=== PATIENT | female | born 1950 | race Caucasian/White ===

== ENCOUNTER 2022-06-21 07:02 | Inpatient (IN) | payer MEDICARE, OTHER, SELFPAY ==
[2022-06-21] VITALS (17 sets, daily range): BP systolic 98–142; BP diastolic 61–84; PULSE 97–126; RESP 16–30; TEMP 36–38.6; O2SAT 90–97; BMI 26.6
--- NOTE | ~2022-06-21 | XR_ITS ---
EXAMINATION: XR CHEST CLINICAL INFORMATION: Question aspiration COMPARISON: Previous chest x-ray 06/21/2022 TECHNIQUE: Frontal view of the chest was obtained. FINDINGS: The cardiac and mediastinal contours are stable. There are coarse lung markings at the lung bases and question bronchial wall thickening. Appearance is similar to recent exam. No definite pneumonia. No pleural effusion or pneumothorax. Old left rib fractures degenerative changes of the spine. XR/XR chest 1V IMPRESSION: Coarse lung markings at the lung bases and bronchial wall thickening. No definite pneumonia.
--- NOTE | ~2022-06-21 | XR_ITS ---
EXAMINATION: XR CHEST CLINICAL INFORMATION: Shortness of breath COMPARISON: None TECHNIQUE: Frontal view of the chest was obtained. FINDINGS: Normal symmetric lung volumes. No parenchymal consolidation. Diffuse bronchial thickening, more pronounced in the lower lungs. No pleural effusion. No pneumothorax. Cardiomediastinal silhouette and pulmonary vascularity are within normal limits. Aorta is atherosclerotic. No acute osseous abnormalities. XR/XR chest 1V IMPRESSION: Diffuse bronchial thickening as can be seen with bronchitis. No discrete consolidation.
--- NOTE | ~2022-06-21 | XR_ITS ---
EXAMINATION: XR CHEST CLINICAL INFORMATION: Shortness of breath COMPARISON: Portable chest 06/21/2022 TECHNIQUE: Portable upright AP view of the chest was obtained. FINDINGS: No pneumothorax, pleural reaction, airspace consolidation, groundglass opacity. Mild coarsening bronchiolar markings lower zones are stable. The costophrenic sulci are grossly clear. The heart is normal in size. The vascularity is normal. Hilar and mediastinal contours and bony structures are similar to prior exam. XR/XR chest 1V IMPRESSION: No acute intrathoracic disease.
--- NOTE | 2022-06-21 07:16 | ECG_ITS ---
Test Reason : DYSPNEA Blood Pressure : / mmHG Vent. Rate : 123 BPM Atrial Rate : 123 BPM P-R Int : 130 ms QRS Dur : 072 ms QT Int : 308 ms P-R-T Axes : 073 063 073 degrees QTc Int : 440 ms Sinus tachycardia Right atrial enlargement Nonspecific ST abnormality Abnormal ECG No previous ECGs available Referred By: Generic ED Physician Electronically Signed By:ISAURO MARSHALL
--- NOTE | 2022-06-21 07:26 | ED.SOB ---
HPI - SOB/Dyspnea General Chief Complaint: Dyspnea Stated Complaint: Fever/Earache/Vomiting/Sore throat Time Seen by Provider: 06/21/22 07:25 Source: patient Mode of arrival: ambulatory Limitations: no limitations History of Present Illness HPI Narrative: shortness of breath for 1 day. Patient feels like she has the flu. Headache, sore throat and ear ache. MD elicited complaint: shortness of breath and cough Pertinent past history: COPD Onset (ago): day(s) Timing: constant Severity: severe Known history of: COPD Related Data Home oxygen amount: 2 liters Home Medications Medication Instructions Recorded Confirmed albuterol sulfate 90 mcg/actuation 2 puff inhalation Q6H PRN wheezing 06/21/22 06/21/22 aerosol inhaler (Ventolin HFA) alendronate 70 mg tablet 70 mg PO NAYLOR@0600 06/21/22 06/21/22 fluoxetine 40 mg capsule 1 cap PO DAILY 06/21/22 06/21/22 fluticasone fur. 100 mcg-umeclid 1 puff inhalation DAILY 06/21/22 06/21/22 62.5 mcg-vilant 25 mcg inhalat.powder (Trelegy Ellipta) omeprazole 20 mg capsule,delayed 1 cap PO DAILY 06/21/22 06/21/22 release Previous Rx's Medication Instructions Recorded doxycycline hyclate 100 mg tablet 100 mg PO BID 10 days #20 tabs 06/24/22 prednisone 10 mg tablet See Rx Instructions .Route 06/24/22 .COMPLEX #45 tabs Allergies Allergy/AdvReac Type Severity Reaction Status Date / Time codeine [CODEINE] AdvReac Unknown NAUSEA & Verified 06/21/22 10:14 VOMITING Codeine Allergy Unknown nasuea Uncoded 06/21/22 10:14 Review of Systems Review of Systems: Yes all other systems are reviewed and are negative Constitutional: Constitutional: Reports body ache(s) and Reports chills ENT: Reports other (sore throat, ear ache) Cardiovascular: Cardiovascular: Reports dyspnea Respiratory: Respiratory: Reports dyspnea Neurologic: Denies Sensory deficit (Neuro) [facility] Past Medical History Medical History COPD (chronic obstructive pulmonary disease) Cyst of left breast Depression FH: cholecystectomy GERD (gastroesophageal reflux disease) Surgical History H/O inguinal hernia repair Family History Family History (Updated 06/21/22 @ 15:13 by Kmi Lowery NP) Mother Renal disease Social History Social History Household Members: Friend(s) Housing: House Do you presently have visiting nurse or other home services: Yes Alcohol intake: unknown Patient Tobacco Use Status: Current everyday Tobacco user Tobacco use type: Cigarette Cigarettes Per Day: 6 Smoked in Last 30 Days: Yes Patient Interested in Nicotine Replacement: Yes Use of substances other than those prescribed or required for medical reasons: No Currently Displaying Signs/Symptoms of Drug Intoxication Withdrawal: No Have you been hit, kicked, punched, or otherwise hurt by someone within the past year? If so, by whom?: No Do you feel safe in your current relationship?: No Current Relationship Is there a partner from a previous relationship who is making you feel unsafe now?: No Are you made to feel afraid or neglected: No Advance Directives: No Advance Directives Information Provided: Yes Do you have thoughts of harming others: None Do you have a plan to hurt others: No Plan Recently lost weight without trying: No How much weight loss: Not applicable Eating poorly because of decreased appetite: No Nutrition screen score: 0 Nutrition Risks: No Nutritional Risk Patient : No : No Poor oral hygiene: No service: No Current occupational status: unemployed Physical Exam Vital Signs: Vital Signs: Last Vital Signs Temp 96.9 F 06/24/22 07:31 Pulse 95 06/24/22 12:05 Resp 18 06/24/22 12:05 BP 147/87 H 06/24/22 07:31 Pulse Ox 96 06/24/22 11:54 O2 Del Method 06/24/22 07:31 O2 Flow Rate 2 06/24/22 07:31 FiO2 31 06/23/22 15:03 BMI result Body Mass Index 26.6 Const: Other: female looking older than stated age, ill appearing, shortness of breath Orientation/consciousness: oriented to person and patient oriented x3 Limitations: no limitations HEENT: Head: Yes normal to inspection Ears: external ears normal General nose exam: Normal external nose present Mouth: Normal oral and palatal mucosa present and oropharynx normal Throat: Yes posterior oropharynx normal Eyes: General: appearance normal, both eyes and all related structures Neck: Other: supple Neck: Yes normal visual inspection Chest: Chest palpation & inspection: normal inspection of the chest Resp: Other: distant, some air movement, wheezing Cardio: Jugular venous distension: no JVD Rate: regular rate Rhythm: regular rhythm Heart sounds: S1 normal heart sound present and S2 normal heart sound present GI: Inspection: Yes normal to inspection Palpation (GI): Soft to palpation, nontender and No hepatosplenomegaly present Auscultation: normal bowel sounds : General: Yes no CVA tenderness Back/Spine/Pelvis: Back: no CVA tenderness Skin: General skin exam: no rashes or lesions noted Neuro: General: oriented to person and patient oriented x3 Cranial nerves: Yes CN's II-XII intact bilaterally Motor exam (neuro): 5/5 motor strength present throughout Sensory Exam: No Sensory deficit (Neuro) Extrem: General: Yes normal to inspection Psych: Appearance: grossly normal Course Reevaluation(s) Reevaluation #1: patient with no evidence of sepsis will treat for COPD exacerbation, will place on ceftriaxone IV and will give steroids Time: 10:57 Reevaluation #2: I spent 40 minutes of critical care, with interventions, assessments, speaking to patient, consultants, and family. Time: 11:08 Medications Administered Generic Name Dose Route Start Last Admin Trade Name Freq PRN Reason Stop Dose Admin Acetaminophen 650 mg 06/21/22 11:58 06/24/22 07:34 Acetaminophen 325 Mg Tablet PO 650 mg Q6H PRN Administration Pain, Mild (Pain Scale 1-3) Albuterol Sulfate 2.5 mg 06/21/22 12:00 06/24/22 12:03 Albuterol Sulfate (0.083%) 2.5 Mg/3 Ml Vial.Neb INHALE 2.5 mg RQ4H WHILE AWAKE DOUGLAS Administration Enoxaparin Sodium 40 mg 06/21/22 14:00 06/24/22 12:31 Enoxaparin Sodium 40 Mg/0.4 Ml Syringe SUBCUT 40 mg Q24H DOUGALS Administration Fluoxetine HCl 40 mg 06/22/22 09:00 06/24/22 07:36 Fluoxetine Hcl 20 Mg Capsule PO 40 mg DAILY DOUGLAS Administration Guaifenesin/Codeine Phosphate 10 ml 06/23/22 13:05 06/24/22 06:32 Guaifen/Codeine Sf 200/20/10ml 10 Ml Liquid PO 10 ml Q4H PRN Administration Cough Piperacillin Sod/Tazobactam 50 mls @ 100 mls/hr 06/23/22 18:30 06/24/22 13:06 Sod 3.375 gm/ Sodium Chloride IV Infused Q6H DOUGLAS Infusion Methylprednisolone Sodium Succinate 40 mg 06/21/22 19:00 06/24/22 12:28 Methylprednisolone Sod Succ 40 Mg/Ml Vial IVPUSH 40 mg Q8H DOUGLAS Administration Omeprazole 20 mg 06/22/22 09:00 06/24/22 07:33 Omeprazole 20 Mg Capsule.Dr PO 20 mg DAILY DOUGLAS Administration Sodium Chloride 3 ml 06/21/22 16:00 06/24/22 07:34 0.9 % Sodium Chloride Flush 3 Ml Syringe IVFLUSH 3 ml QSHIFT DOUGLAS Administration Discontinued Medications Generic Name Dose Route Start Last Admin Trade Name Freq PRN Reason Stop Dose Admin Albuterol Sulfate 7.5 mg 06/21/22 10:58 06/21/22 11:17 Albuterol Sulfate (0.083%) 2.5 Mg/3 Ml Vial.Neb INHALE 06/21/22 10:59 7.5 mg ONCE ONE Administration Albuterol Sulfate 5 mg/ 0 mg 06/21/22 07:31 06/21/22 07:45 Ipratropium [place]lee 0.5 mg INHALE 06/21/22 07:32 2.5 each ONCE ONE Administration Sodium Chloride 2,109.21 mls @ 2,109.21 mls/hr 06/21/22 07:31 06/21/22 10:14 Ns 30 ml/kg infuse over 1 hr (2109.21 ml) 06/21/22 08:30 Infused IVCONT Infusion .Q1H ONE Ceftriaxone Sodium 1 gm/ 50 mls @ 100 mls/hr 06/21/22 10:58 06/21/22 11:41 Sodium Chloride IV 06/21/22 11:27 Infused ONCE ONE Infusion Sodium Chloride 1,000 mls @ 200 mls/hr 06/21/22 11:15 06/21/22 16:25 Ns IVCONT 06/21/22 16:14 Infused .Q5H DOUGLAS Infusion Doxycycline Hyclate 100 mg/ 250 mls @ 166.67 mls/hr 06/21/22 12:00 06/23/22 13:00 Sodium Chloride IV Infused Q12H DOUGLAS Infusion Magnesium Sulfate 2 gm in 50 mls @ 25 mls/hr 06/21/22 12:25 06/21/22 12:47 Magnesium Sulfate/H2o IV 06/21/22 14:24 Infused ONCE ONE Infusion Ibuprofen 800 mg 06/23/22 00:02 06/23/22 00:20 Ibuprofen 800 Mg Tablet PO 06/23/22 00:03 800 mg ONCE ONE Administration Lorazepam 0.5 mg 06/23/22 13:05 06/23/22 13:27 Lorazepam 2 Mg/Ml Vial IVPUSH 06/23/22 13:06 0.5 mg ONCE ONE Administration Methylprednisolone Sodium Succinate 125 mg 06/21/22 10:58 06/21/22 11:15 Methylprednisolone Sod Succ 125 Mg/2 Ml Vial IVPUSH 06/21/22 10:59 125 mg ONCE ONE Administration Trazodone HCl 50 mg 06/21/22 22:17 06/21/22 22:21 Trazodone Hcl 50 Mg Tablet PO 06/21/22 22:18 50 mg ONCE ONE Administration Trazodone HCl 50 mg 06/23/22 00:02 06/23/22 00:21 Trazodone Hcl 50 Mg Tablet PO 06/23/22 00:03 50 mg ONCE ONE Administration Medical Decision Making Differential Diagnosis Differential Diagnoses: The differential diagnosis associated with the presentation includes (fever, COPD exacerbation, pneumonia, sepsis UTI all considered) Admission/Observation Consideration of admission/observation: Escalation of care including admission/observation considered (With these constellations of symptoms patient was immediately considered for admission.) Consult Healthcare Provider Management of the patient was discussed with: Hospitalist Lab Data MDM Lab Attestation statement: I reviewed the patient's lab results. 06/21/22 07:47 06/21/22 07:47 Labs: Lab Results 06/21/22 06/21/22 06/21/22 Range/Units 07:47 07:47 07:47 WBC 16.4 H (4.8-10.8) X10*3/uL RBC 5.24 (4.20-5.50) X10*6/uL Hgb 15.9 (12.0-16.0) g/dl Hct 49.1 H (37.0-47.0) % MCV 93.7 (80.0-98.0) fL MCH 30.3 (27.0-33.0) pg MCHC 32.4 (31.0-35.0) g/dl RDW 12.8 (11.0-16.0) % Plt Count 217 (160-400) X10*3/uL MPV 10.4 (9.4-12.3) fL Immature Gran % (Auto) 0.6 H (0.0-0.4) % Neut % (Auto) 81.9 H (45-73) % Lymph % (Auto) 6.8 L (20-40) % [place] % (Auto) 10.1 (2-11) % Eos % (Auto) 0.1 (0-4) % Baso % (Auto) 0.5 (0-2) % Lymph # (Auto) 1.1 L (1.2-4.9) X10*3/uL [place] # (Auto) 1.7 H (0.1-1.2) X10*3/uL Eos # (Auto) 0.0 (0.0-0.4) X10*3/uL Baso # (Auto) 0.1 (0.0-0.2) X10*3/uL Abs Immat Gran (auto) 0.10 H (0.00-0.03) X10*3/uL Absolute Neuts (auto) 13.5 H (2.0-8.3) x10*3/uL Absolute Nucleated RBC 0.000 (0.0-0.012) X10*3/uL Nucleated RBC % (auto) 0.0 (0.0-0.2) /100WBC Smear Tech's Comments VERIFIED Sodium (135-145) mmol/L Potassium (3.3-5.1) mmol/L Chloride (96-108) mmol/L Carbon Dioxide (22-29) mmol/L Anion Gap (12-20) BUN (9-16) mg/dL Creatinine (0.5-1.4) mg/dL Estim Creat Clear Calc Estimated GFR Random Glucose (60-115) mg/dL Lactic Acid 1.3 (0.5-2.0) mmol/L Calcium (8.4-10.2) mg/dL Total Bilirubin (0.0-1.0) mg/dL Influenza Type A (PCR) NEGATIVE (Negative) Influenza Type B (PCR) NEGATIVE (Negative) RSV RNA Qual (PCR) NEGATIVE (Negative) SARS-CoV-2 RNA (RT-PCR) NEGATIVE (Negative) 06/21/22 Range/Units 07:47 WBC (4.8-10.8) X10*3/uL RBC (4.20-5.50) X10*6/uL Hgb (12.0-16.0) g/dl Hct (37.0-47.0) % MCV (80.0-98.0) fL MCH (27.0-33.0) pg MCHC (31.0-35.0) g/dl RDW (11.0-16.0) % Plt Count (160-400) X10*3/uL MPV (9.4-12.3) fL Immature Gran % (Auto) (0.0-0.4) % Neut % (Auto) (45-73) % Lymph % (Auto) (20-40) % [place] % (Auto) (2-11) % Eos % (Auto) (0-4) % Baso % (Auto) (0-2) % Lymph # (Auto) (1.2-4.9) X10*3/uL [place] # (Auto) (0.1-1.2) X10*3/uL Eos # (Auto) (0.0-0.4) X10*3/uL Baso # (Auto) (0.0-0.2) X10*3/uL Abs Immat Gran (auto) (0.00-0.03) X10*3/uL Absolute Neuts (auto) (2.0-8.3) x10*3/uL Absolute Nucleated RBC (0.0-0.012) X10*3/uL Nucleated RBC % (auto) (0.0-0.2) /100WBC Smear Tech's Comments Sodium 137 (135-145) mmol/L Potassium 3.7 (3.3-5.1) mmol/L Chloride 100 (96-108) mmol/L Carbon Dioxide 23 (22-29) mmol/L Anion Gap 18 (12-20) BUN 17 H (9-16) mg/dL Creatinine 1.21 (0.5-1.4) mg/dL Estim Creat Clear Calc 41.0 Estimated GFR 44 Random Glucose 178 H (60-115) mg/dL Lactic Acid (0.5-2.0) mmol/L Calcium 9.1 (8.4-10.2) mg/dL Total Bilirubin 2.1 H (0.0-1.0) mg/dL Influenza Type A (PCR) (Negative) Influenza Type B (PCR) (Negative) RSV RNA Qual (PCR) (Negative) SARS-CoV-2 RNA (RT-PCR) (Negative) Independent Interpretation I performed an independent interpretation of an: Plain X-Ray (CXR no infiltrate) Discharge Plan Discharge Clinical Impression: Acute exacerbation of chronic obstructive pulmonary disease, Fever Patient Disposition: Admitted As Inpatient Interventions: Admission Worksheet (ED) Last Done: 06/21/22 13:30 Discharge Date/Time: 06/21/22 13:38
[2022-06-21 07:54] LABS: Basophils Absolute Auto 0.1 X10*3/uL (0.0-0.2); Basophils Percent Auto 0.5 % (0-2); Eosinophils Percent Auto 0.1 % (0-4); Hematocrit 49.1 % (37.0-47.0); Hemoglobin 15.9 g/dl (12.0-16.0); Imm Gran Pct Auto 0.6 % (0.0-0.4); Lymphocytes Absolute Auto 1.1 X10*3/uL (1.2-4.9); Lymphocytes Percent Auto 6.8 % (20-40); MANUAL DIFF FLAG SCAN; Mean Corpuscular HGB Conc 32.4 g/dl (31.0-35.0); Mean Corpuscular Hemoglobin 30.3 pg (27.0-33.0); Mean Corpuscular Volume 93.7 fL (80.0-98.0); Mean Platelet Volume 10.4 fL (9.4-12.3); Monocytes Absolute Auto 1.7 X10*3/uL (0.1-1.2); Monocytes Percent Auto 10.1 % (2-11); Neutrophils Absolute Auto 13.5 x10*3/uL (2.0-8.3); Neutrophils Percent Auto 81.9 % (45-73); Platelet Count 217 X10*3/uL (160-400); Red Blood Count 5.24 X10*6/uL (4.20-5.50); Red Cell Distribution Width 12.8 % (11.0-16.0); SCAN SMEAR FLAG 1; White Blood Count 16.4 X10*3/uL (4.8-10.8)
[2022-06-21] MEDS: 0.9 % Sodium Chloride 2,109.21 ML 2109.21 ML IVCONT (08:10)
[2022-06-21 08:13] LABS: Lactic Acid 1.3 mmol/L (0.5-2.0)
[2022-06-21 08:15] LABS: SLIDE REVIEW VERIFIED
[2022-06-21 08:29] LABS: Anion Gap 18 (12-20); Bilirubin Total 2.1 mg/dL (0.0-1.0); Blood Urea Nitrogen 17 mg/dL (9-16); Calcium 9.1 mg/dL (8.4-10.2); Carbon Dioxide 23 mmol/L (22-29); Chloride 100 mmol/L (96-108); Estimated Glomerular Filt Rate 44; Glucose Random 178 mg/dL (60-115); Potassium 3.7 mmol/L (3.3-5.1); Sodium 137 mmol/L (135-145)
[2022-06-21 08:30] LABS: Influenza A PCR NEGATIVE (Negative); Influenza B PCR NEGATIVE (Negative); Resp Syncy Virus RNA Qual PCR NEGATIVE (Negative); SARS COV2 PCR INHOUSE NEGATIVE (Negative)
--- NOTE | 2022-06-21 10:20 | PC.NURSE ---
preliminary med rec completed.
--- NOTE | 2022-06-21 10:44 | PC.NURSE ---
Increased WOB noted, expiratiory wheezing heard. RT notified.
--- NOTE | 2022-06-21 10:46 | PC.NURSE ---
MD notified of Pt condition. plan at this time 2nd neb treatment and IV steroids.
[2022-06-21] MEDS: 0.9 % Sodium Chloride 1,000 ML 200 ML IVCONT (11:14)
[2022-06-21] MEDS: methylPREDNISolone Sod Succ 125 MG/2 ML VIAL IVPUSH (11:15)
[2022-06-21] MEDS: cefTRIAXone sodium 1 GM in 0.9 % Sodium Chloride 50 ML IV (11:16)
[2022-06-21] MEDS: Albuterol Sulfate (0.083%) 2.5 MG/3 ML VIAL.NEB 7.5 MG INHALE (11:17)
--- NOTE | 2022-06-21 11:52 | PHA.MEDREC ---
MED REC COMPLETE Pharmacy Consult ? Medication Reconciliation Pharmacy has completed the medication reconciliation.
--- NOTE | 2022-06-21 12:09 | P.HPHOSP_ITS ---
History of Present Illness Date of Service: 06/21/22 Chief Complaint: SOB 72-year-old woman presenting to the ER with complaints of worsening shortness of breath over the last several days. She has history of COPD and continues to smoke half a pack cigarettes a day. She reported that she became shortness of breath worse with exertion. She does wear 2 L of oxygen as needed and had been wearing it more over the last couple days. She denied recent travel, sick contacts, fever, chills, nausea, vomiting, diarrhea. She was noted to have an elevated white count 16.4, tachycardia, tachypnea and fever of 101.4. Chest x- ray negative for consolidation or effusion. Negative flu, RSV and COVID. She received albuterol, ceftriaxone, Solu-Medrol, magnesium and doxycycline in the ER. She will be admitted for further management and treatment of sepsis secondary to bronchitis with COPD exacerbation Review of Systems Review of Systems: Denies any recent fever chills or decrease in appetite respiratory see HPI cardiovascular denies chest pain gastrointestinal denies any dysphagia abdominal pain nausea vomiting or diarrhea genitourinary denies any dysuria frequency or hematuria musculoskeletal denies any joint pain or swelling neuropsych denies any weakness or seizures all other systems reviewed are negative [facility] Medical History (Updated 06/21/22 @ 15:12 by Kim Lowery NP) COPD (chronic obstructive pulmonary disease) Cyst of left breast Depression FH: cholecystectomy GERD (gastroesophageal reflux disease) Family History (Updated 06/21/22 @ 15:13 by Kim Lowery NP) Mother Renal disease Surgical History (Updated 06/21/22 @ 15:12 by Kim Lowery NP) H/O inguinal hernia repair Social History Household Members: Friend(s) Housing: House Do you presently have visiting nurse or other home services: Yes Alcohol intake: unknown Patient Tobacco Use Status: Current everyday Tobacco user Tobacco use type: Cigarette Cigarettes Per Day: 6 Smoked in Last 30 Days: Yes Patient Interested in Nicotine Replacement: Yes Use of substances other than those prescribed or required for medical reasons: No Currently Displaying Signs/Symptoms of Drug Intoxication Withdrawal: No Have you been hit, kicked, punched, or otherwise hurt by someone within the past year? If so, by whom?: No Do you feel safe in your current relationship?: No Current Relationship Is there a partner from a previous relationship who is making you feel unsafe now?: No Are you made to feel afraid or neglected: No Advance Directives: No Advance Directives Information Provided: Yes Do you have thoughts of harming others: None Do you have a plan to hurt others: No Plan Recently lost weight without trying: No How much weight loss: Not applicable Eating poorly because of decreased appetite: No Nutrition screen score: 0 Nutrition Risks: No Nutritional Risk Patient : No : No Poor oral hygiene: No service: No Current occupational status: unemployed Meds Allergies Allergy/AdvReac Type Severity Reaction Status Date / Time codeine [CODEINE] AdvReac Unknown NAUSEA & Verified 06/21/22 10:14 VOMITING Codeine Allergy Unknown nasuea Uncoded 06/21/22 10:14 Active Medications: Current Medications Acetaminophen (Acetaminophen 325 Mg Tablet) 650 mg PO Q6H PRN PRN Reason: Pain, Mild (Pain Scale 1-3) Albuterol Sulfate (Albuterol Sulfate (0.083%) 2.5 Mg/3 Ml Vial.Neb) 2.5 mg INHALE RQ4H WHILE AWAKE [facility] Enoxaparin Sodium (Enoxaparin Sodium 40 Mg/0.4 Ml Syringe) 40 mg SUBCUT Q24H [facility]1983 Sodium Chloride (Ns) 1,000 mls @ 200 mls/hr IVCONT .Q5H DOUGLAS Stop: 06/21/22 16:14 Last Admin: 06/21/22 11:14 Dose: 200 mls/hr Doxycycline Hyclate 100 mg/ (Sodium Chloride) 250 mls @ 166.67 mls/hr IV Q12H [facility]1983 Methylprednisolone Sodium Succinate (Methylprednisolone Sod Succ 40 Mg/Ml Vial) 40 mg IVPUSH Q8H [facility]1983 Ondansetron HCl (Ondansetron Hcl 4 Mg/2 Ml Vial) 4 mg IVPUSH Q8H PRN PRN Reason: Nausea and Vomiting Sodium Chloride (0.9 % Sodium Chloride Flush 3 Ml Syringe) 3 ml IVFLUSH QSHIFT [facility] Home Medications Medication Instructions Recorded Confirmed Last Taken Type albuterol sulfate 90 mcg/actuation 2 puff inhalation Q6H PRN wheezing 06/21/22 06/21/22 1 Day Ago History aerosol inhaler (Ventolin HFA) ~06/20/22 alendronate 70 mg tablet 70 mg PO NAYLOR@0600 06/21/22 06/21/22 Unknown History fluoxetine 40 mg capsule 1 cap PO DAILY 06/21/22 06/21/22 1 Day Ago History ~06/20/22 fluticasone fur. 100 mcg-umeclid 1 puff inhalation DAILY 06/21/22 06/21/22 1 Day Ago History 62.5 mcg-vilant 25 mcg ~06/20/22 inhalat.powder (Trelegy Ellipta) omeprazole 20 mg capsule,delayed 1 cap PO DAILY 06/21/22 06/21/22 1 Day Ago History release ~06/20/22 Physical Exam Vital Signs and Narrative: Vital Signs: Last Vital Signs Temp 98.2 F 06/21/22 10:05 Pulse 113 H 06/21/22 11:53 Resp 26 H 06/21/22 11:53 BP 141/84 H 06/21/22 11:53 Pulse Ox 95 06/21/22 11:53 O2 Del Method 06/21/22 11:53 O2 Flow Rate 2.5 06/21/22 11:53 BMI result Body Mass Index 26.6 Appearing in no acute distress head is normocephalic atraumatic eyes pupils are PERRLA sclera is anicteric mouth throat mucous membranes are intact and moist neck is supple no lymphadenopathy, no JVD noted lung sounds are clear to auscultation heart regular rate rhythm, clear S1, S2 positive bowel sounds, abdomen is soft, nontender neuro patient is alert x3, no focal deficits Results Labs 06/21/22 07:47 06/21/22 07:47 Labs: Laboratory Results - last 24 hr 06/21/22 06/21/22 06/21/22 07:47 07:47 07:47 MCV 93.7 MCH 30.3 MCHC 32.4 RDW 12.8 Plt Count 217 MPV 10.4 Immature Gran % (Auto) 0.6 H Neut % (Auto) 81.9 H Lymph % (Auto) 6.8 L [place] % (Auto) 10.1 Eos % (Auto) 0.1 Baso % (Auto) 0.5 Lymph # (Auto) 1.1 L [place] # (Auto) 1.7 H Eos # (Auto) 0.0 Baso # (Auto) 0.1 Abs Immat Gran (auto) 0.10 H Absolute Neuts (auto) 13.5 H Absolute Nucleated RBC 0.000 Nucleated RBC % (auto) 0.0 Smear Tech's Comments VERIFIED Anion Gap Estim Creat Clear Calc Estimated GFR Random Glucose Lactic Acid 1.3 Calcium Total Bilirubin Influenza Type A (PCR) NEGATIVE Influenza Type B (PCR) NEGATIVE RSV RNA Qual (PCR) NEGATIVE SARS-CoV-2 RNA (RT-PCR) NEGATIVE 06/21/22 07:47 MCV MCH MCHC RDW Plt Count MPV Immature Gran % (Auto) Neut % (Auto) Lymph % (Auto) [place] % (Auto) Eos % (Auto) Baso % (Auto) Lymph # (Auto) [place] # (Auto) Eos # (Auto) Baso # (Auto) Abs Immat Gran (auto) Absolute Neuts (auto) Absolute Nucleated RBC Nucleated RBC % (auto) Smear Tech's Comments Anion Gap 18 Estim Creat Clear Calc 41.0 Estimated GFR 44 Random Glucose 178 H Lactic Acid Calcium 9.1 Total Bilirubin 2.1 H Influenza Type A (PCR) Influenza Type B (PCR) RSV RNA Qual (PCR) SARS-CoV-2 RNA (RT-PCR) Imaging Radiologist's Impressions: Impressions Chest X-Ray 06/21/22 07:50 IMPRESSION: Diffuse bronchial thickening as can be seen with bronchitis. No discrete consolidation. Assessment and Plan (1) Acute exacerbation of chronic obstructive pulmonary disease: Status: Acute Plan 72-year-old woman admitted to ER for COPD exacerbation with viral sepsis secondary to bronchitis Viral sepsis secondary to bronchitis Leukocytosis, Fever, tachycardia, tachypnea, normal lactic acid Follow final cultures Doxycycline Acute on chronic COPD exacerbation Scheduled DuoNebs and Solu-Medrol Supplemental oxygen as needed Mental health Continue home medications GERD Continue PPI DVT prophylaxis with Lovenox Attending Dr. Medina Full code Observation Time Spent With Patient Time: Total time managing care of this patient today ____ minutes. Quality Stroke Does the patient have a stroke diagnosis?: No VTE Prior VTE?: No VTE Risk Level:: Medical - moderate - high VTE Device Contraindication: Treatment Not Indicated VTE Drug Contraindication: N/A - Med Ordered
--- NOTE | 2022-06-21 12:15 | PC.NURSE ---
On HFNC 50LPM at 31% fio2.
[2022-06-21] MEDS: Magnesium Sulfate/H2O 2 GM/50 ML PIGGYBACK IV (12:33)
[2022-06-21] MEDS: Doxycycline Hyclate 100 MG in 0.9 % Sodium Chloride 250 ML 166.67 MG IV ×2 (12:47→23:28)
[2022-06-21] MEDS: Enoxaparin Sodium 40 MG/0.4 ML SYRINGE SUBCUT (14:12)
[2022-06-21] MEDS: Albuterol Sulfate (0.083%) 2.5 MG/3 ML VIAL.NEB INHALE ×2 (15:00→19:44)
[2022-06-21 16:03] LABS: VBG Base Excess -6.8 mmol/L; VBG HCO3 16 mmol/L (22-26); VBG pCO2 27 mmHg; VBG pH 7.38 (7.32-7.43); VBG pO2 188 mmHg
[2022-06-21 16:07] LABS: Venous Blood Gas Refer to POC result
[2022-06-21] MEDS: methylPREDNISolone Sod Succ 40 MG/ML VIAL IVPUSH (18:09)
[2022-06-21] MEDS: 0.9 % Sodium Chloride Flush 3 ML SYRINGE IVFLUSH (19:23)
[2022-06-21] MEDS: traZODone HCL 50 MG TABLET PO (22:21)
[2022-06-22] VITALS (10 sets, daily range): BP systolic 115–153; BP diastolic 58–72; PULSE 60–100; RESP 16–24; TEMP 36–37.6; O2SAT 95–98
[2022-06-22] MEDS: methylPREDNISolone Sod Succ 40 MG/ML VIAL IVPUSH ×3 (02:40→18:08)
[2022-06-22 06:10] LABS: MANUAL DIFF FLAG NO
[2022-06-22 06:41] LABS: Anion Gap 12 (12-20); Blood Urea Nitrogen 14 mg/dL (9-16); Calcium 8.5 mg/dL (8.4-10.2); Carbon Dioxide 21 mmol/L (22-29); Chloride 111 mmol/L (96-108); Creatinine Clr Calc Pharmacy 64.4; Estimated Glomerular Filt Rate > 60; Glucose Random 181 mg/dL (60-115); Potassium 3.5 mmol/L (3.3-5.1); Sodium 140 mmol/L (135-145)
[2022-06-22 06:46] LABS: Basophils Percent Auto 0.2 % (0-2); Hematocrit 40.5 % (37.0-47.0); Hemoglobin 12.7 g/dl (12.0-16.0); Imm Gran Abs Auto 0.11 X10*3/uL (0.00-0.03); Imm Gran Pct Auto 0.8 % (0.0-0.4); Lymphocytes Absolute Auto 0.6 X10*3/uL (1.2-4.9); Lymphocytes Percent Auto 4.2 % (20-40); Mean Corpuscular HGB Conc 31.4 g/dl (31.0-35.0); Mean Corpuscular Hemoglobin 30.1 pg (27.0-33.0); Mean Platelet Volume 11.1 fL (9.4-12.3); Monocytes Absolute Auto 0.9 X10*3/uL (0.1-1.2); Monocytes Percent Auto 6.5 % (2-11); Neutrophils Absolute Auto 12.3 x10*3/uL (2.0-8.3); Neutrophils Percent Auto 88.3 % (45-73); Platelet Count 230 X10*3/uL (160-400); Red Blood Count 4.22 X10*6/uL (4.20-5.50); Red Cell Distribution Width 13.2 % (11.0-16.0); White Blood Count 13.9 X10*3/uL (4.8-10.8)
[2022-06-22] MEDS: FLUoxetine HCl 20 MG CAPSULE 40 MG PO (08:11)
[2022-06-22] MEDS: Omeprazole 20 MG CAPSULE.DR PO (08:11)
[2022-06-22] MEDS: 0.9 % Sodium Chloride Flush 3 ML SYRINGE IVFLUSH ×3 (08:12→22:38)
[2022-06-22] MEDS: Albuterol Sulfate (0.083%) 2.5 MG/3 ML VIAL.NEB INHALE ×4 (08:23→19:47)
--- NOTE | 2022-06-22 09:42 | MHC.CM.PN ---
OLGA 06/22/22, EMR REVIEWED, PT ADMITTED W/BRONCHITIS AND COPD EXAC, CM MET WPT WHO REPORTS SHE LIVES ALONE, HER EXPARTNER AND SON/GF LIVE IN DOWNSTAIRS APT IF SHE NEEDS ANYTHING, PT REPORTS SHE WALKS W/A CANE, HAS A SHOWER CHAIR AND GRAB BARS IN BR, PT HAS [facility]XWK FOR 1.75HRS FOR SHOWERING/CLEANING/LAUNDRY, PT REPORTS GUSTAVO IS HER [facility] DENTIST. PT VERIFIES PCP IS JOESPH MARTINEZ VACC X4-5 AND PT INITIALLY REPORTED FRIEND/PRIMARY CONTACT [facility]EE HER HCP HOWEVER HAS NOT DONE FORMAL PAPERWORK AND DECLINES TO DO SO AT THIS TIME. D/C PLAN: HOME W/RESUMP OF SERVICES, FRIEND [facility] FOR TRANSPORT
--- NOTE | 2022-06-22 09:49 | P.PNIM_ITS ---
Subjective Subjective Date of Service: 06/22/22 Review of Systems Follow up COPD exacerbation still with sob on ambulation high flow Physical Exam Vital Signs: Vital Signs: Last Vital Signs Temp 96.8 F 06/22/22 07:12 Pulse 87 06/22/22 08:27 Resp 18 06/22/22 08:27 BP 142/66 H 06/22/22 07:12 Pulse Ox 96 06/22/22 07:12 O2 Del Method 06/22/22 07:12 O2 Flow Rate 31 06/21/22 15:55 FiO2 31 06/22/22 07:12 BMI result Body Mass Index 26.6 Appearing in no acute distress lung sounds exp wheezing heart regular rate rhythm, clear S1, S2 positive bowel sounds, abdomen is soft, nontender neuro patient is alert x3, no focal deficits Objective Data Active Medications Acetaminophen (Acetaminophen 325 Mg Tablet) 650 mg PO Q6H PRN PRN Reason: Pain, Mild (Pain Scale 1-3) Albuterol Sulfate (Albuterol Sulfate (0.083%) 2.5 Mg/3 Ml Vial.Neb) 2.5 mg INHALE RQ4H WHILE AWAKE [facility] Last Admin: 06/22/22 08:23 Dose: 2.5 mg Documented By: GEOFF Albuterol Sulfate (Albuterol Sulfate 90 Mcg 8 Gm Inhaler) 2 puff INHALE Q6H PRN PRN Reason: wheezing Enoxaparin Sodium (Enoxaparin Sodium 40 Mg/0.4 Ml Syringe) 40 mg SUBCUT Q24H [facility] Last Admin: 06/21/22 14:12 Dose: 40 mg Documented By: WILLIE Fluoxetine HCl (Fluoxetine Hcl 20 Mg Capsule) 40 mg PO DAILY [facility] Last Admin: 06/22/22 08:11 Dose: 40 mg Documented By: WILLIE Doxycycline Hyclate 100 mg/ (Sodium Chloride) 250 mls @ 166.67 mls/hr IV Q12H [facility] Last Infusion: 06/22/22 01:03 Dose: 0 mls/hr Documented By: ANTHONY Methylprednisolone Sodium Succinate (Methylprednisolone Sod Succ 40 Mg/Ml Vial) 40 mg IVPUSH Q8H [facility] Last Admin: 06/22/22 02:40 Dose: 40 mg Documented By: ANTHONY Omeprazole (Omeprazole 20 Mg Capsule.) 20 mg PO DAILY [facility] Last Admin: 06/22/22 08:11 Dose: 20 mg Documented By: WILLIE Ondansetron HCl (Ondansetron Hcl 4 Mg/2 Ml Vial) 4 mg IVPUSH Q8H PRN PRN Reason: Nausea and Vomiting Sodium Chloride (0.9 % Sodium Chloride Flush 3 Ml Syringe) 3 ml IVFLUSH QSHIFT [facility] Last Admin: 06/22/22 08:12 Dose: 3 ml Documented By: WILLIE Labs 06/22/22 05:26 06/22/22 05:26 Labs: Laboratory Results - last 24 hr 06/21/22 06/22/22 06/22/22 15:54 05:26 05:26 MCV 96.0 MCH 30.1 MCHC 31.4 RDW 13.2 Plt Count 230 MPV 11.1 Immature Gran % (Auto) 0.8 H Neut % (Auto) 88.3 H Lymph % (Auto) 4.2 L [place] % (Auto) 6.5 Eos % (Auto) 0.0 Baso % (Auto) 0.2 Lymph # (Auto) 0.6 L [place] # (Auto) 0.9 Eos # (Auto) 0.0 Baso # (Auto) 0.0 Abs Immat Gran (auto) 0.11 H Absolute Neuts (auto) 12.3 H Absolute Nucleated RBC 0.000 Nucleated RBC % (auto) 0.0 VBG pH 7.38 VBG pCO2 27 VBG pO2 188 VBG HCO3 16 L VBG O2 Saturation 100.0 VBG Base Excess -6.8 Anion Gap 12 Estim Creat Clear Calc 64.4 Estimated GFR > 60 Random Glucose 181 H Calcium 8.5 D Assessment and Plan (1) Acute exacerbation of chronic obstructive pulmonary disease: Status: Acute Plan 72-year-old woman admitted to ER for COPD exacerbation with viral sepsis secondary to bronchitis Viral sepsis secondary to bronchitis. Resolved Leukocytosis, Fever, tachycardia, tachypnea, normal lactic acid Follow final cultures Doxycycline Acute on chronic COPD exacerbation Scheduled DuoNebs and Solu-Medrol baseline VBG 7.38/27/188/16 High flow 32% 35L stable Mental health Continue home medications GERD Continue PPI DVT prophylaxis with Lovenox Attending Dr. Craft Full code Observation Time Spent With Patient Time: Total time managing care of this patient today ____ minutes. Quality Stroke Does the patient have a stroke diagnosis?: No VTE Prior VTE?: No VTE Risk Level:: Medical - moderate - high VTE Device Contraindication: Treatment Not Indicated VTE Drug Contraindication: N/A - Med Ordered
[2022-06-22] MEDS: Acetaminophen 325 MG TABLET 650 MG PO (10:34)
[2022-06-22] MEDS: Doxycycline Hyclate 100 MG in 0.9 % Sodium Chloride 250 ML 166.67 MG IV ×2 (11:58→22:38)
[2022-06-22] MEDS: Enoxaparin Sodium 40 MG/0.4 ML SYRINGE SUBCUT (13:55)
[2022-06-23] VITALS (8 sets, daily range): BP systolic 134–161; BP diastolic 69–93; PULSE 68–98; RESP 14–20; TEMP 36.1–36.4; O2SAT 94–97
[2022-06-23] MEDS: Ibuprofen 800 MG TABLET PO (00:20)
[2022-06-23] MEDS: traZODone HCL 50 MG TABLET PO (00:21)
[2022-06-23] MEDS: methylPREDNISolone Sod Succ 40 MG/ML VIAL IVPUSH ×3 (03:26→18:12)
--- NOTE | 2022-06-23 04:34 | MHC.PIE ---
late entry; 06/22 2329 p; pt c/o pain asking for ibuprofen 800 mg and pt c/o insomnia i; dr ayala notified; new order ibuprofen 800 mg now, trazodone now e; pt asleep, no sign of pain notied in facial expression, will cont to monitor
[2022-06-23 06:57] LABS: Anion Gap 11 (12-20); Blood Urea Nitrogen 23 mg/dL (9-16); Calcium 8.9 mg/dL (8.4-10.2); Carbon Dioxide 26 mmol/L (22-29); Chloride 109 mmol/L (96-108); Creatinine Clr Calc Pharmacy 55.8; Estimated Glomerular Filt Rate > 60; Glucose Random 129 mg/dL (60-115); Potassium 4.2 mmol/L (3.3-5.1); Sodium 142 mmol/L (135-145)
[2022-06-23] MEDS: Albuterol Sulfate (0.083%) 2.5 MG/3 ML VIAL.NEB INHALE ×3 (07:27→15:15)
[2022-06-23] MEDS: 0.9 % Sodium Chloride Flush 3 ML SYRINGE IVFLUSH ×2 (08:15→13:26)
[2022-06-23] MEDS: Omeprazole 20 MG CAPSULE.DR PO (08:15)
[2022-06-23] MEDS: Acetaminophen 325 MG TABLET 650 MG PO (11:04)
[2022-06-23] MEDS: Doxycycline Hyclate 100 MG in 0.9 % Sodium Chloride 250 ML 166.67 MG IV (11:05)
--- NOTE | 2022-06-23 13:23 | MHC.CM.PN ---
Per MD rounds patient may discharge tomorrow. 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 She will arrange for transport home.
[2022-06-23] MEDS: Enoxaparin Sodium 40 MG/0.4 ML SYRINGE SUBCUT (13:26)
[2022-06-23] MEDS: LORazepam 2 MG/ML VIAL 0.5 MG IVPUSH (13:27)
--- NOTE | 2022-06-23 15:20 | MHC.SLORD ---
Addendum entered and electronically signed by Zulma Yang MA, CCC-RESEARCH NURSE PRACTITIONER 06/23/22 16:59: D.S. Original Note: Speech Language Pathology Order Status: RESEARCH NURSE PRACTITIONER attempted to see pt for clinical swallow eval. Pt too lethargic to complete evaluation; had recently been administered Ativan. Pt presents w/ incomplete dentition. Out of precaution d/t reports of pt choking during lunch time and inability to swallow Tylenol, recommend: DOWNGRADE to GROUND/MECH ALTERED (NDD2) solids, no straws, pills crushed/whole in puree when possible until evaluation is able to be completed. RESEARCH NURSE PRACTITIONER will re-attempt evaluation tomorrow morning.
[2022-06-23] MEDS: guaiFEN/Codeine SF 200/20/10ML 10 ML LIQUID PO (17:46)
--- NOTE | 2022-06-23 18:11 | P.PNIM_ITS ---
Subjective Subjective Date of Service: 06/23/22 Interval History: Questionable choking episode this a.m.. Extremely anxious. No respiratory distress Review of Systems Denies chest pain Admit shortness of breath after eating Denies nausea vomiting diarrhea Denies fever chills Physical Exam Vital Signs: Vital Signs: Last Vital Signs Temp 97.4 F 06/23/22 15:03 Pulse 97 06/23/22 15:18 Resp 18 06/23/22 15:18 BP 141/69 H 06/23/22 15:03 Pulse Ox 94 06/23/22 13:18 O2 Del Method 06/23/22 13:18 O2 Flow Rate 3 06/23/22 13:18 FiO2 31 06/23/22 15:03 BMI result Body Mass Index 26.6 Const: Other: Awake alert anxious Resp: Other: Diminished throughout without rales rhonchi or wheezes Cardio: Other: No S4; positive S1-S2; no S3 murmurs rubs or gallops Extrem: Other: No edema bilaterally Objective Data Active Medications Acetaminophen (Acetaminophen 325 Mg Tablet) 650 mg PO Q6H PRN PRN Reason: Pain, Mild (Pain Scale 1-3) Last Admin: 06/23/22 11:04 Dose: 650 mg Documented By: STACY Albuterol Sulfate (Albuterol Sulfate (0.083%) 2.5 Mg/3 Ml Vial.Neb) 2.5 mg INHALE RQ4H WHILE AWAKE [facility] Last Admin: 06/23/22 15:15 Dose: 2.5 mg Documented By: GOLDEN Albuterol Sulfate (Albuterol Sulfate 90 Mcg 8 Gm Inhaler) 2 puff INHALE Q6H PRN PRN Reason: wheezing Enoxaparin Sodium (Enoxaparin Sodium 40 Mg/0.4 Ml Syringe) 40 mg SUBCUT Q24H [facility] Last Admin: 06/23/22 13:26 Dose: 40 mg Documented By: STACY Fluoxetine HCl (Fluoxetine Hcl 20 Mg Capsule) 40 mg PO DAILY [facility] Last Admin: 06/23/22 08:15 Dose: 20 mg Documented By: STACY Guaifenesin/Codeine Phosphate (Guaifen/Codeine Sf 200/20/10ml 10 Ml Liquid) 10 ml PO Q4H PRN PRN Reason: Cough Last Admin: 06/23/22 17:46 Dose: 10 ml Documented By: LUZ MARINA Doxycycline Hyclate 100 mg/ (Sodium Chloride) 250 mls @ 166.67 mls/hr IV Q12H [facility] Last Infusion: 06/23/22 13:00 Dose: 0 mls/hr Documented By: LUZ MARINA Methylprednisolone Sodium Succinate (Methylprednisolone Sod Succ 40 Mg/Ml Vial) 40 mg IVPUSH Q8H [facility] Last Admin: 06/23/22 11:05 Dose: 40 mg Documented By: STACY Omeprazole (Omeprazole 20 Mg Capsule.Dr) 20 mg PO DAILY [facility] Last Admin: 06/23/22 08:15 Dose: 20 mg Documented By: STACY Ondansetron HCl (Ondansetron Hcl 4 Mg/2 Ml Vial) 4 mg IVPUSH Q8H PRN PRN Reason: Nausea and Vomiting Sodium Chloride (0.9 % Sodium Chloride Flush 3 Ml Syringe) 3 ml IVFLUSH QSHIFT [facility] Last Admin: 06/23/22 13:26 Dose: 3 ml Documented By: STACY Labs 06/22/22 05:26 06/23/22 05:27 Labs: Laboratory Results - last 24 hr 06/23/22 05:27 Anion Gap 11 L Estim Creat Clear Calc 55.8 Estimated GFR > 60 Random Glucose 129 H Calcium 8.9 Microbiology Microbiology Results: Microbiology 06/21/22 07:47 Blood Culture - Preliminary Blood - Venous No growth after 48 hours. 06/21/22 07:47 Blood Culture - Preliminary Blood - Venous No growth after 48 hours. Assessment and Plan (1) Dysphasia: Status: Acute (2) Acute exacerbation of chronic obstructive pulmonary disease: Status: Acute (3) Acute sepsis: Status: Acute Plan 72-year-old woman admitted to ER for COPD exacerbation with viral sepsis second lynda to bronchitis; questionable choking episode this morning in backdrop of severe anxiety. 1. Dysphagia -portable chest after incident negative for acute pneumonia -speech consulted; given Ativan for anxiety unable to evaluate -NPO until a.m. pending swallow evaluation -empiric Zosyn 2.Viral sepsis secondary to bronchitis -resolved 3.Acute on chronic COPD exacerbation -Scheduled DuoNebs -Solu-Medrol q.8 hours -titrate O2 to maintain sats greater than equal 92% Lovenox Full code Requires ongoing hospitalization for IV Zosyn for questionable aspiration; speech eval in a.m. Time Spent With Patient Time: Total time managing care of this patient today ____ minutes. Quality Stroke Does the patient have a stroke diagnosis?: No VTE Prior VTE?: No VTE Risk Level:: Medical - moderate - high VTE Device Contraindication: Treatment Not Indicated VTE Drug Contraindication: N/A - Med Ordered
[2022-06-23] MEDS: Piperacillin Sodium/Tazobactam 3.375 GM in 0.9 % Sodium Chloride 50 ML IV (18:56)
[2022-06-24] MEDS: Piperacillin Sodium/Tazobactam 3.375 GM in 0.9 % Sodium Chloride 50 ML IV ×3 (00:17→12:29)
[2022-06-24] MEDS: guaiFEN/Codeine SF 200/20/10ML 10 ML LIQUID PO ×2 (00:41→06:32)
[2022-06-24] MEDS: 0.9 % Sodium Chloride Flush 3 ML SYRINGE IVFLUSH ×2 (00:46→07:34)
[2022-06-24] MEDS: methylPREDNISolone Sod Succ 40 MG/ML VIAL IVPUSH ×2 (03:00→12:28)
[2022-06-24 06:33] LABS: MANUAL DIFF FLAG NO
[2022-06-24 06:36] LABS: Basophils Percent Auto 0.3 % (0-2); Eosinophils Percent Auto 0.2 % (0-4); Hematocrit 42.2 % (37.0-47.0); Hemoglobin 13.2 g/dl (12.0-16.0); Imm Gran Abs Auto 0.17 X10*3/uL (0.00-0.03); Imm Gran Pct Auto 1.3 % (0.0-0.4); Lymphocytes Absolute Auto 0.8 X10*3/uL (1.2-4.9); Lymphocytes Percent Auto 6.1 % (20-40); Mean Corpuscular HGB Conc 31.3 g/dl (31.0-35.0); Mean Corpuscular Hemoglobin 30.6 pg (27.0-33.0); Mean Corpuscular Volume 97.9 fL (80.0-98.0); Mean Platelet Volume 10.8 fL (9.4-12.3); Monocytes Absolute Auto 0.9 X10*3/uL (0.1-1.2); Monocytes Percent Auto 6.8 % (2-11); Neutrophils Absolute Auto 11.1 x10*3/uL (2.0-8.3); Neutrophils Percent Auto 85.3 % (45-73); Platelet Count 307 X10*3/uL (160-400); Red Blood Count 4.31 X10*6/uL (4.20-5.50); Red Cell Distribution Width 13.6 % (11.0-16.0)
[2022-06-24 07:31] VITALS: BP 147/87; PULSE 69; RESP 18; TEMP 36.1; O2SAT 96
[2022-06-24] MEDS: Omeprazole 20 MG CAPSULE.DR PO (07:33)
[2022-06-24] MEDS: FLUoxetine HCl 20 MG CAPSULE 40 MG PO ×2 (07:33→07:36)
[2022-06-24] MEDS: Acetaminophen 325 MG TABLET 650 MG PO (07:34)
[2022-06-24 07:40] LABS: Alanine Aminotransferase 23 U/L (0-31); Albumin Level 3.4 g/dL (3.5-5.0); Alkaline Phosphatase 107 U/L (39-117); Anion Gap 15 (12-20); Aspartate Amino Transferase 24 U/L (5-31); Bilirubin Total 0.2 mg/dL (0.0-1.0); Blood Urea Nitrogen 30 mg/dL (9-16); Calcium 8.8 mg/dL (8.4-10.2); Carbon Dioxide 24 mmol/L (22-29); Chloride 110 mmol/L (96-108); Creatinine Clr Calc Pharmacy 57.7; Estimated Glomerular Filt Rate > 60; Glucose Fasting 123 mg/dL (60-99); Potassium 4.4 mmol/L (3.3-5.1); Sodium 145 mmol/L (135-145); Total Protein 5.6 g/dL (6.5-8.0)
[2022-06-24] MEDS: Albuterol Sulfate (0.083%) 2.5 MG/3 ML VIAL.NEB INHALE ×2 (07:55→12:03)
[2022-06-24 07:57] VITALS: PULSE 96; RESP 18; O2SAT 95
--- NOTE | 2022-06-24 11:06 | MHC.SL.SWA ---
Speech Pathologist Impression: Risk of Aspiration Due to: Medically Fragile Dysphasia Diet Status: Liquid Consistency and Strategies for Safe Swallow: Liquid Intake Recommendation: Thin Liquid Intake Strategies: Small Sips Solid Food Consistency: Dietary Recommendations: Grnd/Mech Altered (NDD2) Additional Modifications to Solid Foods: Patient is able to independently self feed. Recommend patient be on nasal cannula during meals, do not take food/liquid if patient is on High Flow Nasal Cannula. Patient would benefit from periodic supervision during meals, aspiration precautions apply. Oral Medication Intake: Crushed with Puree Please contact the pharmacy regarding appropriate crushable or liquid drug formulations that are available whenever modified delivery is recommended. Compensatory Strategies and Precautions to be Taken for Safe Swallow: Sitting Upright (90 deg) Liquids from Cup Liquids from Straw Small Bites and Sips Supervision While Eating and Drinking for Safe Swallow: Intermittent Supervision Foods to Avoid: Hard to chew solids, crunchy/crumbly foods, rice, raw vegetables, vegetables and fruits with skin. Swallowing Recommended Treatments: Gustatory Stimulation Recommendation for Speech: Inpatient Speech Therapy Comment: Patient presents with a mild to moderate oropharyngeal dysphagia, secondary to partial edentulous state, reduced elevation of larynx noted on all textures during swallow. Patient is currently on Ground Mechanical diet (NDD2) with Thin liquids, which is appropriate (no change recommended). Patient would benefit from periodic supervision during meals, to assure that she is progressing without difficulty and not coughing or choking (evidencing signs of aspiration). Currently at baseline, patient has frequent cough, no coughing or signs of aspiration while eating or drinking were noted on today's study. JOI AREVALO notified of recommendations by secure text, RN in person. RATING CLERK will f/u 1-2 times while patient is in hospital to assure toleration of recommended diet, upgrade if warranted. Frequency/Duration: Date Range for Service Req: Timeline to reassess: Physician Asst Clinican/Clinical Fellow: No Supervisory Statement: I have reviewed and agree with the student/clinical fellow's documentation: N/A Speech Language Pathologist: Tamy Hatfield M.A., [facility]-RATING CLERK
[2022-06-24 11:54] VITALS: PULSE 96; O2SAT 96
[2022-06-24 12:05] VITALS: PULSE 95; RESP 18; O2SAT 94
[2022-06-24] MEDS: Enoxaparin Sodium 40 MG/0.4 ML SYRINGE SUBCUT (12:31)
--- NOTE | 2022-06-24 13:04 | P.DS_ITS ---
DS: Providers Provider Date of Service: 06/24/22 Date of admission: 06/21/22 11:58 Date of discharge: 06/24/22 Primary care physician: Laquita Goodwin MD DS: Diagnosis Discharge Diagnosis (1) Acute exacerbation of chronic obstructive pulmonary disease: Status: Acute (2) Dysphasia: Status: Acute (3) Acute sepsis: Status: Acute DS: Summary Hospital Course Hospital Course: 72-year-old woman presenting to the ER with complaints of worsening shortness of breath over the last several days.? She has history of COPD and continues to smoke half a pack cigarettes a day.? She reported that she became shortness of breath worse with exertion.? She does wear 2 L of oxygen as needed and had been wearing it more over the last couple days.? She denied recent travel, sick contacts, fever, chills, nausea, vomiting, diarrhea.? She was noted to have an elevated white count 16.4, tachycardia, tachypnea and fever of 101.4.? Chest x- ray negative for consolidation or effusion.? Negative flu, RSV and COVID.? She received albuterol, ceftriaxone, Solu-Medrol, magnesium and doxycycline in the ER. a secondary to bonchitis .Admitted with viral sepsis Hospital Course patient admitted to the floor and started on doxycycline and pulse dose steroids. Over the next 48 hours she continue to improve however during a morning meal she developed acute shortness of breath along with aggressive coughing. Portable chest x-ray failed to demonstrate an infiltrate; remaining workup negative for aspiration. She was seen in consultation by speech who recommended ground meats and thin liquids .She will be discharged home to complete a prednisone taper and doxycycline for 10 days. She will follow up with PCP in 2 weeks and resume all home therapies Time Spent with Patient Time attestation: Total time managing care of this patient today ____ minutes. Discharge coordination time: Greater than 30 minutes Quality: Safe Use of Opioids Does Pt have an Active Cancer Diagnosis on the Problem List?: No Quality: Stroke Does the patient have a stroke diagnosis?: No Physical Exam Vital Signs: Vital Signs: Last Vital Signs Temp 96.9 F 06/24/22 07:31 Pulse 95 06/24/22 12:05 Resp 18 06/24/22 12:05 BP 147/87 H 06/24/22 07:31 Pulse Ox 96 06/24/22 11:54 O2 Del Method 06/24/22 07:31 O2 Flow Rate 2 06/24/22 07:31 FiO2 31 06/23/22 15:03 BMI result Body Mass Index 26.6 Const: Other: awake alert no acute shortness of breath Resp: Other: diminished at bases with scattered expiratory wheezes Cardio: Other: no S4; positive S1-S2; no S3 murmurs rubs or gallops GI: Other: soft nontender nondistended with normoactive bowel sounds Extrem: Other: no edema bilaterally DS: Data Data Completed and Pending Labs on day of discharge: Laboratory Results - last 24 hr 06/24/22 06/24/22 05:31 05:31 WBC 13.0 H RBC 4.31 Hgb 13.2 Hct 42.2 MCV 97.9 MCH 30.6 MCHC 31.3 RDW 13.6 Plt Count 307 D MPV 10.8 Immature Gran % (Auto) 1.3 H Neut % (Auto) 85.3 H Lymph % (Auto) 6.1 L [place] % (Auto) 6.8 Eos % (Auto) 0.2 Baso % (Auto) 0.3 Lymph # (Auto) 0.8 L [place] # (Auto) 0.9 Eos # (Auto) 0.0 Baso # (Auto) 0.0 Abs Immat Gran (auto) 0.17 H Absolute Neuts (auto) 11.1 H Absolute Nucleated RBC 0.000 Nucleated RBC % (auto) 0.0 Sodium 145 Potassium 4.4 Chloride 110 H Carbon Dioxide 24 Anion Gap 15 BUN 30 H Creatinine 0.86 Estim Creat Clear Calc 57.7 Estimated GFR > 60 Fasting Glucose 123 H Calcium 8.8 Total Bilirubin 0.2 AST 24 ALT 23 Alkaline Phosphatase 107 Total Protein 5.6 L Albumin 3.4 L Preliminary micro results at discharge 06/21/22 07:47 Blood Culture - Preliminary Blood - Venous No growth after 48 hours. 06/21/22 07:47 Blood Culture - Preliminary Blood - Venous No growth after 48 hours. Discharge Plan Discharge Anticipated Discharge Date/Time: 06/24/22 12:59 Patient Disposition: Home Health Service Discharge Diagnosis: acute COPD exacerbation Referrals: Laquita Goodwin MD [Primary Care Provider] - 1 Week Discharge Medications: New prednisone 10 mg tablet See Rx Instructions .Route .COMPLEX Qty: 45 0RF Rx Instructions: 10 mg orally; 5 tabs p.o. daily x3 days; 4 tabs p.o. daily x3 days; 3 tabs daily x3 days; 2 tabs daily x3 days; 1 tab daily x3 days doxycycline hyclate 100 mg tablet 100 mg PO BID 10 Days Qty: 20 0RF Continued fluoxetine 40 mg capsule 1 cap PO DAILY omeprazole 20 mg capsule,delayed release(DR/EC) 1 cap PO DAILY albuterol sulfate [Ventolin HFA] 90 mcg/actuation HFA aerosol inhaler 2 puff inhalation Q6H PRN (Reason: wheezing) Trelegy Ellipta 100-62.5-25 mcg blister with device 1 puff inhalation DAILY alendronate 70 mg Tablet 70 mg PO NAYLOR@0600 Discharge Orders: Discharge Order (Routine); Ordered 06/24/22 Ordered By: Virgil Márquez Activity on Discharge: lewis mackey Stand Alone Forms: Patient Portal Discharge page Care Plan Goals: Continue all medicines taken before hospital stay; nebulizer 4 times a day as needed Health Concerns: prednisone taper as ordered. Complete course of doxycycline as ordered Plan of Treatment: follow-up the PCP in Assessment: see discharge summary
--- NOTE | 2022-06-24 15:48 | W.MHC.F2F ---
Service Date Service Date: 06/24/22 Encounter Date of encounter: 06/24/22 Encounter: acute inpatient hospitalization Reasons for Services Signs and symptoms assessed: acute exacerbation of COPD secondary to bronchitis Reason for [facility]: medication management and other Reason for physical therapy: home safety and mobility and therapeutic exercises Reason for speech therapy: swallowing impairment Homebound: Leaving the home is medically contraindicated at this time without the asist of a device and/or another person due th the listed conditions above and below. Reason homebound: unsteady gait / fall risk and shortness of breath with minimal effort Homebound supporting statement: monitor O2 saturation Certification: Based on the above findings, I certify that this patient is confined to the home and needs intermittent [facility] care, physical therapy and/or speech therapy, or continues to need occupational therapy. The patient is under my care, and I have initiated the establishment of the plan of care. The patient will be followed by a physician who will periodically review the plan of care. Time Spent With Patient Time: Total time managing care of this patient today ____ minutes.
== END 2022-06-24 15:30 | disposition home health service (06) | DRG 872 ==
LOC: HO.ED 11:08 → HO.S3 13:30 → HO.EDOVER 08-24 07:58 → HO.S3 08-24 07:58
PROVIDERS: Admitting Provider Nurse Practitioner Acute Care; Emergency Provider Emergency Medicine; PCP Internal Medicine; Visit Provider Hospitalist
DX: A41.89 Other specified sepsis (principal); J44.1 Chronic obstructive pulmonary disease with (acute) exacerbation; J40 Bronchitis, not specified as acute or chronic; F17.210 Nicotine dependence, cigarettes, uncomplicated; R13.10 Dysphagia, unspecified; K21.9 Gastro-esophageal reflux disease without esophagitis; Z20.822 Contact with and (suspected) exposure to COVID-19; Z71.6 Tobacco abuse counseling; Z88.5 Allergy status to narcotic agent; Z79.899 Other long term (current) drug therapy
CPT/HCPCS: 0241U; 36415; 71045; 80048; 80053; 82247; 82803; 83605; 85025; 87040; 92610; 93005; 94640; 97162; 99221; 99285; J0696; J1650; J2060; J2543; J2920; J2930; J3475

== ENCOUNTER 2022-09-13 15:05 | Emergency (ER) | payer MEDICARE, OTHER, SELFPAY ==
--- NOTE | ~2022-09-13 | XR_ITS ---
EXAMINATION: XR CHEST CLINICAL INFORMATION: SOB COMPARISON: Chest x-ray 06/23/2022 TECHNIQUE: Frontal view of the chest was obtained. FINDINGS: The lungs are well-expanded and clear. The heart size and perivascular is normal. There are old healed left lateral mid thoracic cage fractures, unchanged to 06/23/2022 exam. XR/XR chest 1V IMPRESSION: Unremarkable chest examination.
[2022-09-13 15:12] VITALS: BP 134/78; PULSE 121; PULSE 82; RESP 18; TEMP 37.1; O2SAT 92; BMI 24.7
[2022-09-13 15:18] VITALS: BP 106/67; PULSE 82; RESP 18; O2SAT 96
--- NOTE | 2022-09-13 15:20 | ECG_ITS ---
Test Reason : SOB Blood Pressure : / mmHG Vent. Rate : 113 BPM Atrial Rate : 113 BPM P-R Int : 104 ms QRS Dur : 070 ms QT Int : 458 ms P-R-T Axes : 000 058 073 degrees QTc Int : 628 ms Sinus tachycardia with short CT Prolonged QT Abnormal ECG When compared with ECG of 21-JUN-2022 07:17, No significant change was found Referred By: Remedios Reilly Electronically Signed By:Wilfredo Cuellar
--- NOTE | 2022-09-13 15:21 | PC.NURSE ---
Alert and oriented. Arrived from home by EMS. Complaints of SOB and stomach ache. sating 86% on 4 liters o2. States normally on 3 liters at home.
--- NOTE | 2022-09-13 15:21 | ED.URI ---
HPI - URI/Sore Throat General Chief Complaint: Upper Respiratory Symptoms Stated Complaint: sob Time Seen by Provider: 09/13/22 15:13 Source: patient and EMS Mode of arrival: EMS Limitations: no limitations History of Present Illness HPI Narrative: A 72-year-old female presenting to the ER for evaluation of SOB over the last several days. Patient with history of COPD continues to smoke half a pack cigarettes a day, patient use supplemental oxygen 3 L at home as needed (patient uses most of the time) patient has been using albuterol inhaler and via nebulizer with no improvement of her symptoms, reported productive cough with greenish sputum, feels chest tightness but no pain which is typical when she has COPD exacerbation. Related Data Home Medications Medication Instructions Recorded Confirmed albuterol sulfate 90 mcg/actuation 2 puff inhalation Q6H PRN wheezing 06/21/22 06/21/22 aerosol inhaler (Ventolin HFA) alendronate 70 mg tablet 70 mg PO NAYLOR@0600 06/21/22 06/21/22 fluoxetine 40 mg capsule 1 cap PO DAILY 06/21/22 06/21/22 fluticasone fur. 100 mcg-umeclid 1 puff inhalation DAILY 06/21/22 06/21/22 62.5 mcg-vilant 25 mcg inhalat.powder (Trelegy Ellipta) omeprazole 20 mg capsule,delayed 1 cap PO DAILY 06/21/22 06/21/22 release Previous Rx's Medication Instructions Recorded doxycycline hyclate 100 mg tablet 100 mg PO BID 10 days #20 tabs 06/24/22 prednisone 10 mg tablet See Rx Instructions .Route 06/24/22 .COMPLEX #45 tabs albuterol sulfate 2.5 mg/3 mL 2.5 mg (3 mL) inhalation Q6H PRN 09/13/22 (0.083 %) solution for nebulization shortness of breath or wheezing #90 mL doxycycline hyclate 100 mg tablet 100 mg PO BID #14 tabs 09/13/22 prednisone 20 mg tablet 20 mg PO BID #10 tabs 09/13/22 Allergies Allergy/AdvReac Type Severity Reaction Status Date / Time codeine [CODEINE] AdvReac Unknown NAUSEA & Verified 06/21/22 10:14 VOMITING Codeine Allergy Unknown nasuea Uncoded 06/21/22 10:14 Review of Systems Review of Systems: All other systems are reviewed and are negative Constitutional: Reports as per HPI and Reports no additional constitutional complaints Eyes: Reports as per HPI and Reports no additional eye complaints Reports system reviewed and no additional complaints, except as documented Cardiovascular: Reports as per HPI and Reports no additional cardiovascular complaints Respiratory: Reports as per HPI and Reports no additional respiratory complaints Gastrointestinal: Reports as per HPI and Reports no additional gastrointestinal complaints Genitourinary: Reports no additional female genitourinary complaints Musculoskeletal: Reports no additional musculoskeletal complaints Skin/Breast: Reports system reviewed and no additional complaints, except as docu Psychiatric: Reports no additional psychiatric complaints Endocrine: Reports no additional endocrine complaints Hematologic/Lymphatic: Reports no additional hematologic/lymphatic complaints Allergic/Immunologic: Reports no additional allergic/immunologic complaints Reports system reviewed and no additional complaints, except as documented and Reports Abnormal speech present COUNTS INCLUDE 234 BEDS AT THE [facility] Past Medical History Medical History COPD (chronic obstructive pulmonary disease) Cyst of left breast Depression FH: cholecystectomy GERD (gastroesophageal reflux disease) Surgical History H/O inguinal hernia repair Family History Family History Mother Renal disease Social History Social History Household Members: Friend(s) Housing: House Do you presently have visiting nurse or other home services: Yes Alcohol intake: former Patient Tobacco Use Status: Current everyday Tobacco user Tobacco use type: Cigarette Cigarettes Per Day: 6 Smoked in Last 30 Days: Yes Use of substances other than those prescribed or required for medical reasons: No Advance Directives: No Advance Directives Information Provided: Yes service: No Current occupational status: unemployed Physical Exam Vital Signs: Vital Signs: Last Vital Signs Temp 98.7 F 09/13/22 15:12 Pulse 107 H 09/13/22 17:46 Resp 26 H 09/13/22 17:46 BP 113/71 09/13/22 17:46 Pulse Ox 94 09/13/22 17:46 O2 Del Method Nasal Cannula 09/13/22 17:46 O2 Flow Rate 4 09/13/22 17:46 Oxygen Flow Rate 4 09/13/22 15:18 BMI result Body Mass Index 24.7 Vital signs have been reviewed as appeared to be correct. Blood pressure normal. Heart rate normal. Respiration rate normal. Temperature normal. Oxygen saturation normal. Appearance: Alert. Oriented X3. No acute distress. Head: Normal external exam. Normocephalic. Atraumatic. No Brock signs noted. No raccoon eyes noted Eyes: PERRLA. EOMI. Conjunctiva and sclera normal. Eyelids normal. ENT: TM's Normal. Pharynx normal. Uvula midline. Moist mucous membranes. No trismus noted. No drooling noted. No muffled voice noted. Neck: Normal inspection. Neck supple. FROM. No adenopathy. Thyroid Normal. No meningeal signs. No neck mass noted. CVS: Normal heart rate and rhythm. Heart sound normal. No murmurs noted. Pulses normal throughout. Respiratory: No respiratory distress. Painless inspiration. Breath sounds normal. Bilateral expiratory wheezing with prolonged expiration. Chest nontender. No accessory muscle usage noted or decreased air movement noted. Abdomen: Soft and nontender. Bowel sounds normal in all 4 quadrants. No distention noted. No organomegaly noted. No visible injury noted. Back: No CVA tenderness. Full range of motion noted. Skin: Skin warm and dry. Normal skin color. Normal skin turgor. No rashes/lesions/lacerations noted. Extremities: No lower extremity edema. Extremities exhibit normal range of motion. Extremities nontender. Neuro: Oriented X 3. Cranial nerve exam: II-XII are grossly intact No motor deficit. No sensory deficit. Reflexes normal. Course Course Course Narrative: 72-year-old female came in for shortness of breath, exam is consistent with COPD exacerbation, no discrete pneumonia on the x-ray will cover with doxycycline for a week with prednisone and bronchodilator, patient is keeping her O2 sat above 94% with 2 L of supplemental oxygen. Patient feels better now and insisting to go home. Patient with history of chronic leukocytosis. Patient is in no respiratory distress respiratory rate 18 per minute with O2 sat of 95% with 3 L of nasal cannula Medications Administered Discontinued Medications Generic Name Dose Route Start Last Admin Trade Name Freq PRN Reason Stop Dose Admin Albuterol Sulfate 7.5 mg 09/13/22 15:20 09/13/22 16:03 Albuterol Sulfate (0.083%) 2.5 Mg/3 Ml Vial.Neb INHALE 05/15/23 15:21 7.5 mg ONCE ONE Administration Albuterol/Ipratropium 3 ml 09/13/22 15:20 09/13/22 16:03 Albuterol/Iprat 2.5/0.5mg 3 Ml Ampul.Neb INHALE 09/13/22 15:21 3 ml ONCE ONE Administration Magnesium Sulfate 2 gm in 50 mls @ 25 mls/hr 09/13/22 15:20 09/13/22 16:57 Magnesium Sulfate/H2o IV 09/13/22 17:19 Infused ONCE ONE Infusion Methylprednisolone Sodium Succinate 125 mg 09/13/22 15:20 09/13/22 16:16 Methylprednisolone Sod Succ 125 Mg/2 Ml Vial IVPUSH 09/13/22 15:21 125 mg ONCE ONE Administration Medical Decision Making Differential Diagnosis Differential Diagnoses: The differential diagnosis associated with the presentation includes (Pneumonia, pneumothorax, viral bronchitis, electrolytes abnormalities, severe anemia.) Admission/Observation Consideration of admission/observation: Escalation of care including admission/observation considered Lab Data MDM Lab Attestation statement: I reviewed the patient's lab results. 09/13/22 15:46 09/13/22 15:46 Labs: Lab Results 09/13/22 09/13/22 09/13/22 Range/Units 15:39 15:46 15:46 WBC 17.1 H (4.8-10.8) X10*3/uL RBC 4.82 (4.20-5.50) X10*6/uL Hgb 15.1 (12.0-16.0) g/dl Hct 45.7 (37.0-47.0) % MCV 94.8 (80.0-98.0) fL MCH 31.3 (27.0-33.0) pg MCHC 33.0 (31.0-35.0) g/dl RDW 13.2 (11.0-16.0) % Plt Count 322 (160-400) X10*3/uL MPV 11.2 (9.4-12.3) fL Immature Gran % (Auto) 0.8 H (0.0-0.4) % Neut % (Auto) 81.1 H (45-73) % Lymph % (Auto) 5.9 L (20-40) % Mcpherson % (Auto) 11.3 H (2-11) % Eos % (Auto) 0.3 (0-4) % Baso % (Auto) 0.6 (0-2) % Lymph # (Auto) 1.0 L (1.2-4.9) X10*3/uL Mcpherson # (Auto) 1.9 H (0.1-1.2) X10*3/uL Eos # (Auto) 0.1 (0.0-0.4) X10*3/uL Baso # (Auto) 0.1 (0.0-0.2) X10*3/uL Abs Immat Gran (auto) 0.13 H (0.00-0.03) X10*3/uL Absolute Neuts (auto) 13.9 H (2.0-8.3) x10*3/uL Absolute Nucleated RBC 0.000 (0.0-0.012) X10*3/uL Nucleated RBC % (auto) 0.0 (0.0-0.2) /100WBC Smear Tech's Comments VERIFIED Sodium 138 (135-145) mmol/L Potassium 3.3 D (3.3-5.1) mmol/L Chloride 101 (96-108) mmol/L Carbon Dioxide 28 (22-29) mmol/L Anion Gap 12 (12-20) BUN 12 (9-16) mg/dL Creatinine 1.01 (0.5-1.4) mg/dL Estim Creat Clear Calc 44.1 Estimated GFR 54 Random Glucose 137 H (60-115) mg/dL Lactic Acid (0.5-2.0) mmol/L Calcium 9.1 (8.4-10.2) mg/dL Total Bilirubin 0.8 (0.0-1.0) mg/dL Direct Bilirubin 0.3 (0.0-0.5) mg/dL AST 33 H (5-31) U/L ALT 24 (0-31) U/L Alkaline Phosphatase 183 H (39-117) U/L Troponin I High Sens (<3.5-17.0) ng/L B-Natriuretic Peptide (<100) pg/mL Total Protein 6.8 (6.5-8.0) g/dL Albumin 3.8 (3.5-5.0) g/dL Lipase 10 (8-78) U/L COVID-19 (ANGEL) Negative (Negative) COVID-19 Clin Com See Note 09/13/22 09/13/22 09/13/22 Range/Units 15:46 15:46 15:46 WBC (4.8-10.8) X10*3/uL RBC (4.20-5.50) X10*6/uL Hgb (12.0-16.0) g/dl Hct (37.0-47.0) % MCV (80.0-98.0) fL MCH (27.0-33.0) pg MCHC (31.0-35.0) g/dl RDW (11.0-16.0) % Plt Count (160-400) X10*3/uL MPV (9.4-12.3) fL Immature Gran % (Auto) (0.0-0.4) % Neut % (Auto) (45-73) % Lymph % (Auto) (20-40) % Mcpherson % (Auto) (2-11) % Eos % (Auto) (0-4) % Baso % (Auto) (0-2) % Lymph # (Auto) (1.2-4.9) X10*3/uL Mcpherson # (Auto) (0.1-1.2) X10*3/uL Eos # (Auto) (0.0-0.4) X10*3/uL Baso # (Auto) (0.0-0.2) X10*3/uL Abs Immat Gran (auto) (0.00-0.03) X10*3/uL Absolute Neuts (auto) (2.0-8.3) x10*3/uL Absolute Nucleated RBC (0.0-0.012) X10*3/uL Nucleated RBC % (auto) (0.0-0.2) /100WBC Smear Tech's Comments Sodium (135-145) mmol/L Potassium (3.3-5.1) mmol/L Chloride (96-108) mmol/L Carbon Dioxide (22-29) mmol/L Anion Gap (12-20) BUN (9-16) mg/dL Creatinine (0.5-1.4) mg/dL Estim Creat Clear Calc Estimated GFR Random Glucose (60-115) mg/dL Lactic Acid 1.9 (0.5-2.0) mmol/L Calcium (8.4-10.2) mg/dL Total Bilirubin (0.0-1.0) mg/dL Direct Bilirubin (0.0-0.5) mg/dL AST (5-31) U/L ALT (0-31) U/L Alkaline Phosphatase (39-117) U/L Troponin I High Sens 3.7 (<3.5-17.0) ng/L B-Natriuretic Peptide 29 (<100) pg/mL Total Protein (6.5-8.0) g/dL Albumin (3.5-5.0) g/dL Lipase (8-78) U/L COVID-19 (ANGEL) (Negative) COVID-19 Clin Com Independent Interpretation I performed an independent interpretation of an: Plain X-Ray (Chest: No acute intrathoracic pathology) Radiology Impression Discussion of test interpretation with radiology: I have reviewed the radiologist's reading. Discharge Plan Discharge Clinical Impression: Acute exacerbation of chronic obstructive pulmonary disease Patient Disposition: Home, Self-Care Instructions: COPD (Chronic Obstructive Pulmonary Disease) (ED) Prescriptions: New doxycycline hyclate 100 mg tablet 100 mg PO BID Qty: 14 0RF prednisone 20 mg tablet 20 mg PO BID Qty: 10 0RF albuterol sulfate 2.5 mg /3 mL (0.083 %) solution for nebulization 2.5 mg inhalation Q6H PRN (Reason: shortness of breath or wheezing) Qty: 90 0RF No Action fluoxetine 40 mg capsule 1 cap PO DAILY omeprazole 20 mg capsule,delayed release(DR/EC) 1 cap PO DAILY albuterol sulfate [Ventolin HFA] 90 mcg/actuation HFA aerosol inhaler 2 puff inhalation Q6H PRN (Reason: wheezing) Trelegy Ellipta 100-62.5-25 mcg blister with device 1 puff inhalation DAILY alendronate 70 mg Tablet 70 mg PO NAYLOR@0600 prednisone 10 mg tablet See Rx Instructions .Route .COMPLEX Qty: 45 0RF Rx Instructions: 10 mg orally; 5 tabs p.o. daily x3 days; 4 tabs p.o. daily x3 days; 3 tabs daily x3 days; 2 tabs daily x3 days; 1 tab daily x3 days doxycycline hyclate 100 mg tablet 100 mg PO BID 10 Days Qty: 20 0RF Referrals: Laquita Goodwin MD [Primary Care Provider] -
[2022-09-13 15:53] LABS: Basophils Absolute Auto 0.1 X10*3/uL (0.0-0.2); Basophils Percent Auto 0.6 % (0-2); Eosinophils Absolute Auto 0.1 X10*3/uL (0.0-0.4); Eosinophils Percent Auto 0.3 % (0-4); Hematocrit 45.7 % (37.0-47.0); Hemoglobin 15.1 g/dl (12.0-16.0); Imm Gran Abs Auto 0.13 X10*3/uL (0.00-0.03); Imm Gran Pct Auto 0.8 % (0.0-0.4); Lymphocytes Percent Auto 5.9 % (20-40); MANUAL DIFF FLAG SCAN; Mean Corpuscular Hemoglobin 31.3 pg (27.0-33.0); Mean Corpuscular Volume 94.8 fL (80.0-98.0); Mean Platelet Volume 11.2 fL (9.4-12.3); Monocytes Absolute Auto 1.9 X10*3/uL (0.1-1.2); Monocytes Percent Auto 11.3 % (2-11); Neutrophils Absolute Auto 13.9 x10*3/uL (2.0-8.3); Neutrophils Percent Auto 81.1 % (45-73); Platelet Count 322 X10*3/uL (160-400); Red Blood Count 4.82 X10*6/uL (4.20-5.50); Red Cell Distribution Width 13.2 % (11.0-16.0); SCAN SMEAR FLAG 1; White Blood Count 17.1 X10*3/uL (4.8-10.8)
[2022-09-13 16:00] LABS: COVID-19 Test Negative (Negative); IDNOW Serial# BCCEAD1C
[2022-09-13 16:03] LABS: Lactic Acid 1.9 mmol/L (0.5-2.0)
[2022-09-13] MEDS: Albuterol Sulfate (0.083%) 2.5 MG/3 ML VIAL.NEB 7.5 MG INHALE (16:03)
[2022-09-13] MEDS: Albuterol/Iprat 2.5/0.5MG 3 ML AMPUL.NEB INHALE (16:03)
[2022-09-13 16:06] VITALS: PULSE 106; RESP 18; O2SAT 96
[2022-09-13 16:08] LABS: Alanine Aminotransferase 24 U/L (0-31); Albumin Level 3.8 g/dL (3.5-5.0); Alkaline Phosphatase 183 U/L (39-117); Anion Gap 12 (12-20); Aspartate Amino Transferase 33 U/L (5-31); Bilirubin Direct 0.3 mg/dL (0.0-0.5); Bilirubin Total 0.8 mg/dL (0.0-1.0); Blood Urea Nitrogen 12 mg/dL (9-16); Calcium 9.1 mg/dL (8.4-10.2); Carbon Dioxide 28 mmol/L (22-29); Chloride 101 mmol/L (96-108); Creatinine Clr Calc Pharmacy 44.1; Estimated Glomerular Filt Rate 54; Glucose Random 137 mg/dL (60-115); Lipase 10 U/L (8-78); Potassium 3.3 mmol/L (3.3-5.1); Sodium 138 mmol/L (135-145); Total Protein 6.8 g/dL (6.5-8.0)
[2022-09-13 16:16] LABS: Troponin-I High Sensitivity 3.7 ng/L (<3.5-17.0)
[2022-09-13] MEDS: Magnesium Sulfate/H2O 2 GM/50 ML PIGGYBACK IV (16:16)
[2022-09-13] MEDS: methylPREDNISolone Sod Succ 125 MG/2 ML VIAL IVPUSH (16:16)
[2022-09-13 16:17] LABS: B Type Natriuretic Peptide 29 pg/mL (<100)
[2022-09-13 16:30] LABS: SLIDE REVIEW VERIFIED
[2022-09-13 17:46] VITALS: BP 113/71; PULSE 107; RESP 26; O2SAT 94
--- NOTE | 2022-09-13 19:23 | PC.NURSE ---
assumed care of pt aox4 no respiratory distress able to speak in full sentences maintaining O2Sat of 94% on RA IV cath tip intact upon removal ambulates safely and independently
[2022-09-13 19:29] VITALS: BP 121/73; PULSE 93; RESP 22; TEMP 36.7; O2SAT 94
== END 2022-09-13 19:46 | disposition home or self-care (01) ==
PROVIDERS: Emergency Provider Emergency Medicine; PCP Internal Medicine
DX: J44.1 Chronic obstructive pulmonary disease with (acute) exacerbation (principal); R06.02 Shortness of breath; Z79.899 Other long term (current) drug therapy
CPT/HCPCS: 71045; 80048; 80076; 83605; 83690; 83880; 84484; 85025; 87040; 87635; 93005; 94640; 96365; 96375; 99284; 99285; J2930; J3475

== ENCOUNTER 2023-06-02 20:34 | Inpatient (IN) | payer MEDICARE, OTHER, SELFPAY ==
--- NOTE | 2023-06-02 | ECG_ITS ---
Test Reason : SOB Blood Pressure : / mmHG Vent. Rate : 109 BPM Atrial Rate : 109 BPM P-R Int : 144 ms QRS Dur : 058 ms QT Int : 312 ms P-R-T Axes : 081 057 063 degrees QTc Int : 420 ms Sinus tachycardia Nonspecific ST and T wave abnormality Abnormal ECG When compared with ECG of 13-SEP-2022 15:32, NC interval has increased Referred By: Generic ED Physician Electronically Signed By:WES SHI MD
--- NOTE | ~2023-06-02 | CT_ITS ---
EXAMINATION: CTA chest. CTA abdomen pelvis. CLINICAL INDICATIONS: Chest pain and back pain. Evaluate for aortic dissection. COMPARISON: None. TECHNIQUE: 5 mm thin axial and reformatted 3 mm thin sagittal and coronal images of chest, abdomen and pelvis were obtained following rapid IV 80 mL Omnipaque 350. DLP 647. This CT examination was performed using dose optimization technique as appropriate, variously including the following: Automated exposure control Adjustment of MA and/or KV according to patient size(this includes techniques or standardized protocols for targeted exams where dose is matched to indication/reason for exam; extremities or head. Use of iterative reconstruction techniques. FINDINGS: CHEST: Vascular: There is good opacification of the entire thoracic aorta without any dissection. The ascending aorta is borderline measuring 4.0 x 3.4 cm. The arch and descending thoracic aorta are of normal caliber. There is a normal three-vessel branching of the arch. The pulmonary artery is well opacified and appears unremarkable. Nonvascular: Mediastinum: The thyroid lobes are symmetric and normal. The central trachea and the bronchi are widely patent. No abnormal size mediastinal or hilar lymph nodes seen. Heart size is normal. No pericardial effusion. Trace coronary artery calcification is present. Pleura: There is no pleural effusion, thickening or calcification. LUNGS: There is diffuse centrilobular emphysematous lungs with no acute consolidation, mass appearing nodule. Minimal atelectatic changes are seen in lingula and right lung base. Osseous structures: No aggressive lytic or sclerotic process seen. There are old healed bilateral upper rib fractures no acute fracture, lytic or sclerotic process seen. A small hemangioma T8 vertebra is noted. Abdomen and pelvis: Vascular: The entire abdominal aorta is of normal caliber. No evidence of aneurysm or dissection. Origins of celiac, superior concentric, solitary right renal and dual left renal arteries are patent. The inferior mesenteric artery is patent as well. There is normal opacification of aorta into common iliac arteries. The common iliac arteries and tone bifurcates normally into external and internal iliac arteries which are widely patent. Nonvascular: Liver, ducts and gallbladder: The liver is normal size, contour and density. No focal lesion or intrahepatic ductal dilatation seen. The gallbladder has been surgically removed. Spleen: Unremarkable. Pancreas: Unremarkable. Adrenal glands: Unremarkable. Kidneys: Both kidneys are normal size shape and position. No radiopaque renal calculi or hydronephrosis seen. Lymph nodes: No abnormal size retroperitoneal or mesenteric lymph nodes seen. Abdominal wall: Unremarkable. GI tract: There is scattered stool, oral contrast and gas seen in the colon without significant distention. The small bowel loops are normal caliber. Appendix is normal caliber. There is no inflammatory process, free air or free fluid Pelvis: The urinary bladder is nondistended. The uterus is anteverted and appears unremarkable. There is no adnexal mass or free fluid. No abnormal pelvic lymph nodes. Osseous structures: There is mild degenerative disc changes with vacuum disc phenomena throughout lumbar spine. There is end first endplate Schmorl's node L1 vertebra. CT/CT angio abdomen pelvis IMPRESSION: No evidence thoracic or abdominal aortic aneurysm or dissection. There is a three-vessel branching of the aortic arch. Normal branching of abdominal aorta and bifurcation. Diffuse centrilobular emphysema without acute consolidation, focal mass or nodule. Cholecystectomy. Mild constipation without obstruction. Normal appendix. Degenerative disc changes with vacuum disc phenomena throughout lumbar spine. No aggressive lytic or sclerotic process seen in the thoracic or lumbosacral spine. Bilateral upper healed rib fractures. No acute rib fracture seen.
[2023-06-02 20:43] VITALS: BP 178/92; BP 196/110; PULSE 104; PULSE 115; RESP 40; O2SAT 96; O2SAT 97; BMI 24.8
[2023-06-02] MEDS: HYDROmorphone HCl 0.5 MG/0.5 ML SYRINGE IVPUSH ×2 (20:50→22:36)
[2023-06-02] MEDS: methylPREDNISolone Sod Succ 125 MG/2 ML VIAL IVPUSH (20:50)
[2023-06-02] MEDS: 0.9 % Sodium Chloride 500 ML 999 ML IV (20:51)
[2023-06-02 21:00] LABS: MANUAL DIFF FLAG NO
[2023-06-02 21:03] LABS: VBG Base Excess 1.4 mmol/L; VBG HCO3 28 mmol/L (22-26); VBG pCO2 53 mmHg; VBG pH 7.33 (7.32-7.43); VBG pO2 195 mmHg
[2023-06-02 21:05] LABS: Basophils Absolute Auto 0.1 X10*3/uL (0.0-0.2); Basophils Percent Auto 0.8 % (0-2); Eosinophils Absolute Auto 0.2 X10*3/uL (0.0-0.4); Eosinophils Percent Auto 2.4 % (0-4); Hematocrit 48.5 % (37.0-47.0); Hemoglobin 15.5 g/dl (12.0-16.0); Imm Gran Abs Auto 0.05 X10*3/uL (0.00-0.03); Imm Gran Pct Auto 0.5 % (0.0-0.4); Lymphocytes Absolute Auto 4.8 X10*3/uL (1.2-4.9); Lymphocytes Percent Auto 47.8 % (20-40); Monocytes Absolute Auto 1.2 X10*3/uL (0.1-1.2); Monocytes Percent Auto 12.2 % (2-11); Neutrophils Absolute Auto 3.6 x10*3/uL (2.0-8.3); Neutrophils Percent Auto 36.3 % (45-73); Platelet Count 351 X10*3/uL (160-400); Red Cell Distribution Width 12.6 % (11.0-16.0)
[2023-06-02 21:06] LABS: Venous Blood Gas Refer to POC result
[2023-06-02] MEDS: iohexoL 350 MG/ML 100 ML INFUS..BTL 80 ML IV (21:16)
--- NOTE | 2023-06-02 21:18 | PC.NURSE ---
Pt presents to ED for COPD exacerbation x3 days, worse today. Pt was found by EMs tripoding and satting at 97% on RA. Pt got a duoneb and was put on bipap, sats increased to 97%. Pt was writhing in pain, reporting 10/10 back pain. EMS placed a 20g IV in the left wrist. We placed an 18g IV in the right forearm. Labs drawn and sent. Pt is A&Ox4, GCS 15, with warm, dry skin.
[2023-06-02 21:22] LABS: Alanine Aminotransferase 11 U/L (0-31); Albumin Level 4.1 g/dL (3.5-5.0); Alkaline Phosphatase 95 U/L (39-117); Anion Gap 15 (12-20); Aspartate Amino Transferase 18 U/L (5-31); Bilirubin Direct < 0.2 mg/dL (0.0-0.5); Bilirubin Total 0.2 mg/dL (0.0-1.0); Blood Urea Nitrogen 14 mg/dL (9-16); Calcium 9.4 mg/dL (8.4-10.2); Carbon Dioxide 24 mmol/L (22-29); Chloride 107 mmol/L (96-108); Creatinine Clr Calc Pharmacy 49.3; Estimated Glomerular Filt Rate > 60; Glucose Random 121 mg/dL (60-115); Lipase 24 U/L (8-78); Sodium 142 mmol/L (135-145); Total Protein 7.4 g/dL (6.5-8.0)
[2023-06-02 21:29] LABS: Troponin-I High Sensitivity < 2.7 ng/L (<3.5-17.0)
[2023-06-02 21:51] VITALS: BP 164/83; PULSE 107; RESP 23; TEMP 36.6; O2SAT 100
[2023-06-02] MEDS: cefTRIAXone sodium 1 GM in 0.9 % Sodium Chloride 50 ML IV (21:52)
[2023-06-02 22:11] LABS: Lactic Acid 1.2 mmol/L (0.5-2.0)
[2023-06-02 22:19] LABS: B Type Natriuretic Peptide 22 pg/mL (<100)
--- NOTE | 2023-06-02 22:22 | PHA.MEDREC ---
Pharmacy Consult ? Medication Reconciliation Pharmacy has completed the medication reconciliation. Confirmed medication with Patient.
--- NOTE | 2023-06-02 22:32 | ED_ITS ---
HPI - SOB/Dyspnea General Chief Complaint: Dyspnea Stated Complaint: COPD,ON BIPAP Time Seen by Provider: 06/02/23 20:40 History of Present Illness HPI Narrative: Patient is a 73-year-old female with a history of COPD. Baseline on 2 L of O2 as needed. Presented today in extremis having shortness of breath. EMS found patient having a O2 sat in the 80s. Patient also complaining of extreme back pain. 10/10 localized over the back. No previous workup for aneurysms in the past. Patient have an extremely elevated blood pressure on arrival. The initial blood pressure was 196/110. Patient breathing at 40 times a minute unable to give detailed history. Related Data Home Medications Medication Instructions Recorded Confirmed albuterol sulfate 90 mcg/actuation 2 puff inhalation Q6H PRN wheezing 06/21/22 06/02/23 aerosol inhaler (Ventolin HFA) alendronate 70 mg tablet 70 mg PO NAYLOR@0600 06/21/22 06/02/23 fluoxetine 40 mg capsule 1 cap PO DAILY 06/21/22 06/02/23 fluticasone fur. 100 mcg-umeclid 1 puff inhalation DAILY 06/21/22 06/02/23 62.5 mcg-vilant 25 mcg inhalat.powder (Trelegy Ellipta) omeprazole 20 mg capsule,delayed 1 cap PO DAILY 06/21/22 06/02/23 release azithromycin 250 mg tablet 250 mg PO MOWEFR 06/02/23 06/02/23 roflumilast 250 mcg tablet 250 mcg PO DAILY 06/02/23 06/02/23 Previous Rx's Medication Instructions Recorded albuterol sulfate 2.5 mg/3 mL 2.5 mg (3 mL) inhalation Q6H PRN 09/13/22 (0.083 %) solution for nebulization shortness of breath or wheezing #90 mL Allergies Allergy/AdvReac Type Severity Reaction Status Date / Time codeine [CODEINE] AdvReac Unknown NAUSEA & Verified 06/21/22 10:14 VOMITING Codeine Allergy Unknown nasuea Uncoded 06/21/22 10:14 Review of Systems 2 Review of Systems: Unable to obtain review of systems secondary to patient's condition PMFSH Past Medical History Medical History Cyst of left breast FH: cholecystectomy GERD (gastroesophageal reflux disease) Depression COPD (chronic obstructive pulmonary disease) Surgical History H/O inguinal hernia repair Family History Family History Mother Renal disease Social History Social History Household Members: Friend(s) Housing: House Do you presently have visiting nurse or other home services: Yes Alcohol intake: former Patient Tobacco Use Status: Current everyday Tobacco user Tobacco use type: Cigarette Cigarettes Per Day: 6 Smoked in Last 30 Days: Yes Use of substances other than those prescribed or required for medical reasons: No Advance Directives: No Advance Directives Information Provided: No service: No Current occupational status: unemployed Physical Exam 2 Vital Signs: Vital Signs: Last Vital Signs Temp 97.9 F 06/02/23 21:51 Pulse 107 H 06/02/23 21:51 Resp 23 H 06/02/23 21:51 BP 164/83 H 06/02/23 21:51 Pulse Ox 100 06/02/23 21:51 O2 Del Method Non-Rebreather Ma sk 06/02/23 21:51 O2 Flow Rate 5 06/02/23 21:51 BMI result Body Mass Index 24.8 Appearance: Alert. Tripoding complaining of back pain Eyes: Pupils equal, round and reactive to light. ENT: Pharynx normal. Neck: Normal inspection. Neck supple. No lymph nodes noted. No crepitus. Positive increased work of breathing CVS: Normal heart rate and rhythm. Pulses normal. Normal S1 and S2 Respiratory: Diminished breath sounds bilaterally positive wheezing bilaterally Abdomen: Soft and nontender. No rigidity. No distention. good BS x4 Skin: Skin warm and dry. Normal skin color. Normal skin turgor. Extremities: No lower extremity edema. Neurovascular intact to all extremities. No Lacerations. No Rash Neuro: Oriented X 3. Moving all extremities Medications Administered Discontinued Medications Generic Name Dose Route Start Last Admin Trade Name Freq PRN Reason Stop Dose Admin Etomidate 20 mg 06/02/23 20:43 06/02/23 21:22 Etomidate 20 Mg/10 Ml Vial IVPUSH 06/02/23 20:44 Not Given ONCE ONE Hydromorphone HCl 0.5 mg 06/02/23 20:41 06/02/23 20:50 Hydromorphone Hcl 0.5 Mg/0.5 Ml Syringe IVPUSH 06/02/23 20:42 0.5 mg ONCE ONE Administration Protocol Sodium Chloride 500 mls @ 999 mls/hr 06/02/23 20:45 06/02/23 21:53 Ns IV 06/02/23 21:15 Infused .Q31M DOUGLAS Infusion Ceftriaxone Sodium 1 gm/ 50 mls @ 100 mls/hr 06/02/23 21:31 06/02/23 21:52 Sodium Chloride IV 06/02/23 22:00 100 mls/hr ONCE ONE Administration Iohexol 80 ml 06/02/23 21:15 06/02/23 21:16 Iohexol 350 Mg/Ml 100 Ml Infus..Btl IV 06/02/23 21:16 80 ml ONCE ONE Administration Methylprednisolone Sodium Succinate 125 mg 06/02/23 20:43 06/02/23 20:50 Methylprednisolone Sod Succ 125 Mg/2 Ml Vial IVPUSH 06/02/23 20:44 125 mg ONCE ONE Administration Succinylcholine Chloride 100 mg 06/02/23 20:43 06/02/23 21:22 Succinylcholine Chloride 200 Mg/10 Ml Vial IVPUSH 06/02/23 20:44 Not Given ONCE ONE Medical Decision Making Medical Decision Making MDM Narrative: Patient has a long history of COPD baseline on 2 L as needed. Presented now with having increasing shortness of breath wheezing. Already had steroids and neb treatment. Patient's BNP is 22 there has no evidence for congestive heart failure. Patient had extreme back pain along with an elevated blood pressure. Shortness of breath. A CTA chest abdomen pelvis was done to rule out the possibility of dissection. CTA showed no evidence of pneumonia no evidence of pneumothorax no evidence for dissection no intra-abdominal finding. Patient's troponin is negative. History not consistent with ACS. Patient will need additional treatments. There is no evidence of infection. Flu RSV COVID are still pending. Patient symptom improved with pain medication. Currently awaiting admission CTA results as below IMPRESSION: No evidence thoracic or abdominal aortic aneurysm or dissection. There is a three-vessel branching of the aortic arch. Normal branching of abdominal aorta and bifurcation. Diffuse centrilobular emphysema without acute consolidation, focal mass or nodule. Cholecystectomy. Mild constipation without obstruction. Normal appendix. Degenerative disc changes with vacuum disc phenomena throughout lumbar spine. No aggressive lytic or sclerotic process seen in the thoracic or lumbosacral spine. Bilateral upper healed rib fractures. No acute rib fracture seen. Differential Diagnosis Differential Diagnoses: The differential diagnosis associated with the presentation includes Dissection, COPD Consult Healthcare Provider Management of the patient was discussed with: Hospitalist Lab Data MDM Lab Attestation statement: I reviewed the patient's lab results. 06/02/23 20:52 06/02/23 20:52 Labs: Lab Results 06/02/23 06/02/23 06/02/23 Range/Units 20:52 20:54 20:57 WBC 10.0 (4.8-10.8) X10*3/uL RBC 5.00 (4.20-5.50) X10*6/uL Hgb 15.5 (12.0-16.0) g/dl Hct 48.5 H (37.0-47.0) % MCV 97.0 (80.0-98.0) fL MCH 31.0 (27.0-33.0) pg MCHC 32.0 (31.0-35.0) g/dl RDW 12.6 (11.0-16.0) % Plt Count 351 (160-400) X10*3/uL MPV 10.0 (9.4-12.3) fL Immature Gran % (Auto) 0.5 H (0.0-0.4) % Neut % (Auto) 36.3 L (45-73) % Lymph % (Auto) 47.8 H (20-40) % [place] % (Auto) 12.2 H (2-11) % Eos % (Auto) 2.4 (0-4) % Baso % (Auto) 0.8 (0-2) % Lymph # (Auto) 4.8 (1.2-4.9) X10*3/uL [place] # (Auto) 1.2 (0.1-1.2) X10*3/uL Eos # (Auto) 0.2 (0.0-0.4) X10*3/uL Baso # (Auto) 0.1 (0.0-0.2) X10*3/uL Abs Immat Gran (auto) 0.05 H (0.00-0.03) X10*3/uL Absolute Neuts (auto) 3.6 (2.0-8.3) x10*3/uL Absolute Nucleated RBC 0.000 (0.0-0.012) X10*3/uL Nucleated RBC % (auto) 0.0 (0.0-0.2) /100WBC Hold Blue Top SEE NOTE VBG pH 7.33 (7.32-7.43) VBG pCO2 53 mmHg VBG pO2 195 mmHg VBG HCO3 28 H (22-26) mmol/L VBG O2 Saturation 100.0 % VBG Base Excess 1.4 mmol/L Sodium 142 (135-145) mmol/L Potassium 4.0 (3.3-5.1) mmol/L Chloride 107 (96-108) mmol/L Carbon Dioxide 24 (22-29) mmol/L Anion Gap 15 (12-20) BUN 14 (9-16) mg/dL Creatinine 0.89 (0.5-1.4) mg/dL Estim Creat Clear Calc 49.3 Estimated GFR > 60 Random Glucose 121 H (60-115) mg/dL Lactic Acid (0.5-2.0) mmol/L Calcium 9.4 (8.4-10.2) mg/dL Total Bilirubin 0.2 (0.0-1.0) mg/dL Direct Bilirubin < 0.2 (0.0-0.5) mg/dL AST 18 (5-31) U/L ALT 11 (0-31) U/L Alkaline Phosphatase 95 (39-117) U/L Troponin I High Sens < 2.7 (<3.5-17.0) ng/L B-Natriuretic Peptide 22 (<100) pg/mL Total Protein 7.4 (6.5-8.0) g/dL Albumin 4.1 (3.5-5.0) g/dL Lipase 24 (8-78) U/L Blood Type A Positive Antibody Screen NEGATIVE 06/02/23 Range/Units 21:48 WBC (4.8-10.8) X10*3/uL RBC (4.20-5.50) X10*6/uL Hgb (12.0-16.0) g/dl Hct (37.0-47.0) % MCV (80.0-98.0) fL MCH (27.0-33.0) pg MCHC (31.0-35.0) g/dl RDW (11.0-16.0) % Plt Count (160-400) X10*3/uL MPV (9.4-12.3) fL Immature Gran % (Auto) (0.0-0.4) % Neut % (Auto) (45-73) % Lymph % (Auto) (20-40) % [place] % (Auto) (2-11) % Eos % (Auto) (0-4) % Baso % (Auto) (0-2) % Lymph # (Auto) (1.2-4.9) X10*3/uL [place] # (Auto) (0.1-1.2) X10*3/uL Eos # (Auto) (0.0-0.4) X10*3/uL Baso # (Auto) (0.0-0.2) X10*3/uL Abs Immat Gran (auto) (0.00-0.03) X10*3/uL Absolute Neuts (auto) (2.0-8.3) x10*3/uL Absolute Nucleated RBC (0.0-0.012) X10*3/uL Nucleated RBC % (auto) (0.0-0.2) /100WBC Hold Blue Top VBG pH (7.32-7.43) VBG pCO2 mmHg VBG pO2 mmHg VBG HCO3 (22-26) mmol/L VBG O2 Saturation % VBG Base Excess mmol/L Sodium (135-145) mmol/L Potassium (3.3-5.1) mmol/L Chloride (96-108) mmol/L Carbon Dioxide (22-29) mmol/L Anion Gap (12-20) BUN (9-16) mg/dL Creatinine (0.5-1.4) mg/dL Estim Creat Clear Calc Estimated GFR Random Glucose (60-115) mg/dL Lactic Acid 1.2 (0.5-2.0) mmol/L Calcium (8.4-10.2) mg/dL Total Bilirubin (0.0-1.0) mg/dL Direct Bilirubin (0.0-0.5) mg/dL AST (5-31) U/L ALT (0-31) U/L Alkaline Phosphatase (39-117) U/L Troponin I High Sens (<3.5-17.0) ng/L B-Natriuretic Peptide (<100) pg/mL Total Protein (6.5-8.0) g/dL Albumin (3.5-5.0) g/dL Lipase (8-78) U/L Blood Type Antibody Screen Independent Interpretation I performed an independent interpretation of an: EKG (Showed a sinus rhythm heart rate is 110 MT QRS QTC within normal limits there is nonspecific T-wave flattening noted.) and CT Scan (CTA chest grossly negative for dissection pneumonia) Radiology Impression Discussion of test interpretation with radiology: I have reviewed the radiologist's reading. External Record Review External record reviewed: Inpatient record Previous records reviewed including previous inpatient COPD admission record Chronic Conditions COPD, back pain Critical Care Time Critical Care Time Critical Care Time: Yes Total Critical Care Time: 40 Attestation: I have personally provided 40 minutes of critical care time exclusive of time spent on separately billable procedures. ?Time includes review of lab data, radiology results, discussion with consultants, and monitoring for potential decompensation. ?Interventions were performed as documented above Discharge Plan Discharge Clinical Impression: Acute exacerbation of chronic obstructive airways disease Patient Disposition: Admitted As Inpatient Prescriptions: No Action fluoxetine 40 mg capsule 1 cap PO DAILY omeprazole 20 mg capsule,delayed release(DR/EC) 1 cap PO DAILY albuterol sulfate [Ventolin HFA] 90 mcg/actuation HFA aerosol inhaler 2 puff inhalation Q6H PRN (Reason: wheezing) Trelegy Ellipta 100-62.5-25 mcg blister with device 1 puff inhalation DAILY alendronate 70 mg Tablet 70 mg PO NAYLOR@0600 albuterol sulfate 2.5 mg /3 mL (0.083 %) solution for nebulization 2.5 mg inhalation Q6H PRN (Reason: shortness of breath or wheezing) Qty: 90 0RF azithromycin 250 mg tablet 250 mg PO MOWEFR roflumilast 250 mcg tablet 250 mcg PO DAILY
[2023-06-02 22:33] LABS: Influenza A PCR NEGATIVE (Negative); Influenza B PCR NEGATIVE (Negative); Resp Syncy Virus RNA Qual PCR NEGATIVE (Negative); SARS COV2 PCR INHOUSE NEGATIVE (Negative)
[2023-06-02 23:00] VITALS: PULSE 122; RESP 20; O2SAT 93
--- NOTE | 2023-06-02 23:01 | PM.IMHP ---
History of Present Illness Date of Service: 06/02/23 Chief Complaint: Dyspnea This is a 73-year-old female with pertinent history of COPD not on home oxygen, mood disorder, gastroesophageal reflux disease who presents to the emergency department for evaluation of dyspnea. Patient states he started having dyspnea on the day of presentation. It was progressive throughout the day and she had no relief with home inhalers. Admits associated dry cough and wheezing. No fever, chills, chest discomfort, palpitations, abdominal pain, changes in urinary or bowel habits. She was found satting in the 80s as per EMS. Patient states she does not use supplemental oxygen at home at baseline as she does not have oxygen at home. Previously used to use 1-2 L as needed. In the emergency department, patient with tachypnea and significant wheezing despite multiple DuoNeb treatments. Review of Systems Constitutional: Constitutional: Reports fatigue, Reports malaise and Reports weakness Cardiovascular: Cardiovascular: Reports dyspnea on exertion Respiratory: Respiratory: Reports cough, Reports dyspnea on exertion and Reports wheezing Gastrointestinal: Gastrointestinal: Reports no additional gastrointestinal complaints Genitourinary: Genitourinary: Reports no additional female genitourinary complaints Neurologic: Reports weakness Endocrine: Endocrine: Reports fatigue Allergic/Immunologic: Allergic/Immunologic: Reports wheezing FOR[facility]LY [facility] Medical History Cyst of left breast FH: cholecystectomy GERD (gastroesophageal reflux disease) Depression COPD (chronic obstructive pulmonary disease) Family History Mother Renal disease Surgical History H/O inguinal hernia repair Social History Household Members: Friend(s) Housing: House Do you presently have visiting nurse or other home services: Yes Alcohol intake: former Patient Tobacco Use Status: Current everyday Tobacco user Tobacco use type: Cigarette Cigarettes Per Day: 6 Smoked in Last 30 Days: Yes Use of substances other than those prescribed or required for medical reasons: No Advance Directives: No Advance Directives Information Provided: No service: No Current occupational status: unemployed Meds Allergies Allergy/AdvReac Type Severity Reaction Status Date / Time codeine [CODEINE] AdvReac Unknown NAUSEA & Verified 06/21/22 10:14 VOMITING Codeine Allergy Unknown nasuea Uncoded 06/21/22 10:14 Active Medications: Current Medications Propofol (Diprivan) 1,000 mg in 100 mls @ 0 mls/hr IVCONT .Q0M [facility]; Protocol Home Medications Medication Instructions Recorded Confirmed Last Taken Type albuterol sulfate 90 mcg/actuation 2 puff inhalation Q6H PRN wheezing 06/21/22 06/02/23 1 Day Ago History aerosol inhaler (Ventolin HFA) ~06/20/22 alendronate 70 mg tablet 70 mg PO NAYLOR@0600 06/21/22 06/02/23 Unknown History fluoxetine 40 mg capsule 1 cap PO DAILY 06/21/22 06/02/23 06/02/23 History fluticasone fur. 100 mcg-umeclid 1 puff inhalation DAILY 06/21/22 06/02/23 06/02/23 History 62.5 mcg-vilant 25 mcg inhalat.powder (Trelegy Ellipta) omeprazole 20 mg capsule,delayed 1 cap PO DAILY 06/21/22 06/02/23 06/02/23 History release azithromycin 250 mg tablet 250 mg PO MOWEFR 06/02/23 06/02/23 06/01/23 History roflumilast 250 mcg tablet 250 mcg PO DAILY 06/02/23 06/02/23 06/02/23 History Physical Exam Vital Signs and Narrative: Vital Signs: Last Vital Signs Temp 97.9 F 06/02/23 21:51 Pulse 107 H 06/02/23 21:51 Resp 23 H 06/02/23 21:51 BP 164/83 H 06/02/23 21:51 Pulse Ox 100 06/02/23 21:51 O2 Del Method Non-Rebreather Ma sk 06/02/23 21:51 O2 Flow Rate 5 06/02/23 21:51 BMI result Body Mass Index 24.8 Elderly female lying in bed in mild distress on supplemental oxygen Neck supple, no JVD Tachycardic with regular rhythm, S1-S2 heard Bilateral wheezing without crackles Abdomen soft nontender, no guarding, no rigidity Patient is awake, alert and oriented to self, place, time and person ; no focal motor deficit Psych: Normal mood No pedal edema Results Labs 06/02/23 20:52 06/02/23 20:52 Labs: Laboratory Results - last 24 hr 06/02/23 06/02/23 06/02/23 20:52 20:54 20:57 MCV 97.0 MCH 31.0 MCHC 32.0 RDW 12.6 Plt Count 351 MPV 10.0 Immature Gran % (Auto) 0.5 H Neut % (Auto) 36.3 L Lymph % (Auto) 47.8 H [place] % (Auto) 12.2 H Eos % (Auto) 2.4 Baso % (Auto) 0.8 Lymph # (Auto) 4.8 [place] # (Auto) 1.2 Eos # (Auto) 0.2 Baso # (Auto) 0.1 Abs Immat Gran (auto) 0.05 H Absolute Neuts (auto) 3.6 Absolute Nucleated RBC 0.000 Nucleated RBC % (auto) 0.0 Hold Blue Top SEE NOTE VBG pH 7.33 VBG pCO2 53 VBG pO2 195 VBG HCO3 28 H VBG O2 Saturation 100.0 VBG Base Excess 1.4 Anion Gap 15 Estim Creat Clear Calc 49.3 Estimated GFR > 60 Random Glucose 121 H Lactic Acid Calcium 9.4 Total Bilirubin 0.2 Direct Bilirubin < 0.2 AST 18 ALT 11 Alkaline Phosphatase 95 B-Natriuretic Peptide 22 Total Protein 7.4 Albumin 4.1 Lipase 24 Influenza Type A (PCR) Influenza Type B (PCR) RSV RNA Qual (PCR) SARS-CoV-2 RNA (RT-PCR) Blood Type A Positive Antibody Screen NEGATIVE 06/02/23 21:48 MCV MCH MCHC RDW Plt Count MPV Immature Gran % (Auto) Neut % (Auto) Lymph % (Auto) [place] % (Auto) Eos % (Auto) Baso % (Auto) Lymph # (Auto) [place] # (Auto) Eos # (Auto) Baso # (Auto) Abs Immat Gran (auto) Absolute Neuts (auto) Absolute Nucleated RBC Nucleated RBC % (auto) Hold Blue Top VBG pH VBG pCO2 VBG pO2 VBG HCO3 VBG O2 Saturation VBG Base Excess Anion Gap Estim Creat Clear Calc Estimated GFR Random Glucose Lactic Acid 1.2 Calcium Total Bilirubin Direct Bilirubin AST ALT Alkaline Phosphatase B-Natriuretic Peptide Total Protein Albumin Lipase Influenza Type A (PCR) NEGATIVE Influenza Type B (PCR) NEGATIVE RSV RNA Qual (PCR) NEGATIVE SARS-CoV-2 RNA (RT-PCR) NEGATIVE Blood Type Antibody Screen Imaging Radiologist's Impressions: Impressions Abdomen/Pelvis CTA 06/02/23 21:16 IMPRESSION: No evidence thoracic or abdominal aortic aneurysm or dissection. There is a three-vessel branching of the aortic arch. Normal branching of abdominal aorta and bifurcation. Diffuse centrilobular emphysema without acute consolidation, focal mass or nodule. Cholecystectomy. Mild constipation without obstruction. Normal appendix. Degenerative disc changes with vacuum disc phenomena throughout lumbar spine. No aggressive lytic or sclerotic process seen in the thoracic or lumbosacral spine. Bilateral upper healed rib fractures. No acute rib fracture seen. Chest CTA 06/02/23 21:16 IMPRESSION: No evidence thoracic or abdominal aortic aneurysm or dissection. There is a three-vessel branching of the aortic arch. Normal branching of abdominal aorta and bifurcation. Diffuse centrilobular emphysema without acute consolidation, focal mass or nodule. Cholecystectomy. Mild constipation without obstruction. Normal appendix. Degenerative disc changes with vacuum disc phenomena throughout lumbar spine. No aggressive lytic or sclerotic process seen in the thoracic or lumbosacral spine. Bilateral upper healed rib fractures. No acute rib fracture seen. Assessment and Plan (1) Acute exacerbation of chronic obstructive airways disease: Status: Acute Plan This is a 73-year-old female with pertinent history of COPD not on home oxygen, mood disorder, gastroesophageal reflux disease who presents to the emergency department for evaluation of dyspnea. #. Acute hypoxemic respiratory failure due to acute exacerbation of COPD: Will admit patient with supplemental oxygen. Initiating systemic steroids. Scheduled and p.r.n. DuoNebs. Continue home inhaler and roflumilast #. Mood disorder: Continue fluoxetine #. Gastroesophageal reflux disease: On PPI DVT prophylaxis: Lovenox Full Code Admit as inpatient and will require two night minimum hospital stay for supplemental oxygen (as above), which is not possible in a lesser acute setting. Quality Stroke Does the patient have a stroke diagnosis?: No VTE Prior VTE?: No VTE Risk Level:: Medical - moderate - high VTE Device Contraindication: Treatment Not Indicated VTE Drug Contraindication: N/A - Med Ordered
[2023-06-02] MEDS: ondansetron HCL 4 MG/2 ML VIAL IVPUSH (23:19)
[2023-06-02] MEDS: Enoxaparin Sodium 40 MG/0.4 ML SYRINGE SUBCUT (23:27)
[2023-06-02] MEDS: 0.9 % Sodium Chloride Flush 3 ML SYRINGE IVFLUSH (23:28)
[2023-06-02 23:31] LABS: Appearance Urine Clear; Color Urine Yellow; Glucose Urine UA Negative (Negative); Leukocyte Esterase Urine Trace (Negative); Nitrite Urine Negative (Negative); PH 5.5 (5.0-9.0); Specific Gravity - Urine >= 1.030 (1.005-1.025); UMIC TRIGGER UACC YES; Urine Blood Trace (Negative); Urine Ketones Negative (Negative); Urine Protein Negative (Neg-Trace)
[2023-06-02 23:36] LABS: Bacteria Urine Trace (None Seen); Hyaline Casts Urine 0-2 /LPF (0-2); RBC Urine 0-2 /HPF (0-2); UACC Culture Trigger YES; WBC Urine 21-50 /HPF (0-5)
[2023-06-03] VITALS (8 sets, daily range): BP systolic 133–156; BP diastolic 78–94; PULSE 97–116; RESP 16–23; TEMP 36.3–36.6; O2SAT 93–98; BMI 24.2
[2023-06-03] MEDS: Omeprazole 20 MG CAPSULE.DR PO (05:51)
--- NOTE | 2023-06-03 05:56 | PC.NURSE ---
Pt is awake, alert. Pt having some confusion, asking if I was her nurse, I said yes, and two minutes later, asking if I am her doctor and began speaking to me like I am her doctor. Pt is pleasant, calm, and cooperative.
[2023-06-03 06:21] LABS: Anion Gap 17 (12-20); Basophils Percent Auto 0.2 % (0-2); Blood Urea Nitrogen 12 mg/dL (9-16); Calcium 9.2 mg/dL (8.4-10.2); Carbon Dioxide 22 mmol/L (22-29); Chloride 108 mmol/L (96-108); Eosinophils Percent Auto 0.2 % (0-4); Estimated Glomerular Filt Rate > 60; Glucose Random 158 mg/dL (60-115); Hematocrit 46.3 % (37.0-47.0); Hemoglobin 14.5 g/dl (12.0-16.0); Imm Gran Abs Auto 0.03 X10*3/uL (0.00-0.03); Imm Gran Pct Auto 0.6 % (0.0-0.4); Lymphocytes Absolute Auto 0.4 X10*3/uL (1.2-4.9); Lymphocytes Percent Auto 7.4 % (20-40); MANUAL DIFF FLAG SCAN; Mean Corpuscular HGB Conc 31.3 g/dl (31.0-35.0); Mean Corpuscular Hemoglobin 30.9 pg (27.0-33.0); Mean Corpuscular Volume 98.5 fL (80.0-98.0); Mean Platelet Volume 10.2 fL (9.4-12.3); Monocytes Percent Auto 0.6 % (2-11); Neutrophils Absolute Auto 4.5 x10*3/uL (2.0-8.3); Platelet Count 311 X10*3/uL (160-400); Potassium 4.7 mmol/L (3.3-5.1); Red Cell Distribution Width 12.8 % (11.0-16.0); SCAN SMEAR FLAG 1; Sodium 142 mmol/L (135-145)
[2023-06-03] MEDS: traMADoL HCL 50 MG TABLET PO ×3 (06:29→22:13)
[2023-06-03 07:07] LABS: SLIDE REVIEW VERIFIED
--- NOTE | 2023-06-03 07:17 | P.PNIM_ITS ---
Subjective Subjective Date of Service: 06/03/23 Interval History: f/u on copd exacerbation, oxygen dependent at home but was not using O2 because landlord will not alow O2 Physical Exam 2 Vital Signs: Vital Signs: Last Vital Signs Temp 97.9 F 06/02/23 21:51 Pulse 103 H 06/03/23 05:54 Resp 23 H 06/03/23 05:54 BP 135/94 H 06/03/23 05:54 Pulse Ox 97 06/03/23 05:54 O2 Del Method Nasal Cannula 06/03/23 05:54 O2 Flow Rate 2 06/03/23 05:54 BMI result Body Mass Index 24.8 General: AO X 3, no acute distress Resp: CTA bilateral CVS: S1,S2,RRR GI: +BS, NT, no distention Skin: No rash Neuro: motor grossly intact Psych: appropriate affect Objective Data Active Medications Acetaminophen (Acetaminophen 325 Mg Tablet) 650 mg PO Q6H PRN PRN Reason: Pain, Mild (Pain Scale 1-3) Albuterol Sulfate (Albuterol Sulfate (0.083%) 2.5 Mg/3 Ml Vial.Neb) 2.5 mg INHALE Q6H PRN PRN Reason: shortness of breath or wheezing Albuterol Sulfate (Albuterol Sulfate 90 Mcg 8 Gm Inhaler) 2 puff INHALE Q6H PRN PRN Reason: wheezing Albuterol/Ipratropium (Albuterol/Iprat 2.5/0.5mg 3 Ml Ampul.Neb) 3 ml INHALE RQ4H WHILE AWAKE [place] Albuterol/Ipratropium (Albuterol/Iprat 2.5/0.5mg 3 Ml Ampul.Neb) 3 ml INHALE Q4H PRN PRN Reason: Wheezing Azithromycin (Azithromycin 250 Mg Tablet) 250 mg PO MOWEFR [facility] Enoxaparin Sodium (Enoxaparin Sodium 40 Mg/0.4 Ml Syringe) 40 mg SUBCUT Q24H [facility] Last Admin: 06/02/23 23:27 Dose: 40 mg Documented By: ERIS Fluoxetine HCl (Fluoxetine Hcl 20 Mg Capsule) 40 mg PO DAILY [facility] Fluticasone/Umeclidinium/Vilanterol (Fluticasone/Umeclidinium/Vilanterol 100/62.5/25 Blst.W.Dev) 1 puff INHALE RDAILY [facility] Propofol (Diprivan) 1,000 mg in 100 mls @ 0 mls/hr IVCONT .Q0M [facility]; Protocol Melatonin (Melatonin 3 Mg Tablet) 6 mg PO BEDTIME PRN PRN Reason: Insomnia Methylprednisolone Sodium Succinate (Methylprednisolone Sod Succ 40 Mg/Ml Vial) 40 mg IVPUSH Q12H [facility] Omeprazole (Omeprazole 20 Mg Capsule.Dr) 20 mg PO DAILY@0630 [facility] Last Admin: 06/03/23 05:51 Dose: 20 mg Documented By: ERIS Ondansetron HCl (Ondansetron Hcl 4 Mg/2 Ml Vial) 4 mg IVPUSH Q8H PRN PRN Reason: Nausea and Vomiting Last Admin: 06/02/23 23:19 Dose: 4 mg Documented By: ERIS Roflumilast (Roflumilast 500 Mcg Tablet) 250 mcg PO DAILY [facility] Sodium Chloride (0.9 % Sodium Chloride Flush 3 Ml Syringe) 3 ml IVFLUSH QSHIFT [facility] Last Admin: 06/02/23 23:28 Dose: 3 ml Documented By: ERIS Tramadol HCl (Tramadol Hcl 50 Mg Tablet) 50 mg PO Q6H PRN PRN Reason: Pain, Severe (Pain Scale 7-10) Last Admin: 06/03/23 06:29 Dose: 50 mg Documented By: ERIS Labs 06/03/23 05:59 06/03/23 05:59 Labs: Laboratory Results - last 24 hr 06/02/23 06/02/23 06/02/23 20:52 20:54 20:57 MCV 97.0 MCH 31.0 MCHC 32.0 RDW 12.6 Plt Count 351 MPV 10.0 Immature Gran % (Auto) 0.5 H Neut % (Auto) 36.3 L Lymph % (Auto) 47.8 H [place] % (Auto) 12.2 H Eos % (Auto) 2.4 Baso % (Auto) 0.8 Lymph # (Auto) 4.8 [place] # (Auto) 1.2 Eos # (Auto) 0.2 Baso # (Auto) 0.1 Abs Immat Gran (auto) 0.05 H Absolute Neuts (auto) 3.6 Absolute Nucleated RBC 0.000 Nucleated RBC % (auto) 0.0 Smear Tech's Comments Hold Blue Top SEE NOTE VBG pH 7.33 VBG pCO2 53 VBG pO2 195 VBG HCO3 28 H VBG O2 Saturation 100.0 VBG Base Excess 1.4 Anion Gap 15 Estim Creat Clear Calc 49.3 Estimated GFR > 60 Random Glucose 121 H Lactic Acid Calcium 9.4 Total Bilirubin 0.2 Direct Bilirubin < 0.2 AST 18 ALT 11 Alkaline Phosphatase 95 B-Natriuretic Peptide 22 Total Protein 7.4 Albumin 4.1 Lipase 24 Urine Color Urine Appearance Urine pH Ur Specific Jenners Urine Protein Urine Glucose (UA) Urine Ketones Urine Blood Urine Nitrite Ur Leukocyte Esterase Urine RBC Urine WBC Urine WBC Clumps Ur Squamous Epith Cells Ur Transition Epith Cell Ur Renal Epithelial Cell Calcium Oxalate Crystal Leucine Crystals Cystine Crystals Tyrosine Crystals Other Crystals Urine Bacteria Urine Parasites Bilirubin Casts Epithelial Casts Fatty Casts Hyaline Casts Granular Casts Waxy Casts Broad Casts RBC Casts WBC Casts Other Casts Urine Trichomonas Urine Yeast Influenza Type A (PCR) Influenza Type B (PCR) RSV RNA Qual (PCR) SARS-CoV-2 RNA (RT-PCR) Blood Type A Positive Antibody Screen NEGATIVE 06/02/23 06/02/23 06/02/23 21:48 23:18 23:18 MCV MCH MCHC RDW Plt Count MPV Immature Gran % (Auto) Neut % (Auto) Lymph % (Auto) [place] % (Auto) Eos % (Auto) Baso % (Auto) Lymph # (Auto) [place] # (Auto) Eos # (Auto) Baso # (Auto) Abs Immat Gran (auto) Absolute Neuts (auto) Absolute Nucleated RBC Nucleated RBC % (auto) Smear Tech's Comments Hold Blue Top VBG pH VBG pCO2 VBG pO2 VBG HCO3 VBG O2 Saturation VBG Base Excess Anion Gap Estim Creat Clear Calc Estimated GFR Random Glucose Lactic Acid 1.2 Calcium Total Bilirubin Direct Bilirubin AST ALT Alkaline Phosphatase B-Natriuretic Peptide Total Protein Albumin Lipase Urine Color Yellow Cancelled Urine Appearance Clear Urine pH Ur Specific Jenners Urine Protein Urine Glucose (UA) Urine Ketones Urine Blood Urine Nitrite Ur Leukocyte Esterase Urine RBC Urine WBC Urine WBC Clumps Ur Squamous Epith Cells Ur Transition Epith Cell Ur Renal Epithelial Cell Calcium Oxalate Crystal Leucine Crystals Cystine Crystals Tyrosine Crystals Other Crystals Urine Bacteria Urine Parasites Bilirubin Casts Epithelial Casts Fatty Casts Hyaline Casts Granular Casts Waxy Casts Broad Casts RBC Casts WBC Casts Other Casts Urine Trichomonas Urine Yeast Influenza Type A (PCR) NEGATIVE Influenza Type B (PCR) NEGATIVE RSV RNA Qual (PCR) NEGATIVE SARS-CoV-2 RNA (RT-PCR) NEGATIVE Blood Type Antibody Screen 06/02/23 06/02/23 06/02/23 23:18 23:18 23:18 MCV MCH MCHC RDW Plt Count MPV Immature Gran % (Auto) Neut % (Auto) Lymph % (Auto) [place] % (Auto) Eos % (Auto) Baso % (Auto) Lymph # (Auto) [place] # (Auto) Eos # (Auto) Baso # (Auto) Abs Immat Gran (auto) Absolute Neuts (auto) Absolute Nucleated RBC Nucleated RBC % (auto) Smear Tech's Comments Hold Blue Top VBG pH VBG pCO2 VBG pO2 VBG HCO3 VBG O2 Saturation VBG Base Excess Anion Gap Estim Creat Clear Calc Estimated GFR Random Glucose Lactic Acid Calcium Total Bilirubin Direct Bilirubin AST ALT Alkaline Phosphatase B-Natriuretic Peptide Total Protein Albumin Lipase Urine Color Urine Appearance Cancelled Urine pH 5.5 Cancelled Ur Specific Jenners >= 1.030 H Cancelled Urine Protein Negative Urine Glucose (UA) Urine Ketones Urine Blood Urine Nitrite Ur Leukocyte Esterase Urine RBC Urine WBC Urine WBC Clumps Ur Squamous Epith Cells Ur Transition Epith Cell Ur Renal Epithelial Cell Calcium Oxalate Crystal Leucine Crystals Cystine Crystals Tyrosine Crystals Other Crystals Urine Bacteria Urine Parasites Bilirubin Casts Epithelial Casts Fatty Casts Hyaline Casts Granular Casts Waxy Casts Broad Casts RBC Casts WBC Casts Other Casts Urine Trichomonas Urine Yeast Influenza Type A (PCR) Influenza Type B (PCR) RSV RNA Qual (PCR) SARS-CoV-2 RNA (RT-PCR) Blood Type Antibody Screen 06/02/23 06/02/23 06/02/23 23:18 23:18 23:18 MCV MCH MCHC RDW Plt Count MPV Immature Gran % (Auto) Neut % (Auto) Lymph % (Auto) [place] % (Auto) Eos % (Auto) Baso % (Auto) Lymph # (Auto) [place] # (Auto) Eos # (Auto) Baso # (Auto) Abs Immat Gran (auto) Absolute Neuts (auto) Absolute Nucleated RBC Nucleated RBC % (auto) Smear Tech's Comments Hold Blue Top VBG pH VBG pCO2 VBG pO2 VBG HCO3 VBG O2 Saturation VBG Base Excess Anion Gap Estim Creat Clear Calc Estimated GFR Random Glucose Lactic Acid Calcium Total Bilirubin Direct Bilirubin AST ALT Alkaline Phosphatase B-Natriuretic Peptide Total Protein Albumin Lipase Urine Color Urine Appearance Urine pH Ur Specific Jenners Urine Protein Cancelled Urine Glucose (UA) Negative Cancelled Urine Ketones Negative Cancelled Urine Blood Trace H Urine Nitrite Ur Leukocyte Esterase Urine RBC Urine WBC Urine WBC Clumps Ur Squamous Epith Cells Ur Transition Epith Cell Ur Renal Epithelial Cell Calcium Oxalate Crystal Leucine Crystals Cystine Crystals Tyrosine Crystals Other Crystals Urine Bacteria Urine Parasites Bilirubin Casts Epithelial Casts Fatty Casts Hyaline Casts Granular Casts Waxy Casts Broad Casts RBC Casts WBC Casts Other Casts Urine Trichomonas Urine Yeast Influenza Type A (PCR) Influenza Type B (PCR) RSV RNA Qual (PCR) SARS-CoV-2 RNA (RT-PCR) Blood Type Antibody Screen 06/02/23 06/02/23 06/02/23 23:18 23:18 23:18 MCV MCH MCHC RDW Plt Count MPV Immature Gran % (Auto) Neut % (Auto) Lymph % (Auto) [place] % (Auto) Eos % (Auto) Baso % (Auto) Lymph # (Auto) [place] # (Auto) Eos # (Auto) Baso # (Auto) Abs Immat Gran (auto) Absolute Neuts (auto) Absolute Nucleated RBC Nucleated RBC % (auto) Smear Tech's Comments Hold Blue Top VBG pH VBG pCO2 VBG pO2 VBG HCO3 VBG O2 Saturation VBG Base Excess Anion Gap Estim Creat Clear Calc Estimated GFR Random Glucose Lactic Acid Calcium Total Bilirubin Direct Bilirubin AST ALT Alkaline Phosphatase B-Natriuretic Peptide Total Protein Albumin Lipase Urine Color Urine Appearance Urine pH Ur Specific Jenners Urine Protein Urine Glucose (UA) Urine Ketones Urine Blood Cancelled Urine Nitrite Negative Cancelled Ur Leukocyte Esterase Trace H Cancelled Urine RBC 0-2 Urine WBC Urine WBC Clumps Ur Squamous Epith Cells Ur Transition Epith Cell Ur Renal Epithelial Cell Calcium Oxalate Crystal Leucine Crystals Cystine Crystals Tyrosine Crystals Other Crystals Urine Bacteria Urine Parasites Bilirubin Casts Epithelial Casts Fatty Casts Hyaline Casts Granular Casts Waxy Casts Broad Casts RBC Casts WBC Casts Other Casts Urine Trichomonas Urine Yeast Influenza Type A (PCR) Influenza Type B (PCR) RSV RNA Qual (PCR) SARS-CoV-2 RNA (RT-PCR) Blood Type Antibody Screen 06/02/23 06/02/23 06/02/23 23:18 23:18 23:18 MCV MCH MCHC RDW Plt Count MPV Immature Gran % (Auto) Neut % (Auto) Lymph % (Auto) [place] % (Auto) Eos % (Auto) Baso % (Auto) Lymph # (Auto) [place] # (Auto) Eos # (Auto) Baso # (Auto) Abs Immat Gran (auto) Absolute Neuts (auto) Absolute Nucleated RBC Nucleated RBC % (auto) Smear Tech's Comments Hold Blue Top VBG pH VBG pCO2 VBG pO2 VBG HCO3 VBG O2 Saturation VBG Base Excess Anion Gap Estim Creat Clear Calc Estimated GFR Random Glucose Lactic Acid Calcium Total Bilirubin Direct Bilirubin AST ALT Alkaline Phosphatase B-Natriuretic Peptide Total Protein Albumin Lipase Urine Color Urine Appearance Urine pH Ur Specific Jenners Urine Protein Urine Glucose (UA) Urine Ketones Urine Blood Urine Nitrite Ur Leukocyte Esterase Urine RBC Cancelled Urine WBC 21-50 H Cancelled Urine WBC Clumps Cancelled Ur Squamous Epith Cells 3-5 Cancelled Ur Transition Epith Cell Cancelled Ur Renal Epithelial Cell Cancelled Calcium Oxalate Crystal Cancelled Leucine Crystals Cancelled Cystine Crystals Cancelled Tyrosine Crystals Cancelled Other Crystals Cancelled Urine Bacteria Trace Urine Parasites Bilirubin Casts Epithelial Casts Fatty Casts Hyaline Casts Granular Casts Waxy Casts Broad Casts RBC Casts WBC Casts Other Casts Urine Trichomonas Urine Yeast Influenza Type A (PCR) Influenza Type B (PCR) RSV RNA Qual (PCR) SARS-CoV-2 RNA (RT-PCR) Blood Type Antibody Screen 06/02/23 06/02/23 06/03/23 23:18 23:18 05:59 MCV 98.5 H MCH 30.9 MCHC 31.3 RDW 12.8 Plt Count 311 MPV 10.2 Immature Gran % (Auto) 0.6 H Neut % (Auto) 91.0 H Lymph % (Auto) 7.4 L [place] % (Auto) 0.6 L Eos % (Auto) 0.2 Baso % (Auto) 0.2 Lymph # (Auto) 0.4 L [place] # (Auto) 0.0 L Eos # (Auto) 0.0 Baso # (Auto) 0.0 Abs Immat Gran (auto) 0.03 Absolute Neuts (auto) 4.5 Absolute Nucleated RBC 0.000 Nucleated RBC % (auto) 0.0 Smear Tech's Comments VERIFIED Hold Blue Top VBG pH VBG pCO2 VBG pO2 VBG HCO3 VBG O2 Saturation VBG Base Excess Anion Gap 17 Estim Creat Clear Calc 51.0 Estimated GFR > 60 Random Glucose 158 H Lactic Acid Calcium 9.2 Total Bilirubin Direct Bilirubin AST ALT Alkaline Phosphatase B-Natriuretic Peptide Total Protein Albumin Lipase Urine Color Urine Appearance Urine pH Ur Specific Jenners Urine Protein Urine Glucose (UA) Urine Ketones Urine Blood Urine Nitrite Ur Leukocyte Esterase Urine RBC Urine WBC Urine WBC Clumps Ur Squamous Epith Cells Ur Transition Epith Cell Ur Renal Epithelial Cell Calcium Oxalate Crystal Leucine Crystals Cystine Crystals Tyrosine Crystals Other Crystals Urine Bacteria Cancelled Urine Parasites Cancelled Bilirubin Casts Cancelled Epithelial Casts Cancelled Fatty Casts Cancelled Hyaline Casts 0-2 Cancelled Granular Casts Cancelled Waxy Casts Cancelled Broad Casts Cancelled RBC Casts Cancelled WBC Casts Cancelled Other Casts Cancelled Urine Trichomonas Cancelled Urine Yeast Cancelled Influenza Type A (PCR) Influenza Type B (PCR) RSV RNA Qual (PCR) SARS-CoV-2 RNA (RT-PCR) Blood Type Antibody Screen Assessment and Plan (1) Acute exacerbation of chronic obstructive airways disease: Status: Acute Plan 73-year-old female with pertinent history of COPD not on home oxygen, mood disorder, gastroesophageal reflux disease who presents to the emergency department for evaluation of dyspnea. Acute hypoxemic respiratory failure due to acute exacerbation of COPD--improving -continue steroid, bronchodilators and O2 with goal of O2 sat 88 to 90 Mood disorder: Continue fluoxetine Gastroesophageal reflux disease: On PPI DVT prophylaxis: Lovenox Full Code need for inpt:codpd exacerbation, with hypoxia on iv steroid and Quality Stroke Does the patient have a stroke diagnosis?: No VTE Prior VTE?: No VTE Risk Level:: Medical - moderate - high VTE Device Contraindication: Treatment Not Indicated VTE Drug Contraindication: N/A - Med Ordered
[2023-06-03] MEDS: Albuterol/Iprat 2.5/0.5MG 3 ML AMPUL.NEB INHALE ×4 (07:57→18:51)
[2023-06-03] MEDS: 0.9 % Sodium Chloride Flush 3 ML SYRINGE IVFLUSH ×3 (09:02→20:55)
[2023-06-03] MEDS: Azithromycin 250 MG TABLET PO (10:06)
[2023-06-03] MEDS: Roflumilast 500 MCG TABLET 250 MCG PO (10:06)
[2023-06-03] MEDS: methylPREDNISolone Sod Succ 40 MG/ML VIAL IVPUSH ×2 (10:07→20:55)
[2023-06-03] MEDS: FLUoxetine HCl 20 MG CAPSULE 40 MG PO (10:07)
--- NOTE | 2023-06-03 13:27 | MHC.CM.PN ---
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
[2023-06-03] MEDS: Enoxaparin Sodium 40 MG/0.4 ML SYRINGE SUBCUT (22:13)
[2023-06-04] MEDS: Melatonin 3 MG TABLET 6 MG PO (00:45)
[2023-06-04 02:35] VITALS: BP 135/75; PULSE 100; RESP 17; TEMP 36.6; O2SAT 93
[2023-06-04] MEDS: guaiFENesin 100 MG/5 ML LIQUID PO (05:59)
[2023-06-04] MEDS: Omeprazole 20 MG CAPSULE.DR PO (05:59)
[2023-06-04 07:43] VITALS: BP 149/75; PULSE 104; RESP 18; TEMP 36.3; O2SAT 96
[2023-06-04] MEDS: Albuterol/Iprat 2.5/0.5MG 3 ML AMPUL.NEB INHALE ×3 (07:48→15:13)
[2023-06-04 07:49] VITALS: PULSE 94; RESP 18; O2SAT 97
--- NOTE | 2023-06-04 08:11 | HO.PM.IMPN ---
Subjective Subjective Date of Service: 06/04/23 Interval History: feels better Physical Exam Vital Signs: Vital Signs: Last Vital Signs Temp 97.3 F 06/04/23 07:43 Pulse 94 06/04/23 07:49 Resp 18 06/04/23 07:49 BP 149/75 H 06/04/23 07:43 Pulse Ox 96 06/04/23 07:43 O2 Del Method Nasal Cannula 06/04/23 07:43 O2 Flow Rate 2 06/04/23 07:43 BMI result Body Mass Index 24.2 General: AO X 3, no acute distress Resp: clear, no wheeze, nl effort CVS: S1,S2,RRR GI: +BS, NT, no distention Skin: No rash Neuro: motor grossly intact Psych: appropriate affect Objective Data Active Medications Acetaminophen (Acetaminophen 325 Mg Tablet) 650 mg PO Q6H PRN PRN Reason: Pain, Mild (Pain Scale 1-3) Albuterol Sulfate (Albuterol Sulfate (0.083%) 2.5 Mg/3 Ml Vial.Neb) 2.5 mg INHALE Q6H PRN PRN Reason: shortness of breath or wheezing Albuterol Sulfate (Albuterol Sulfate 90 Mcg 8 Gm Inhaler) 2 puff INHALE Q6H PRN PRN Reason: wheezing Albuterol/Ipratropium (Albuterol/Iprat 2.5/0.5mg 3 Ml Ampul.Neb) 3 ml INHALE RQ4H WHILE AWAKE [facility] Last Admin: 06/04/23 07:48 Dose: 3 ml Documented By: DEBORAH Albuterol/Ipratropium (Albuterol/Iprat 2.5/0.5mg 3 Ml Ampul.Neb) 3 ml INHALE Q4H PRN PRN Reason: Wheezing Azithromycin (Azithromycin 250 Mg Tablet) 250 mg PO MOWEFR [facility] Last Admin: 06/03/23 10:06 Dose: 250 mg Documented By: TED Enoxaparin Sodium (Enoxaparin Sodium 40 Mg/0.4 Ml Syringe) 40 mg SUBCUT Q24H [facility] Last Admin: 06/03/23 22:13 Dose: 40 mg Documented By: DELLRISMarine Fluoxetine HCl (Fluoxetine Hcl 20 Mg Capsule) 40 mg PO DAILY [facility] Last Admin: 06/03/23 10:07 Dose: 40 mg Documented By: TED Fluticasone/Umeclidinium/Vilanterol (Fluticasone/Umeclidinium/Vilanterol 100/62.5/25 Blst.W.Dev) 1 puff INHALE RDAILY [facility] Last Admin: 06/04/23 07:49 Dose: Not Given Documented By: DEBORAH Non-Admin Reason: Med not available, pharmacy called. Guaifenesin (Guaifenesin 100 Mg/5 Ml Liquid) 5 ml PO Q4H PRN PRN Reason: Cough Last Admin: 06/04/23 05:59 Dose: 5 ml Documented By: MILDRED Propofol (Diprivan) 1,000 mg in 100 mls @ 0 mls/hr IVCONT .Q0M [facility]; Protocol Influenza Virus Vaccine (Flu Vacc [id number](6mos Up)/Pf 0.5 Ml Syringe) 0.5 ml IM .ONCE ONE Stop: 06/04/23 10:01 Melatonin (Melatonin 3 Mg Tablet) 6 mg PO BEDTIME PRN PRN Reason: Insomnia Last Admin: 06/04/23 00:45 Dose: 6 mg Documented By: MILDRED Methylprednisolone Sodium Succinate (Methylprednisolone Sod Succ 40 Mg/Ml Vial) 40 mg IVPUSH Q12H [facility] Last Admin: 06/03/23 20:55 Dose: 40 mg Documented By: LAW Omeprazole (Omeprazole 20 Mg Capsule.Dr) 20 mg PO DAILY@0630 [facility] Last Admin: 06/04/23 05:59 Dose: 20 mg Documented By: MILDRED Ondansetron HCl (Ondansetron Hcl 4 Mg/2 Ml Vial) 4 mg IVPUSH Q8H PRN PRN Reason: Nausea and Vomiting Last Admin: 06/02/23 23:19 Dose: 4 mg Documented By: ERIS Roflumilast (Roflumilast 500 Mcg Tablet) 250 mcg PO DAILY [facility] Last Admin: 06/03/23 10:06 Dose: 250 mcg Documented By: TED Sodium Chloride (0.9 % Sodium Chloride Flush 3 Ml Syringe) 3 ml IVFLUSH QSHIFT [facility] Last Admin: 06/03/23 20:55 Dose: 3 ml Documented By: LAW Tramadol HCl (Tramadol Hcl 50 Mg Tablet) 50 mg PO Q6H PRN PRN Reason: Pain, Severe (Pain Scale 7-10) Last Admin: 06/03/23 22:13 Dose: 50 mg Documented By: LAW Labs 06/03/23 05:59 06/03/23 05:59 Microbiology Microbiology Results: Microbiology 06/02/23 21:48 Blood Culture - Preliminary Blood - Venous No growth after 24 hours. 06/02/23 21:46 Blood Culture - Preliminary Blood - Venous No growth after 24 hours. Assessment and Plan (1) Acute exacerbation of chronic obstructive airways disease: Status: Acute Plan 73-year-old female with pertinent history of COPD not on home oxygen, mood disorder, gastroesophageal reflux disease who presents to the emergency department for evaluation of dyspnea. COPD ex Acute hyp resp failure -improving -change to prednisone -continue bronchodialtors -wean off O2, she is supposed to be on O2 but landlord won't allow O2 Mood disorder: Continue fluoxetine Gastroesophageal reflux disease: On PPI DVT prophylaxis: Lovenox Full Code need for inpt:codpd exacerbation, with hypoxia on iv steroid and if maintain O2 on room air, will discharge Quality Stroke Does the patient have a stroke diagnosis?: No VTE Prior VTE?: No VTE Risk Level:: Medical - moderate - high VTE Device Contraindication: Treatment Not Indicated VTE Drug Contraindication: N/A - Med Ordered
[2023-06-04] MEDS: 0.9 % Sodium Chloride Flush 3 ML SYRINGE IVFLUSH (08:50)
[2023-06-04] MEDS: predniSONE 20 MG TABLET 40 MG PO (08:50)
[2023-06-04] MEDS: Roflumilast 500 MCG TABLET 250 MCG PO (08:50)
[2023-06-04] MEDS: FLUoxetine HCl 20 MG CAPSULE 40 MG PO (08:50)
--- NOTE | 2023-06-04 10:53 | MHC.CM.PN ---
Addendum entered by Tiffanie Parsons 06/04/23 12:47: PT IS AWARE O2 IS BEING ARRANGED BY RT AND SHE WILL THEN BE READY TO DC SHE REPORTS SHE WILL CALL HER FRIEND FOR A RIDE Original Note: CM MET WITH PT TO DISCUSS DCP SHE IS AWARE SHE NEEDS HOME O2 AND SAYS SHE USED TO HAVE IT BUT THE WOMAN SHE RENTS THE ROOM FROM WANTED HER TO GET RID OF IT BECAUSE SHE WAS WORRIED IT WOULD BLOW UP WHEN SHE [THE LANDLORD] WAS SMOKING. PT REPORTS SHE WANTS TO MOVE BUT HAS NOT STARTED THE PROCESS YET CM PROVIDED RESOURCE BOOK AND INFO ON WHO MAY BE ABLE TO ASSIST WITH MOVING TO ELDERLY HOUSING PT INFORMED SHE NEEDS HER OXYGEN AND SHOULD EXERCISE SAFETY WHEN IT IS IN THE HOME SHE REPORTS SHE WILL CONTACT [facility] TO GET HER EQUIPMENT BACK, AND SAYS SHE FEELS LIKE SHE DID FOLLOW THE CORRECT SAFETY MEASURES BUT HER LANDLORD KEPT COMPLAINING AT THIS TIME PT DECLINES CM OFFER TO SPEAK TO THE HOMEOWNER BUT IS AWARE CM WILL DO SO IF NEEDED
[2023-06-04] MEDS: Fluticasone/Umeclidinium/Vilanterol 100/62.5/25 BLST.W.DEV 1 PUFF INHALE (11:36)
[2023-06-04 11:37] VITALS: PULSE 98; RESP 18; O2SAT 92
[2023-06-04 11:42] VITALS: PULSE 116; PULSE 118; PULSE 125; PULSE 126; PULSE 96; O2SAT 86; O2SAT 87; O2SAT 89; O2SAT 92
--- NOTE | 2023-06-04 12:08 | P.DS_ITS ---
DS: Providers Provider Date of Service: 06/04/23 Date of admission: 06/02/23 23:00 Primary care physician: Unknown Physician DS: Diagnosis Discharge Diagnosis (1) Acute exacerbation of chronic obstructive airways disease: Status: Acute DS: Summary Hospital Course Hospital Course: Chief Complaint: Dyspnea This is a 73-year-old female with pertinent history of COPD not on home oxygen, mood disorder, gastroesophageal reflux disease who presents to the emergency department for evaluation of dyspnea. Patient states he started having dyspnea on the day of presentation. It was progressive throughout the day and she had no relief with home inhalers. Admits associated dry cough and wheezing. No fever, chills, chest discomfort, palpitations, abdominal pain, changes in urinary or bowel habits. She was found satting in the 80s as per EMS. Patient states she does not use supplemental oxygen at home at baseline as she does not have oxygen at home. Previously used to use 1-2 L as needed. hospital course: She presented with SOB, tested negative for covid, flu, and rsv, chest xray showed no pneumonia. She was admitted and treated for exacerbation of copd and her management consisted of of iv steroid, broncho dilators by nebulizer and oxygen. It is of note tht she is supposed to be on oxygen but has been prevented by her landlord for fear of blowing up the house due her smoking habits; she now understands that she will need to be outside to smoke. She will be prescribed oxygen and to follow her housing guidelines Time Attestation Discharge coordination time: Greater than 30 minutes Quality: Safe Use of Opioids Does Pt have an Active Cancer Diagnosis on the Problem List?: No Quality: Stroke Does the patient have a stroke diagnosis?: No Physical Exam Vital Signs: Vital Signs: Last Vital Signs Temp 97.3 F 06/04/23 07:43 Pulse 98 06/04/23 11:37 Resp 18 06/04/23 11:37 BP 149/75 H 06/04/23 07:43 Pulse Ox 96 06/04/23 07:43 O2 Del Method Nasal Cannula 06/04/23 07:43 O2 Flow Rate 2 06/04/23 07:43 BMI result Body Mass Index 24.2 General: AO X 3, no acute distress Resp: clear, no wheeze, nl effort CVS: S1,S2,RRR GI: +BS, NT, no distention Skin: No rash Neuro: motor grossly intact Psych: appropriate affect DS: Data Data Completed and Pending Labs on day of discharge: Preliminary micro results at discharge 06/02/23 21:48 Blood Culture - Preliminary Blood - Venous No growth after 24 hours. 06/02/23 21:46 Blood Culture - Preliminary Blood - Venous No growth after 24 hours. Discharge Plan Discharge Anticipated Discharge Date/Time: 06/04/23 12:03 Patient Disposition: Home, Self-Care Discharge Diagnosis: copd exacerbation Referrals: Physician,Unknown J [Primary Care Provider] - 1 Week Discharge Medications: New prednisone 20 mg tablet 20 mg PO DAILY 3 Days Qty: 3 0RF Continued fluoxetine 40 mg capsule 1 cap PO DAILY omeprazole 20 mg capsule,delayed release(DR/EC) 1 cap PO DAILY albuterol sulfate [Ventolin HFA] 90 mcg/actuation HFA aerosol inhaler 2 puff inhalation Q6H PRN (Reason: wheezing) Trelegy Ellipta 100-62.5-25 mcg blister with device 1 puff inhalation DAILY alendronate 70 mg Tablet 70 mg PO NAYLRO@0600 albuterol sulfate 2.5 mg /3 mL (0.083 %) solution for nebulization 2.5 mg inhalation Q6H PRN (Reason: shortness of breath or wheezing) Qty: 90 0RF azithromycin 250 mg tablet 250 mg PO MOWEFR roflumilast 250 mcg tablet 250 mcg PO DAILY Discharge Orders: Discharge Order (Routine); Ordered 06/04/23 Ordered By: Ranjeet Joyner Diet: Advance to usual diet Activity on Discharge: As tolerated Stand Alone Forms: Patient Portal Discharge page Care Plan Goals: full recovery from copd Health Concerns: copd chronic tobacco use Plan of Treatment: take prednisone as directed use inhalers as directed stop smoking follow up with your doctor in a week Assessment: see above
[2023-06-04 15:13] VITALS: PULSE 89; RESP 20; O2SAT 92
--- NOTE | 2023-06-04 15:30 | PC.RT ---
Pt reviewed use of e tank for trans home. Pt able to follow directions and demonstrate propoer use. Pt agreed to call [facility] [place] upon arrival home. RN aware.
== END 2023-06-04 16:02 | disposition home or self-care (01) | DRG 190 ==
LOC: HO.ED 22:40 → HO.EDOVER 23:05 → HO.S3 06-03 10:55
PROVIDERS: Admitting Provider Student in an Organized Health Care Education/Training Program; Emergency Provider Emergency Medicine Emergency Medical Services; Visit Provider Internal Medicine
DX: J44.1 Chronic obstructive pulmonary disease with (acute) exacerbation (principal); J96.01 Acute respiratory failure with hypoxia; F39 Unspecified mood [affective] disorder; K21.9 Gastro-esophageal reflux disease without esophagitis; Z20.822 Contact with and (suspected) exposure to COVID-19; Z99.81 Dependence on supplemental oxygen; Z91.199 Patient's noncompliance with other medical treatment and regimen due to unspecified reason; Z79.899 Other long term (current) drug therapy
CPT/HCPCS: 0241U; 36415; 71275; 74174; 80048; 80076; 81001; 82803; 83605; 83690; 83880; 84484; 85025; 86850; 86900; 86901; 87040; 87086; 93005; 94640; 99285; J0696; J1170; J1650; J2405; J2920; J2930; Q9967

== ENCOUNTER → 2023-06-02 20:44 | Outpatient (BNV) | payer MEDICARE, MEDICAID, SELFPAY | PROVIDERS: Admitting Provider Student in an Organized Health Care Education/Training Program; Emergency Provider Emergency Medicine Emergency Medical Services; Visit Provider Internal Medicine Cardiovascular Disease | DX: R94.31 Abnormal electrocardiogram [ECG] [EKG] (principal) | CPT/HCPCS: 93010 ==

== ENCOUNTER → 2023-06-02 23:00 | Outpatient (BNV) | payer MEDICARE, MEDICAID, SELFPAY | PROVIDERS: Admitting Provider Student in an Organized Health Care Education/Training Program; Emergency Provider Emergency Medicine Emergency Medical Services; Visit Provider Student in an Organized Health Care Education/Training Program | DX: J44.1 Chronic obstructive pulmonary disease with (acute) exacerbation (principal); J96.01 Acute respiratory failure with hypoxia | CPT/HCPCS: 99222; 99232; 99239 ==

== ENCOUNTER 2023-08-12 09:40 | Outpatient (AMB) | payer MEDICARE, MEDICAID, SELFPAY ==
--- NOTE | 2023-08-12 09:58 | MHC.PC.OV ---
Vital Signs 08/12/23 09:59 08/12/23 11:02 Height 5 ft 4 in Weight 138 lb 2 oz BMI 23.7 BP 150/94 H Blood Pressure Location Rt brachial Position Sitting Pulse 110 H 92 Pulse Source Pulse Oximeter Pulse Oximeter Pulse Oximetry (%) 95 Oxygen Delivery Method Room Air Intake Visit Reasons: New pt-depression Intake Note: Pt is here to est care Allergies codeine [CODEINE] Adverse Reaction (Unknown, Verified 08/12/23 10:19) NAUSEA & VOMITING Codeine Allergy (Unknown, Uncoded 08/12/23 10:19) nasuea Medication List - Last Reconciled 08/12/23 by EDEL Ghosh albuterol sulfate 90 mcg/actuation (Ventolin HFA) 2 puffs inhalation Q6H PRN albuterol sulfate 2.5 mg (3 mL) inhalation Q6H PRN alendronate 70 mg PO NAYLOR@0600 azithromycin 250 mg PO MOWEFR fluoxetine 1 cap PO DAILY dldqyrytgic-ulldexdjk-pirbxhoi 100-62.5-25 mcg (Trelegy Ellipta) 1 puff inhalation DAILY ibuprofen 800 mg PO ONCE PRN prednisone 20 mg PO DAILY 3 days roflumilast 250 mcg PO DAILY Tobacco use date assessed: 08/12/23 Fall risk assessment: No Falls in past year Last assessed Fall Risk: 08/12/23 Dental Screening Dental Screen Date: 08/12/23 Did you have a dental visit in the last 12 months?: No Did you have a dental problem in the last 6 months where you did not have access to dental care?: No Was dental information given to patient?: No HPI HPI Comments History of Present Illness Details This patient is a 73-year-old female who I am meeting for the 1st time. She was recently seen in our emergency room 2 months prior for exacerbation of COPD. The patient is on 2 L of oxygen at night and as needed. Patient also has a past medical history significant for anxiety, chronic lower back pain, osteoporosis, hypertension. For COPD the patient is currently utilizing an albuterol inhaler, albuterol nebulizer, and trilogy Ellipta inhaler. Patient is not on any medication for hypertension at this time, will start her on 5 mg amlodipine, she does have a blood pressure cuff at home and will take measurements multiple times during the day and record them down. Patient denies dizziness, chest pain, nausea, vomiting, diarrhea. Patient does offer complaint of dyspnea on exertion. Did have establish pulmonary care through [place], does not want to see them anymore would like to establish care through her [facility]. She is refusing colonoscopy. Patient is due for mammogram and bone density scan will refer. Patient will see if Prevnar 20 pneumococcal vaccine in office today. Patient has been instructed to get a high-dose flu vaccine. Patient is also candidate for low-dose CT scan for lung cancer screening. Patient is currently utilizing high 800 mg ibuprofen for chronic lower back pain. This is a concern with her hypertension, patient has been educated to limit use of this ibuprofen instead use Tylenol. Patient does have establish care [facility], patient has follow-up with them for cortisone shots. Patient is tachycardic at the appointment today. Will obtain EKG, will obtain echocardiogram, will refer to Cardiology. [facility] Medical History (Updated 08/12/23 @ 11:07 by EDEL Ghosh) Post-menopause Chronic lumbar pain Cyst of left breast FH: cholecystectomy GERD (gastroesophageal reflux disease) Depression COPD (chronic obstructive pulmonary disease) Surgical History H/O inguinal hernia repair Family History Mother Renal disease Mental health disorder Father Mental health disorder Social History Household Members: Other Household Members Other:: 3 house mates Housing: House Do you presently have visiting nurse or other home services: Yes (foot care [employer]) Alcohol intake: former Patient Tobacco Use Status: Current everyday Tobacco user Tobacco use type: Cigarette Cigarettes Per Day: 10 e-Cigarette/Vaping Use: Never Used Second Hand Smoke Exposure: Yes Substance Use Type: Marijuana service: No Current occupational status: retired Questionnaire PHQ-9 Over the last 2 weeks, how often have you been bothered by any of the following problems? 1. Little interest or pleasure in doing things: more than half the days 2. Feeling down, depressed, or hopeless: more than half the days 3. Trouble falling or staying asleep, or sleeping too much: more than half the days 4. Feeling tired or having little energy: nearly every day 5. Poor appetite or overeating: several days 6. Feeling bad about yourself - or that you are a failure or have let yourself or your family down: not at all 7. Trouble concentrating on things, such as reading the newspaper or watching television: more than half the days 8. Moving or speaking so slowly that other people could have noticed. Or the opposite - being so fidgety or restless that you have been moving around a lot more than usual: not at all 9. Thoughts that you would be better off or of hurting yourself in some way: several days Total score: 13 Source: Developed by Drs. Chris Nicholson, Niya Albrecht, Jesus Alberto García and colleagues, with an educational gayathri from [employer]. Thrive Questionnaire Date Thrive assessed: 08/12/23 I am a: Patient What is your living situation today?: I have a place to live, but I am worried about losing it in the future Within the past 12 months, did the food you bought not last and you didn't have the money to get more?: Sometimes True Within the past 12 months, did you worry whether your food would run out before you got money to buy more?: Sometimes True Do you have trouble paying for medicines?: No Do you have trouble getting transportation to medical appointments?: No Do you have trouble paying your heating and electricity bill?: Yes Do you have trouble taking care of your child, family member or friend?: No Do you have trouble with day-to-day activities such as bathing, preparing meals, shopping, managing finances, etc.?: Yes Are you currently unemployed and looking for a job?: No Are you interested in more education?: No THRIVE Score: 4 AUDIT C Alcohol Use Questionnaire (AUDIT-C) 1. How often do you have a drink containing alcohol?: Never Total Score: 0 AUTUMN-7 AMB Questionnaire AUTUMN-7 Date AUTUMN - 7 assessed: 08/12/23 Feeling nervous, anxious, or on edge: 3 = Nearly every day Not being able to stop or control worryin = Nearly every day Worrying too much about different things: 2 = More than half the days Trouble relaxin = More than half the days Being so restless that it is hard to sit still: 1 = Several days Becoming easily annoyed or irritable: 2 = More than half the days Feeling afraid as if something awful might happen: 2 = More than half the days Total AUTUMN-7 score (0-4 normal; 5-9 mild; 10-14 moderate; 15-21 severe): 15 Source: Developed by Drs. Chris Nicholson, Niya Albrecht, Jesus Alberto García and colleagues, with an educational gayathri from [employer]. Review of Systems Const Details: Constitutional : No Weight loss, No Fever, No Chills, No Fatigue, No Malaise ENT/Mouth : No sore throat, No Rhinorrhea Eyes: No Eye Pain, No Swelling, No Redness Cardiovascular : No Chest Pain, No SOB, Admits Dyspnea on Exertion, No Orthopnea, No Edema, No Palpitations Respiratory : No Cough, No Sputum, Admits Wheezing Gastrointestinal : No Nausea, No Vomiting, No Diarrhea, No Constipation, No abdominal Pain, No Hematochezia, No Melena Genitourinary : No Dysuria, No Urinary Frequency, No Hematuria, Musculoskeletal : Admits lower back pain. Skin : No Skin Lesions, No rash Neuro : No Weakness, No Numbness, No Dizziness, No Headache Psych : No Anxiety/Panic, No Depression Heme/Lymph: No Bruising, No Bleeding,No Lymphadenopathy Endocrine : No Polyuria, No Polydipsia All other systems reviewed and are negative Physical exam (Primary Care) Vital Signs: Last Vital Signs Pulse 92 08/12/23 11:02 BP 150/94 H 08/12/23 09:59 Pulse Ox 95 08/12/23 09:59 Oxygen Delivery Method Room Air 08/12/23 09:59 Care Plan Goal for BP management: Patient will be started on 5 mg amlodipine p.o. daily Next steps: Patient will record blood pressure measurements and return to office in 2 weeks BMI result Body Mass Index 23.7 Tobacco/Smoking Status: Tobacco use Status Tobacco use date assessed 08/12/23 08/12/23 10:08 Patient Tobacco Use Status Current everyday Tobacco 08/12/23 09:58 Tobacco use type Cigarette 08/12/23 09:58 e-Cigarette/Vaping Use Never Used 08/12/23 10:08 Are you ready to quit: No PHQ-9: PHQ-9 Score PHQ-9: Total score 13 08/12/23 10:53 Thrive Assessment: Date of Thrive Assessment Date Thrive assessed 08/12/23 08/12/23 10:53 Const Other: Appearance: Alert.? Oriented X3.? No acute distress.? Head: Normocephalic, atraumatic, Eyes: Pupils equal, round and reactive to light.? ENT: Pharynx normal.? Neck: Normal inspection.? Neck supple.? CVS: Tachycardia.? Pulses normal.? Respiratory: No respiratory distress.? Lung sounds diminished throughout.+ wheeze bilateral upper lobes? Extremities: No lower extremity edema.? Neuro: Oriented X 3.? No motor deficit.? No sensory deficit. CN 2-12 intact Office Procedures EKG [id number]-Fuzovstsxsmlzrgun, Complete Immunizations pneumoc 20-brenda conj-dip cr(PF) 0.5 mL IM syringe Performing Provider: EDEL Ghosh [facility] Administered by: Hillary Elkins CMA on 08/12/23 10:47 Dose Route Admin Location Dispensed Lot Number Expiration Date NDC Meter Tester 0.5 mL IM Left Deltoid 0.5 mL [id number] 07/29/24 [id number] [employer] VIS Given Date VIS Provided VIS Publication Date 08/12/23 Single Vaccine 21 Eligibility Eligibility Date Funding Source Not [facility] Eligible 08/12/23 Private Assessment and Plan Assessment & Plan (1) COPD (chronic obstructive pulmonary disease): Comment: Patient would like to establish care with [facility]. Will refer. Patient is currently utilizing 2 L oxygen as needed. Also utilizing albuterol and trilogy inhaler. Code(s): J44.9 - Chronic obstructive pulmonary disease, unspecified Qualifiers: COPD type: unspecified COPD Qualified Code(s): J44.9 - Chronic obstructive pulmonary disease, unspecified (2) Hypertension: Comment: Patient will be given 5 mg amlodipine p.o. daily. Patient will record blood pressure twice per day. Patient will have follow-up in 4 weeks. Code(s): I10 - Essential (primary) hypertension Qualifiers: Hypertension type: unspecified Qualified Code(s): I10 - Essential (primary) hypertension (3) Dyspnea on exertion: Comment: Patient has chronic dyspnea on exertion. EKG in office demonstrated possible left atrial enlargement and nonspecific ST abnormality. Will obtain echocardiogram will refer patient to Cardiology. Code(s): R06.09 - Other forms of dyspnea Plan: Take your medications as prescribed. If you were prescribed antibiotics today, it is important that you take your medication to their entirety, do not skip any doses, do not finish them early. Follow-up with your primary care provider this week. Return to the emergency department with new or worsening symptoms. Such as fevers, chills, chest pain, shortness of breath, nausea, vomiting, dizziness, headache, vision changes, lethargy In case of emergency call 911 Plan Patient will follow-up in 4 weeks Orders: Orders AMB EKG-In Office Today Z13.6 - Encounter for screening for cardiovascular disorders XR DEXA axial skeleton Today Z78.0 - Asymptomatic menopausal state CA echo transthoracic complete Today Pneumococcal 20 Immunization Today Z23 - Encounter for immunization Comprehensive Met. Panel Today Z91.89 - Other specified personal risk factors, not elsewhere classified Hemoglobin A1c Today Z13.1 - Encounter for screening for diabetes mellitus Vitamin D 25-OH (D2 and D3) Today Z13.21 - Encounter for screening for nutritional disorder Vitamin B6 Today Z13.21 - Encounter for screening for nutritional disorder UA CC w/rflx Micro + Cult Today Z13.89 - Encounter for screening for other disorder MM tomosynthesis screening BI Today Z12.31 - Encounter for screening mammogram for malignant neoplasm of breast Complete Blood Count Auto Diff Today Z13.0 - Encounter for screening for diseases of the blood and blood-forming organs and certain disorders involving the immune mechanism Lipid Panel Today Z13.220 - Encounter for screening for lipoid disorders TSH reflex Free T4 Today Z13.29 - Encounter for screening for other suspected endocrine disorder Vitamin B12 Today Z13.21 - Encounter for screening for nutritional disorder Referrals Pulmonary Medicine Referral J44.9 - Chronic obstructive pulmonary disease, unspecified Cardiology Referral I10 - Essential (primary) hypertension, R06.09 - Other forms of dyspnea, R94.31 - Abnormal electrocardiogram [ECG] [EKG] Thoracic Surgery Referral Z12.2 - Encounter for screening for malignant neoplasm of respiratory organs Medications: New amlodipine 5 mg PO DAILY 90 tabs 0RF Review Declined Pap Smear: 04/12/24 Patient declined Colonoscopy: 08/12/23 Patient declined Colon Cancer Screen Lab: 08/12/23 Coding Level of Care Code Est Pt Level 4 (86590) Diagnoses Chronic obstructive pulmonary disease, unspecified COPD type J44.9 COPD type: unspecified COPD Hypertension, unspecified type I10 Hypertension type: unspecified Dyspnea on exertion R06.09 CPT Codes EKG - CPT: 52746-Aupobuftiyzfxyetq, Complete ([id number]) Time Spent (min) 40
[2023-08-12 09:59] VITALS: BP 150/94; PULSE 110; O2SAT 95; BMI 23.7
[2023-08-12 11:02] VITALS: PULSE 92
== END 2023-08-12 16:40 | disposition home or self-care (01) ==
PROVIDERS: Visit Provider Nurse Practitioner Primary Care
DX: Z23 Encounter for immunization (principal); R06.09 Other forms of dyspnea
CPT/HCPCS: 90471; 90677; 93000; 99214

== ENCOUNTER 2023-08-12 11:18 | Outpatient (REF) | payer MEDICARE, MEDICAID, SELFPAY ==
[2023-08-12 13:32] LABS: MANUAL DIFF FLAG NO
[2023-08-12 13:48] LABS: Basophils Absolute Auto 0.1 X10*3/uL (0.0-0.2); Basophils Percent Auto 0.5 % (0-2); Eosinophils Absolute Auto 0.1 X10*3/uL (0.0-0.4); Eosinophils Percent Auto 1.2 % (0-4); Hematocrit 47.9 % (37.0-47.0); Hemoglobin 15.7 g/dl (12.0-16.0); Imm Gran Abs Auto 0.06 X10*3/uL (0.00-0.03); Imm Gran Pct Auto 0.6 % (0.0-0.4); Lymphocytes Absolute Auto 2.8 X10*3/uL (1.2-4.9); Lymphocytes Percent Auto 26.8 % (20-40); Mean Corpuscular HGB Conc 32.8 g/dl (31.0-35.0); Mean Corpuscular Hemoglobin 31.4 pg (27.0-33.0); Mean Corpuscular Volume 95.8 fL (80.0-98.0); Mean Platelet Volume 10.8 fL (9.4-12.3); Monocytes Percent Auto 9.2 % (2-11); Neutrophils Absolute Auto 6.5 x10*3/uL (2.0-8.3); Neutrophils Percent Auto 61.7 % (45-73); Platelet Count 279 X10*3/uL (160-400); Red Cell Distribution Width 13.1 % (11.0-16.0); White Blood Count 10.5 X10*3/uL (4.8-10.8)
[2023-08-12 14:03] LABS: Appearance Urine Clear; Color Urine Yellow; Glucose Urine UA Negative (Negative); Leukocyte Esterase Urine Trace (Negative); Nitrite Urine Negative (Negative); UMIC TRIGGER UACC YES; Urine Blood Trace (Negative); Urine Ketones Trace mg/dL (Negative); Urine Protein Negative (Neg-Trace)
[2023-08-12 14:11] LABS: Bacteria Urine None Seen (None Seen); Hyaline Casts Urine 0-2 /LPF (0-2); WBC Urine 0-5 /HPF (0-5)
[2023-08-12 14:30] LABS: Estimated Average Glucose 105 mg/dL; Hemoglobin A1c % 5.3 % (<6.0)
[2023-08-12 14:32] LABS: Alanine Aminotransferase 9 U/L (0-31); Alkaline Phosphatase 100 U/L (39-117); Anion Gap 12 (12-20); Aspartate Amino Transferase 16 U/L (5-31); Bilirubin Total 0.6 mg/dL (0.0-1.0); Blood Urea Nitrogen 15 mg/dL (9-16); Calcium 9.6 mg/dL (8.4-10.2); Carbon Dioxide 26 mmol/L (22-29); Chloride 105 mmol/L (96-108); Cholesterol 232 mg/dL (<200); Estimated Glomerular Filt Rate > 60; Glucose Random 98 mg/dL (60-115); HDL Cholesterol 64 mg/dL (>40); LDL Cholesterol Calculated 149 mg/dL (<100); Potassium 3.8 mmol/L (3.3-5.1); Sodium 139 mmol/L (135-145); Total Protein 7.2 g/dL (6.5-8.0); Triglycerides 95 mg/dL (<150)
[2023-08-12 14:40] LABS: TSH reflex Free T4 0.93 uIU/mL (0.32-4.0)
[2023-08-12 14:53] LABS: Vitamin B12 438 pg/mL (200-900)
[2023-08-16 12:38] LABS: Vitamin D 25-OH, D2 <4 ng/mL; Vitamin D 25-OH, D3 4 ng/mL; Vitamin D 25-OH, Total 4 ng/mL (30-100)
[2023-08-18 15:58] LABS: Vitamin B6 <2.0 ng/mL (2.1-21.7)
== END 2023-08-12 11:19 | disposition home or self-care (01) ==
LOC: HO.HMGCLDS 11:18
PROVIDERS: Visit Provider Nurse Practitioner Primary Care
DX: Z91.89 Other specified personal risk factors, not elsewhere classified (principal); Z13.89 Encounter for screening for other disorder; Z13.21 Encounter for screening for nutritional disorder; Z13.29 Encounter for screening for other suspected endocrine disorder; Z13.220 Encounter for screening for lipoid disorders; Z13.1 Encounter for screening for diabetes mellitus; Z13.0 Encounter for screening for diseases of the blood and blood-forming organs and certain disorders involving the immune mechanism
CPT/HCPCS: 36415; 80053; 80061; 81001; 81003; 82306; 82607; 83036; 84207; 84443; 85025

== ENCOUNTER 2023-08-30 12:09 | Outpatient (REF) | payer MEDICARE, MEDICAID, SELFPAY | END 2023-08-30 12:10 | disposition home or self-care (01) | LOC: HO.MAMMO 12:09 | PROVIDERS: PCP Nurse Practitioner Primary Care; Visit Provider Nurse Practitioner Primary Care | DX: Z12.31 Encounter for screening mammogram for malignant neoplasm of breast (principal) | CPT/HCPCS: 77063; 77067 ==

== ENCOUNTER → 2023-08-30 12:30 | Outpatient (BNV) | payer MEDICARE, MEDICAID, SELFPAY | PROVIDERS: PCP Nurse Practitioner Primary Care; Visit Provider Radiology Diagnostic Radiology | DX: Z12.31 Encounter for screening mammogram for malignant neoplasm of breast (principal) | CPT/HCPCS: 77063; 77067 ==

== ENCOUNTER 2023-08-31 12:44 | Outpatient (REF) | payer MEDICARE, MEDICAID, SELFPAY ==
--- NOTE | ~2023-08-31 | MM_ITS ---
EXAMINATION: BONE DENSITOMETRY CLINICAL INDICATION: Asymptomatic menopausal state. COMPARISON: This is the patient's baseline examination. TECHNIQUE: Using a [employer] DXA System (software version: 13.1) manufactured by [employer], dual-energy x-ray absorptiometry was performed of the lumbar spine and left hip. The images are of good technical quality. Summary results are attached. FINDINGS: LEFT FEMUR, NECK: BMD 0.660 g/cm2, Z-score -0.9, T-score -2.7, osteoporosis. LEFT FEMUR, TOTAL: BMD 0.635 g/cm2, Z-score -1.3, T-score -3.0, osteoporosis. AP SPINE L1-L4: BMD 1.055 g/cm2, Z-score 0.7, T-score -1.0, normal. IDENTIFIED RISK FACTORS: Menopause, glucocorticoids, osteoporosis, current smoker. HISTORY OF FRACTURE: None listed. MEDICATIONS: Vitamin D. MM/XR DEXA axial skeleton IMPRESSION: 1. DIAGNOSIS: Osteoporosis based on the lowest T-score value of -3.0 in the total femur applying World Health Organization criteria. 2. 10-YEAR FRACTURE RISK PREDICTION, FRAX: According to the guidelines, FRAX calculation should only be performed on patients in the osteopenia bone density category. Therefore, FRAX was not performed on this patient. 3. Treatment Recommendations: NOF guidelines recommend consideration for treatment in postmenopausal women and men age 50 and older presenting with the following: -A hip or vertebral (clinical or morphometric) fracture. -T-score less than or equal to -2.5 at the femoral neck or spine after appropriate evaluation to exclude secondary causes. -Low bone mass at the hip or spine and a 10-year fracture probability by FRAX of greater than or equal to 3% for hip fracture or greater than or equal to 20% for major osteoporotic fracture based on the [place] adapted WHO algorithm. 4. Other Recommendations: All treatment decisions require clinical judgment and consideration of individual patient factors, including patient preferences, comorbidities, previous drug use, risk factors not captured in the FRAX model (e.g. frailty, falls, vitamin D deficiency, increased bone turnover, interval significant decline in bone density) and possible under or overestimation of fracture risk by FRAX. Additional medical evaluation for secondary cause of low bone mineral density may be appropriate. FUTURE SCAN RECOMMENDATION: People with diagnosed cases of osteoporosis or at high risk for fracture should have regular bone mineral density tests. For patients eligible for Medicare, routine testing is allowed once every 2 years. The testing frequency can be increased to one year for patients who have rapidly progressing disease, those who are receiving or discontinuing medical therapy to restore bone mass, or have additional risk factors.
== END 2023-08-31 12:45 | disposition home or self-care (01) ==
LOC: HO.MAMMO 12:44
PROVIDERS: PCP Nurse Practitioner Primary Care; Visit Provider Nurse Practitioner Primary Care
DX: Z13.820 Encounter for screening for osteoporosis (principal); Z78.0 Asymptomatic menopausal state
CPT/HCPCS: 77080

== ENCOUNTER 2023-09-09 11:44 | Outpatient (AMB) | payer MEDICARE, MEDICAID, SELFPAY ==
--- NOTE | 2023-09-09 11:47 | A.OFFPC_ITS ---
Vital Signs 09/09/23 11:52 Height 5 ft 4 in Weight 135 lb BMI 23.2 BP 110/80 Blood Pressure Location Rt brachial Position Sitting Pulse 98 Pulse Source Pulse Oximeter Pulse Oximetry (%) 94 Oxygen Delivery Method Room Air Intake Visit Reasons: 1 month f/up HTN Intake Note: Patient here for HTN f/u. Allergies codeine [CODEINE] Adverse Reaction (Unknown, Verified 09/09/23 12:00) NAUSEA & VOMITING Codeine Allergy (Unknown, Uncoded 09/09/23 12:00) nasuea Medication List - Last Reconciled 09/09/23 by EDEL Ghosh albuterol sulfate 90 mcg/actuation (Ventolin HFA) 2 puffs inhalation Q6H PRN albuterol sulfate 2.5 mg (3 mL) inhalation Q6H PRN alendronate 70 mg PO NAYLOR@0600 amlodipine 5 mg PO DAILY atorvastatin 20 mg PO DAILY azithromycin 250 mg PO MOWEFR cholecalciferol (vitamin D3) 25 mcg PO DAILY fluoxetine 1 cap PO DAILY dqgqojzdoga-xgrevnvbd-xdigrzld 100-62.5-25 mcg (Trelegy Ellipta) 1 puff inhalation DAILY ibuprofen 800 mg PO ONCE PRN prednisone 20 mg PO DAILY 3 days roflumilast 250 mcg PO DAILY Tobacco use date assessed: 08/12/23 Dental Screening Dental Screen Date: 08/12/23 HPI HPI Comments History of Present Illness Details Patient is a 73-year-old female in today for follow-up for hypertension. Patient was started on 5 mg amlodipine. Has not been taking blood pressure measurements at home however blood pressure at appointment today is controlled. Patient has no lower extremity edema. She has been educated that she should take blood pressure measurements and heart rate at home as well as pulse oximetry readings. Patient had recent bone density scan which demonstrated osteoporosis of the left femur. Patient had been prescribed along release 70 mg by previous PCP, however she has not been taking this. Patient has been educated that she should restart this medication, she has been educated that this should be once per week. In addition, patient was found to be deficient in vitamin D3, was educated she needs take vitamin D3 2000 units per day for the next 3 months and will redraw. On physical exam patient is in no acute distress. She is a current everyday smoker and declines smoking cessation. She has bilateral wheeze throughout. No rhonchi. No crackles. Patient denies recent fever chills. Denies shortness of breath however she does offer complaint of dyspnea on exertion. Patient will be given short course of prednisone. Patient has upcoming pulmonary appointment in 3 days. Patient also has cardiology appointment in 2 months. [facility] Medical History (Updated 09/09/23 @ 12:27 by EDEL Ghosh) Post-menopause Chronic lumbar pain Cyst of left breast FH: cholecystectomy GERD (gastroesophageal reflux disease) Depression COPD (chronic obstructive pulmonary disease) Surgical History H/O inguinal hernia repair Family History Mother Renal disease Mental health disorder Father Mental health disorder Social History Household Members: Other Household Members Other:: 3 house mates Housing: House Do you presently have visiting nurse or other home services: Yes (foot care [employer]) Alcohol intake: former Patient Tobacco Use Status: Current everyday Tobacco user Tobacco use type: Cigarette Cigarettes Per Day: 10 e-Cigarette/Vaping Use: Never Used Second Hand Smoke Exposure: Yes Substance Use Type: Marijuana service: No Current occupational status: retired Questionnaire Thrive Questionnaire Date Thrive assessed: 08/12/23 AUTUMN-7 AMB Questionnaire AUTUMN-7 Date AUTUMN - 7 assessed: 08/12/23 Source: Developed by Drs. Chris Nicholson, Niya Albrecht, Jesus Alberto García and colleagues, with an educational gayathri from [employer]. Review of Systems Const All systems reviewed & are unremarkable except as noted in HPI and below Denies chills and Denies fever(s) Eyes Denies blurry vision and Denies diplopia ENT Denies dizziness Card Denies chest pain, Denies dyspnea, Reports dyspnea on exertion and Denies orthopnea Resp Denies dyspnea, Reports dyspnea on exertion and Reports wheezing GI Denies diarrhea, Denies nausea and Denies vomiting Neuro Denies dizziness Aller/Immun Reports wheezing Physical exam (Primary Care) Care Plan Goal for BP management: BP is controlled. Tobacco/Smoking Status: Tobacco use Status Tobacco use date assessed 08/12/23 08/12/23 10:08 Patient Tobacco Use Status Current everyday Tobacco 08/12/23 09:58 Tobacco use type Cigarette 08/12/23 09:58 e-Cigarette/Vaping Use Never Used 08/12/23 10:08 Thrive Assessment: Date of Thrive Assessment Date Thrive assessed 08/12/23 08/26/23 12:55 Const Other: Appearance: Alert.? Oriented X3.? No acute distress.? Head: Normocephalic. Eyes: Pupils equal, round and reactive to light.? ENT: Pharynx normal.? Neck: Normal inspection.? Neck supple.? CVS: Normal heart rate and rhythm.? Pulses normal.? Respiratory: No respiratory distress.? Bilateral wheeze throughout. ? Neuro: Oriented X 3.? No motor deficit.? No sensory deficit. CN 2-12 intact Assessment and Plan Assessment & Plan (1) Osteoporosis: Comment: Patient will restart alendronate. Patient has been educated the side effects of this medication how to take it properly. Code(s): M81.0 - Age-related osteoporosis without current pathological fracture Qualifiers: Osteoporosis type: unspecified Presence of current pathological fracture: unspecified Qualified Code(s): M81.0 - Age-related osteoporosis without current pathological fracture (2) COPD (chronic obstructive pulmonary disease): Comment: Has upcoming appointment with pulmonology. Will prescribe prednisone for the next 4 days. Patient is currently utilizing 2 L oxygen as needed. Also utilizing albuterol and trilogy inhaler. Code(s): J44.9 - Chronic obstructive pulmonary disease, unspecified Qualifiers: COPD type: unspecified COPD Qualified Code(s): J44.9 - Chronic obstruc tive pulmonary disease, unspecified Plan: Has been educated on signs of worsening symptoms when to report back to the walk-in or when to present to the emergency room. (3) Hypertension: Comment: Amlodipine 5 mg daily. Controlled at this point. Code(s): I10 - Essential (primary) hypertension Qualifiers: Hypertension type: unspecified Qualified Code(s): I10 - Essential (primary) hypertension Plan Take your medications as prescribed. If you were prescribed antibiotics today, it is important that you take your medication to their entirety, do not skip any doses, do not finish them early. Follow-up with your primary care provider this week. Return to the emergency department with new or worsening symptoms. Such as fevers, chills, chest pain, shortness of breath, nausea, vomiting, dizziness, headache, vision changes, lethargy In case of emergency call 911 Medications: New alendronate 70 mg PO NAYLOR@0600 30 tabs 0RF prednisone 20 mg PO DAILY 4 tabs 0RF Discontinued prednisone Discontinued Reason: Duplicate 20 mg PO DAILY 3 days 3 tabs 0RF Coding Level of Care Code Est Pt Level 3 (95618) Diagnoses Osteoporosis, unspecified osteoporosis type, unspecified pathological fracture presence M81.0 Osteoporosis type: unspecified Presence of current pathological fracture: unspecified Chronic obstructive pulmonary disease, unspecified COPD type J44.9 COPD type: unspecified COPD Hypertension, unspecified type I10 Hypertension type: unspecified Time Spent (min) 24
[2023-09-09 11:52] VITALS: BP 110/80; PULSE 98; O2SAT 94; BMI 23.2
== END 2023-09-09 12:17 | disposition home or self-care (01) ==
PROVIDERS: PCP Nurse Practitioner Primary Care; Visit Provider Nurse Practitioner Primary Care
DX: M81.0 Age-related osteoporosis without current pathological fracture (principal); J44.9 Chronic obstructive pulmonary disease, unspecified; I10 Essential (primary) hypertension
CPT/HCPCS: 99213

== ENCOUNTER 2023-09-12 10:47 | Outpatient (AMB) | payer MEDICARE, MEDICAID, SELFPAY ==
[2023-09-12 10:57] VITALS: BP 130/88; PULSE 104; O2SAT 93; BMI 23.5
--- NOTE | 2023-09-12 10:57 | MHC.OFFVIS ---
Vital Signs 09/12/23 10:57 Height 5 ft 4 in Weight 136 lb 10.986 oz BMI 23.5 BP 130/88 Blood Pressure Location Lt brachial Position Sitting Pulse 104 H Pulse Source Pulse Oximeter Pulse Oximetry (%) 93 Oxygen Delivery Method Room Air Intake Visit Reasons: COPD Allergies codeine [CODEINE] Adverse Reaction (Unknown, Verified 09/12/23 11:00) NAUSEA & VOMITING Codeine Allergy (Unknown, Uncoded 09/12/23 11:00) nasuea HPI HPI COPD: Details: Alisia is pleasant 73 year female, current smoker with 40+pack year history, with underlying COPD, CKDIII, HTN osteoporosis, and GERD. She was referred by PCP for pulmonary evaluation. She was previously under the care of pulmonary at [facility] but would like to transfer care to this office. She believes she had a PFT recently, report not available today. Per records, she has been involved in the lung cancer screening program, however no chest CT available to review. She reports suboptimal control of symptoms on Trelegy 100 mcg, albuterol MDI, daliresp and suppressive therapy with azithromycin 250 mg 3 x/ week. She continues to report dyspnea on minimal exertion, wheezing, chest tightness and productive cough with clear mucous. Of note, she was recently seen by PCP who prescribed prednisone but patient did not start. She reports using supplemental oxygen 2L on an as needed basis. She is not using supplemental oxygen today and O2 is 93%. [employer] is her DME. She denies any allergies. She denies any pertinent family history. She denies any occupational exposures. 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) Alcohol intake: former Patient Tobacco Use Status: Current everyday Tobacco user Tobacco use type: Cigarette Cigarettes Per Day: 10 e-Cigarette/Vaping Use: Never Used Second Hand Smoke Exposure: Yes Substance Use Type: Marijuana service: No Current occupational status: retired Review of Systems ENT Reports Normal hearing present Neuro Reports Normal hearing present Physical Exam Vital Signs: Last Vital Signs Pulse 104 H 09/12/23 10:57 BP 130/88 09/12/23 10:57 Pulse Ox 93 09/12/23 10:57 Oxygen Delivery Method Room Air 09/12/23 10:57 BMI result Body Mass Index 23.5 Const General: cooperative, healthy appearing, comfortable, no acute distress, well developed and alert Orientation/consciousness: patient oriented x3 Limitations: no limitations HEENT Head: Yes normal to inspection, Yes normocephalic and Yes atraumatic Ears: hearing grossly normal bilaterally and external ears normal Eyes General: appearance normal, both eyes and all related structures Eyelids: Yes eyelids normal Sclerae: sclerae normal EOM: EOMs intact bilaterally Neck Neck: Yes normal visual inspection and Yes no lymphadenopathy Lymphatic: no lymphadenopathy noted Chest Chest palpation & inspection: normal inspection of the chest Resp Other: diminished sounds throughout with expiratory wheezing, improved with duoneb Effort & Inspection: normal respiratory effort, able to speak in complete sentences, no audible wheezes, no cough, no stridor, not tachypneic, no tripod positioning and no use of accessory muscles Cardio Jugular venous distension: no JVD Rate: regular rate Rhythm: regular rhythm Skin Other: warm, dry General skin exam: no rashes or lesions noted Neuro General: patient oriented x3 Cranial nerves: Yes Normal hearing present Cognition (Neuro): normal cognition Gait exam (Neuro): Normal gait present Extrem General: Yes normal to inspection, Yes capillary refill normal, Yes no clubbing, cyanosis or edema and Yes no pedal edema Psych Appearance: grossly normal and well kempt Speech and movement: Normal speech and movement present and Clear speech present Affect: normal affect Attitude: cooperative Thought process: Normal thought process present Thought content: Normal thought content present Insight: Good insight present (Psych) Judgement: Good judgement present (Psych) Office Procedures Nebulizer Treatment Nebulizer Treatment [id number]/MDI RX initial, or Nebulizer Subsequent Treatment Office Meds ipratropium 0.5 mg-albuterol 3 mg (2.5 mg base)/3 mL nebulization soln Performing Provider: Serina Mosley NP Performing Location: [facility] [place] [facility] [place] [facility] Administered by: Suyapa Schwartz LPN on 09/12/23 11:32 Dose Route Admin Location Dispensed Lot Number Expiration Date [employer] 3 mL inhalation 3 mL [id number] 03/01/25 00740-093-70 [employer] Assessment & Plan Assessment & Plan (1) COPD (chronic obstructive pulmonary disease): Code(s): J44.9 - Chronic obstructive pulmonary disease, unspecified Category: Medical Qualifiers: COPD type: unspecified COPD Qualified Code(s): J44.9 - Chronic obstructive pulmonary disease, unspecified (2) Nicotine dependence, cigarettes, uncomplicated: Code(s): F17.210 - Nicotine dependence, cigarettes, uncomplicated Category: Medical (3) Dyspnea on exertion: Code(s): R06.09 - Other forms of dyspnea Category: Medical Plan Alisia's symptoms are likely related to underlying COPD with possible cardiac component. She has an upcoming evaluation with cardiology. At this time, unclear severity of COPD. Will have patient sign release to obtain prior pulmonary notes as well as PFT and imaging. May need to schedule updated PFT and chest CT depending on records. On exam patient with diminsihed lung sounds and wheezing throughout. Will send prednisone. Encouraged patient to use nebulizer along with current regimen. Will perform 6MWT at next visit after she recovers from exacerbation. She has supplemental oxygen at home which she uses PRN. All questions were answered and patient is in agreement of plan. Will follow up in 4 weeks to review records or sooner if needed. Orders: Orders AMB Nebulizer Treatment 09/12/23 J44.9 - Chronic obstructive pulmonary disease, unspecified Medications: New prednisone see taper instructions; 40 mg Daily x3 days, 30 mg daily x3 days, 20 mg daily x3 days, 10 mg daily x3 days 10 mg PO DIRECTED 30 tabs 0RF Changed From hctttxhssom-auwblresh-uhagwght 100-62.5-25 mcg (Trelegy Ellipta) 1 puff inhalation DAILY To zsbesbnqmvm-cdmxezemc-znwtyrcy 100-62.5-25 mcg (Trelegy Ellipta) 1 inh inhalation DAILY 60 ea 0RF Coding Level of Care Code New Pt Level 4 (81478) Diagnoses Chronic obstructive pulmonary disease, unspecified COPD type J44.9 COPD type: unspecified COPD Nicotine dependence, cigarettes, uncomplicated F17.210 Dyspnea on exertion R06.09 CPT Codes Nebulizer Treatment - Nebulizer Treatment, initial or subsequent: [id number]/MDI RX initial, or Nebulizer Subsequent Treatment ([id number])
== END 2023-09-12 11:40 | disposition home or self-care (01) ==
PROVIDERS: PCP Nurse Practitioner Primary Care; Visit Provider Nurse Practitioner Family
DX: J44.9 Chronic obstructive pulmonary disease, unspecified (principal); F17.210 Nicotine dependence, cigarettes, uncomplicated; R06.09 Other forms of dyspnea
CPT/HCPCS: 99204

== ENCOUNTER → 2023-09-12 10:47 | Outpatient (BNVA) | payer MEDICARE, MEDICAID, SELFPAY | PROVIDERS: PCP Nurse Practitioner Primary Care; Visit Provider Nurse Practitioner Family | DX: J44.9 Chronic obstructive pulmonary disease, unspecified (principal); R06.09 Other forms of dyspnea; F17.210 Nicotine dependence, cigarettes, uncomplicated | CPT/HCPCS: 94640; 99202 ==

== ENCOUNTER → 2023-09-28 13:23 | Outpatient (REF) | payer MEDICARE, MEDICAID, SELFPAY ==
--- NOTE | 2023-09-28 13:29 | CA_ITS ---
Transthoracic Echocardiogram Patient (Last, First, Middle): Alisia Xiao R Gender: Female Date of : 1950 Age: 73 Procedure Date: 09/28/2023 Procedure Type: Transthoracic Echocardiogram Location: OP Height: 162.56 cm Weight: 62.6 kg BSA: 1.67 m2 Heart Rate: bpm BP: 122 / 80 mmHg [facility] Attendant: TALIA Referring MD: Dax HOLLINGSWORTH Symptoms: R94.31 - Abnormal electrocardiogram [ECG] [EKG] Study Quality: Fair ECG Rhythm: Sinus Conclusions: - The left ventricular systolic function is hyperdynamic. The visually estimated ejection fraction is >70%. - No significant resting LVOT gradient; with valsalva, upto 26mmHg. - Possible basal inferior hypokinesis. - No obvious valvular pathology seen on this study. Findings Left Ventricle Normal left ventricular cavity size. There is normal left ventricular wall thickness. The left ventricular systolic function is hyperdynamic. The visually estimated ejection fraction is >70%. There is no evidence of regional wall motion abnormalities. Diastolic function is normal for age. No significant resting LVOT gradient; with valsalva, upto 26mmHg. Possible basal inferior hypokinesis. Right Ventricle Normal right ventricular cavity size and systolic function. Atria Both atria are normal in size. Aortic Valve The aortic valve was not well visualized. There is no aortic valve stenosis. There is no aortic valve regurgitation. Mitral Valve The mitral valve appears normal. There is no mitral valve regurgitation. There is no mitral valve stenosis. Pulmonic Valve The pulmonic valve is likely normal. Tricuspid Valve There is no tricuspid valve regurgitation. Tricuspid regurgitation envelope is inadequate for calculation of right ventricular systolic pressure. Great Vessels The sinuses of valsalva and asc aorta are normal in size. Venous The inferior vena cava is normal in size and collapses greater than 50% with inspiration. Pericardium/Pleural There is no evidence of pericardial effusion. Prior Study Comparison No prior study available for comparison. Recommendations, Care & Conclusions No obvious valvular pathology seen on this study. Measurements 2D Linear Measurements IVSd: 0.92 0.6-0.9/0.6-1.0 cm LVIDd: 3.45 3.9-5.3/4.2-5.9 cm LVIDd Index: 2.07 2.4-3.2/2.2-3.1 cm/m2 LVIDs: 2.12 2.0-3.6 cm LVPWd: 1.07 0.7-1.1 cm LV Mass: 125.09 67-162/88-224 g LV Mass Index: 74.91 43-95/49-115 g/m2 LVOT Diam: 1.90 3.0+(-)1.3 cm 2D Systolic Function EF 4C: 68.40 >55% EF 2C: 69.60 >55% EF BiP: 71.40 >55% Mitral Valve MV Pk E: 0.57 MV PK A: 0.96 MV Decel Time: 226.00 E/A: 0.60 E'Lateral: 9.79 E'Medial: 8.05 E/E' Med: 7.10 E/E' Lat: 5.90 PHT: 66.00 MVA PHT: 3.33 Decel [place]: 2.54 Aortic Valve AoV Pk William: 1.45 AoV Mn William: 0.99 AoV VTI: 0.23 AoV Pk Grad: 8.00 Aov Mn Grad: 4.00 IMELDA Cont.VTI: 2.66 LVOT LVOT Pk William: 1.29 LVOT Mn William: 0.94 LVOT VTI: 0.21 LVOT Pk Grad: 7.00 LVOT Mn Grad: 4.00 LVOT Diam: 1.90 LVOT Area: 2.84 Diastolic Function MV Pk E: 0.57 MV Pk A: 0.96 E/A: 0.60 E'Medial: 8.05 E/E' Med: 7.10 E' Laterial: 9.79 E/E' Lat: 5.90 Right Ventricle TAPSE (mm): 22.00 TVS' William: 16.50 Tricuspid Valve RA Press: 3.00 Great Vessels Aorta Sinus of Valsalva: 3.32 2.0-3.5 cm Ao Asc: 3.50 2.1-3.4 cm Updated in Other Vendor System with Status of Final Eleuterio Young MD electronically signed on 09/30/2023 8:33:31 AM with status of Final
== END ==
LOC: HO.CARD 13:23
PROVIDERS: PCP Nurse Practitioner Primary Care; Visit Provider Nurse Practitioner Primary Care
DX: R94.31 Abnormal electrocardiogram [ECG] [EKG] (principal); R00.0 Tachycardia, unspecified; R06.09 Other forms of dyspnea
CPT/HCPCS: 93306

== ENCOUNTER → 2023-09-28 13:29 | Outpatient (BNV) | payer MEDICARE, MEDICAID, SELFPAY | PROVIDERS: PCP Nurse Practitioner Primary Care; Visit Provider Internal Medicine | DX: R94.31 Abnormal electrocardiogram [ECG] [EKG] (principal) | CPT/HCPCS: 93306 ==

== ENCOUNTER 2023-10-10 13:49 | Outpatient (AMB) | payer MEDICARE, MEDICAID, SELFPAY ==
[2023-10-10 14:16] VITALS: BP 134/80; PULSE 111; O2SAT 90; BMI 23.3
--- NOTE | 2023-10-10 14:16 | MHC.OFFVIS ---
Vital Signs 10/10/23 14:16 Height 5 ft 4 in Weight 135 lb 9.349 oz BMI 23.3 BP 134/80 Blood Pressure Location Lt brachial Position Sitting Pulse 111 H Pulse Source Pulse Oximeter Pulse Oximetry (%) 90 L Oxygen Delivery Method Room Air Intake Visit Reasons: COPD Allergies codeine [CODEINE] Adverse Reaction (Unknown, Verified 10/10/23 14:22) NAUSEA & VOMITING Codeine Allergy (Unknown, Uncoded 10/10/23 14:22) nasuea HPI HPI COPD: Details: Alisia is pleasant 73 year female, current smoker with 40+pack year history, with underlying COPD, CKDIII, HTN osteoporosis, and GERD. She reports suboptimal control of symptoms on Trelegy 100 mcg, albuterol MDI, and suppressive therapy with azithromycin 250 mg 3 x week. She previously trialed daliresp, however could not tolerate. Of note, she has been without azithromycin. Today she presents with chest congestion, dyspnea on minimal exertion, wheezing, chest tightness and productive cough with yellow mucous. She reports using supplemental oxygen 2L on an as needed basis, she is not currently using. 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) Alcohol intake: former Patient Tobacco Use Status: Current everyday Tobacco user Tobacco use type: Cigarette Cigarettes Per Day: 10 e-Cigarette/Vaping Use: Never Used Second Hand Smoke Exposure: Yes Substance Use Type: Marijuana service: No Current occupational status: retired Review of Systems Const Denies chills, Denies excessive sweating, Denies fever(s), Denies headache(s) and Denies night sweats Eyes Denies dry eyes, Denies irritation and Denies itchy eyes ENT Reports Normal hearing present and Denies headache(s) Card Denies chest pain, Denies chest pain at rest, Denies chest pain with activity, Denies claudication, Denies leg edema, Denies dyspnea on exertion, Denies orthopnea and Denies paroxysmal nocturnal dyspnea Resp Denies excessive phlegm production, Denies pain on inspiration, Denies pain with cough, Denies dyspnea on exertion and Denies stridor Musc Denies myalgias Neuro Reports Normal hearing present and Denies headache(s) Endo Denies excessive sweating Ajit/Lymph Denies lymphadenopathy Aller/Immun Denies itchy eyes and Denies seasonal rhinorrhea Physical Exam Vital Signs: Last Vital Signs Pulse 111 H 10/10/23 14:16 BP 134/80 10/10/23 14:16 Pulse Ox 90 L 10/10/23 14:16 Oxygen Delivery Method Room Air 10/10/23 14:16 BMI result Body Mass Index 23.3 Const General: cooperative, healthy appearing, comfortable, no acute distress, well developed and alert Orientation/consciousness: patient oriented x3 Limitations: no limitations HEENT Head: Yes normal to inspection, Yes normocephalic and Yes atraumatic Ears: hearing grossly normal bilaterally and external ears normal Eyes General: appearance normal, both eyes and all related structures Eyelids: Yes eyelids normal Sclerae: sclerae normal EOM: EOMs intact bilaterally Neck Neck: Yes normal visual inspection and Yes no lymphadenopathy Lymphatic: no lymphadenopathy noted Chest Chest palpation & inspection: normal inspection of the chest Resp Other: diminished sounds throughout with expiratory wheezing, improved with duoneb Effort & Inspection: normal respiratory effort, able to speak in complete sentences, no audible wheezes, no cough, no stridor, not tachypneic, no tripod positioning and no use of accessory muscles Cardio Jugular venous distension: no JVD Rate: regular rate Rhythm: regular rhythm Skin Other: warm, dry General skin exam: no rashes or lesions noted Neuro General: patient oriented x3 Cranial nerves: Yes Normal hearing present Cognition (Neuro): normal cognition Gait exam (Neuro): Normal gait present Extrem General: Yes normal to inspection, Yes capillary refill normal, Yes no clubbing, cyanosis or edema and Yes no pedal edema Psych Appearance: grossly normal and well kempt Speech and movement: Normal speech and movement present and Clear speech present Affect: normal affect Attitude: cooperative Thought process: Normal thought process present Thought content: Normal thought content present Insight: Good insight present (Psych) Judgement: Good judgement present (Psych) Office Procedures Nebulizer Treatment Nebulizer Treatment [id number]/MDI RX initial, or Nebulizer Subsequent Treatment Office Meds ipratropium 0.5 mg-albuterol 3 mg (2.5 mg base)/3 mL nebulization soln Performing Provider: Serina Mosley NP [place] [facility] [place] Administered by: Suyapa Schwartz LPN on 10/10/23 15:26 Dose Route Admin Location Dispensed Lot Number Expiration Date [facility] [employer] Pen Cartridge Tester 3 mL inhalation 3 mL [id number] 08/29/25 35875-607-72 [facility] Assessment & Plan Assessment & Plan (1) COPD (chronic obstructive pulmonary disease): Code(s): J44.9 - Chronic obstructive pulmonary disease, unspecified Category: Medical Qualifiers: COPD type: unspecified COPD Qualified Code(s): J44.9 - Chronic obstructive pulmonary disease, unspecified (2) Nicotine dependence, cigarettes, uncomplicated: Code(s): F17.210 - Nicotine dependence, cigarettes, uncomplicated Category: Medical (3) Dyspnea on exertion: Code(s): R06.09 - Other forms of dyspnea Category: Medical Plan Reviewed chest CT from 05/2023 which was a RADS2, will have repeat chest CT in one year. Will enter order. Unable to obtain PFT, will attempt again, if unable will send for updated PFT. At this time patient with bronchitic symptoms, will treat with doxycyline and prednisone. Will also switch Trelegy 100 mcg to 200 mcg. Encouraged patient to use supplemental oxygen with any exertion and explained importance of using while driving. She was agreeable to this. Will follow up in 4 weeks and consider placing patient back on suppressive therapy with azithromycin. All questions were answered and patient is in agreement of plan. Will follow up in 4 weeks or sooner if needed. Orders: Orders AMB Nebulizer Treatment Today J44.9 - Chronic obstructive pulmonary disease, unspecified, R06.09 - Other forms of dyspnea CT chest wo IV con 6 Months F17.210 - Nicotine dependence, cigarettes, uncomplicated Medications: New genighjlyag-beuqkemsw-svwcksbo 200-62.5-25 mcg (Trelegy Ellipta) 1 inh inhalation DAILY 60 ea 6RF doxycycline hyclate 100 mg PO BID 20 caps 0RF prednisone 40 mg Daily x3 days, 30 mg daily x3 days, 20 mg daily x3 days, 10 mg daily x3 days 40 mg (2 x 20 mg) PO DAILY 30 tabs 0RF albuterol sulfate 90 mcg/actuation (Ventolin HFA) 2 puffs inhalation Q6H PRN 1 ea 3RF wheezing Coding Level of Care Code Est Pt Level 4 (34965) Diagnoses Chronic obstructive pulmonary disease, unspecified COPD type J44.9 COPD type: unspecified COPD Nicotine dependence, cigarettes, uncomplicated F17.210 Dyspnea on exertion R06.09 CPT Codes Nebulizer Treatment - Nebulizer Treatment, initial or subsequent: [id number]/MDI RX initial, or Nebulizer Subsequent Treatment ([id number])
== END 2023-10-10 16:02 | disposition home or self-care (01) ==
PROVIDERS: PCP Nurse Practitioner Primary Care; Visit Provider Nurse Practitioner Family
DX: J44.9 Chronic obstructive pulmonary disease, unspecified (principal); F17.210 Nicotine dependence, cigarettes, uncomplicated; R06.09 Other forms of dyspnea
CPT/HCPCS: 99214

== ENCOUNTER → 2023-10-10 13:49 | Outpatient (BNVA) | payer MEDICARE, MEDICAID, SELFPAY | PROVIDERS: PCP Nurse Practitioner Primary Care; Visit Provider Nurse Practitioner Family | DX: J44.9 Chronic obstructive pulmonary disease, unspecified (principal); R06.09 Other forms of dyspnea; F17.210 Nicotine dependence, cigarettes, uncomplicated | CPT/HCPCS: 94640; 99212 ==

== ENCOUNTER 2023-10-31 11:42 | Outpatient (AMB) | payer MEDICARE, MEDICAID, SELFPAY ==
--- NOTE | 2023-10-31 11:47 | MHC.PC.OV ---
Vital Signs 10/31/23 11:51 10/31/23 12:11 Height 5 ft 4 in Weight 137 lb BMI 23.5 BP 110/80 Blood Pressure Location Lt brachial Position Sitting Respiration 48 H 26 H Pulse 119 H 110 H Pulse Source Pulse Oximeter Pulse Oximeter Pulse Oximetry (%) 91 L 92 Oxygen Delivery Method Room Air Intake Visit Reasons: 2 month follow up Intake Note: pt is here for 2 month follow up Allergies codeine [CODEINE] Adverse Reaction (Unknown, Verified 10/31/23 11:53) NAUSEA & VOMITING Codeine Allergy (Unknown, Uncoded 10/31/23 11:53) nasuea Medication List - Last Reconciled 10/31/23 by EDEL Ghosh albuterol sulfate 2.5 mg (3 mL) inhalation Q6H PRN albuterol sulfate 90 mcg/actuation (Ventolin HFA) 2 puffs inhalation Q6H PRN alendronate 70 mg PO NAYLOR@0600 amlodipine 5 mg PO DAILY atorvastatin 20 mg PO DAILY cholecalciferol (vitamin D3) 25 mcg PO DAILY fluoxetine 1 cap PO DAILY jcdzivjbbxs-pwocqyzvi-zvpfftuu 200-62.5-25 mcg (Trelegy Ellipta) 1 inh inhalation DAILY ibuprofen 800 mg PO ONCE PRN roflumilast 250 mcg PO DAILY Tobacco use date assessed: 10/31/23 Dental Screening Dental Screen Date: 08/12/23 HPI HPI Comments History of Present Illness Details Patient is here for a follow-up visit. Patient is vitamin-D and vitamin B6 deficient. Has been placed on vitamin supplements 2 months prior. Will redraw those levels in the next 2 weeks. Patient is also elevated triglycerides and cholesterol, was started on atorvastatin 20 mg p.o. daily 2 months prior, will redraw lipid panel in 2 weeks. Patient has extensive past medical history COPD, has establish care with Pulmonary Medicine. Currently utilizing albuterol, with trilogy inhaler and roflumilast. Patient utilizes O2 at home. Patient has been encouraged at this visit to utilize O2 when she leaves the house as well. Patient states that she does not want to do this at this time. Reinforced with the patient the importance of maintaining O2 saturations and smoking cessation. 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 How often do you have a drink containing alcohol?: Never Total Score: 0 AUTUMN-7 AMB Questionnaire AUTUMN-7 Date AUTUMN - 7 assessed: 08/12/23 Source: Developed by Drs. Chris Nicholson, Niya Albrecht, Jesus Alberto García and colleagues, with an educational gayathri from [employer]. Review of Systems Const All systems reviewed & are unremarkable except as noted in HPI and below Physical exam (Primary Care) Vital Signs: Last Vital Signs Pulse 110 H 10/31/23 12:11 Resp 26 H 10/31/23 12:11 BP 110/80 10/31/23 11:51 Pulse Ox 92 10/31/23 12:11 Oxygen Delivery Method Room Air 10/31/23 12:11 BMI result Body Mass Index 23.5 Tobacco/Smoking Status: Tobacco use Status Tobacco use date assessed 10/31/23 10/31/23 11:57 Patient Tobacco Use Status Current everyday Tobacco 10/31/23 11:48 Tobacco use type Cigarette 10/31/23 11:48 e-Cigarette/Vaping Use Never Used 10/31/23 11:48 Are you ready to quit: No Thrive Assessment: Date of Thrive Assessment Date Thrive assessed 08/12/23 10/31/23 11:48 Const General: cooperative and no acute distress Orientation/consciousness: patient oriented x3 Limitations: no limitations HENMT Head: Yes normal to inspection and Yes normocephalic Ears: TM's normal bilaterally Eyes Sclerae: sclerae normal Corneas: corneas normal Pupils: Equal, round and reactive pupils present EOM: EOMs intact bilaterally Direct Ophthalmoscopy: normal light reflex and no photophobia Neck Neck: Yes normal visual inspection and Yes full ROM Resp Effort & Inspection: able to speak in complete sentences, no audible wheezes, no grunting, no respiratory distress and tachypneic Auscultation: diminished lung sounds Cardio Rate: tachycardic Rhythm: regular rhythm Heart sounds: S1 normal heart sound present and S2 normal heart sound present Peripheral pulses: Peripheral pulses 2+ throughout GI Inspection: Yes normal to inspection Neuro General: patient oriented x3 Cranial nerves: Yes Equal, round and reactive pupils present Results Reviewed Results Reviewed: Sodium 139 135-145 mmol/L Potassium 3.8 3.3-5.1 mmol/L CL 105 96-108 mmol/L CO2 26 22-29 mmol/L Gap 12 12-20 BUN 15 9-16 mg/dL Creat 0.84 0.5-1.4 mg/dL EGFR > 60 NOTE: For -[place] individuals, multiply the result by 1.210. Chronic Kidney Disease: Estimated GFR < 60 mL/min/1.73m2 Severe Kidney Disease: Estimated GFR < 15 mL/min/1.73m2 Glucose, Random 98 60-115 mg/dL CA 9.6 8.4-10.2 mg/dL Total Bili 0.6 0.0-1.0 mg/dL AST (GOT) 16 5-31 U/L ALT (GPT) 9 0-31 U/L Protein, Total 7.2 6.5-8.0 g/dL Alb 4.0 3.5-5.0 g/dL Triglyceride 95 <150 mg/dL Desirable Triglyceride: less than 150 mg/dL Borderline High Triglyceride 150-199 mg/dL High Triglyceride: 200-499 mg/dL Very High Triglyceride: greater than or equal to 5OO mg/dL Cholesterol 232 H <200 mg/dL Desirable Cholesterol: less than 200 mg/dL Borderline High Cholesterol: 200-239 mg/dL High Cholesterol: greater than 239 mg/dL LDL Calculated 149 H <100 mg/dL Desirable LDL: less than 100 mg/dL Near Optimal/Above Optimal LDL: 110-129 mg/dL Borderline High LDL: 130-159 mg/dL High LDL: 160-189 mg/dL Very High LDL: greater than or equal to 190 mg/dL HDL 64 >40 mg/dL Desirable HDL: greater than 40 mg/dL Note: This HDL assay may give artificially low results in patients with liver disease. Alk Phos 100 39-117 U/L TSH 0.93 0.32-4.0 uIU/mL Vitamin B6 <2.0 L 2.1-21.7 ng/mL Vitamin supplementation within 24 hours prior to blood draw may affect the accuracy of the results. This test was developed and its analytical performance characteristics have been determined by [employer] [place], [place]. It has not been cleared or approved by the U.S. Food and Drug Administration. This assay has been validated pursuant to the CLIA regulations and is used for clinical purposes. THIS TEST WAS PERFORMED AT: [email or web address]/[address] AMADOU KERN MD,PHD Vit D, 25-OH D2 <4 ng/mL This test was developed and its analytical performance characteristics have been determined by [employer] [place], [place]. It has not been cleared or approved by the U.S. Food and Drug Administration. This assay has been validated pursuant to the CLIA regulations and is used for clinical purposes. THIS TEST WAS PERFORMED AT: [email or web address]/[place] [address] AMADOU KERN MD,PHD Vit D, 25-OH D3 4 ng/mL This test was developed and its analytical performance characteristics have been determined by [employer] [place], [place]. It has not been cleared or approved by the U.S. Food and Drug Administration. This assay has been validated pursuant to the CLIA regulations and is used for clinical purposes. Vit D 25-OH Tot 4 L 30-100 ng/mL Vitamin D, 25-Hydroxy reports concentrations of two common forms, 25-OHD2 and 25-OHD3. 25-OHD3 indicates both endogenous production and supplementation. 25-OHD2 is an indicator of exogenous sources such as diet or supplementation. Therapy is based on measurement of Total 25-OHD, with levels <20 ng/mL indicative of Vitamin D deficiency, while levels between 20 ng/mL and 30 ng/mL suggest insufficiency. Optimal levels are > or = 30 ng/mL. For additional information, please refer to http://education.Buy.On.Social/faq/VQM026 (This link is being provided for informational/ educational purposes only.) Assessment and Plan Assessment & Plan (1) Vitamin D deficiency: Comment: Patient utilizing vitamin D3 2000 units per day. Will redraw Code(s): E55.9 - Vitamin D deficiency, unspecified (2) Vitamin B6 deficiency: Comment: Patient taking woman's multivitamin with vitamin B6 vitamin B12. Will redraw. Code(s): E53.1 - Pyridoxine deficiency (3) COPD (chronic obstructive pulmonary disease): Comment: Has establish care with pulmonary Medicine. Utilizing trilogy inhaler as well as albuterol and roflumilast. Patient has been encouraged to utilize O2 supplementation when she leaves the house in addition to at home. Patient states she understands. Code(s): J44.9 - Chronic obstructive pulmonary disease, unspecified Qualifiers: COPD type: unspecified COPD Qualified Code(s): J44.9 - Chronic obstructive pulmonary disease, unspecified Orders: Orders Vitamin D 25-OH (D2 and D3) 10/31/23 Z13.21 - Encounter for screening for nutritional disorder Vitamin B6 10/31/23 Z13.21 - Encounter for screening for nutritional disorder Vitamin B12 10/31/23 Z13.21 - Encounter for screening for nutritional disorder Lipid Panel 10/31/23 Z13.220 - Encounter for screening for lipoid disorders Referrals Cardiology Referral R93.1 - Abnormal findings on diagnostic imaging of heart and coronary circulation Medications: Refilled atorvastatin 20 mg PO DAILY 90 tabs 1RF amlodipine 5 mg PO DAILY 90 tabs 1RF Coding Level of Care Code Est Pt Level 3 (95309) Diagnoses Vitamin D deficiency E55.9 Vitamin B6 deficiency E53.1 Chronic obstructive pulmonary disease, unspecified COPD type J44.9 COPD type: unspecified COPD Time Spent (min) 30
[2023-10-31 11:51] VITALS: BP 110/80; PULSE 119; RESP 48; O2SAT 91; BMI 23.5
[2023-10-31 12:11] VITALS: PULSE 110; RESP 26; O2SAT 92
== END 2023-10-31 12:11 | disposition home or self-care (01) ==
PROVIDERS: PCP Nurse Practitioner Primary Care; Visit Provider Nurse Practitioner Primary Care
DX: E55.9 Vitamin D deficiency, unspecified (principal); E53.1 Pyridoxine deficiency; J44.9 Chronic obstructive pulmonary disease, unspecified
CPT/HCPCS: 99213

== ENCOUNTER 2023-11-07 13:11 | Outpatient (AMB) | payer MEDICARE, MEDICAID, SELFPAY ==
[2023-11-07 13:36] VITALS: BP 124/68; PULSE 90; BMI 23.1
--- NOTE | 2023-11-07 13:36 | MHC.OFFVIS ---
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 PT IS DOING OK JUST SOME SOB Allergies codeine [CODEINE] Adverse Reaction (Unknown, Verified 10/31/23 11:53) NAUSEA & VOMITING Codeine Allergy (Unknown, Uncoded 10/31/23 11:53) nasuea Medication List - Last Reconciled 11/07/23 by Jonathan Coulter MD albuterol sulfate 2.5 mg (3 mL) inhalation Q6H PRN albuterol sulfate 90 mcg/actuation (Ventolin HFA) 2 puffs inhalation Q6H PRN alendronate 70 mg PO NAYLOR@0600 amlodipine 5 mg PO DAILY atorvastatin 20 mg PO DAILY cholecalciferol (vitamin D3) 25 mcg PO DAILY fluoxetine 1 cap PO DAILY rcdtfysngyz-hehjxeuot-rlbpssuv 200-62.5-25 mcg (Trelegy Ellipta) 1 inh inhalation DAILY ibuprofen 800 mg PO ONCE PRN roflumilast 250 mcg PO DAILY HPI Comments Details: Alisia was referred to Cardiology for she thinks related to hypertension. She was then started amlodipine therapy by you and since then her blood pressure has been better control at least for the last few visits. She has not been monitoring her blood pressure at home although she has a blood pressure monitor. She has history of COPD and has significant shortness of breath related to it. However she continues to smoke and is not willing to give up smoking at this point time. She would echocardiogram recently which shows hyperdynamic LV ejection fraction greater than 70% with increased gradient across the LVOT after Valsalva with possible basal inferior wall motion abnormality. She denies any exertional chest pain. She denies any clear other heart failure symptoms of orthopnea, PND, leg edema. No prolonged palpitation irregular heartbeat. She has no prior history of myocardial infarction or coronary artery disease or vascular events. 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) Alcohol intake: former Patient Tobacco Use Status: Current everyday Tobacco user Tobacco use type: Cigarette Cigarettes Per Day: 10 e-Cigarette/Vaping Use: Never Used Second Hand Smoke Exposure: Yes Substance Use Type: Marijuana service: No Current occupational status: retired Review of Systems Const Denies weakness ENT Denies dizziness Card Denies chest pain, Denies chest pain with activity, Denies syncope, Denies rapid heart rate, Denies pedal edema, Denies edema, Denies leg edema, Denies lightheadedness, Denies palpitations, Reports dyspnea, Reports dyspnea on exertion and Denies orthopnea Resp Denies cough, Reports dyspnea and Reports dyspnea on exertion GI Denies hematochezia and Denies change in stool character Musc Denies abnormal gait, Denies muscle cramps, Denies muscle weakness, Denies numbness, Denies radiating pain into limb and Denies tingling Neuro Denies abnormal gait, Denies dizziness, Denies syncope, Denies numbness, Denies tingling and Denies weakness Endo Denies palpitations Physical Exam Vital Signs: Last Vital Signs Pulse 90 11/07/23 13:36 BP 124/68 11/07/23 13:36 BMI result Body Mass Index 23.1 Const General: cooperative, comfortable, alert, awake and in distress mild and respiratory Nutritional Appearance: thin Orientation/consciousness: patient oriented x3 Limitations: no limitations HEENT Head: Yes normocephalic and Yes atraumatic Neck Neck: Yes trachea midline, Yes supple and Yes no JVD Resp Effort & Inspection: normal respiratory effort Auscultation: wheezes scattered wheezes and diminished lung sounds Cardio Jugular venous distension: no JVD Palpation: normal PMI Rate: regular rate Rhythm: regular rhythm Heart sounds: S1 normal heart sound present, S2 normal heart sound present, no click, no gallops and Murmur heart sound present systolic early GI Auscultation: normal bowel sounds Skin General skin exam: no rashes or lesions noted Neuro General: patient oriented x3 and no focal motor deficits Extrem General: Yes no clubbing, cyanosis or edema Assessment & Plan Assessment & Plan (1) Dyspnea on exertion: Code(s): R06.09 - Other forms of dyspnea Category: Medical Plan: Patient with significant exertional shortness of breath most likely related to your COPD although she has had significant risk for coronary disease and echocardiogram suggests possible wall motion abnormality in the basal inferior wall. Would suggest a dobutamine myocardial perfusion imaging to assess for prognostically significant obstructive coronary artery disease. Further treatment based on the findings. Talked about smoking cessation but she says she is not currently interested. (2) Hypertension: Comment: Amlodipine 5 mg daily. Controlled at this point. Code(s): I10 - Essential (primary) hypertension Category: Medical Qualifiers: Hypertension type: unspecified Qualified Code(s): I10 - Essential (primary) hypertension Plan: Hypertension which is not controlled on amlodipine therapy which was initiated by you. Blood pressure is currently well optimized. Advise low-salt diet. Advised to continue amlodipine therapy. Advised to monitor blood pressure intermittently at home maintain a log. Follow up in the clinic in 6 weeks time after stress testing. Thank you for allowing me to partake in her care Orders: Orders CA dobutamine stress w chelsea Today R06.09 - Other forms of dyspnea Coding Level of Care Code New Pt Level 4 (40196) Diagnoses Dyspnea on exertion R06.09 Hypertension, unspecified type I10 Hypertension type: unspecified
== END 2023-11-07 14:00 | disposition home or self-care (01) ==
PROVIDERS: PCP Nurse Practitioner Primary Care; Visit Provider Internal Medicine Cardiovascular Disease
DX: R06.09 Other forms of dyspnea (principal); I10 Essential (primary) hypertension
CPT/HCPCS: 99213

== ENCOUNTER → 2023-11-07 13:11 | Outpatient (BNVA) | payer MEDICARE, MEDICAID, SELFPAY | PROVIDERS: PCP Nurse Practitioner Primary Care; Visit Provider Internal Medicine Cardiovascular Disease | DX: I10 Essential (primary) hypertension (principal); R06.09 Other forms of dyspnea; Z79.899 Other long term (current) drug therapy | CPT/HCPCS: 99212 ==

== ENCOUNTER 2023-11-21 14:01 | Outpatient (AMB) | payer MEDICARE, MEDICAID, SELFPAY ==
--- NOTE | 2023-11-21 14:08 | A.OFFVIS_ITS ---
Vital Signs 11/21/23 14:09 Height 5 ft 4 in Weight 133 lb 6.075 oz BMI 22.9 BP 112/78 Blood Pressure Location Lt brachial Position Sitting Pulse 108 H Pulse Source Pulse Oximeter Pulse Oximetry (%) 91 L Oxygen Delivery Method Room Air Intake Visit Reasons: COPD Allergies codeine [CODEINE] Adverse Reaction (Unknown, Verified 11/21/23 14:13) NAUSEA & VOMITING Codeine Allergy (Unknown, Uncoded 11/21/23 14:13) nasuea HPI HPI COPD: Details: Alisia is pleasant 73 year female, current 1/2 ppd smoker with 40+pack year history, with underlying COPD, CKDIII, HTN osteoporosis, and GERD. She reported suboptimal control on prior regimen of Trelegy 100 mcg and albuterol MDI/neb PRN. She was switched to Trelegy 200 mcg and reports minimal improvements. She continues to report productive cough with clear sputum, intermittent wheezing and dyspnea on exertion. She is supposed to be using supplemental oxygen with exertion, she reports being prescribed years ago, unsure of who prescribed, (believes [facility]) however reports inconsistent use of 2L when breathing is labored. She is not currently using supplemental oxygen and continues to smoker 1/2 ppd. 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) Alcohol intake: former Patient Tobacco Use Status: Current everyday Tobacco user Tobacco use type: Cigarette Cigarettes Per Day: 10 e-Cigarette/Vaping Use: Never Used Second Hand Smoke Exposure: Yes Substance Use Type: Marijuana service: No Current occupational status: retired Review of Systems Const Denies chills, Denies excessive sweating, Denies fever(s), Denies headache(s) and Denies night sweats Eyes Denies dry eyes, Denies irritation and Denies itchy eyes ENT Reports Normal hearing present, Denies headache(s), Denies nasal congestion, Denies nasal discharge, Denies post nasal drip and Denies sore throat Card Denies chest pain, Denies chest pain at rest, Denies chest pain with activity, Denies claudication, Denies leg edema, Denies orthopnea and Denies paroxysmal nocturnal dyspnea Resp Denies chest congestion, Denies excessive phlegm production, Denies pain on inspiration, Denies pain with cough and Denies stridor Musc Denies myalgias Neuro Reports Normal hearing present and Denies headache(s) Endo Denies excessive sweating Ajit/Lymph Denies lymphadenopathy Aller/Immun Denies itchy eyes and Denies seasonal rhinorrhea Physical Exam Vital Signs: Last Vital Signs Pulse 108 H 11/21/23 14:09 BP 112/78 11/21/23 14:09 Pulse Ox 91 L 11/21/23 14:09 Oxygen Delivery Method Room Air 11/21/23 14:09 BMI result Body Mass Index 22.9 Const General: cooperative, healthy appearing, comfortable, no acute distress, well developed and alert Orientation/consciousness: patient oriented x3 Limitations: no limitations HEENT Head: Yes normal to inspection, Yes normocephalic and Yes atraumatic Ears: hearing grossly normal bilaterally and external ears normal Eyes General: appearance normal, both eyes and all related structures Eyelids: Yes eyelids normal Sclerae: sclerae normal EOM: EOMs intact bilaterally Neck Neck: Yes normal visual inspection and Yes no lymphadenopathy Lymphatic: no lymphadenopathy noted Chest Chest palpation & inspection: normal inspection of the chest Resp Other: faint expiratory wheezes throughout mildly improved with nebulizer Effort & Inspection: normal respiratory effort, able to speak in complete sentences, no audible wheezes, no stridor, not tachypneic, no tripod positioning and no use of accessory muscles Auscultation: no crackles, no rhonchi, wheezes and diminished lung sounds Cardio Jugular venous distension: no JVD Rate: regular rate Rhythm: regular rhythm Skin Other: warm, dry General skin exam: no rashes or lesions noted Neuro General: patient oriented x3 Cranial nerves: Yes Normal hearing present Cognition (Neuro): normal cognition Gait exam (Neuro): Normal gait present Extrem General: Yes normal to inspection, Yes capillary refill normal, Yes no clubbing, cyanosis or edema and Yes no pedal edema Psych Appearance: grossly normal and well kempt Speech and movement: Normal speech and movement present and Clear speech present Affect: normal affect Attitude: cooperative Thought process: Normal thought process present Thought content: Normal thought content present Insight: Good insight present (Psych) Judgement: Good judgement present (Psych) Office Procedures 6 Minute Walk Time:: 14:34 SPO2 % at rest: 92 Pulse at rest: 100 SPO2 % during excercise: 87 Pulse during excercise: 116 SPO2 % after excercise: 93 Pulse after excercise: 108 Distance in yards walked: 250 Gonzalo Score: 8 Performance Observations:: Patient walked unassisted on level ground. Patient walked for approx 50 yards and O2 saturation dropped from 92-93 down to 87%. O2 applied at 1L with little effect. Patient feels very short of breath with audible wheezing. O2 increased to 2L and rested. O2 saturation increased to 92% with pulse rate remaining at 118. Walk resumed at slow pace with O2 at 2L. Maintained O2 saturation of 92% and pulse rate of 116. Patient states she has O2 at 2L at home which she uses often when she gets short of breath. Patient says walking even on level ground is very tiring to her..She also reports the heat and humidity are very hard for her breathing. Patient did benefit from the use of supplemental O2. [id number] - 6 Minute Walk Assessment & Plan Assessment & Plan (1) COPD (chronic obstructive pulmonary disease): Code(s): J44.9 - Chronic obstructive pulmonary disease, unspecified Category: Medical Qualifiers: COPD type: unspecified COPD Qualified Code(s): J44.9 - Chronic obstructive pulmonary disease, unspecified (2) Nicotine dependence, cigarettes, uncomplicated: Code(s): F17.210 - Nicotine dependence, cigarettes, uncomplicated Category: Medical Plan Alisia reports minimal improvement with increasing Trelegy from 100 mcg to 200 mcg. Will add duoneb QD, and send 10 course of prednisone. 6MWT performed and patient requires 2L of supplemental oxygen with any exertion, lowest O2 87%, highest HR 118. Discussed importance of use as well as compliance and patient agreeable, especially with driving. Patient reportedly receives supplemental oxygen from [facility], has a concentrator and tanks at home. All questions were answered and patient is in agreement of plan. Will follow up in 6-8 weeks or sooner if needed. Orders: Orders AMB 6 minute walk Today F17.210 - Nicotine dependence, cigarettes, uncomplicated, J44.9 - Chronic obstructive pulmonary disease, unspecified Medications: New ipratropium-albuterol 0.5 mg-3 mg(2.5 mg base)/3 mL 3 mL inhalation Q6H PRN 180 mL 1RF wheezing J44.9 - Chronic obstructive pulmonary disease, unspecified prednisone 40 mg x 5 days, then 20 mg x 5 days 40 mg (2 x 20 mg) PO DAILY 15 tabs 0RF J44.9 - Chronic obstructive pulmonary disease, unspecified Coding Level of Care Code Est Pt Level 4 (03939) Diagnoses Chronic obstructive pulmonary disease, unspecified COPD type J44.9 COPD type: unspecified COPD Nicotine dependence, cigarettes, uncomplicated F17.210 CPT Codes Coding ([id number])
[2023-11-21 14:09] VITALS: BP 112/78; PULSE 108; O2SAT 91; BMI 22.9
[2023-11-21 15:02] VITALS: PULSE 100; O2SAT 92
== END 2023-11-21 15:06 | disposition home or self-care (01) ==
PROVIDERS: PCP Nurse Practitioner Primary Care; Visit Provider Nurse Practitioner Family
DX: J44.9 Chronic obstructive pulmonary disease, unspecified (principal); F17.210 Nicotine dependence, cigarettes, uncomplicated
CPT/HCPCS: 94618; 99214

== ENCOUNTER → 2023-11-21 14:01 | Outpatient (BNVA) | payer MEDICARE, MEDICAID, SELFPAY | PROVIDERS: PCP Nurse Practitioner Primary Care; Visit Provider Nurse Practitioner Family | DX: J44.9 Chronic obstructive pulmonary disease, unspecified (principal); F17.210 Nicotine dependence, cigarettes, uncomplicated; Z79.899 Other long term (current) drug therapy | CPT/HCPCS: 94618; 99212 ==

== ENCOUNTER → 2023-12-19 09:51 | Outpatient (REF) | payer MEDICARE, MEDICAID, SELFPAY ==
--- NOTE | ~2023-12-19 | NM_ITS ---
Dobutamine MYOCARDIAL PERFUSION STUDY INDICATION: Shortness of breath to evaluate for myocardial ischemia TECHNIQUE: The patient was brought in for an exercise perfusion study on 12/19/2023. Patient performed stress test as per dobutamine protocol and was injected 25 mCi of sestamibi once target heart rate was achieved. Images were obtained using the SPECT gamma camera interlaced with the gating device. Images were obtained in supine position. Resting perfusion study was performed on 12/23/2023. Patient was administered 25 mCi of sestamibi intravenously at rest. Images were then obtained in supine position. Images are obtained without without CT attenuation. Total DLP 84 mGy-cm. Due to technical issues was not able to read this study till 12/26/2023 Images were processed with the software and compared side to side in short axis, horizontal long axis and vertical long axis views. FINDINGS: Raw images were reviewed The stress perfusion study showed attenuated as well as nonattenuated corrected images show normal uptake of radiotracer in all segments of the myocardium. There is suggestion of left ventricular hypertrophy. The gated study shows normal LV systolic function with visually estimated LVEF of greater than 60%. LV cavity is normal in size. The gated study shows normal systolic wall thickening and contraction of segments. Resting study shows no change pattern compared to stress perfusion study. Gating at rest reveals normal systolic wall motion with ejection fraction at greater than 60%. The findings are consistent with normal myocardial perfusion. NM/NM chelsea perf SPECT rest & str IMPRESSION: 1. Myocardial perfusion imaging study shows normal myocardial perfusion. 2. Gated LVEF is greater than 60%. 3. Transient ischemic dilatation not present. Stress EKG with dobutamine infusion was reported as negative for ischemia Electronically signed by: Jonathan Coulter MD 12/26/2023 04:50 PM EDT
--- NOTE | 2023-12-19 09:53 | CA_ITS ---
Acquisition Time: 2023-12-19 10:21:59 Total Exercise Time: 00:10:23 Test Indications: Dyspnea Medications: SEE H Protocol: DOBUTAMINE Max HR: 136 BPM 91% of Pred: 148 BPM Max BP: 118/072 mmHG Max Work Load: 1.0 METS Pharmacological stress test with Dobutamine infusion max dose of 20 mcg/kg achieving 88% MPHR, without anginal symptoms, without arrhythmias, with SBP 78-118, without EKG changes, Nuclear images pending. Test reviewed with Dr. Cuellar. Patient reports feeling fine during test and recovery, Only reported symptom is fast heart rate at peak. Tolerated test. Referred By: Jonathan Coulter Overread By: Marielos Sears
== END ==
LOC: HO.CARD 09:51
PROVIDERS: Visit Provider Internal Medicine Cardiovascular Disease
DX: R06.09 Other forms of dyspnea (principal)
CPT/HCPCS: 78452; 93017; A9500; J1250

== ENCOUNTER → 2023-12-19 09:53 | Outpatient (BNV) | payer MEDICARE, MEDICAID, SELFPAY | PROVIDERS: Visit Provider Nurse Practitioner | DX: R06.02 Shortness of breath (principal) | CPT/HCPCS: 78452; 93016; 93018 ==

== ENCOUNTER → 2023-12-20 12:38 | Outpatient (BNVA) | payer MEDICARE, MEDICAID, SELFPAY | PROVIDERS: PCP Nurse Practitioner Primary Care; Visit Provider Nurse Practitioner Family ==

== ENCOUNTER 2024-01-09 10:29 | Outpatient (AMB) | payer MEDICARE, MEDICAID, SELFPAY ==
--- NOTE | 2024-01-08 21:07 | A.OFFVIS_ITS ---
Vital Signs 01/09/24 10:48 Height 5 ft 4 in Weight 134 lb 7.712 oz BMI 23.1 BP 120/74 Blood Pressure Location Rt brachial Position Sitting Pulse 95 Pulse Source Pulse Oximeter Pulse Oximetry (%) 91 L Oxygen Delivery Method Room Air Intake Visit Reasons: COPD Allergies codeine [CODEINE] Adverse Reaction (Unknown, Verified 01/09/24 10:51) NAUSEA & VOMITING Codeine Allergy (Unknown, Uncoded 01/09/24 10:51) nasuea HPI HPI COPD: Details: Alisia is pleasant 73 year female, current 1/2 ppd smoker with 40+pack year history, with underlying COPD, CKDIII, HTN osteoporosis, and GERD. She continues to report suboptimal relief with Trelegy 200 mcg with dyspnea on exertion, productive cough with clear sputum, and intermittent wheezing. She is supposed to be using supplemental oxygen with exertion, however reports inconsistent use of 2L when breathing is labored. She is not currently using sup plemental oxygen and continues to smoker 1/2 ppd. 6MWT performed at last visit and patient requires 2L supplemental oxygen with any exertion. At the last visit she was treated with prednisone and reports improvement in symptoms. DuoNeb was also added to regimen however she has not been using. She was evaluated by cardiology who recommended stress test, she has a follow up to review results. [facility] Medical History Post-menopause Chronic lumbar pain Cyst of left breast FH: cholecystectomy GERD (gastroesophageal reflux disease) Depression COPD (chronic obstructive pulmonary disease) Surgical History H/O inguinal hernia repair Family History Mother Renal disease Mental health disorder Father Mental health disorder Social History Household Members: Other Household Members Other:: 3 house mates Housing: House Do you presently have visiting nurse or other home services: Yes (foot care [employer]) Alcohol intake: former Patient Tobacco Use Status: Current everyday Tobacco user Tobacco use type: Cigarette Cigarettes Per Day: 10 e-Cigarette/Vaping Use: Never Used Second Hand Smoke Exposure: Yes Substance Use Type: Marijuana service: No Current occupational status: retired Review of Systems Const Denies chills, Denies excessive sweating, Denies fever(s), Denies headache(s) and Denies night sweats Eyes Denies dry eyes, Denies irritation and Denies itchy eyes ENT Reports Normal hearing present, Denies headache(s), Denies nasal congestion, Denies nasal discharge, Denies post nasal drip and Denies sore throat Card Denies chest pain, Denies chest pain at rest, Denies chest pain with activity, Denies claudication, Denies leg edema, Denies orthopnea and Denies paroxysmal nocturnal dyspnea Resp Denies chest congestion, Denies excessive phlegm production, Denies pain on inspiration, Denies pain with cough and Denies stridor Musc Denies myalgias Neuro Reports Normal hearing present and Denies headache(s) Endo Denies excessive sweating Ajit/Lymph Denies lymphadenopathy Aller/Immun Denies itchy eyes and Denies seasonal rhinorrhea Physical Exam Vital Signs: Last Vital Signs Pulse 95 01/09/24 10:48 BP 120/74 01/09/24 10:48 Pulse Ox 91 L 01/09/24 10:48 Oxygen Delivery Method Room Air 01/09/24 10:48 BMI result Body Mass Index 23.1 Const General: cooperative, healthy appearing, comfortable, no acute distress, well developed and alert Orientation/consciousness: patient oriented x3 Limitations: no limitations HEENT Head: Yes normal to inspection, Yes normocephalic and Yes atraumatic Ears: hearing grossly normal bilaterally and external ears normal Eyes General: appearance normal, both eyes and all related structures Eyelids: Yes eyelids normal Sclerae: sclerae normal EOM: EOMs intact bilaterally Neck Neck: Yes normal visual inspection and Yes no lymphadenopathy Lymphatic: no lymphadenopathy noted Chest Chest palpation & inspection: normal inspection of the chest Resp Effort & Inspection: normal respiratory effort, able to speak in complete sentences, no audible wheezes, no stridor, not tachypneic, no tripod positioning and no use of accessory muscles Auscultation: no crackles, no rhonchi, wheezes and diminished lung sounds Cardio Jugular venous distension: no JVD Rate: regular rate Rhythm: regular rhythm Skin Other: warm, dry General skin exam: no rashes or lesions noted Neuro General: patient oriented x3 Cranial nerves: Yes Normal hearing present Cognition (Neuro): normal cognition Gait exam (Neuro): Normal gait present Extrem General: Yes normal to inspection, Yes capillary refill normal, Yes no clubbing, cyanosis or edema and Yes no pedal edema Psych Appearance: grossly normal and well kempt Speech and movement: Normal speech and movement present and Clear speech present Affect: normal affect Attitude: cooperative Thought process: Normal thought process present Thought content: Normal thought content present Insight: Good insight present (Psych) Judgement: Good judgement present (Psych) Assessment & Plan Assessment & Plan (1) COPD (chronic obstructive pulmonary disease): Code(s): J44.9 - Chronic obstructive pulmonary disease, unspecified Category: Medical Qualifiers: COPD type: unspecified COPD Qualified Code(s): J44.9 - Chronic obstructive pulmonary disease, unspecified (2) Nicotine dependence, cigarettes, uncomplicated: Code(s): F17.210 - Nicotine dependence, cigarettes, uncomplicated Category: Medical Plan Alisia reports moderate control of symptoms with increasing Trelegy from 100 mcg to 200 mcg. DuoNeb was added to regimen however she denies use, recommended using QD-BID. On exam patient with wheezes throughout will send in prednisone. Discussed importance of use as well as compliance and patient agreeable, especially with driving. All questions were answered and patient is in agreement of plan. Will follow up in 8-10 weeks or sooner if needed. Medications: New prednisone see taper instructions Take 4 pills daily for 5 days, then go down by 1 pill every 5 days; 20 days 50 tabs 0RF 10 mg PO DIRECTED 50 tabs 0RF Coding Level of Care Code Est Pt Level 4 (88580) Diagnoses Chronic obstructive pulmonary disease, unspecified COPD type J44.9 COPD type: unspecified COPD Nicotine dependence, cigarettes, uncomplicated F17.210
[2024-01-09 10:48] VITALS: BP 120/74; PULSE 95; O2SAT 91; BMI 23.1
== END 2024-01-09 11:15 | disposition home or self-care (01) ==
PROVIDERS: PCP Nurse Practitioner Primary Care; Visit Provider Nurse Practitioner Family
DX: J44.9 Chronic obstructive pulmonary disease, unspecified (principal); F17.210 Nicotine dependence, cigarettes, uncomplicated
CPT/HCPCS: 99214

== ENCOUNTER → 2024-01-09 10:29 | Outpatient (BNVA) | payer MEDICARE, MEDICAID, SELFPAY | PROVIDERS: PCP Nurse Practitioner Primary Care; Visit Provider Nurse Practitioner Family | DX: J44.9 Chronic obstructive pulmonary disease, unspecified (principal); F17.210 Nicotine dependence, cigarettes, uncomplicated | CPT/HCPCS: 99212 ==

== ENCOUNTER 2024-01-13 12:34 | Outpatient (AMB) | payer MEDICARE, MEDICAID, SELFPAY ==
--- NOTE | 2024-01-13 12:54 | MHC.OFFVIS ---
Vital Signs 01/13/24 12:55 Height 5 ft 3 in Weight 134 lb 7.712 oz BMI 23.8 BP 122/62 Blood Pressure Location Lt brachial Position Sitting Pulse 94 Pulse Source Pulse Oximeter Intake Visit Reasons: follow-up after testing Allergies codeine [CODEINE] Adverse Reaction (Unknown, Verified 01/09/24 10:51) NAUSEA & VOMITING Codeine Allergy (Unknown, Uncoded 01/09/24 10:51) nasuea Medication List - Last Reconciled 01/13/24 by Marielos Sears NP albuterol sulfate 2.5 mg (3 mL) inhalation Q6H PRN albuterol sulfate 90 mcg/actuation (Ventolin HFA) 2 puffs inhalation Q6H PRN alendronate 70 mg PO NAYLOR@0600 amlodipine 5 mg PO DAILY atorvastatin 20 mg PO DAILY cholecalciferol (vitamin D3) 25 mcg PO DAILY fluoxetine 40 mg PO DAILY bznzoknaafs-wpcfhmdpb-ujdttetb 200-62.5-25 mcg (Trelegy Ellipta) 1 inh inhalation DAILY ibuprofen 800 mg PO ONCE PRN ipratropium-albuterol 0.5 mg-3 mg(2.5 mg base)/3 mL 3 mL inhalation Q6H PRN prednisone 40 mg (2 x 20 mg) PO DAILY prednisone 10 mg PO DIRECTED roflumilast 250 mcg PO DAILY HPI Comments Details: [id number] female presents today for a follow-up after testing. She reports she is overall doing well. States her shortness of breath remains the same and she is seeing pulmonary soon for follow-up. She has a history of hypertension, cigarette smoking, hypertension, and significant COPD. [facility] Medical History Post-menopause Chronic lumbar pain Cyst of left breast FH: cholecystectomy GERD (gastroesophageal reflux disease) Depression COPD (chronic obstructive pulmonary disease) Surgical History H/O inguinal hernia repair Family History Mother Renal disease Mental health disorder Father Mental health disorder Social History Household Members: Other Household Members Other:: 3 house mates Housing: House Do you presently have visiting nurse or other home services: Yes (foot care [employer]) Alcohol intake: former Patient Tobacco Use Status: Current everyday Tobacco user Tobacco use type: Cigarette Cigarettes Per Day: 10 e-Cigarette/Vaping Use: Never Used Second Hand Smoke Exposure: Yes Substance Use Type: Marijuana service: No Current occupational status: retired Review of Systems Const Denies weakness ENT Denies dizziness Card Denies chest pain, Denies chest pain with activity, Denies syncope, Denies rapid heart rate, Denies pedal edema, Denies edema, Denies leg edema, Denies lightheadedness, Denies palpitations, Denies dyspnea, Denies dyspnea on exertion and Denies orthopnea Resp Denies cough, Denies dyspnea and Denies dyspnea on exertion GI Denies hematochezia and Denies change in stool character Musc Denies abnormal gait, Denies muscle cramps, Denies muscle weakness, Denies numbness, Denies radiating pain into limb and Denies tingling Neuro Denies abnormal gait, Denies dizziness, Denies syncope, Denies numbness, Denies tingling and Denies weakness Endo Denies palpitations Physical Exam Vital Signs: Last Vital Signs Pulse 94 01/13/24 12:55 BP 122/62 01/13/24 12:55 BMI result Body Mass Index 23.8 Results Reviewed Results Reviewed: NM/NM chelsea perf SPECT rest & str IMPRESSION: 1. Myocardial perfusion imaging study shows normal myocardial perfusion. 2. Gated LVEF is greater than 60%. 3. Transient ischemic dilatation not present. Assessment & Plan Assessment & Plan (1) Dyspnea on exertion: Code(s): R06.09 - Other forms of dyspnea Category: Medical Plan: Dyspnea on exertion with no change. Dobutamine stress test showed normal myocardial perfusion. Discussed risk of cardiovascular disease in the importance of controlling risk factors. She is due for lipid panel from her primary care provider. Advised to get that done. (2) Nicotine dependence, cigarettes, uncomplicated: Code(s): F17.210 - Nicotine dependence, cigarettes, uncomplicated Category: Medical Plan: advised complete smoking cessation (3) Hypertension: Comment: Amlodipine 5 mg daily. Controlled at this point. Code(s): I10 - Essential (primary) hypertension Category: Medical Qualifiers: Hypertension type: unspecified Qualified Code(s): I10 - Essential (primary) hypertension Plan: Controlled with amlodipine 5mg. Blood pressure within range today. Coding Level of Care Code Est Pt Level 3 (95467) Diagnoses Dyspnea on exertion R06.09 Nicotine dependence, cigarettes, uncomplicated F17.210 Hypertension, unspecified type I10 Hypertension type: unspecified
[2024-01-13 12:55] VITALS: BP 122/62; PULSE 94; BMI 23.8
== END 2024-01-13 13:20 | disposition home or self-care (01) ==
PROVIDERS: PCP Nurse Practitioner Primary Care; Visit Provider Nurse Practitioner
DX: R06.09 Other forms of dyspnea (principal); F17.210 Nicotine dependence, cigarettes, uncomplicated; I10 Essential (primary) hypertension
CPT/HCPCS: 99213

== ENCOUNTER → 2024-01-13 12:34 | Outpatient (BNVA) | payer MEDICARE, MEDICAID, SELFPAY | PROVIDERS: PCP Nurse Practitioner Primary Care; Visit Provider Nurse Practitioner | DX: I10 Essential (primary) hypertension (principal); R06.09 Other forms of dyspnea; J44.9 Chronic obstructive pulmonary disease, unspecified; F17.210 Nicotine dependence, cigarettes, uncomplicated | CPT/HCPCS: 99212 ==

== ENCOUNTER 2024-04-04 12:42 | Outpatient (REF) | payer MEDICARE, MEDICAID, SELFPAY ==
--- NOTE | ~2024-04-04 | CT_ITS ---
EXAMINATION: CT CHEST WITHOUT CONTRAST CLINICAL INFORMATION: Nicotine dependence, cigarettes, uncomplicated. COMPARISON: CT angiogram chest aorta dated June 02, 2023. TECHNIQUE: Multidetector volumetric CT imaging of the chest was done. Axial MIP volume rendering provided. Sagittal and coronal reformatted images were obtained. This CT examination was performed using dose optimization techniques as appropriate, variously including the following: *Automated exposure control *Adjustment of mA and/or kV according to patient size (this includes techniques or standardized protocols for targeted exams where dose is matched to indication/reason for exam; i.e. extremities or head) *Use of iterative reconstruction technique DLP: 105 mGy-cm FINDINGS: Submitted for interpretation on April 06, 2024. 1 mm calcified pulmonary nodule, left lower lung lobe likely granuloma. Linear and patchy attenuations in the lingula and right middle lobe. Centrilobular emphysematous changes both lungs. No consolidation, pleural effusion or pneumothorax. No bronchiectasis. No honeycombing. Respiratory airways patent. Nonspecific prominent less than 11 mm lymph nodes in the mediastinum, the most conspicuous in the right precarinal. No pericardial effusion. Calcified plaques in the thoracic aorta. The ascending thoracic aorta measures 3.7 cm. The thyroid gland is not enlarged. The heart appears small. The included intra-abdominal contents demonstrated 2 subtle nodular surface of the liver. Status post cholecystectomy. Old traumatic deformities in the lateral aspect of the right hemithorax involving mostly the fourth, fifth and sixth ribs. Old traumatic deformities in the lateral aspect of the ribs left hemithorax. There is a trabeculated lytic lesion at no acute fracture. There is a large Schmorl nodes in the inferior endplate of T12. Vertebral body T8. There is 50% volume loss of the vertebral body height. CT/CT chest wo IV con IMPRESSION: Centrilobular emphysema. Probable scarring, lung bases lingula and right middle lobe. 1 mm granuloma, left lung base. No acute airspace disease. Probable intraosseous hemangioma, T8. Old traumatic deformity, T8 vertebra. Fleischner guidelines were followed. Electronically signed by: Thom Cazares MD 04/06/2024 01:28 PM [facility]
== END 2024-04-04 12:43 | disposition home or self-care (01) ==
LOC: HO.CT 12:42
PROVIDERS: Visit Provider Nurse Practitioner Family
DX: F17.210 Nicotine dependence, cigarettes, uncomplicated (principal)
CPT/HCPCS: 71250

== ENCOUNTER → 2024-04-04 12:43 | Outpatient (BNV) | payer MEDICARE, MEDICAID, SELFPAY | PROVIDERS: Visit Provider Radiology Diagnostic Radiology | DX: J44.9 Chronic obstructive pulmonary disease, unspecified (principal) | CPT/HCPCS: 71250 ==

== ENCOUNTER 2024-04-09 10:53 | Outpatient (AMB) | payer MEDICARE, MEDICAID, SELFPAY ==
--- NOTE | 2024-04-09 09:30 | MHC.OFFVIS ---
Vital Signs 04/09/24 11:17 Height 5 ft 3 in Weight 142 lb 3.17 oz BMI 25.2 BP 142/70 H Blood Pressure Location Rt brachial Position Sitting Pulse 120 H Pulse Source Pulse Oximeter Pulse Oximetry (%) 93 Oxygen Delivery Method Room Air Intake Visit Reasons: COPD Allergies codeine [CODEINE] Adverse Reaction (Unknown, Verified 04/09/24 11:22) NAUSEA & VOMITING Codeine Allergy (Unknown, Uncoded 04/09/24 11:22) nasuea HPI HPI COPD: Details: Alisia is pleasant 74 year female, current 1/2 ppd smoker with 40+pack year history, with underlying COPD, CKDIII, HTN osteoporosis, and GERD. She continues to report suboptimal relief with Trelegy 200 mcg, infrequent use of DuoNeb with dyspnea on exertion, harsh productive cough with clear sputum, and intermittent wheezing. She is supposed to be using supplemental oxygen with exertion, however reports inconsistent use of 2L. She does state that she uses supplemental oxygen when she is home. She also continues to smoke 1/2 ppd and is not interested in quitting. [facility] Medical History Post-menopause Chronic lumbar pain Cyst of left breast FH: cholecystectomy GERD (gastroesophageal reflux disease) Depression COPD (chronic obstructive pulmonary disease) Surgical History H/O inguinal hernia repair Family History Mother Renal disease Mental health disorder Father Mental health disorder Social History Household Members: Other Household Members Other:: 3 house mates Housing: House Do you presently have visiting nurse or other home services: Yes (foot care [employer]) Alcohol intake: former Patient Tobacco Use Status: Current everyday Tobacco user Tobacco use type: Cigarette Cigarettes Per Day: 10 e-Cigarette/Vaping Use: Never Used Second Hand Smoke Exposure: Yes Substance Use Type: Marijuana service: No Current occupational status: retired Review of Systems Const Denies chills, Denies excessive sweating, Denies fever(s), Denies headache(s) and Denies night sweats Eyes Denies dry eyes, Denies irritation and Denies itchy eyes ENT Reports Normal hearing present, Denies headache(s), Denies nasal congestion, Denies nasal discharge, Denies post nasal drip and Denies sore throat Card Denies chest pain, Denies chest pain at rest, Denies chest pain with activity, Denies claudication, Denies leg edema, Denies orthopnea and Denies paroxysmal nocturnal dyspnea Resp Denies chest congestion, Denies excessive phlegm production, Denies pain on inspiration, Denies pain with cough and Denies stridor Musc Denies myalgias Neuro Reports Normal hearing present and Denies headache(s) Endo Denies excessive sweating Ajit/Lymph Denies lymphadenopathy Aller/Immun Denies itchy eyes and Denies seasonal rhinorrhea Physical Exam Vital Signs: Last Vital Signs Pulse 120 H 04/09/24 11:17 BP 142/70 H 04/09/24 11:17 Pulse Ox 93 04/09/24 11:17 Oxygen Delivery Method Room Air 04/09/24 11:17 BMI result Body Mass Index 25.2 Const General: cooperative, healthy appearing, comfortable, no acute distress, well developed and alert Orientation/consciousness: patient oriented x3 Limitations: no limitations HEENT Head: Yes normal to inspection, Yes normocephalic and Yes atraumatic Ears: hearing grossly normal bilaterally and external ears normal Eyes General: appearance normal, both eyes and all related structures Eyelids: Yes eyelids normal Sclerae: sclerae normal EOM: EOMs intact bilaterally Neck Neck: Yes normal visual inspection and Yes no lymphadenopathy Lymphatic: no lymphadenopathy noted Chest Chest palpation & inspection: normal inspection of the chest Resp Effort & Inspection: normal respiratory effort, able to speak in complete sentences, audible wheezes, Actively coughing Quality: productive, no stridor, not tachypneic, no tripod positioning and no use of accessory muscles Auscultation: no crackles, no rhonchi, wheezes and diminished lung sounds Cardio Jugular venous distension: no JVD Rate: regular rate Rhythm: regular rhythm Skin Other: warm, dry General skin exam: no rashes or lesions noted Neuro General: patient oriented x3 Cranial nerves: Yes Normal hearing present Cognition (Neuro): normal cognition Gait exam (Neuro): Normal gait present Extrem General: Yes normal to inspection, Yes capillary refill normal, Yes no clubbing, cyanosis or edema and Yes no pedal edema Psych Appearance: grossly normal and well kempt Speech and movement: Normal speech and movement present and Clear speech present Affect: normal affect Attitude: cooperative Thought process: Normal thought process present Thought content: Normal thought content present Insight: Good insight present (Psych) Judgement: Good judgement present (Psych) Office Procedures Nebulizer Treatment Nebulizer Treatment [id number]-Inqngmdex/MDI RX initial, or Nebulizer Subsequent Treatment Office Meds ipratropium 0.5 mg-albuterol 3 mg (2.5 mg base)/3 mL nebulization soln Performing Provider: Serina Mosley NP Performing Location: [facility] Administered by: Suyapa Schwartz LPN on 04/09/24 11:54 Dose Route Admin Location Dispensed Lot Number Expiration Date [facility] [employer] 3 mL inhalation 3 mL [id number] 07/30/25 90648-763-06 [employer] [facility] Assessment & Plan Assessment & Plan (1) COPD (chronic obstructive pulmonary disease): Code(s): J44.9 - Chronic obstructive pulmonary disease, unspecified Category: Medical Qualifiers: COPD type: unspecified COPD Qualified Code(s): J44.9 - Chronic obstructive pulmonary disease, unspecified (2) Nicotine dependence, cigarettes, uncomplicated: Code(s): F17.210 - Nicotine dependence, cigarettes, uncomplicated Category: Medical Plan Alisia with current exacerbation, will send in prednisone and a zpak as well as refill albuterol MDI. She is aware to call if symptoms do not improve or seek emergent care if symptoms worsen. Discussed importance of using supplemental oxygen and DuoNeb in addition to Trelegy. Agreeable to be more compliant. Discussed smoking cessation however not ready to quit. All questions were answered and patient is in agreement of plan. Will follow up in 4 weeks or sooner if needed. Orders: Orders AMB Nebulizer Treatment Today J44.9 - Chronic obstructive pulmonary disease, unspecified Medications: New prednisone see taper instructions; 40 mg Daily x3 days, 30 mg daily x3 days, 20 mg daily x3 days, 10 mg daily x3 days 10 mg PO DIRECTED 30 tabs 0RF azithromycin For 250 mg dose pack: take 500 mg today (day 1), then 250 mg for 4 days (days 2-5) PO 6 tabs 0RF Refilled albuterol sulfate 90 mcg/actuation (Ventolin HFA) 2 puffs inhalation Q6H PRN 1 ea 6RF wheezing unitjgtfxvw-czcwqdipg-lxmeqwen 200-62.5-25 mcg (Trelegy Ellipta) 1 inh inhalation DAILY 60 ea 6RF Discontinued albuterol sulfate Discontinued Reason: Patient Completed Course 2.5 mg (3 mL) inhalation Q6H PRN 90 mL 0RF shortness of breath or wheezing prednisone 40 mg x 5 days, then 20 mg x 5 days Discontinued Reason: Patient Completed Course 40 mg (2 x 20 mg) PO DAILY 15 tabs 0RF J44.9 - Chronic obstructive pulmonary disease, unspecified prednisone see taper instructions Take 4 pills daily for 5 days, then go down by 1 pill every 5 days; 20 days 50 tabs 0RF Discontinued Reason: Patient Completed Course 10 mg PO DIRECTED 50 tabs 0RF Coding Level of Care Code Est Pt Level 4 (45148) Diagnoses Chronic obstructive pulmonary disease, unspecified COPD type J44.9 COPD type: unspecified COPD Nicotine dependence, cigarettes, uncomplicated F17.210 CPT Codes Nebulizer Treatment - Nebulizer Treatment, initial or subsequent: [id number]-Iejvqvkda/MDI RX initial, or Nebulizer Subsequent Treatment ([id number])
[2024-04-09 11:17] VITALS: BP 142/70; PULSE 120; O2SAT 93; BMI 25.2
== END 2024-04-09 11:46 | disposition home or self-care (01) ==
PROVIDERS: PCP Nurse Practitioner Primary Care; Visit Provider Nurse Practitioner Family
DX: J44.9 Chronic obstructive pulmonary disease, unspecified (principal); F17.210 Nicotine dependence, cigarettes, uncomplicated
CPT/HCPCS: 99214

== ENCOUNTER → 2024-04-09 10:53 | Outpatient (BNVA) | payer MEDICARE, MEDICAID, SELFPAY | PROVIDERS: PCP Nurse Practitioner Primary Care; Visit Provider Nurse Practitioner Family | DX: J44.9 Chronic obstructive pulmonary disease, unspecified (principal); F17.210 Nicotine dependence, cigarettes, uncomplicated | CPT/HCPCS: 94640; 99212 ==

== ENCOUNTER 2024-05-07 13:02 | Outpatient (AMB) | payer MEDICARE, MEDICAID, SELFPAY ==
--- NOTE | 2024-05-07 13:05 | A.OFFVIS_ITS ---
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: No Etiquette Teacher: Etiquette Teacher offered & declined Accompanied by: Self / Same As Patient Allergies codeine [CODEINE] Adverse Reaction (Unknown, Verified 05/07/24 13:10) NAUSEA & VOMITING Codeine Allergy (Unknown, Uncoded 05/07/24 13:10) nasuea Medication List - Last Reconciled 05/07/24 by Suyapa Schwartz LPN albuterol sulfate 90 mcg/actuation (Ventolin HFA) 2 puffs inhalation Q6H PRN alendronate 70 mg PO NAYLOR@0600 amlodipine 5 mg PO DAILY atorvastatin 20 mg PO DAILY cholecalciferol (vitamin D3) 25 mcg PO DAILY fluoxetine 40 mg PO DAILY mjgaiotwfjz-glxlmjxuw-nitepmdo 200-62.5-25 mcg (Trelegy Ellipta) 1 inh inhalatio n DAILY ibuprofen 800 mg PO ONCE PRN ipratropium-albuterol 0.5 mg-3 mg(2.5 mg base)/3 mL 3 mL inhalation Q6H PRN roflumilast 250 mcg PO DAILY HPI HPI COPD: Details: Alisia is pleasant 74 year female, current 1/2 ppd smoker with 40+pack year history, with underlying COPD, CKDIII, HTN osteoporosis, and GERD. She continues to report suboptimal relief with Trelegy 200 mcg, infrequent use of DuoNeb with dyspnea on exertion, harsh productive cough with clear sputum, and intermittent wheezing. She is supposed to be using supplemental oxygen with exertion, however reports inconsistent use of 2L. She does state that she uses supplemental oxygen when she is home. She also continues to smoke 1/2 ppd and is not interested in quitting. 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) Alcohol intake: former Patient Tobacco Use Status: Current everyday Tobacco user Tobacco use type: Cigarette Cigarettes Per Day: 10 e-Cigarette/Vaping Use: Never Used Second Hand Smoke Exposure: Yes Substance Use Type: Marijuana service: No Current occupational status: retired Physical Exam Vital Signs: Last Vital Signs Pulse 113 H 05/07/24 13:07 BP 122/76 05/07/24 13:07 Pulse Ox 92 05/07/24 13:07 Oxygen Delivery Method Room Air 05/07/24 13:07 BMI result Body Mass Index 25.8 Assessment & Plan Assessment & Plan (1) COPD (chronic obstructive pulmonary disease): Code(s): J44.9 - Chronic obstructive pulmonary disease, unspecified Category: Medical Qualifiers: COPD type: unspecified COPD Qualified Code(s): J44.9 - Chronic obstructive pulmonary disease, unspecified (2) Nicotine dependence, cigarettes, uncomplicated: Code(s): F17.210 - Nicotine dependence, cigarettes, uncomplicated Category: Medical Plan Alisia with current exacerbation, will send in prednisone and a zpak as well as refill albuterol MDI. She is aware to call if symptoms do not improve or seek emergent care if symptoms worsen. Discussed importance of using supplemental oxygen and DuoNeb in addition to Trelegy. Agreeable to be more compliant. Discussed smoking cessation however not ready to quit. All questions were answered and patient is in agreement of plan. Will follow up in 4 weeks or sooner if needed. Coding Diagnoses Chronic obstructive pulmonary disease, unspecified COPD type J44.9 COPD type: unspecified COPD Nicotine dependence, cigarettes, uncomplicated F17.210
[2024-05-07 13:07] VITALS: BP 122/76; PULSE 113; O2SAT 92; BMI 25.8
[2024-05-07 13:18] VITALS: BMI 25.8
--- NOTE | 2024-05-07 13:18 | MHC.OFFVIS ---
Vital Signs 05/07/24 13:07 05/07/24 13:18 Height 5 ft 3 in Weight 145 lb 8.081 oz BMI 25.8 25.8 BP 122/76 Blood Pressure Location Rt brachial Position Sitting Pulse 113 H Pulse Source Pulse Oximeter Pulse Oximetry (%) 92 Oxygen Delivery Method Room Air Intake Visit Reasons: COPD Allergies codeine [CODEINE] Adverse Reaction (Unknown, Verified 05/07/24 13:10) NAUSEA & VOMITING Codeine Allergy (Unknown, Uncoded 05/07/24 13:10) nasuea Medication List - Last Reconciled 05/07/24 by Suyapa Schwartz LPN albuterol sulfate 90 mcg/actuation (Ventolin HFA) 2 puffs inhalation Q6H PRN alendronate 70 mg PO NAYLOR@0600 amlodipine 5 mg PO DAILY atorvastatin 20 mg PO DAILY cholecalciferol (vitamin D3) 25 mcg PO DAILY fluoxetine 40 mg PO DAILY zrniclsrybd-qmztabsfb-etqzbswa 200-62.5-25 mcg (Trelegy Ellipta) 1 inh inhalation DAILY ibuprofen 800 mg PO ONCE PRN ipratropium-albuterol 0.5 mg-3 mg(2.5 mg base)/3 mL 3 mL inhalation Q6H PRN roflumilast 250 mcg PO DAILY HPI HPI COPD: Details: Alisia is pleasant 74 year female, current 1/2 ppd smoker with 40+pack year history, with underlying COPD, CKDIII, HTN osteoporosis, and GERD. She continues to report suboptimal relief with Trelegy 200 mcg, infrequent use of DuoNeb with dyspnea on exertion, harsh productive cough with clear sputum, and intermittent wheezing. She is supposed to be using supplemental oxygen with exertion, however reports inconsistent use of 2L. She does state that she uses supplemental oxygen intermittently when she is home. She also continues to smoke 1/2 ppd and is not interested in quitting. At the last visit, she was prescribed prednisone and a zpak for bronchitic symptoms however had to discontinue prednisone as persistent nausea developed. She noted bronchitic symptoms improved however restarted over the last few weeks, roommate with URI sx. 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) Alcohol intake: former Patient Tobacco Use Status: Current everyday Tobacco user Tobacco use type: Cigarette Cigarettes Per Day: 10 e-Cigarette/Vaping Use: Never Used Second Hand Smoke Exposure: Yes Substance Use Type: Marijuana service: No Current occupational status: retired Review of Systems Const Denies chills, Denies excessive sweating, Denies fever(s), Denies headache(s) and Denies night sweats Eyes Denies dry eyes, Denies irritation and Denies itchy eyes ENT Reports Normal hearing present, Denies headache(s), Denies nasal congestion, Denies nasal discharge, Denies post nasal drip and Denies sore throat Card Denies chest pain, Denies chest pain at rest, Denies chest pain with activity, Denies claudication, Denies leg edema, Denies orthopnea and Denies paroxysmal nocturnal dyspnea Resp Denies chest congestion, Denies excessive phlegm production, Denies pain on inspiration, Denies pain with cough and Denies stridor Musc Denies myalgias Neuro Reports Normal hearing present and Denies headache(s) Endo Denies excessive sweating Ajit/Lymph Denies lymphadenopathy Aller/Immun Denies itchy eyes and Denies seasonal rhinorrhea Physical Exam Vital Signs: Last Vital Signs Pulse 113 H 05/07/24 13:07 BP 122/76 05/07/24 13:07 Pulse Ox 92 05/07/24 13:07 Oxygen Delivery Method Room Air 05/07/24 13:07 BMI result Body Mass Index 25.8 Const General: cooperative, healthy appearing, comfortable, no acute distress, well developed and alert Orientation/consciousness: patient oriented x3 Limitations: no limitations HEENT Head: Yes normal to inspection, Yes normocephalic and Yes atraumatic Ears: hearing grossly normal bilaterally and external ears normal Eyes General: appearance normal, both eyes and all related structures Eyelids: Yes eyelids normal Sclerae: sclerae normal EOM: EOMs intact bilaterally Neck Neck: Yes normal visual inspection and Yes no lymphadenopathy Lymphatic: no lymphadenopathy noted Chest Chest palpation & inspection: normal inspection of the chest Resp Effort & Inspection: normal respiratory effort, able to speak in complete sentences, audible wheezes, Actively coughing Quality: productive, no stridor, not tachypneic, no tripod positioning and no use of accessory muscles Auscultation: no crackles, no rhonchi, wheezes and diminished lung sounds Cardio Jugular venous distension: no JVD Rate: regular rate Rhythm: regular rhythm Skin Other: warm, dry General skin exam: no rashes or lesions noted Neuro General: patient oriented x3 Cranial nerves: Yes Normal hearing present Cognition (Neuro): normal cognition Gait exam (Neuro): Normal gait present Extrem General: Yes normal to inspection, Yes capillary refill normal, Yes no clubbing, cyanosis or edema and Yes no pedal edema Psych Appearance: grossly normal and well kempt Speech and movement: Normal speech and movement present and Clear speech present Affect: normal affect Attitude: cooperative Thought process: Normal thought process present Thought content: Normal thought content present Insight: Good insight present (Psych) Judgement: Good judgement present (Psych) Results Reviewed Results Reviewed: [address] [place] [address] CT Scan Report Signed Patient: Alisia Xiao MR#: [id number] : 1950 Acct:[id number] Age/Sex: 74 / F ADM Date: 04/04/24 Loc: .CT Attending Dr: Serina Mosley NP Ordering Physician: Serina Mosley NP Date of Service: 04/04/24 Procedure(s): CT chest wo IV con Accession Number(s): [id number] cc: Serina Mosley NP~ EXAMINATION: CT CHEST WITHOUT CONTRAST CLINICAL INFORMATION: Nicotine dependence, cigarettes, uncomplicated. COMPARISON: CT angiogram chest aorta dated June 02, 2023. TECHNIQUE: Multidetector volumetric CT imaging of the chest was done. Axial MIP volume rendering provided. Sagittal and coronal reformatted images were obtained. This CT examination was performed using dose optimization techniques as appropriate, variously including the following: *Automated exposure control *Adjustment of mA and/or kV according to patient size (this includes techniques or standardized protocols for targeted exams where dose is matched to indication/reason for exam; i.e. extremities or head) *Use of iterative reconstruction technique DLP: 105 mGy-cm FINDINGS: Submitted for interpretation on April 06, 2024. 1 mm calcified pulmonary nodule, left lower lung lobe likely granuloma. Linear and patchy attenuations in the lingula and right middle lobe. Centrilobular emphysematous changes both lungs. No consolidation, pleural effusion or pneumothorax. No bronchiectasis. No honeycombing. Respiratory airways patent. Nonspecific prominent less than 11 mm lymph nodes in the mediastinum, the most conspicuous in the right precarinal. No pericardial effusion. Calcified plaques in the thoracic aorta. The ascending thoracic aorta measures 3.7 cm. The thyroid gland is not enlarged. The heart appears small. The included intra-abdominal contents demonstrated 2 subtle nodular surface of the liver. Status post cholecystectomy. Old traumatic deformities in the lateral aspect of the right hemithorax involving mostly the fourth, fifth and sixth ribs. Old traumatic deformities in the lateral aspect of the ribs left hemithorax. There is a trabeculated lytic lesion at no acute fracture. There is a large Schmorl nodes in the inferior endplate of T12. Vertebral body T8. There is 50% volume loss of the vertebral body height. CT/CT chest wo IV con IMPRESSION: Centrilobular emphysema. Probable scarring, lung bases lingula and right middle lobe. 1 mm granuloma, left lung base. No acute airspace disease. Probable intraosseous hemangioma, T8. Old traumatic deformity, T8 vertebra. Fleischner guidelines were followed. 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 She is aware to call if symptoms do not improve or seek emergent care if symptoms worsen. Discussed importance of using supplemental oxygen and DuoNeb in addition to Trelegy. Agreeable to be more compliant. Discussed smoking cessation however not ready to quit. All questions were answered and patient is in agreement of plan. Will follow up in 6-8 weeks or sooner if needed. Medications: New methylprednisolone (Medrol (Joni)) PO PER PKG DIR 21 ea 0RF doxycycline hyclate 100 mg PO BID 14 caps 0RF Refilled fsflglehula-nitigckir-tzelawxk 200-62.5-25 mcg (Trelegy Ellipta) 1 inh inhalation DAILY 60 ea 6RF ipratropium-albuterol 0.5 mg-3 mg(2.5 mg base)/3 mL 3 mL inhalation Q6H PRN 180 mL 1RF wheezing J44.9 - Chronic obstructive pulmonary disease, unspecified albuterol sulfate 90 mcg/actuation (Ventolin HFA) 2 puffs inhalation Q6H PRN 1 ea 6RF wheezing Coding Level of Care Code Est Pt Level 4 (97724) Diagnoses Chronic obstructive pulmonary disease, unspecified COPD type J44.9 COPD type: unspecified COPD Nicotine dependence, cigarettes, uncomplicated F17.210
== END 2024-05-07 13:39 | disposition home or self-care (01) ==
PROVIDERS: Visit Provider Nurse Practitioner Family
DX: J44.9 Chronic obstructive pulmonary disease, unspecified (principal); F17.210 Nicotine dependence, cigarettes, uncomplicated
CPT/HCPCS: 99214

== ENCOUNTER → 2024-05-07 13:02 | Outpatient (BNVA) | payer MEDICARE, MEDICAID, SELFPAY | PROVIDERS: Visit Provider Nurse Practitioner Family | DX: J44.9 Chronic obstructive pulmonary disease, unspecified (principal); F17.210 Nicotine dependence, cigarettes, uncomplicated | CPT/HCPCS: 99212 ==

== ENCOUNTER 2024-05-08 12:49 | Outpatient (AMB) | payer MEDICARE, MEDICAID, SELFPAY ==
[2024-05-08 12:56] VITALS: BP 122/70; PULSE 112; O2SAT 92; BMI 25.9
--- NOTE | 2024-05-08 12:56 | A.OFFPC_ITS ---
Vital Signs 05/08/24 12:56 Height 5 ft 3 in Weight 146 lb BMI 25.9 BP 122/70 Blood Pressure Location Rt brachial Position Sitting Pulse 112 H Pulse Source Pulse Oximeter Pulse Oximetry (%) 92 Oxygen Delivery Method Room Air Intake Visit Reasons: Transfer from [facility] Intake Note: pt is here to [facility] care, transfer from [facility]. hx of HTN, COPD ( see's pulm) Calender Feeder Required: No Accompanied by: Self / Same As Patient Allergies codeine [CODEINE] Adverse Reaction (Unknown, Verified 05/08/24 12:56) NAUSEA & VOMITING Codeine Allergy (Unknown, Uncoded 05/07/24 13:10) nasuea Medication List - Last Reconciled 05/08/24 by Nish Echols, UPPER SHAPER- albuterol sulfate 90 mcg/actuation (Ventolin HFA) 2 puffs inhalation Q6H PRN alendronate 70 mg PO NAYLOR@0600 amlodipine 5 mg PO DAILY atorvastatin 20 mg PO DAILY cholecalciferol (vitamin D3) 25 mcg PO DAILY doxycycline hyclate 100 mg PO BID fluoxetine 40 mg PO DAILY scwcjcrmskn-tsayfxssx-ofspxbcv 200-62.5-25 mcg (Trelegy Ellipta) 1 inh inhalation DAILY ibuprofen 800 mg PO ONCE PRN ipratropium-albuterol 0.5 mg-3 mg(2.5 mg base)/3 mL 3 mL inhalation Q6H PRN methylprednisolone (Medrol (Joni)) PO PER PKG DIR roflumilast 250 mcg PO DAILY Tobacco use date assessed: 05/08/24 Fall risk assessment: No Falls in past year Last assessed Fall Risk: 05/08/24 Dental Screening Dental Screen Date: 05/08/24 Did you have a dental visit in the last 12 months?: Yes Did you have a dental problem in the last 6 months where you did not have access to dental care?: No Was dental information given to patient?: Patient has dentist HPI Transfer from [facility] HPI Details Chief Complaint Follow-up appointment for hypertension management and COPD. History of Present Illness The patient is a 74-year-old female presenting with hypertension and chronic obstructive pulmonary disease (COPD) for a follow-up. She has a significant history of severe COPD which has persisted over time, and she continues to smoke despite the associated health risks. The COPD condition has been managed in c onjunction with pulmonary care, but smoking remains a relevant factor affecting disease progression. Blood pressure management has been a focus of past medical visits with stable vital signs noted during this visit. There are no reports of chest pain, increased shortness of breath, nausea, vomiting, or edema at this time. The patient is compliant with routine pulmonary follow-ups but has been advised to continue monitoring vital signs regularly. Tachy: EKG without acute concerns. Social History - Continues to smoke, posing a risk fact or for COPD progression. Health Maintenance - Routine pulmonary care is being follow ed. - Recommended fasting laboratory tests i n the near future for ongoing health monitoring. Review of Systems - Cardiovascular: Denies chest pain, jah ma, WATSON, blurred vision - Respiratory: Denies increase in shortn ess of breath. - Gastrointestinal: Denies nausea, vomit ing. Physical Exam General: Cooperative, healthy appearing, comfortable, no acute distress and well developed Orientation: Patient oriented x3 Limitations: No limitations Head: Normal to inspection Ears: Hearing grossly normal bilaterally Nose: Normal external nose present Face and sinus: Normal facial exam Eyes: Appearance normal, both eyes and all related structures Neck: Normal visual inspection and Yes full ROM Respiratory: Significant wheezing anteriorly noted, otherwise diminished posteriorly Cardiovascular: Regular rate and rhythm. Normal S1 and S2 GI: Normal to inspection. Soft to palpation and nontender Skin: No rashes or lesions noted Neuro: Patient oriented x3 Extremities: Normal to inspection, no edema noted Results Plan - No changes to current hypertension man agement at this time due to stable vital signs. - Strongly advised smoking cessation to prevent further deterioration of COPD. - Recommended fasting laboratory tests t o monitor overall health status. - Scheduled follow-up in six months for continued evaluation of hypertension and COPD. Patient was informed and verbally consented to the use of an ambient scribe for clinic note documentation during this visit. Discussion Notes I discussed with the patient the current stable state of her hypertension and the lack of any alarming symptoms at present. Emphasis was placed on the importance of smoking cessation to halt further progression of her chronic obstructive pulmonary disease. I reiterated the need for fasting laboratory tests to keep track of her health status, as these would provide critical insights into managing her conditions effectively. We agreed on a follow-up in six months, unless symptoms change, to ensure her treatment plan remains appropriate for her condition. Patient Instructions - Continue current medication regimen fo r hypertension. - Schedule blood tests as advised to mon itor health parameters. - Quit smoking to improve overall lung h ealth and prevent worsening of COPD. - Return for follow-up in six months or sooner if symptoms change. PFSH Medical History Post-menopause Chronic lumbar pain Cyst of left breast FH: cholecystectomy GERD (gastroesophageal reflux disease) Depression COPD (chronic obstructive pulmonary disease) Surgical History H/O inguinal hernia repair Family History Mother Renal disease Mental health disorder Father Mental health disorder Social History Household Members: Other Household Members Other:: 3 house mates Housing: House Do you presently have visiting nurse or other home services: Yes (foot care [employer]) Alcohol intake: former Patient Tobacco Use Status: Current everyday Tobacco user Tobacco use type: Cigarette Cigarettes Per Day: 10 e-Cigarette/Vaping Use: Never Used Second Hand Smoke Exposure: Yes Substance Use Type: Marijuana service: No Current occupational status: retired Cognitive needs: No Hearing needs: No Vision needs: No Questionnaire PHQ-9 Over the last 2 weeks, how often have you been bothered by any of the following problems? 1. Little interest or pleasure in doing things: not at all 2. Feeling down, depressed, or hopeless: not at all 3. Trouble falling or staying asleep, or sleeping too much: not at all 4. Feeling tired or having little energy: not at all 5. Poor appetite or overeating: not at all 6. Feeling bad about yourself - or that you are a failure or have let yourself or your family down: not at all 7. Trouble concentrating on things, such as reading the newspaper or watching television: not at all 8. Moving or speaking so slowly that other people could have noticed. Or the opposite - being so fidgety or restless that you have been moving around a lot more than usual: not at all 9. Thoughts that you would be better off or of hurting yourself in some way: not at all Total score: 0 Depression Screening Interpretation: Negative Depression Screening Done: Yes 54191 - PHQ-9 Billing: Yes Source: Developed by Drs. Chris Nicholson, Niya Albrecht, Jesus Alberto García and colleagues, with an educational gayathri from [employer] Thrive Questionnaire Date Thrive assessed: 05/08/24 I am a: Patient What is your living situation today?: I have a place to live, but I am worried about losing it in the future Within the past 12 months, did the food you bought not last and you didn't have the money to get more?: Sometimes True Within the past 12 months, did you worry whether your food would run out before you got money to buy more?: Sometimes True Do you have trouble paying for medicines?: No Do you have trouble getting transportation to medical appointments?: No Do you have trouble paying your heating and electricity bill?: No Do you have trouble taking care of your child, family member or friend?: No Do you have trouble with day-to-day activities such as bathing, preparing meals, shopping, managing finances, etc.?: No Are you currently unemployed and looking for a job?: No Are you interested in more education?: I choose not to answer this question Please select the resources that you would like help with: Housing/Usp and Food Currently or been in a relationship where the following occur: No concerns reported THRIVE Score: 3 AUDIT C Alcohol Use Questionnaire (AUDIT-C) 1. How often do you have a drink containing alcohol?: Never 3. How often do you have six or more drinks on one occasion?: Never Total Score: 0 Score Reviewed/Action Taken: Yes AUTUMN-7 AMB Questionnaire AUTUMN-7 Date AUTUMN - 7 assessed: 05/08/24 Feeling nervous, anxious, or on edge: 0 = Not at all Not being able to stop or control worryin = Not at all Worrying too much about different things: 0 = Not at all Trouble relaxin = Not at all Being so restless that it is hard to sit still: 0 = Not at all Becoming easily annoyed or irritable: 0 = Not at all Feeling afraid as if something awful might happen: 0 = Not at all Total AUTUMN-7 score (0-4 normal; 5-9 mild; 10-14 moderate; 15-21 severe): 0 Source: Developed by Drs. Chris Nicholson, Niya Albrecht, Jesus Alberto García and colleagues, with an educational gayathri from [employer] AUTUMN-7 Assessment Billing AUTUMN-7 Assessment Tool: AUTUMN-7 Assessment 62982 Physical exam (Primary Care) Vital Signs: Last Vital Signs Pulse 112 H 05/08/24 12:56 BP 122/70 05/08/24 12:56 Pulse Ox 92 05/08/24 12:56 Oxygen Delivery Method Room Air 05/08/24 12:56 BMI result Body Mass Index 25.9 Tobacco/Smoking Status: Tobacco use Status Tobacco use date assessed 05/08/24 05/08/24 12:58 Patient Tobacco Use Status Current everyday Tobacco 05/08/24 12:58 Tobacco use type Cigarette 05/08/24 12:58 e-Cigarette/Vaping Use Never Used 05/08/24 12:58 PHQ-9: PHQ-9 Score PHQ-9: Total score 0 05/08/24 12:58 Depression Screening Interpretation: Negative Thrive Assessment: Date of Thrive Assessment Date Thrive assessed 05/08/24 05/08/24 12:58 Currently or been in a relationship where the following occur: No concerns reported Coding Level of Care Code Est Pt Level 3 (55328) Diagnoses Hypertension, unspecified type I10 Hypertension type: unspecified Vitamin D deficiency E55.9 Tachycardia R00.0 Additional Codes AUTUMN-7 Assessment Billing - AUTUMN-7 Assessment Tool: AUTUMN-7 Assessment 14574 ([id number]) PHQ-9 - 93973 - PHQ-9 Billing: Yes ([id number]) Assessment & Plan Assessment & Plan (1) Hypertension: Comment: Amlodipine 5 mg daily. Controlled at this point. Code(s): I10 - Essential (primary) hypertension Category: Medical Qualifiers: Hypertension type: unspecified Qualified Code(s): I10 - Essential (primary) hypertension (2) Vitamin D deficiency: Comment: Patient utilizing vitamin D3 2000 units per day. Will redraw Code(s): E55.9 - Vitamin D deficiency, unspecified Category: Medical (3) Tachycardia: Code(s): R00.0 - Tachycardia, unspecified Category: Medical Plan . Orders: Orders TSH reflex Free T4 Today I10 - Essential (primary) hypertension UA CC w/rflx Micro + Cult Today I10 - Essential (primary) hypertension Vitamin D 25-OH Total Today E55.9 - Vitamin D deficiency, unspecified Complete Blood Count Auto Diff Today I10 - Essential (primary) hypertension Comprehensive Sebastian. Panel Fast Today I10 - Essential (primary) hypertension Lipid Panel Today I10 - Essential (primary) hypertension AMB EKG-In Office Today R00.0 - Tachycardia, unspecified
== END 2024-05-08 14:27 | disposition home or self-care (01) ==
PROVIDERS: PCP Nurse Practitioner Primary Care; Visit Provider Nurse Practitioner Family
DX: I10 Essential (primary) hypertension (principal); E55.9 Vitamin D deficiency, unspecified; R00.0 Tachycardia, unspecified

== ENCOUNTER → 2024-05-08 12:49 | Outpatient (BNVA) | payer MEDICARE, MEDICAID, SELFPAY | PROVIDERS: PCP Nurse Practitioner Primary Care; Visit Provider Nurse Practitioner Family | DX: I10 Essential (primary) hypertension (principal); J44.9 Chronic obstructive pulmonary disease, unspecified; E55.9 Vitamin D deficiency, unspecified; R00.0 Tachycardia, unspecified | CPT/HCPCS: 96127; 99212 ==

== ENCOUNTER 2024-06-25 14:05 | Outpatient (AMB) | payer MEDICARE, SELFPAY ==
--- NOTE | 2024-06-24 19:50 | MHC.OFFVIS ---
Vital Signs 06/25/24 14:09 Height 5 ft 3 in Pulse 125 H Pulse Source Pulse Oximeter Pulse Oximetry (%) 87 L Oxygen Delivery Method Room Air Intake Visit Reasons: COPD Steel Fabricator Required: No Wrap Yarn Sorter: Wrap Yarn Sorter offered & declined Accompanied by: Self / Same As Patient Allergies codeine [CODEINE] Adverse Reaction (Unknown, Verified 06/25/24 14:12) NAUSEA & VOMITING Codeine Allergy (Unknown, Uncoded 06/25/24 14:12) nasuea HPI HPI COPD: Details: Alisia is pleasant 74 year female, current smoker with 40+pack year history, with underlying COPD, CKDIII, HTN osteoporosis, and GERD. She continues to report suboptimal relief with Trelegy 200 mcg, infrequent use of DuoNeb with dyspnea on exertion, harsh productive cough with clear sputum, and intermittent wheezing. She is supposed to be using supplemental oxygen with exertion, however reports inconsistent use of 2L. She is not using today. She continues to smoke 1/2 ppd and is not interested in quitting. At the last visit, she was prescribed a medrol dose pack and doxycycline for bronchitic symptoms. Today patient presents for routine visit, however this morning began with increased dyspnea, wheezing and chest congestion. She reports possible low grade fever, no chills or sick contacts. She also notes associated nausea and vomiting with decreased fluid intake. She reports last Duoneb treatment was Tuesday. [facility] Medical History (Updated 05/08/24 @ 14:27 by Nish Echols [facility]) DDD (degenerative disc disease), lumbar Post-menopause Chronic lumbar pain Cyst of left breast FH: cholecystectomy GERD (gastroesophageal reflux disease) Depression COPD (chronic obstructive pulmonary disease) Surgical History H/O inguinal hernia repair Family History Mother Renal disease Mental health disorder Father Mental health disorder Social History Household Members: Other Household Members Other:: 3 house mates Housing: House Do you presently have visiting nurse or other home services: Yes (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) Alcohol intake: former Patient Tobacco Use Status: Current everyday Tobacco user Tobacco use type: Cigarette Cigarettes Per Day: 10 e-Cigarette/Vaping Use: Never Used Second Hand Smoke Exposure: Yes Substance Use Type: Marijuana service: No Current occupational status: retired Cognitive needs: No Hearing needs: No Vision needs: No Review of Systems Const Denies chills, Denies excessive sweating and Denies night sweats Eyes Denies dry eyes, Denies irritation and Denies itchy eyes ENT Reports Normal hearing present, Denies nasal congestion, Denies nasal discharge, Denies post nasal drip and Denies sore throat Card Denies chest pain, Denies chest pain at rest, Denies chest pain with activity, Denies claudication, Denies leg edema, Reports dyspnea on exertion, Denies orthopnea and Denies paroxysmal nocturnal dyspnea Resp Reports chest congestion, Reports cough, Denies excessive phlegm production, Denies pain on inspiration, Denies pain with cough, Reports dyspnea on exertion, Denies stridor and Reports wheezing Musc Denies myalgias Neuro Reports Normal hearing present Endo Denies excessive sweating Ajit/Lymph Denies lymphadenopathy Aller/Immun Denies itchy eyes, Denies seasonal rhinorrhea and Reports wheezing Physical Exam Vital Signs: Last Vital Signs Pulse 125 H 06/25/24 14:09 Pulse Ox 87 L 06/25/24 14:09 Oxygen Delivery Method Room Air 06/25/24 14:09 Const General: cooperative, no acute distress, well developed and alert Orientation/consciousness: patient oriented x3 Limitations: no limitations HEENT Head: Yes normal to inspection, Yes normocephalic and Yes atraumatic Ears: hearing grossly normal bilaterally and external ears normal Eyes General: appearance normal, both eyes and all related structures Eyelids: Yes eyelids normal Sclerae: sclerae normal EOM: EOMs intact bilaterally Neck Neck: Yes normal visual inspection and Yes no lymphadenopathy Lymphatic: no lymphadenopathy noted Chest Chest palpation & inspection: normal inspection of the chest Resp Other: minimally improved with DuoNeb Effort & Inspection: normal respiratory effort, able to speak in complete sentences, audible wheezes, Actively coughing Quality: productive, no stridor, not tachypneic, no tripod positioning and no use of accessory muscles Auscultation: no crackles, rhonchi, wheezes and diminished lung sounds Cardio Jugular venous distension: no JVD Rate: regular rate Rhythm: regular rhythm Skin Other: warm, dry General skin exam: no rashes or lesions noted Neuro General: patient oriented x3 Cranial nerves: Yes Normal hearing present Cognition (Neuro): normal cognition Gait exam (Neuro): Normal gait present Extrem General: Yes normal to inspection, Yes capillary refill normal, Yes no clubbing, cyanosis or edema and Yes no pedal edema Psych Appearance: grossly normal and well kempt Speech and movement: Normal speech and movement present and Clear speech present Affect: normal affect Attitude: cooperative Thought process: Normal thought process present Thought content: Normal thought content present Insight: Good insight present (Psych) Judgement: Good judgement present (Psych) Office Procedures Nebulizer Treatment Nebulizer Treatment [id number]/[id number] RX initial, or Nebulizer Subsequent Treatment Office Meds ipratropium 0.5 mg-albuterol 3 mg (2.5 mg base)/3 mL nebulization soln Performing Provider: Serina Mosley NP Performing Location: [facility] [place] [facility] Administered by: Suyapa Schwartz LPN on 06/25/24 14:23 Dose Route Admin Location Dispensed Lot Number Expiration Date [facility] Shale Processing Technician 3 mL inhalation 3 mL [id number] 03/01/26 48531-667-43 [facility] Assessment & Plan Assessment & Plan (1) COPD (chronic obstructive pulmonary disease): Code(s): J44.9 - Chronic obstructive pulmonary disease, unspecified Category: Medical Qualifiers: COPD type: unspecified COPD Qualified Code(s): J44.9 - Chronic obstructive pulmonary disease, unspecified (2) Nicotine dependence, cigarettes, uncomplicated: Code(s): F17.210 - Nicotine dependence, cigarettes, uncomplicated Category: Medical Plan Alisia with current exacerbation, tachycardic and upon arrival to room patient 87% on room air, has an order for 2L supplemental oxygen with exertion however rarely uses. 2L placed on patient O2 94%. Minimal improvement with DuoNeb continues with widespread expiratory wheezes as well as audible wheezes. Patient nausea/vomiting likely unable to tolerate oral medications. Will send to ED for further evaluation. Orders: Orders AMB Nebulizer Treatment Today J44.9 - Chronic obstructive pulmonary disease, unspecified Coding Level of Care Code Est Pt Level 4 (16725) Diagnoses Chronic obstructive pulmonary disease, unspecified COPD type J44.9 COPD type: unspecified COPD Nicotine dependence, cigarettes, uncomplicated F17.210 CPT Codes Nebulizer Treatment - Nebulizer Treatment, initial or subsequent: [id number]/MDI RX initial, or Nebulizer Subsequent Treatment ([id number])
[2024-06-25 14:09] VITALS: PULSE 125; O2SAT 87
--- OUTSIDE RECORDS SUMMARY | 2024-06-25 16:12 | XMS_ITS | Encounter Summary ---
Author Organization [facility] Address [address] [place] [address] Care Team Providers Care Cement Conveyor Operator Name Role Phone Laquita Goodwin MD Primary Care Provider [phone] [facility], Pcp Primary Care Provider Unavailabl e Encounter Details Date Type Department Care Team Description 01/23/2020 Telephone Pulmonology [address] [place], [place] [phone] Chicho Torres MD 175 [facility] [address] [place] [address] Social History Tobacco Use Types Packs/Day Years Used Date Smoking Tobacco: Every Day Cigarettes Started: 1969 Smokeless Tobacco: Never Alcohol Use Standard Drinks/Week Comments No 0 (1 standard drink = 0.6 oz pur e alcohol) Sex Assigned at Date Recorded Not on file Job Start Date Occupation Industry Not on file Not on file Not on file COVID-19 Exposure Response Date Recorded In the last month, have you been in contact with someone who was confirmed or suspected to have Coronavirus / COVID-19? Unable to assess 01/23/2020 8:06 AM EDT documented as of this encounter Miscellaneous Notes * Telephone Encounter - Chicho Torres MD - 01/23/2020 3:10 PM EDT Overnight oxymetry pending documented in this encounter Plan of Treatment Not on file documented as of this encounter Visit Diagnoses Not on filedocumented in this encounter Care Teams Cement Conveyor Operator Relationship Specialty Start Date End Date Laquita Goodwin MD [address] [place] [address] PCP - General Internal Medicine 03/21/17 06/15/23 [facility], Pcp [address] [place] [address] PCP - General Internal Medicine 06/16/23 documented as of this encounter
--- OUTSIDE RECORDS SUMMARY | 2024-06-25 16:12 | XMS_ITS | Encounter Summary ---
Author Organization [facility] Address [address] [place] [address] Care Team Providers Care Training And Development Specialist Name Role Phone Laquita Goodwin MD Primary Care Provider [phone] [facility], Pcp Primary Care Provider Unavailabl e Encounter Details Date Type Department Care Team Description 04/13/2017 Release of Information Medical Records [address] [place] [id number] Abstract, Provider Social History Tobacco Use Types Packs/Day Years Used Date Smoking Tobacco: Every Day Sex Assigned at Date Recorded Not on file Job Start Date Occupation Industry Not on file Not on file Not on file documented as of this encounter Plan of Treatment Not on file documented as of this encounter Visit Diagnoses Not on filedocumented in this encounter Care Teams Training And Development Specialist Relationship Specialty Start Date End Date Laquita Goodwin MD [address] [place] [address] [phone] PCP - General Internal Medicine 03/21/17 06/15/23 [facility], Pcp [address] [place] [address] PCP - General Internal Medicine 06/16/23 documented as of this encounter
--- OUTSIDE RECORDS SUMMARY | 2024-06-25 16:13 | XMS_ITS | Encounter Summary ---
Author Organization [facility] Address [address] [place] [address] Care Team Providers Care Printing Equipment Mechanic Apprentice Name Role Phone Laquita Goodwin MD Primary Care Provider [phone] [facility], [facility] Primary Care Provider Unavailabl e Reason for Visit * Reason Onset Date Comments Prior Authorization 09/01/2018 Encounter Details Date Type Department Care Team Description 09/01/2018 Telephone Adult Medicine [facility] [address] [place] [address] [id number] Laquita Goodwin MD [address] [address] [phone] Prior Authorization Social History Tobacco Use Types Packs/Day Years Used Date Smoking Tobacco: Every Day Smokeless Tobacco: Never Alcohol Use Standard Drinks/Week Comments No 0 (1 standard drink = 0.6 oz pur e alcohol) Sex Assigned at Date Recorded Not on file Job Start Date Occupation Industry Not on file Not on file Not on file documented as of this encounter Miscellaneous Notes * Telephone Encounter - Lisha Barber M.A. - 09/01/2018 10:53 AM EDT Only covered for diabetic neuropathy Post herpetic neuralgia [place] [phone] Prior Auth delfina Barber M.A. Regional Prior Authorizations Ext [phone] Fax: [phone] [place] [phone] Prior Cheri mathis * Telephone Encounter - Natalya Lowery - 09/01/2018 10:36 AM EDT Pre Authorization for Medication-do not complete and send this encounter unless you have the fax from the pharmacy. Is this a Cover My Meds request: [place] of Medication LIDOCAINE 5% PATCH Dose of Medication What is the RX # from the faxed refill? [id number] How does patient take this med? APPLY 1 PATCH TOPICALLY FOR 12 HOURS ON AND 12 HOURS OFF What Pharmacy did the fax come from: [facility] Pharmacy fax #: [phone] [employer] Party Information from fax: What Prescription Plan does the patient have? BIN/PCN if applicable: Cardholder ID: Person Code: Relationship Code: Help desk phone: [phone] documented in this encounter Plan of Treatment Not on file documented as of this encounter Visit Diagnoses Not on filedocumented in this encounter Care Teams Printing Equipment Mechanic Apprentice Relationship Specialty Start Date End Date Laquita Goodwin MD [address] [place] [id number] PCP - General Internal Medicine 03/21/17 06/15/23 [facility], [address] [id number] PCP - General Internal Medicine 06/16/23 documented as of this encounter
--- OUTSIDE RECORDS SUMMARY | 2024-06-25 16:13 | XMS_ITS | Encounter Summary ---
Author Organization [facility] Address [address] [place] [address] Care Team Providers Care Rawhide Trimmer Name Role Phone Laquita Goodwin MD Primary Care Provider [phone] [facility], Pcp Primary Care Provider Unavailabl e Encounter Details Date Type Department Care Team Description 01/29/2020 Podiatry Assistant Report Medical Records [address] [place] [address] [facility] Social History Tobacco Use Types Packs/Day Years Used Date Smoking Tobacco: Every Day Cigarettes Started: 1968 Smokeless Tobacco: Never Alcohol Use Standard Drinks/Week [...] AM EDT documented as of this encounter Plan of Treatment Not on file documented as of this encounter Visit Diagnoses Not on filedocumented in this encounter Care Teams Rawhide Trimmer Relationship Specialty Start Date End Date Laquita Goodwin MD [address] [place] [address] [phone] PCP - General Internal Medicine 03/21/17 06/15/23 [facility], Pcp [address] [place] [address] PCP - General Internal Medicine 06/16/23 documented as of this encounter
--- OUTSIDE RECORDS SUMMARY | 2024-06-25 16:13 | XMS_ITS | Encounter Summary ---
Author Organization [facility] Address [address] [place] [address] Care Team Providers Care Developer Designer Name Role Phone Laquita Goodwin MD Primary Care Provider [phone] [facility], [facility] Primary Care Provider Unavailabl e Reason for Visit * Reason Comments E-prescribe Rx Request Encounter Details Date Type Department Care Team Description 01/25/2019 Refill Adult Medicine [address] [address] Nicole Remy NP E-prescribe Rx Request Social History Tobacco Use Types Packs/Day Years [...] encounter Miscellaneous Notes * Telephone Encounter - Rina Mei M.A. - 01/25/2019 12:25 PM EDT Nicole, Will you sign for 90 day supply? * Telephone Encounter - Natalya Lowery - 01/25/2019 11:29 AM EDT Patient would like script to be: E-PRESCRIBED/FAXED TO PHARMACY WHEN WAS THE PATIENT'S LAST APPOINTMENT IN ADULT MEDICINE? 10-19-18 WHEN WAS THE LAST TIME THE PATIENT SAW THEIR PCP? 05-12-18 Does patient have an upcoming appointment? Yes 02-22-19 (THE MEDICATION REQUESTED IS ON THE MED LIST ABOVE) All of the medications requested were on the CURRENT MEDS list Did you check the Pharmacy information above?: YES Patient wants: 90 -day supply Is this a mail order prescription request ? NO If the refill is from a FAXED refill request what is the RX # listed on the fax? N/A Patients current insurance carrier is: Payor: MEDICARE-b-datum / Plan: MEDICARE-b-datum / Product Type: MEDICARE [id number] documented in this encounter Plan of Treatment Not on file documented as of this encounter Visit Diagnoses Not on filedocumented in this encounter Care Teams Developer Designer Relationship Specialty Start Date End Date Laquita Goodwin MD [address] [place] [address] PCP - General Internal Medicine 03/21/17 06/15/23 [facility] [address] [place] [address] PCP - General Internal Medicine 06/16/23 documented as of this encounter
--- OUTSIDE RECORDS SUMMARY | 2024-06-25 16:13 | XMS_ITS | Encounter Summary ---
Author Organization [facility] Address [address] [place] [address] Care Team Providers Care Condenser Tube Tender Name Role Phone Laquita Goodwin MD Primary Care Provider [phone] [facility], [facility] Primary Care Provider Unavailabl e Reason for Visit * Reason Onset Date Comments Medication 07/24/2021 Encounter Details Date Type Department Care Team Description 07/24/2021 Refill Internal Medicine - [address], [address] [place] [address] Laquita Goodwin MD [address] [place] [address] [phone] Medication Social History Tobacco Use Types Packs/Day Years Used Date Smoking Tobacco: Every Day Cigarettes 1 Started: 1969 Smokeless Tobacco: Never Alcohol Use [...] or suspected to have Coronavirus / COVID-19? No / Unsure 07/10/2021 1:43 PM EST documented as of this encounter Miscellaneous Notes * Telephone Encounter - Magda Santos M.A. - 07/29/2021 2:43 PM EDT Pharmacy informed * Telephone Encounter - Leslie Bello - 07/24/2021 2:15 PM EDT Monica is not covered by patient insurance- Can she use albutuerol Otherwise a prior auth is required Contact tyshawn [phone] documented in this encounter Plan of Treatment Not on file documented as of this encounter Visit Diagnoses Not on filedocumented in this encounter Care Teams Condenser Tube Tender Relationship Specialty Start Date End Date Laquita Goodwin MD [address] [place] [address] PCP - General Internal Medicine 03/21/17 06/15/23 [facility], [place] [address] PCP - General Internal Medicine 06/16/23 documented as of this encounter
--- OUTSIDE RECORDS SUMMARY | 2024-06-25 16:13 | XMS_ITS | Encounter Summary ---
Author Organization [facility] Address [address] [place] [address] Care Team Providers Care Superintendent Production Name Role Phone Laquita Goodwin MD Primary Care Provider [phone] [facility], Pcp Primary Care Provider Unavailabl e Reason for Visit * Reason Onset Date Comments Faxed Order 07/21/2022 Tracking #[id number] Encounter Details Date Type Department Care Team Description 07/21/2022 Telephone Adult Medicine [facility] [address] [place] [address] [phone] Laquita Goodwin MD [address] [place] [address] [phone] Faxed Order (Tracking #[id number]) Social History Tobacco Use Types Packs/Day Years Used Date Smoking Tobacco: Every Day Cigarettes 1 Started: 1969 Smokeless Tobacco: Never Comments:5 a day Alcohol Use Standard Drinks/Week Comments No 0 (1 standard drink = 0.6 oz pur e alcohol) Sex Assigned at Date Recorded Not on file Job Start Date Occupation Industry Not on file Not on file Not on file COVID-19 Exposure Response Date Recorded In the last 10 days, have dat gómez been in contact with someone who was confirmed or suspected to have Coronavirus/COVID-19? No / Unsure 07/01/2022 1:15 PM EST documented as of this encounter Miscellaneous Notes * Telephone Encounter - Leah Perea - 07/21/2022 12:46 PM EDT Faxed order from [facility], Tracking #[id number]. Please sign, date, and fax back. documented in this encounter Plan of Treatment Not on file documented as of this encounter Visit Diagnoses Not on filedocumented in this encounter Care Teams Superintendent Production Relationship Specialty Start Date End Date Laquita Goodwin MD [address] [place] [address] PCP - General Internal Medicine 03/21/17 06/15/23 [place] [address] PCP - General Internal Medicine 06/16/23 documented as of this encounter
--- OUTSIDE RECORDS SUMMARY | 2024-06-25 16:13 | XMS_ITS | Encounter Summary ---
Author Organization [facility] Address [address] [place] [address] Care Team Providers Care Ski Patrol Director Name Role Phone Laquita Goodwin MD Primary Care Provider [phone] [facility], Pcp Primary Care Provider Unavailabl e Encounter Details Date Type Department Care Team Description 01/15/2020 Underwriting Intern Report Medical Records [address] [place] [address] Social History Tobacco Use Types Packs/Day Years [...] have Coronavirus / COVID-19? No / Unsure 01/03/2020 7:57 AM EDT documented as of this encounter Plan of Treatment Not on file documented as of this encounter Visit Diagnoses Not on filedocumented in this encounter Care Teams Ski Patrol Director Relationship Specialty Start Date End Date Laquita Goodwin MD [address] [place] [address] [phone] PCP - General Internal Medicine 03/21/17 06/15/23 [facility], Pcp [address] [place] [id number] PCP - General Internal Medicine 06/16/23 documented as of this encounter
--- OUTSIDE RECORDS SUMMARY | 2024-06-25 16:13 | XMS_ITS | Encounter Summary ---
Author Organization [facility] Address [address] [place] [address] Care Team Providers Care Phlebotomy Technologist Name Role Phone Laquita Goodwin MD Primary Care Provider [phone] [facility], Pcp Primary Care Provider Unavailabl e Encounter Details Date Type Department Care Team Description 02/02/2022 Hospital Medical Records [address] [place] [address] Sofia Lynne NP Social History Tobacco Use Types Packs/Day Years Used Date Smoking Tobacco: Every Day Cigarettes 1 Started: 1968 Smokeless Tobacco: Never Comments:5 cigs a day Alcohol Use Standard Drinks/Week Comments [...] on filedocumented in this encounter Care Teams Phlebotomy Technologist Relationship Specialty Start Date End Date Laquita Goodwin MD [address] [place] [address] [phone] PCP - General Internal Medicine 03/21/17 06/15/23 [facility], Pcp [address] [place] [address] PCP - General Internal Medicine 06/16/23 documented as of this encounter
--- OUTSIDE RECORDS SUMMARY | 2024-06-25 16:13 | XMS_ITS | Encounter Summary ---
Author Organization [facility] Address [address] [place] [address] Care Team Providers Care Procedures Nurse Name Role Phone Laquita Goodwin MD Primary Care Provider [phone] [facility], Pcp Primary Care Provider Unavailabl e Encounter Details Date Type Department Care Team Description 06/25/2022 Home Health Certification Medical Records [address] [place] [address] [facility] Nurse [facility], [address] [phone] Social History Tobacco Use Types Packs/Day Years Used Date Smoking Tobacco: Every Day Cigarettes 1 Started: 1968 Smokeless Tobacco: Never Comments:5 a day Alcohol [...] on filedocumented in this encounter Care Teams Procedures Nurse Relationship Specialty Start Date End Date Laquita Goodwin MD [address] [place], [place] [phone] PCP - General Internal Medicine 03/21/17 06/15/23 [facility], Pcp [address] [place] [id number] PCP - General Internal Medicine 06/16/23 documented as of this encounter
--- OUTSIDE RECORDS SUMMARY | 2024-06-25 16:13 | XMS_ITS | Encounter Summary ---
Author Organization [facility] Address [address] [place] [address] Care Team Providers Care Smalltalk Developer Name Role Phone Laquita Goodwin MD Primary Care Provider [phone] [facility], Pcp Primary Care Provider Unavailabl e Encounter Details Date Type Department Care Team Description 12/14/2018 SCAN Medical Records [address] [place] [address] Abstract, Provider Stage 3 severe COPD by GOLD classification (HCC); Nicotine dependence, uncomplicated, unspecified nicotine product type; Encounter for screening for malignant neoplasm of lung; At risk for cancer; Anxiety; Moderate episode of recurrent major depressive disorder (HCC); Encounter for smoking cessation counseling Social History Tobacco Use Types Packs/Day Years [...] on file documented as of this encounter Procedures Procedure Name Priority Date/Time Associated Diagnosis Comments CHG RADIOLOGIC EXAM CHEST 2 VIEWS Routine 12/13/2018 Stage 3 severe COPD by GOLD classification (HCC) Nicotine dependence, uncomplicated, unspecified nicotine product type Encounter for screening for malignant neoplasm of lung At risk for cancer Anxiety Moderate episode of recurrent major depressive disorder (HCC) Encounter for smoking cessation counseling documented in this encounter Results * RADIOLOGIC EXAM CHEST 2 VIEWS (12/13/2018) Chicho Torres MD RADIOLOGY documented in this encounter Visit Diagnoses Diagnosis Stage 3 severe COPD by GOLD classification (HCC) Nicotine dependence, uncomplicated, unspecified nicotine product type Encounter for screening for malignant neoplasm of lung At risk for cancer Other specified conditions influencing health status Anxiety Anxiety state, unspecified Moderate episode of recurrent major depressive disorder (HCC) Encounter for smoking cessation counseling Counseling on substance use and abuse documented in this encounter Care Teams Smalltalk Developer Relationship Specialty Start Date End Date Laquita Goodwin MD [address] [place] [address] PCP - General Internal Medicine 03/21/17 06/15/[address] [address] PCP - General Internal Medicine 06/16/23 documented as of this encounter
--- OUTSIDE RECORDS SUMMARY | 2024-06-25 16:13 | XMS_ITS | Encounter Summary ---
Author Organization [facility] Address [address] [place] [address] Care Team Providers Care Science Writer Name Role Phone Laquita Goodwin MD Primary Care Provider [phone] [facility], Pcp Primary Care Provider Unavailabl e Reason for Visit * Reason Onset Date Comments refill request 04/09/2019 Encounter Details Date Type Department Care Team Description 04/09/2019 Refill Internal Medicine - [place] [address] [facility], [address] [place] [address] Chicho Torres MD [address] [facility] [address] [place] [phone] refill request Social History Tobacco Use Types Packs/Day Years [...] encounter Miscellaneous Notes * Telephone Encounter - Savannah Briggs M.A. - 04/09/2019 1:55 PM EST Refill sent to pcp * Telephone Encounter - Savannah Briggs M.A. - 04/09/2019 1:53 PM EST Patient would like script to be: E-PRESCRIBED/FAXED TO PHARMACY WHEN WAS THE PATIENT'S LAST APPOINTMENT IN ADULT MEDICINE? 03/05/2019 WHEN WAS THE LAST TIME THE PATIENT SAW THEIR PCP? Same as above Does patient have an upcoming appointment? Yes 09/03/2019 (THE MEDICATION REQUESTED IS ON THE MED LIST ABOVE) All of the medications requested were on the CURRENT MEDS list Did you check the Pharmacy information above?: YES Patient wants: 30 -day supply Is this a mail order prescription request ? YES If the refill is from a FAXED refill request what is the RX # listed on the fax? Patients current insurance carrier is: [place] / [place] / Product Type: MEDICARE [id number] documented in this encounter Plan of Treatment Not on file documented as of this encounter Visit Diagnoses Diagnosis Stage 3 [...] abuse documented in this encounter Care Teams Science Writer Relationship Specialty Start Date End Date Laquita Goodwin MD [address] [place] [address] PCP - General Internal Medicine 03/21/17 06/15/[address] [address] PCP - General Internal Medicine 06/16/23 documented as of this encounter
--- OUTSIDE RECORDS SUMMARY | 2024-06-25 16:13 | XMS_ITS | Encounter Summary ---
Author Organization [facility] Address [address] [place] [address] Care Team Providers Care Leguillon Debeader Name Role Phone Laquita Goodwin MD Primary Care Provider [phone] [facility], Pcp Primary Care Provider Unavailabl e Encounter Details Date Type Department Care Team Description 08/23/2018 Orders Only Adult Medicine [address] [phone] Nicole Remy NP Social History Tobacco Use Types Packs/Day [...] on filedocumented in this encounter Care Teams Leguillon Debeader Relationship Specialty Start Date End Date Laquita Goodwin MD [address] [place] [address] [phone] PCP - General Internal Medicine 03/21/17 06/15/23 [facility], Pcp [address] [place] [address] PCP - General Internal Medicine 06/16/23 documented as of this encounter
--- OUTSIDE RECORDS SUMMARY | 2024-06-25 16:13 | XMS_ITS | Encounter Summary ---
Author Organization [facility] Address [address] [place] [address] Care Team Providers Care Pediatric Geneticist Name Role Phone Laquita Goodwin MD Primary Care Provider [phone] [facility], Pcp Primary Care Provider Unavailabl e Reason for Visit * Reason Onset Date Comments Faxed Order 12/21/2019 Encounter Details Date Type Department Care Team Description 12/21/2019 Telephone Adult Medicine [address] [phone] Laquita Goodwin MD [address] [place] [address] [phone] Faxed Order Social History Tobacco Use Types Packs/Day Years [...] encounter Miscellaneous Notes * Telephone Encounter - Marcela Newby - 12/21/2019 1:02 PM EDT [facility]axed orders [facility] from [facility]. Please review and sign fax back to [phone] documented in this encounter Plan of Treatment Not on file documented as of this encounter Visit Diagnoses Not on filedocumented in this encounter Care Teams Pediatric Geneticist Relationship Specialty Start Date End Date Laquita Goodwin MD [address] [place] [address] [phone] PCP - General Internal Medicine 03/21/17 06/15/23 [facility], Pcp [address] [place] [address] PCP - General Internal Medicine 06/16/23 documented as of this encounter
--- OUTSIDE RECORDS SUMMARY | 2024-06-25 16:13 | XMS_ITS | Encounter Summary ---
Author Organization [facility] Address [address] [place] [address] Care Team Providers Care Fig Washer Name Role Phone Laquita Goodwin MD Primary Care Provider [phone] [facility], Pcp Primary Care Provider [facility] Encounter Details Date Type Department Care Team Description 10/19/2018 Telephone Adult Medicine [address] [phone] Nicole Remy NP Social History Tobacco Use [...] encounter Miscellaneous Notes * Telephone Encounter - Tonya Acevedo M.A. - 10/20/2018 4:06 PM EDT Spoke with CHRIS BELLAMY and she states they have over 900 colonscopys to book with only 2 schedulers, the estate planning director Mary put in a high priority message to the schedulers to take care of this ALEKS documented in this encounter Plan of Treatment Not on file documented as of this encounter Visit Diagnoses Not on filedocumented in this encounter Care Teams Fig Washer Relationship Specialty Start Date End Date Laquita Goodwin MD [address] [place] [phone] PCP - General Internal Medicine 03/21/17 06/15/23 [facility], Pcp [address] [place] [address] PCP - General Internal Medicine 06/16/23 documented as of this encounter
--- OUTSIDE RECORDS SUMMARY | 2024-06-25 16:13 | XMS_ITS | Encounter Summary ---
Author Organization [facility] Address [address] [place] [address] Care Team Providers Care Coverstitch Binder Name Role Phone Laquita Goodwin MD Primary Care Provider [phone] [facility], Pcp Primary Care Provider Unavailabl e Encounter Details Date Type Department Care Team Description 09/14/2018 Business Doc Medical Records [address] [place] [address] Abstract, Provider Social History Tobacco Use Types [...] on filedocumented in this encounter Care Teams Coverstitch Binder Relationship Specialty Start Date End Date Laquita Goodwin MD [address] [place] [address] [phone] PCP - General Internal Medicine 03/21/17 06/15/23 [facility], Pcp [address] [place] [address] PCP - General Internal Medicine 06/16/23 documented as of this encounter
--- OUTSIDE RECORDS SUMMARY | 2024-06-25 16:13 | XMS_ITS | Encounter Summary ---
Author Organization [facility] Address [address] [place] [address] Care Team Providers Care Classifier Name Role Phone Laquita Goodwin MD Primary Care Provider [phone] [facility], Pcp Primary Care Provider Unavailabl e Reason for Visit * Reason Onset Date Comments refill request 02/26/2021 Encounter Details Date Type Department Care Team Description 02/26/2021 Refill Pulmonology - [place] [address] [facility] [address] [place] [address] Kisha Hayden, MERCHANDISE PROCESSOR [address] [facility] [address] [place] [address] refill request Social History Tobacco Use Types [...] have Coronavirus / COVID-19? No / Unsure 02/18/2021 12:46 PM EDT documented as of this encounter Miscellaneous Notes * Telephone Encounter - Kimberly Lindsey - 02/26/2021 3:08 PM EDT Patient would like script to be: E-PRESCRIBED/FAXED TO PHARMACY WHEN WAS THE PATIENT'S LAST APPOINTMENT IN ADULT MEDICINE? 09/12/20 WHEN WAS THE LAST TIME THE PATIENT SAW THEIR PCP? Same as above Does patient have an upcoming appointment? Yes 05/09/21 (THE MEDICATION REQUESTED IS ON THE MED [...] N/A Patients current insurance carrier is: Payor: MEDICARE-[place] / [place] / Product Type: MEDICARE [id number] documented in this encounter Plan of Treatment Not on file documented as of this encounter Visit Diagnoses Diagnosis Stage 3 severe COPD by GOLD classification (HCC) Chronic obstructive pulmonary disease, unspecified COPD type (HCC) Follow up at [facility] for screening for malignant neoplasm of lung At risk for cancer Other specified conditions influencing health status Nicotine dependence, uncomplicated, unspecified nicotine product type documented in this encounter Care Teams Classifier Relationship Specialty Start Date End Date Laquita Goodwin MD [address] [place] [id number] PCP - General Internal Medicine 03/21/17 06/15/[address] [address] PCP - General Internal Medicine 06/16/23 documented as of this encounter
--- OUTSIDE RECORDS SUMMARY | 2024-06-25 16:13 | XMS_ITS | Encounter Summary ---
Author Organization [facility] Address [address] [place] [address] Care Team Providers Care Heavy Truck Driver Name Role Phone Laquita Goodwin MD Primary Care Provider [phone] [facility], Pcp Primary Care Provider Unavailabl e Encounter Details Date Type Department Care Team Description 08/23/2018 Business Doc Medical Records [address] [place] [address] Abstract, Provider Social History Tobacco Use Types [...] on filedocumented in this encounter Care Teams Heavy Truck Driver Relationship Specialty Start Date End Date Laquita Goodwin MD [address] [place] [address] [phone] PCP - General Internal Medicine 03/21/17 06/15/23 [facility], Pcp [address] [place] [address] PCP - General Internal Medicine 06/16/23 documented as of this encounter
--- OUTSIDE RECORDS SUMMARY | 2024-06-25 16:13 | XMS_ITS | Encounter Summary ---
Author Organization [facility] Address [address] [place] [address] Care Team Providers Care Plastic Cablemaking Machine Operator Name Role Phone Laquita Goodwin MD Primary Care Provider [phone] [facility], Pcp Primary Care Provider Unavailabl e Encounter Details Date Type Department Care Team Description 06/03/2017 Business Doc Medical Records [address] [place] [address] Abstract, Provider Social History Tobacco Use Types [...] on filedocumented in this encounter Care Teams Plastic Cablemaking Machine Operator Relationship Specialty Start Date End Date Laquita Goodwin MD [address] [place] [address] [phone] PCP - General Internal Medicine 03/21/17 06/15/23 [facility], Pcp [address] [place] [address] PCP - General Internal Medicine 06/16/23 documented as of this encounter
--- OUTSIDE RECORDS SUMMARY | 2024-06-25 16:13 | XMS_ITS | Encounter Summary ---
Author Organization [facility] Address [address] [place] [address] Care Team Providers Care Occupational Health And Safety Officer Name Role Phone Laquita Goodwin MD Primary Care Provider [phone] [facility], Pcp Primary Care Provider Unavailabl e Reason for Visit * Reason Onset Date Comments Faxed Order 12/13/2019 Encounter Details Date Type Department Care Team Description 12/13/2019 Telephone Adult Medicine [address] [phone] Laquita Goodwin MD [address] [place] [address] [phone] Faxed Order Social History Tobacco Use Types [...] encounter Miscellaneous Notes * Telephone Encounter - Ani Suggs - 12/13/2019 8:14 AM EDT [facility] BE SIGN AND FAX BACK TO [phone]. documented in this encounter Plan of Treatment Not on file documented as of this encounter Visit Diagnoses Not on filedocumented in this encounter Care Teams Occupational Health And Safety Officer Relationship Specialty Start Date End Date Laquita Goodwin MD [address] [place] [address] [phone] PCP - General Internal Medicine 03/21/17 06/15/23 [facility], Pcp [address] [place] [phone] PCP - General Internal Medicine 06/16/23 documented as of this encounter
--- OUTSIDE RECORDS SUMMARY | 2024-06-25 16:13 | XMS_ITS | Encounter Summary ---
Author Organization [facility] Address [address] [facility] [place] [address] Care Team Providers Care Traffic Manager Name Role Phone Laquita Goodwin MD Primary Care Provider [phone] [facility], Pcp Primary Care Provider Unavailabl e Reason for Visit * Reason Onset Date Comments Prior Authorization 05/07/2022 Encounter Details Date Type Department Care Team Description 05/07/2022 Telephone Pulmonology - [place] [address] [facility] [address] [place] [address] Kisha Hayden, DOMENIC 175 [facility] [address] [place] [address] Prior Authorization Social History Tobacco Use Types [...] Recorded In the last 10 days, have yo u been in contact with someone who was confirmed or suspected to have Coronavirus/COVID-19? No / Unsure 05/06/2022 11:16 AM EST documented as of this encounter Miscellaneous Notes * Telephone Encounter - Agnela Torrez MA - 06/04/2022 2:54 PM EST Called pt and LVM to give us a call back. * Telephone Encounter - Usha Prieto - 06/04/2022 10:53 AM EST Per sanya Please find out from patient if she started on new pill I have prescribed last visit called Delireps(Roflumilast)? If she has any new symtpms since she started like diarrhea or significant weight loss? Did she get her ??finger pulse oxygen merer? How is her oxygen today? And how her breathing after prednisone.thanks * Telephone Encounter - Treva Plaza M.A. - 05/07/2022 4:38 PM EST DUP MESSAGE, THIS IS ALREADY APPROVED Treva Plaza Prior Auth Dep Ext [id number] * Telephone Encounter - Suzette Greenwood - 05/07/2022 4:13 PM EST Fax received from [employer] requesting Prior Authorization for Roflumilast (Daliresp) 250 MCG Tab [place]RA[place]: [id number] documented in this encounter Plan of Treatment Not on file documented as of this encounter Visit Diagnoses Not on filedocumented in this encounter Care Teams Traffic Manager Relationship Specialty Start Date End Date Laquita Goodwin MD [address] [place] [address] PCP - General Internal Medicine 03/21/17 06/15/23 [facility], [place] [address] PCP - General Internal Medicine 06/16/23 documented as of this encounter
--- OUTSIDE RECORDS SUMMARY | 2024-06-25 16:13 | XMS_ITS | Encounter Summary ---
Author Organization [facility] Address [address] [place] [address] Care Team Providers Care Reconditioner Name Role Phone Laquita Goodwin MD Primary Care Provider [phone] [facility], Pcp Primary Care Provider Unavailabl e Reason for Visit * Reason Onset Date Comments Faxed Order 07/26/2022 Tracking number [id number] Encounter Details Date Type Department Care Team Description 07/26/2022 Telephone Adult Medicine [facility] [address] [place] [address] [phone] Laquita Goodwin MD [address] [place] [address] [phone] Faxed Order (Tracking number [id number]/) Social History Tobacco Use Types Packs/Day Years [...] encounter Miscellaneous Notes * Telephone Encounter - Jean Escalona - 07/26/2022 2:11 PM EDT Faxed orders from [facility] , order number [id number] documented in this encounter Plan of Treatment Not on file documented as of this encounter Visit Diagnoses Not on filedocumented in this encounter Care Teams Reconditioner Relationship Specialty Start Date End Date Laquita Goodwin MD [address] [place] [address] PCP - General Internal Medicine 03/21/17 06/15/[address] [address] PCP - General Internal Medicine 06/16/23 documented as of this encounter
--- OUTSIDE RECORDS SUMMARY | 2024-06-25 16:13 | XMS_ITS | Clinical Summary ---
Author Organization [facility] Address [address] [facility] [place] [address] Care Team Providers Care Denture Technician Name Role Phone [facility], Pcp Primary Care Provider Unavailabl e Allergies Active Allergy Reactions Severity Noted Date Comments Codeine Nausea and Vomiting 04/11/2017 Medications Medication Sig Dispensed Refills Start Date End Date Status Calcium Carb-Cholecalcifer ol (CALCIUM + D3) 600-800 MG-UNIT Tab Take 1 Tab by mouth daily. 60 Tab 0 10/02/2018 Active alendronate (FOSAMAX) 70 MG tablet Take 1 Tablet by mouth every 7 days. 12 Tablet 1 11/20/2021 Active Ipratropium-Albute rol 0.5-2.5 (3) MG/3ML SolutionIndication s:Chronic obstructive pulmonary disease with acute exacerbation (HCC) Inhale 3 mL into the lungs 4 times daily. 360 mL 5 03/04/2022 Active Misc. Devices (Fingertip Pulse Oximeter) MiscIndications:Ch ronic obstructive pulmonary disease with acute exacerbation (HCC),Tachycardia 1 Each by Does not apply route as needed for Other (Shortness of breath). 1 Each 0 05/06/2022 Active Omeprazole 20 MG Tab EC Take by mouth. 0 Active fluoxetine (PROZAC) 40 MG capsuleIndications :Chronic obstructive pulmonary disease with acute exacerbation (HCC) TAKE 1 CAPSULE BY MOUTH DAILY 90 Capsule 1 01/12/2023 Active Fluticasone-Umecli din-Vilant (Trelegy Ellipta) 100-62.5-25 MCG/ACT AEROSOL POWDER,BREATH ACTIVATEDIndicatio ns:Chronic obstructive pulmonary disease with acute exacerbation (HCC) Inhale 1 Puff into the lungs daily. 180 Each 3 04/29/2023 Active Ventolin HFA 108 (90 Base) MCG/ACT Aero SolnIndications:Ch ronic obstructive pulmonary disease with acute exacerbation (HCC) Inhale 2 Puffs into the lungs every 6 hours as needed for Cough, Wheezing or Shortness of Breath. 25.5 g 3 04/29/2023 Active azithromycin (Zithromax) 250 MG tabletIndications: Chronic obstructive pulmonary disease with acute exacerbation (HCC) Take 1 Tablet by mouth three times a week. 36 Tablet 3 04/29/2023 Active predniSONE (DELTASONE) 10 MG tabletIndications: Chronic obstructive pulmonary disease with acute exacerbation (HCC) Please take 4 tabs by mouth daily for 3 days 3 tabs by mouth daily for 3 days 2 tabs by mouth daily for 3 days 1 tab by mouth daily for 3 days. 30 Tablet 0 04/29/2023 Active gabapentin (NEURONTIN) 300 MG capsule Take 300 mg by mouth 3 times daily. 0 2 Discontinue d(Refill) Active Problems Problem Noted Date Stress incontinence 08/18/2022 Stage 3 severe COPD by GOLD classificati on 12/13/2018 Nicotine dependence, uncomplicated 12/13 Encounter for screening for malignant ne oplasm of lung 12/13/2018 At risk for cancer 12/13/2018 Osteoporosis 09/14/2018 CKD (chronic kidney disease) stage 3, GF R 30-59 ml/min 08/15/2017 Hyperlipidemia 08/02/2017 DDD (degenerative disc disease), lumbosa cral 08/02/2017 Overview: MRI 06/19/14 History of alcohol abuse 08/02/2017 Overview: In remission since 03/25/98 Gastroesophageal reflux disease without esophagitis 06/13/2017 Insomnia Tobacco use COPD (chronic obstructive pulmonary dise ase) Chronic low back pain Anxiety Major depression Overview: [place] History of pneumonia Resolved Problems Problem Noted Date Resolved Date Postmenopausal 04/11/2017 06/01/2017 Immunizations Name Administration Dates Next Due COVID-19 (Pfizer) Pt Reported 08/14/2020, 021 Influenza Flu (PT Reported) 03/02/2017 Influenza vaccine high dose age 65 and over 01/30,03/09/2021,02/22/2019 Pneumoccoccal(Adult) Polysaccharide PPSV23 08/21,08/08/2013 Tdap 08/08/2013 Zostavax 08/08/2013 Family History Medical History Relation Name Comments CAD Father COPD kidney disease Mother CA Breast Negative Hx CA Colon Negative Hx CA Ovarian Negative Hx Relation Name Status Comments Father Mother Social History Tobacco Use Types Packs/Day Years Used Date Smoking Tobacco: Every Day Cigarettes 1 Started: 1968 Smokeless Tobacco: Never Tobacco Cessation:Ready to Q uit: Not Asked; Counseling Given: Not Answered Comments:5 cigs a day Alcohol Use Standard Drinks/Week Comments No 0 (1 standard drink = 0.6 oz pur e alcohol) Sex Assigned at Date Recorded Not on file Job Start Date Occupation Industry Not on file Not on file Not on file Last Filed Vital Signs Vital Sign Reading Time Taken Comments Blood Pressure 116/80 04/29/2023 9:35 AM EST Pulse 98 04/29/2023 9:35 AM EST Temperature 37.2 ??C (99 ??F) 04/29/2023 9:35 AM EST Respiratory Rate 20 04/29/2023 9:35 AM EST Oxygen Saturation 93% 04/29/2023 9:35 AM EST Inhaled Oxygen Concentration - - Weight 65.3 kg (144 lb) 04/29/2023 9:35 AM EST Height 162.6 cm (5' 4 ) 04/29/2023 9:35 AM EST Body Mass Index 24.72 04/29/2023 9:35 AM EST Plan of Treatment Health Maintenance Due Date Last Done Comments SHINGLES VACCINE (2 of 3) 06/10/2017 04/15/2017, 12/2013 MAMMOGRAM 09/13/2019 09/12/2018, 07/2016 (Completed), 06/23/2016, Additional history exists PNEUMOCOCCAL VACCINE (2 - PCV) 08/21/2022 08/21/2021 , 08/08/2013 BONE DENSITY SCREENING 03/09/2023 03/09/2021, 2018 DEPRESSION SCREEN 08/05/2023 08/04/2022, 07/10/2021 FALL RISK ASSESSMENT 08/05/2023 08/04/2022 (Completed), 07/10/2021, 07/10/2021, Additional history exists DTAP/TDAP/TD (3 - Td or Tdap) 08/09/2023, 05/07/2013 (Completed) Covid-19 Vaccine (3 - 2022-2 4 season) 2024 08/14/2020, 07/17/2020 INFLUENZA (#1) 2024 02/11/2022, 11/0 11/2020, 02/22/2019, Additional history exists TOBACCO CHECK/ADVISE 03/04/2024 03/04/2022, 09/12/2020, 01/03/2020, Additional history exists CHOLESTEROL SCREENING 08/21/2026 08/21/2021 , 08/15/2017, 09/01/2015 (External Completion) COLON CANCER SCREENING 05/14/2029 0 (Completed), 05/14/2019, 12/03/1999 HEPATITIS C SCREENING Completed 08/10/2018 Care Teams Denture Technician Relationship Specialty Start Date End Date Community, Pcp PCP - General Internal Medicine 06/16/23
--- OUTSIDE RECORDS SUMMARY | 2024-06-25 16:13 | XMS_ITS | Encounter Summary ---
Author Organization [facility] Address [address] [place] [address] Care Team Providers Care Nanny Caregiver Name Role Phone Laquita Goodwin MD Primary Care Provider [phone] [facility], Pcp Primary Care Provider Unavailabl e Reason for Visit * Reason Onset Date Comments hospital follow up 11/28/2019 Encounter Details Date Type Department Care Team Description 11/28/2019 Telephone Adult Medicine [facility] [address] [place], [place] [phone] Laquita Goodwin MD [address] [place], [place] [phone] hospital follow up Social History Tobacco Use Types Packs/Day Years [...] encounter Miscellaneous Notes * Telephone Encounter - Jeri Hernadez Rn - 12/03/2019 8:19 AM EDT Message left for pt to return call, to verify appointment if unable to keep Will let kitchen work supervisor know * Telephone Encounter - Tito Casillas LPN - 11/28/2019 2:13 PM EDT Left message for pt to please return our call * Telephone Encounter - Elaine Agrawalolive - 11/28/2019 1:33 PM EDT Hospital follow up appointment needed Hospital patient was treated at: [facility] Was this only an ER visit or was the patient admitted to the hospital? Admitted to hospital Date of visit if ER visit only: N/A If patient was admitted what was the date of discharge? 11/27/2019 Reason/diagnosis for visit or stay: COPD When was the patient told to follow up? 7 Days Was visit or stay related to an injury? NO If yes, what was the date of injury (DOI)? N/A If yes, was the injury due to N/A documented in this encounter Plan of Treatment Not on file documented as of this encounter Visit Diagnoses Not on filedocumented in this encounter Care Teams Nanny Caregiver Relationship Specialty Start Date End Date Laquita Goodwin MD [address] [place] [address] PCP - General Internal Medicine 03/21/17 06/15/23 [facility], Pcp [address] [place] [address] PCP - General Internal Medicine 06/16/23 documented as of this encounter
--- OUTSIDE RECORDS SUMMARY | 2024-06-25 16:13 | XMS_ITS | Encounter Summary ---
Author Organization [facility] Address [address] [place] [address] Care Team Providers Care Senior Copywriter Name Role Phone Laquita Goodwin MD Primary Care Provider [phone] [facility], Pcp Primary Care Provider Unavailabl e Encounter Details Date Type Department Care Team Description 03/05/2021 Gate Shear Operator Report Medical Records [address] [place] [address] [facility] Social History Tobacco Use Types Packs/Day Years [...] PM EDT documented as of this encounter Plan of Treatment Not on file documented as of this encounter Visit Diagnoses Not on filedocumented in this encounter Care Teams Senior Copywriter Relationship Specialty Start Date End Date Laquita Goodwin MD [address] [place], [place] [phone] PCP - General Internal Medicine 03/21/17 06/15/23 [facility], Pcp [address] [place] [address] PCP - General Internal Medicine 06/16/23 documented as of this encounter
--- OUTSIDE RECORDS SUMMARY | 2024-06-25 16:13 | XMS_ITS | Encounter Summary ---
Author Organization [facility] Address [address] [place] [address] Care Team Providers Care Foundry Laborer Coreroom Name Role Phone Laquita Goodwin MD Primary Care Provider [phone] [facility], Pcp Primary Care Provider Unavailabl e Encounter Details Date Type Department Care Team Description 06/25/2022 Home Health Certification Medical Records [address] [place] [address] [facility] Nurse [facility], [address] [phone] Social History Tobacco Use Types Packs/Day Years [...] on filedocumented in this encounter Care Teams Foundry Laborer Coreroom Relationship Specialty Start Date End Date Laquita Goodwin MD [address] [place], [place] [phone] PCP - General Internal Medicine 03/21/17 06/15/23 [facility], Pcp [address] [place] [address] PCP - General Internal Medicine 06/16/23 documented as of this encounter
--- OUTSIDE RECORDS SUMMARY | 2024-06-25 16:13 | XMS_ITS | Encounter Summary ---
Author Organization [facility] Address [address] [place] [address] Care Team Providers Care Policy Loan Calculator Name Role Phone Laquita Goodwin MD Primary Care Provider [phone] [facility], Pcp Primary Care Provider Unavailabl e Encounter Details Date Type Department Care Team Description 11/17/2018 Telephone Gastroenterology - [place] [address] [facility] [address] [place] [address] Dilia Jiménez MD [address] [place] [address] Social History Tobacco Use Types Packs/Day Years [...] encounter Miscellaneous Notes * Telephone Encounter - Nicole Remy NP - 11/17/2018 10:47 AM EDT Noted. Letter sent. * Telephone Encounter - Flor Omalley - 11/17/2018 10:15 AM EDT All attempts to reach patient to schedule screening colonoscopy have been exhausted. documented in this encounter Plan of Treatment Not on file documented as of this encounter Visit Diagnoses Not on filedocumented in this encounter Care Teams Policy Loan Calculator Relationship Specialty Start Date End Date Laquita Goodwin MD [address] [place] [address] PCP - General Internal Medicine 03/21/17 06/15/23 [facility], [address] [address] PCP - General Internal Medicine 06/16/23 documented as of this encounter
--- OUTSIDE RECORDS SUMMARY | 2024-06-25 16:13 | XMS_ITS | Encounter Summary ---
Author Organization [facility] Address [address] [place] [address] Care Team Providers Care Audit Senior Associate Name Role Phone Laquita Goodwin MD Primary Care Provider [phone] [facility], Pcp Primary Care Provider Unavailabl e Reason for Visit * Reason Onset Date Comments other 02/18/2020 returned mail Encounter Details Date Type Department Care Team Description 02/18/2020 Telephone Pulmonology - [place] [address] [facility] [address] [place] [address] Chicho Torres MD [address] [facility] [address] [place] [address] other (returned mail) Social History Tobacco Use Types Packs/Day Years [...] have Coronavirus / COVID-19? No / Unsure 02/20/2020 9:04 AM EDT documented as of this encounter Miscellaneous Notes * Telephone Encounter - Faby Box - 02/21/2020 12:12 PM EDT Spoke to patient who confirmed the address is correct. Will send mail again. * Telephone Encounter - Faby Box - 02/19/2020 9:08 AM EDT Asked patient to call office to confirm and/or change the address we have on file due to returned mail from the postal service. * Telephone Encounter - Faby Box - 02/18/2020 3:51 PM EDT Called patient to update address due to mail returned from postal service. documented in this encounter Plan of Treatment Not on file documented as of this encounter Visit Diagnoses Not on filedocumented in this encounter Care Teams Audit Senior Associate Relationship Specialty Start Date End Date Laquita Goodwin MD [address] [place] [address] PCP - General Internal Medicine 03/21/17 06/15/23 [facility], [place] [address] PCP - General Internal Medicine 06/16/23 documented as of this encounter
--- OUTSIDE RECORDS SUMMARY | 2024-06-25 16:14 | XMS_ITS | Encounter Summary ---
Author Organization [facility] Address [address] [place] [address] Care Team Providers Care Cell Tuber Machine Name Role Phone Laquita Goodwin MD Primary Care Provider [phone] [facility], Pcp Primary Care Provider Unavailabl e Encounter Details Date Type Department Care Team Description 05/25/2023 Title 1 Tutor Report Medical Records [address] [place] [address] [facility] [address] [place] [address] Social History Tobacco Use Types Packs/Day Years [...] on filedocumented in this encounter Care Teams Cell Tuber Machine Relationship Specialty Start Date End Date Laquita Goodwin MD [address] [place] [phone] PCP - General Internal Medicine 03/21/17 06/15/23 [facility], Pcp [address] [place] [address] PCP - General Internal Medicine 06/16/23 documented as of this encounter
--- OUTSIDE RECORDS SUMMARY | 2024-06-25 16:14 | XMS_ITS | Encounter Summary ---
Author Organization [facility] Address [address] [place] [address] Care Team Providers Care Headlight Adjuster Name Role Phone Laquita Goodwin MD Primary Care Provider [phone] [facility], Pcp Primary Care Provider Unavailabl e Encounter Details Date Type Department Care Team Description 01/25/2023 Oss Architect Report Medical Records [address] [place] [address] Ryne Pierre DO Social History Tobacco Use Types Packs/Day Years [...] suspected to have Coronavirus/COVID-19? No / Unsure 01/05/2023 1:10 PM EDT documented as of this encounter Plan of Treatment Not on file documented as of this encounter Visit Diagnoses Not on filedocumented in this encounter Care Teams Headlight Adjuster Relationship Specialty Start Date End Date Laquita Goodwin MD [address] [place] [phone] PCP - General Internal Medicine 03/21/17 06/15/23 [facility], Pcp [address] [place] [address] PCP - General Internal Medicine 06/16/23 documented as of this encounter
--- OUTSIDE RECORDS SUMMARY | 2024-06-25 16:14 | XMS_ITS | Encounter Summary ---
Author Organization [facility] Address [address] [place] [address] Care Team Providers Care Mix Technician Name Role Phone Laquita Goodwin MD Primary Care Provider [phone] [facility], Pcp Primary Care Provider Unavailabl e Encounter Details Date Type Department Care Team Description 03/03/2023 Formulator Report Medical Records [address] [place] [address] Ryne Pierre DO Social History Tobacco Use [...] on filedocumented in this encounter Care Teams Mix Technician Relationship Specialty Start Date End Date Laquita Goodwin MD [address] [place] [address] PCP - General Internal Medicine 03/21/17 06/15/23 [facility], Pcp [address] [place] [address] PCP - General Internal Medicine 06/16/23 documented as of this encounter
--- OUTSIDE RECORDS SUMMARY | 2024-06-25 16:14 | XMS_ITS | Clinical Summary ---
Author Organization [facility] Address [address] [place] [address] Care Team Providers Care Manager Credit Risk Name Role Phone Unavailable Primary Care Provider Unavailabl e Social History Tobacco Use Types Packs/Day Years Used Date Smoking Tobacco: Never Assessed Comments Unknown Sex and Gender Information Value Date Recorded Sex Assigned at Not on file Legal Sex Female 2:09 PM EST Gender Identity Not on file Sexual Orientation Not on file Plan of Treatment Health Maintenance Due Date Last Done Comments CT Colonography 1951 Colonoscopy 1950 Colorectal Cancer Screening 1950 FIT-DNA 1950 FIT 1950 FOBT 1950 Sigmoidoscopy 1950 Annual Physical Exam 1969 Tdap and Td Vaccines Adult 1970 Pneumococcal Vaccine: 50+ Years (1 of 1 - PCV) 2001 Zoster Vaccines (1 of 2) 2001 Fall Risk Screening 2016 Mammogram 06/23/2017 06/23/2016, 06/09/2016 COVID-19 Vaccine ( - 2023-2 5 season) 2024 Influenza Vaccine (#1) 2024 RSV 60+ (1 - 1-dose 75+ series) 2026 HIB Vaccines Aged Out No longer eligi ble based on patient's age to complete this topic HPV Vaccines Aged Out No longer eligi ble based on patient's age to complete this topic Hepatitis A Vaccines Aged Out No long er eligible based on patient's age to complete this topic IPV Vaccines Aged Out No longer eligi ble based on patient's age to complete this topic Meningococcal Vaccine Aged Out No brooke tigist eligible based on patient's age to complete this topic RSV <20 Months Aged Out No longer leanne gible based on patient's age to complete this topic Procedures Procedure Name Priority Date/Time Associated Diagnosis Comments DIGITAL MAMMOGRAPHY ADDITIONAL VIEW UNILATERAL 3D Routine 06/23/2016 12:00 AM EST from Last 3 Months or Most Recently Relevant to Health Maintenance Results * DIGITAL MAMMOGRAPHY ADDITIONAL VIEW UNILATERAL 3D (06/23/2016 12:00 AM EST) Anatomical Region Laterality Modality Mammography 06/23/2016 12:3 8 PM EST Impressions 06/23/2016 1:43 PM EST The above described findings are likely benign but recommend a 6 month follow-up left breast mammogram to evaluate for stability. I discussed this report and recommendation and other options including biopsy and MBI with the patient at the time of this dictation. BI-RADS: ??3, Short interval follow-up Left Narrative 06/23/2016 1:43 PM EST CLINICAL INFORMATION: left breast nodule COMPARISON: Prior PROTOCOL: Diagnostic mammogram with mammographic views, as determined by the monitoring Radiologist, with Computer Aided Detection. ??Tomographic views were also obtained. ??Protocol Comments: Standard Protocol (accession [id number]), Grayscale imaging of the breast. ??Protocol Comments: Standard Protocol (accession [id number]) PRIOR PROCEDURES: Excisional biopsy Left 05/02/2011 Benign RISK FACTOR: Post-menopausal patient. ??No family history of breast cancer. . . . . . . . . . . . RELATIVE RISK FACTOR: . . . . . . FINDINGS: Additional mammographic fractures of the left breast were obtained. Also a targeted ultrasound of the left breast was performed. Also comparison ultrasound of the right retroareolar region was performed. A small nodular density with benign appearing calcifications is seen in the left retroareolar region. No corresponding ultrasound finding. The ultrasound shows a cluster of cysts in the left retroareolar region measuring 6 mm. No other change. Breast Density: There are scattered fibroglandular densities (25% - 50% fibroglandular). Procedure Note Ed Quintero MD - 06/15/2019 CLINICAL INFORMATION: left breast nodule COMPARISON: Prior PROTOCOL: Diagnostic mammogram with mammographic views, as determined by the monitoring Radiologist, with Computer Aided Detection. Tomographic views were also obtained. Protocol Comments: Standard Protocol (accession [id number]), Grayscale imaging of the breast. Protocol Comments: Standard Protocol (accession [id number]) PRIOR PROCEDURES: Excisional biopsy Left 05/02/2011 Benign RISK FACTOR: Post-menopausal patient. No family history of breast cancer. . . . . . . . . . . . RELATIVE RISK FACTOR: . . . . . . FINDINGS: Additional mammographic fractures of the left breast were obtained. Also a targeted ultrasound of the left breast was performed. Also comparison ultrasound of the right retroareolar region was performed. A small nodular density with benign appearing calcifications is seen in the left retroareolar region. No corresponding ultrasound finding. The ultrasound shows a cluster of cysts in the left retroareolar region measuring 6 mm. No other change. Breast Density: There are scattered fibroglandular densities (25% - 50% fibroglandular). IMPRESSION: The above described findings are likely benign but recommend a 6 month follow-up left breast mammogram to evaluate for stability. I discussed this report and recommendation and other options including biopsy and MBI with the patient at the time of this dictation. BI-RADS: 3, Short interval follow-up Left us [facility] MD NUGENTG BI PROCEDURE S Final Result from Last 3 Months or Most Recently Relevant to Health Maintenance
--- OUTSIDE RECORDS SUMMARY | 2024-06-25 16:14 | XMS_ITS | Encounter Summary ---
Author Organization [facility] Address [address] [place] [address] Care Team Providers Care Cannon Pinion Adjuster Name Role Phone Laquita Goodwin MD Primary Care Provider [phone] [facility], [facility] Primary Care Provider Unavailabl e Reason for Referral * EXTERNAL (Routine) - Authorized/Booked Specialty Diagnoses / Procedures Referred By Contac t Referred To Contact Pulmonology Procedures REFERRAL TO PULMONOLOGY Laquita Goodwin MD [address] [place] [address] Etienne Lowery MD [address] [place] [phone] Referral ID Status Reason Start Date Expiration Date V isits Requested Visits Authorized [id number] Authorized/B ooked 01/27/2023 01/27/2024 1 1 Reason for Visit * Reason Onset Date Comments REFERRAL 01/10/2023 pulmonology Document Coordinator Feedback 01/10/2023 Etienne Lowery Encounter Details Date Type Department Care Team Description 01/10/2023 Telephone Adult Medicine [address] [phone] Laquita Goodwin MD [address] [place] [address] REFERRAL (pulmonology); Document Coordinator Feedback (Etienne Lowery ) Social History Tobacco Use Types Packs/Day Years [...] encounter Miscellaneous Notes * Telephone Encounter - Chelsealuiza Edwards - 01/27/2023 10:29 AM EDT Please review this patients new referral request. The referral has been pended. Please complete thefollowing: If approved> sign order If denied>please give instructions and route to your practice nursing pool. Practice nurse should inform referrals and the patient if denied. * Telephone Encounter - Nae Godinez - 01/10/2023 10:00 AM EDT What insurance does the patient have today?medicare mh Effective 01/30/09: [employer] will not retro referral requests over 90 days. If request is for this please instruct patient to call the 800# on their insurance card to appeal. Do not submit a request. Referrals cannot be processed if the insurance is not accurate. If the insurance listed above in red is NO BILLING INFORMATION FOUND FOR THIS ENCOUTNER The patients correct insurance must be obtained and registered in [facility] or their referral can not be processed. Is this a retro request? NO. If yes for what date of service do you need the retro referral? Who is calling to request this referral? patient If the caller is not the patient, what is their name? Ask the patient WHO referred them to this specialty: Patient saw Dr Goodwin at [facility] for the problemand was told if symptoms did not resolve or worsen they would refer them to this specialty FIRST and LAST NAME of SPECIALIST PATIENT is seeing:Etienne Lowery What specialty is this? pulmonology DIAGNOSIS Patient is being seen for (Not a body part or a procedure): copd Have you seen this SPECIALIST for this PROBLEM/DX before?NO If YES, when: Have you checked REVIEW or the APPT DESK to see if this referral has already been done or has visits left? NO Is this visit:Initial Visit Address of Specialist:[address] [place] [address] Phone # of Specialist [phone] Fax #: (if applicable): Does patient have an appointment scheduled?: NO Date of appointment- (including a retro-request): Is this appointment related to: Not MVA, WC or Surgery related documented in this encounter Plan of Treatment Not on file documented as of this encounter Visit Diagnoses Not on filedocumented in this encounter Care Teams Cannon Pinion Adjuster Relationship Specialty Start Date End Date Laquita Goodwin MD [address] [place] [address] PCP - General Internal Medicine 03/21/17 06/15/23 [facility], [place] [address] PCP - General Internal Medicine 06/16/23 documented as of this encounter
--- OUTSIDE RECORDS SUMMARY | 2024-06-25 16:14 | XMS_ITS | Encounter Summary ---
Author Organization [facility] Address [address] [place] [address] Care Team Providers Care Therapeutic Recreation Director Name Role Phone Laquita Goodwin MD Primary Care Provider [phone] Reason for Referral * Imaging (Routine) - Closed Specialty Diagnoses / Procedures Referred By Rabia palma Referred To Contact Radiology Diagnoses Encounter for screening for malignant neoplasm of respiratory organs Nicotine dependence, cigarettes, uncomplicated Procedures CT Lung Screening Zeus Wylie MD [address] [address] Phone: tel: fax: [address] [address] Phone: tel: Referral ID Status Reason Start Date Expiration Date Visits Re quested Visits Authorized [id number] Closed 05/04/2024 05/04/2025 1 1 Reason for Visit * Imaging (Routine) - Closed Specialty Diagnoses / Procedures Referred By Rabia palma Referred To Contact Radiology Diagnoses Encounter for screening for malignant neoplasm of respiratory organs Nicotine dependence, cigarettes, uncomplicated Procedures CT Lung Screening Zeus Wylie MD [address] [address] Phone: tel: fax: [address] [address] Phone: tel: Referral ID Status Reason Start Date Expiration Date Visits Re quested Visits Authorized [id number] Closed 05/04/2024 05/04/2025 1 1 Encounter Details Date Type Department Care Team (Latest Contact Info) Description 06/15/2024 1:56 PM EST - 06/15/2024 11:59 PM EST Hospital Encounter [facility] CT Scan [address] [place] [address] Encounter for screening for malignant neoplasm of respiratory organs; Nicotine dependence, cigarettes, uncomplicated Discharge Disposition: Home or Self Care Social History Tobacco Use Types Packs/Day Years Used Date Smoking Tobacco: Every Day Cigarettes 1 55.1 Started: [birth year]/02/1968 Smokeless Tobacco: Never Alcohol Use Standard Drinks/Week Comments No 0 (1 standard drink = 0.6 oz pur e alcohol) Comments Unknown Sex and Gender Information Value Date Recorded Sex Assigned at Female 05/28/2024 8:36 AM EST Legal Sex Female 3:26 PM EST Gender Identity Female 05/28/2024 8:36 AM EST Sexual Orientation Not on file documented as of this encounter Medications at Time of Discharge albuterol HFA (PROVENTIL HFA;VENTOLIN HFA) 108 (90 Base) MCG/ACT inhaler Inhale 2 puffs by mouth every 6 (six) hours if needed for wheezing. alendronate (FOSAMAX) 70 mg tablet Take 1 tablet (70 mg total) by mouth every 7 (seven) days. azithromycin (ZITHROMAX) 250 mg tablet Take 1 Tablet by mouth three times a week. - Oral CALCIUM 26-VIT D3-MAGNESIUM 15 ORAL Take by mouth 1 (one) time each day. FLUoxetine (PROzac) 40 mg capsule Take 1 capsule (40 mg total) by mouth 1 (one) time each day. fluticasone-umec lidinium-vilante rol (Trelegy Ellipta) 100-62.5-25 mcg inhaler Inhale 1 puff (100 mcg total) by mouth 1 (one) time each day. Rinse mouth with water after use to reduce aftertaste and incidence of candidiasis. Do not swallow. ipratropium-albu teroL (DUONEB) 0.5-2.5 mg/3 mL nebulizer solution Take 3 mL by nebulization 4 (four) times a day. omeprazole OTC (PriLOSEC OTC) 20 mg EC tablet Take 1 tablet (20 mg total) by mouth 1 (one) time each day. Do not crush, chew, or split. predniSONE (DELTASONE) 10 mg tablet Please take 4 tabs by mouth daily for 3 days 3 tabs by mouth daily for 3 days 2 tabs by mouth daily for 3 days 1 tab by mouth daily for 3 days. UNABLE TO FIND Med Name: Misc. Devices (Fingertip Pulse Oximeter) Misc-1 Each by Does not apply route as needed for Other (Shortness of breath). - Does not apply documented as of this encounter Discharge Disposition Disposition Code Departure Means Destination Home or Self Care documented in this encounter Plan of Treatment Not on file documented as of this encounter Procedures Procedure Name Priority Date/Time Associated Diagnosis Comments CT LUNG SCREENING Routine 06/15/2024 2:0 7 PM EST Encounter for screening for malignant neoplasm of respiratory organs Nicotine dependence, cigarettes, uncomplicated documented in this encounter Results * CT Lung Screening (06/15/2024 2:07 PM EST) Anatomical Region Laterality Modality Chest Computed Tomogra phy 06/19/2024 4:10 PM EST Impressions 06/19/2024 4:55 PM EST Severe emphysematous changes with possible new 2 mm nodule within the anterior inferior aspect of the right upper lobe. Triangular nodular opacity within the lingula is nonspecific. Lung RADS 0, recommend low-dose screening chest CT in 1 to 3 months -------- FINAL REPORT -------- Dictated By: Brian Parker Dictated Date: 06/19/2024 16:10 ET Assigned Physician: Brian Parker Reviewed and Electronically Signed By: Brian Parker Signed Date: 06/19/2024 16:55 ET Workstation ID: [id number] Transcribed By: Self Edit Transcribed Date: 06/19/2024 16:10 ET Narrative 06/19/2024 4:55 PM EST INDICATION: Current smoker with 24 pack-year smoking history FINDINGS: Low-dose CT scan of the chest obtained as a lung cancer screening study. Scanner: Flipps 64 slice VCT Dose reduction technique: ASIR (Adaptive statistical iterative reconstruction) and/or AEC (automated exposure control) Dose: total exam DLP 175 mGY per cm COMPARISON: Compared to multiple prior studies most recent from May 25, 2023 Lung: Severe degenerative changes. No infiltrates or effusions. Triangular nodular opacity in the lingula has a sclerotic appearance measuring 15 mm x 12 mm x 5 mm. No discrete nodularity within the lingula. Scattered 2 to 3 mm pulmonary nodules are overall similar in size, shape and distribution. Possible new 2 mm nodule anteriorly inferiorly within the right upper lobe on series 3 image 129. Lymph nodes: No thoracic lymphadenopathy. Mediastinum: Trachea and esophagus are within normal limits. Heart normal in size and shape without pericardial effusion. Mediastinal vascular structures are unchanged. Bony structures: Interval T8 moderate compression fracture deformity is new from the prior study. Zeus Wylie MD IMG CT PROCEDURES Final Result documented in this encounter Visit Diagnoses Diagnosis Encounter for screening for malignant neoplasm of respiratory organs Nicotine dependence, cigarettes, uncomplicated documented in this encounter Care Teams Therapeutic Recreation Director Relationship Specialty Start Date End Date Laquita Goodwin MD [address] [place] [address] PCP - General Internal Medicine 03/21/17 documented as of this encounter
--- OUTSIDE RECORDS SUMMARY | 2024-06-25 16:14 | XMS_ITS | Encounter Summary ---
Author Organization [facility] Address [address] [place] [address] Care Team Providers Care Director Private Music Therapy Agency Name Role Phone Unavailable Primary Care Provider Unavailabl e Encounter Details Date Type Department Care Team ([facility] st Contact Info) Description 12/25/2019 Scanned Document [employer] Information Management [address] [place] [id number] System, Provider Not In 08/10/2016 Pulmonary Function Test Social History Tobacco Use Types Packs/Day Years Used Date Smoking Tobacco: Never Assessed Comments Unknown Sex and Gender Information Value Date Recorded Sex Assigned at Not on file Legal Sex Female 2:09 PM EST Gender Identity Not on file Sexual Orientation Not on file documented as of this encounter Plan of Treatment Not on file documented as of this encounter Visit Diagnoses Not on filedocumented in this encounter
--- OUTSIDE RECORDS SUMMARY | 2024-06-25 16:14 | XMS_ITS | Clinical Summary ---
Author Organization [facility] 299 [facility] Address [address] [place] [address] Phone Care Team Providers Care Elastic Attacher Zigzag Name Role Phone Laquita Goodwin MD Primary Care Provider [phone] Allergies Active Allergy Reactions Criticality Noted Date Comments Codeine Nausea And Vomiting 04/19/2024 Medications fluticasone-ume clidinium-vilan terol (Trelegy Ellipta) 100-62.5-25 mcg inhaler Inhale 1 puff (100 mcg total) by mouth 1 (one) time each day. Rinse mouth with water after use to reduce aftertaste and incidence of candidiasis. Do not swallow. Active albuterol HFA (PROVENTIL HFA;VENTOLIN HFA) 108 (90 Base) MCG/ACT inhaler Inhale 2 puffs by mouth every 6 (six) hours if needed for wheezing. Active azithromycin (ZITHROMAX) 250 mg tablet Take 1 Tablet by mouth three times a week. - Oral Active predniSONE (DELTASONE) 10 mg tablet Please take 4 tabs by mouth daily for 3 days 3 tabs by mouth daily for 3 days 2 tabs by mouth daily for 3 days 1 tab by mouth daily for 3 days. Active FLUoxetine (PROzac) 40 mg capsule Take 1 capsule (40 mg total) by mouth 1 (one) time each day. Active omeprazole OTC (PriLOSEC OTC) 20 mg EC tablet Take 1 tablet (20 mg total) by mouth 1 (one) time each day. Do not crush, chew, or split. Active UNABLE TO FIND Med Name: Misc. Devices (Fingertip Pulse Oximeter) Misc-1 Each by Does not apply route as needed for Other (Shortness of breath). - Does not apply Active ipratropium-alb uteroL (DUONEB) 0.5-2.5 mg/3 mL nebulizer solution Take 3 mL by nebulization 4 (four) times a day. Active alendronate (FOSAMAX) 70 mg tablet Take 1 tablet (70 mg total) by mouth every 7 (seven) days. Active CALCIUM 26-VIT D3-MAGNESIUM 15 ORAL Take by mouth 1 (one) time each day. Active Active Problems Problem Noted Date Diagnosed Date Stress incontinence 04/19/2024 Stage 3 severe COPD by GOLD classification 04/19 Nicotine dependence, uncomplicated 04/19/2024 Osteoporosis 04/19/2024 CKD (chronic kidney disease) stage 3, GFR 30-59 ml/min 04/19/2024 Hyperlipidemia 04/19/2024 DDD (degenerative disc disease), lumbosacral History of alcohol abuse 04/19/2024 Gastroesophageal reflux disease without esophagi tis 04/19/2024 Insomnia 04/19/2024 COPD (chronic obstructive pulmonary disease) Chronic low back pain 04/19/2024 Anxiety 04/19/2024 Major depression 04/19/2024 Encounters Date Type Department Care Team Description 06/20/2024 Telephone Lung Screening Program - [place] 299 [facility] [address] [place] [phone] Yohana Kessler MA Results (Annual Lung Screening- LR0) 06/15/2024 1:56 PM EST - 06/15/2024 11:59 PM EST Hospital Encounter [facility] CT Scan [address] [place] [phone] Encounter for screening for malignant neoplasm of respiratory organs; Nicotine dependence, cigarettes, uncomplicated Discharge Disposition: Home or Self Care 05/16/2024 Telephone Lung Screening Program - [place] 299 [facility] [address] [place] [phone] Carmen Albrecht MA Appointment (1st notification) from Last 3 Months Immunizations Name Administration Dates Next Due Influenza Quadrivalent, with preservative (Fluzone; Afluria) 6mo and older 03/18/2017 Influenza trivalent, 0.5mL ( Fluad) 65yo and older 02/11/2022,03/09/2021,02/22/2019 Influenza, Unspecified 03/02/2017 Bizo SARS-CoV-2 COVID-19, mRNA, LNP-S, preservative free 08/14/2020,07/17/2020 Pneumococcal polysaccharide 23 valent (Pneumovax 23) 2yo and older 08/21/2021,08/08/2013 Tdap Tetanus diptheria acell ular pertussis (Boostrix; Adacel) 7yo and older 08/08/2013 Zoster Live 08/08/2013 Surgical History Surgery Date Site/Laterality Comments CHOLECYSTECTOMY 2014 PROCEDURE: HISTORICAL CHOLECYSTECTOMY HERNIA REPAIR 1984 Bilateral PROCEDURE: HISTORICAL HERNIA REPAIR/ING BREAST LUMPECTOMY 2010 Left PROCEDURE: HISTORICAL BREAST LUMPECTOMY COLONOSCOPY 05/14/2019 PROCEDURE: HISTORICAL COLONOSCOPY; COMMENT: normal. 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 History of pneumonia DX:History of pneumonia Hyperlipidemia 08/02/2017 DX:Hyperlipidemi a History of alcohol abuse 08/02/2017 DX:Hist ory of alcohol abuse; COMMENT: In remission since 03/25/98 Gastroesophageal reflux dise ase without esophagitis 06/13/2017 DX:Gastroesophageal reflux d isease without esophagitis DDD (degenerative disc disea se), lumbosacral 08/02/2017 DX:DDD (degenerative disc di sease), lumbosacral; COMMENT: MRI 06/19/14 Family History Medical History Relation Name Comments Coronary artery disease Father COPD Other: kidney disease Mother Breast cancer Neg Hx Colon cancer Neg Hx Ovarian cancer Neg Hx Relation Name Status Comments Father Mother [...] AM EST Sexual Orientation Not on file Obstetrics History Last Filed Vital Signs Vital Sign [place] Time Taken Comments Blood Pressure 116/80 04/29/2023 9:35 AM EST Sit ting L Arm Pulse 98 04/29/2023 9:35 AM EST Temperature - - Respiratory Rate - - Oxygen Saturation - - Inhaled Oxygen Concentration - - Weight 65.3 kg (144 lb) 04/29/2023 9:35 AM EST Height 162.6 cm (5' 4 ) 04/29/2023 9:35 AM EST Body Mass Index 24.72 04/29/2023 9:35 AM EST Plan of Treatment Health Maintenance Due Date Last Done Comments Hepatitis A Vaccines (1 of 2 - Risk 2-dose series) 1970 RSV Immunization Patients 60+ Years Old (1 - Risk 60-74 years 1-dose series) 2011 Zoster Vaccines (2 of 3) 06/10/2017 04/15/2017, 04/12/2013 COVID-19 Vaccine (3 - Pfizer risk series) 09/11/2020 08/14/2020, 07/17/2020 Breast Cancer Screening 09/12/2020 09/12/2018 Depression Screening 04/10/2022 Falls Risk Assessment 04/10/2022 Medicare Annual Wellness Visit 04/10/2022 Social Influencers of Health Screening 04/10/2022 DTaP,Tdap,and Td Vaccines (2 - Td or Tdap) 08/09/2023 08/08/2013 Hypertension/CHF/CAD Annual BMP Blood Test 12/31/2023 08/21/2021 Influenza Vaccine (#1) 2024 , 03/09/2021, 02/22/2019, Additional history exists Cholesterol Screening (Lipid Panel) 08/21/2026 08/21/2021 Colorectal Cancer Screening: Colonoscopy 05/14/2029 05/14/2019 Osteoporosis Screening (Bone Density Screening) 03/09/2031 03/09/2021, 09/12/2018 Hepatitis C Screening Completed 08/10/2018 Pneumococcal Vaccine: 50+ Years Completed 08/12/2023, 08/21/2021, 08/08/2013 Lung Cancer Screening (Low Dose CT) Discontinued 06/15/2024, 05/25/2023, 03/05/2021 HIB Vaccines Aged Out No longer eligi ble based on patient's age to complete this topic HPV Vaccines Aged Out No longer eligi ble based on patient's age to complete this topic Hepatitis B Vaccines Aged Out No long er eligible based on patient's age to complete this topic IPV Vaccines Aged Out No longer eligi ble based on patient's age to complete this topic MMR Vaccines Aged Out No longer eligi ble based on patient's age to complete this topic Meningococcal ACWY Vaccine Aged Out N o longer eligible based on patient's age to complete this topic Meningococcal B Vacine Aged Out No lo nger eligible based on patient's age to complete this topic RSV Immunization Patients Under 20 months Aged Out No longer eligible based on patient's age to complete this topic Varicella Vaccines Aged Out No longer eligible based on patient's age to complete this topic Procedures Procedure Name Priority Date/Time Associated Diagnosis Comments CT LUNG SCREENING Routine 06/15/2024 2:0 7 PM EST Encounter for screening for malignant neoplasm of respiratory organs Nicotine dependence, cigarettes, uncomplicated ANNUAL BMP BLOOD TEST Routine 08/21/2021 LIPID PANEL Routine 08/21/2021 DXA BONE DENSITY STUDY 1+ SITS AXIAL SKEL Routine 03/09/2021 11:03 AM EST Age-related osteoporosis without current pathological fracture COLONOSCOPY Routine 05/14/2019 SCR MAMMO BI INCL CAD Routine 09/12/2018 3:33 PM EDT Encounter for screening mammogram for malignant neoplasm of breast HEPATITIS C SCREENING Routine 08/10/2018 from Last 3 Months or Most Recently Relevant to Health Maintenance Results * CT Lung Screening (06/15/2024 2:07 [...] Signed Date: 06/19/2024 16:55 ET Workstation ID: [id number] Transcribed By: Self Edit Transcribed Date: 06/19/2024 16:10 ET Narrative 06/19/2024 4:55 PM EST INDICATION: Current smoker with 24 pack-year smoking history FINDINGS: Low-dose CT scan of the chest obtained as a lung cancer screening study. Scanner: ADAPTIX speed 64 slice VCT Dose reduction technique: ASIR [...] Wylie MD IMG CT PROCEDURES Final Result * Annual BMP Blood Test (08/21/2021) Pathologist [facility] Annual [facility] Blood Test abstracted Robin Provider HEALTH MAINTENANCE Final Result * (ABNORMAL) Lipid panel (08/21/2021) Pathologist [facility] LDL/HDL Ratio 5(A) 0 - 4 Triglycerides 134 0 - 150 mg/dL Cholesterol 249(A) 0 - 200 mg/dL HDL 50 >=40 mg/dL LDL Cholesterol 173(A) 0 - 100 mg/dL Blood Venous blood specimen / Unknown us Historical Provider LAB BLOOD ORDERABLES [place] chaidez Result * DXA BONE DENSITY STUDY 1+ SITS AXIAL SKEL (03/09/2021 11:03 AM EST) Anatomical Region Laterality Modality Bone Densitometr y 02/18/2021 1:15 PM EDT Narrative 03/09/2021 8:00 PM EST BONE DENSITY SCAN (DEXA): FINDINGS: Lumbar Spine T-score is -1.5. ?? (SD relative to 20-29 y/o adult) Z-score is 0.6. ??(SD relative to age matched peers) This is considered osteopenia by WHO criteria. Left Hip T-score is -3.0. Z-score is -1.2. This is considered osteoporosis by WHO criteria. Comparison exam(s): 09/12/2018. ??5.8% loss of bone mineral density in the left hip, statistically significant at the 95% confidence level. ??No statistically significant change in lumbar spine bone mineral density. IMPRESSION: IMPRESSION: ?? Osteoporosis by WHO criteria. The [facility] Department of Internal Medicine recommends using National Osteoporosis Foundation (NOF) guidelines in treatment decisions related to osteoporosis. NOF guidelines suggest considering treatment for postmenopausal women and men aged 50 or older presenting with the following: History of hip or vertebral fracture. T-score = -2.5 (DXA) at the femoral neck, total hip, or spine, after appropriate evaluation to exclude secondary causes. Low bone mass (T-score between -1.0 and -2.5 at the femoral neck or spine) AND a 10-year probability of a hip fracture = 3% OR a 10-year probability of a major osteoporosis-related fracture = 20% based on the [place]-adapted WHO algorithm Please note that all treatment decisions require clinical judgment and consideration of individual patient factors, including patient preferences, co-morbidities, previous drug use, risk factors not captured in the FRAX model (e.g., frailty, falls, vitamin D deficiency, increased bone turnover, interval significant decline in bone density) and possible under- or over-estimation of fracture risk by FRAX. Optional alternative screening schedule based on naga Shaffer., [facility] May 20, 2011 for patients with osteopenia (based on hip BMD T-score) is as follows: * ??advanced osteopenia (T scores -2.00 to -2.49), BMD testing every year * ??moderate osteopenia (T scores -1.50 to -1.99), BMD testing every 5 years mild osteopenia or normal BMD (T scores -1.50 and higher), BMD testing every 15 years Procedure Note Krystyna Dailey MD - 04/20/2022 BONE DENSITY SCAN (DEXA): FINDINGS: Lumbar Spine T-score is -1.5. (SD relative to 20-29 y/o adult) Z-score is 0.6. (SD relative to age matched peers) This is considered osteopenia by WHO criteria. Left Hip T-score is -3.0. Z-score is -1.2. This is considered osteoporosis by WHO criteria. Comparison exam(s): 09/12/2018. 5.8% loss of bone mineral density in theleft hip, statistically significant at the 95% confidence level. No statisticallysignificant change in lumbar spine bone mineral density. IMPRESSION: IMPRESSION: Osteoporosis by WHO criteria. [facility] Department of Internal Medicine recommendsusing National Osteoporosis Foundation (NOF) guidelines in treatment decisions related toosteoporosis. NOF guidelines suggest considering treatment for postmenopausal women and menaged 50 or older presenting with the following: History of hip or vertebral fracture. T-score = -2.5 (DXA) at the femoral neck, total hip, or spine, afterappropriate evaluation to exclude secondary causes. Low bone mass (T-score between -1.0 and -2.5 at the femoral neck or spine)AND a 10-year probability of a hip fracture = 3% OR a 10-year probability of a majorosteoporosis-related fracture = 20% based on the [place]-adapted WHO algorithm Please note that all treatment decisions require clinical judgment andconsideration of individual patient factors, including patient preferences, co- morbidities,previous drug use, risk factors not captured in the FRAX model (e.g., frailty, falls, vitaminD deficiency, increased bone turnover, interval significant decline in bone density) andpossible under- or over-estimation of fracture risk by FRAX. Optional alternative screening schedule based on avni Shaffer al., NEJMJanuary 2011 for patients with osteopenia (based on hip BMD T-score) is as follows: * advanced osteopenia (T scores -2.00 to -2.49), BMD testing every year * moderate osteopenia (T scores -1.50 to -1.99), BMD testing every 5years mild osteopenia or normal BMD (T scores -1.50 and higher), BMD testingevery 15 years Jasmine [place]ORTH IMG DXA PROCEDURES Final Result * Colonoscopy (05/14/2019) Colonoscopy no interpretation abstracted Anatomical Region Laterality Modality Other Historical Provider MD HEALTH MAINTENANCE Final Result * SCR MAMMO BI INCL CAD (09/12/2018 3:33 PM EDT) Anatomical Region Laterality Modality Radiographic Elzbieta ging 04/11/2017 2:33 PM EST Narrative 09/13/2018 3:16 PM EDT This is a summary report. The complete report is available in the patient's medical record. If you cannot access the medical record, please contact the sending organization for a detailed fax or copy. Full field digital screening mammography, reviewed with CAD and compared to previous. ??The breasts are composed of fatty and fibroglandular tissue. ??No suspicious mass, architectural distortion or suspicious calcifications are identified. IMPRESSION: : No mammographic evidence of malignancy. BIRADS 1-Negative; N. 5 year breast cancer risk assessment 2.2 % Lifetime breast cancer risk assessment 7.4 % Breast cancer risk category Low (<15%) Procedure Note Thania Stevenson MD - 05/06/2022 This is a summary report. The complete report is available in thepatient's medical record. If you cannot access the medical record, pleasecontact the sending organization for a detailed fax or copy. Full field digital screening mammography, reviewed with CAD and comparedto previous. The breasts are composed of fatty and fibroglandular tissue.No suspicious mass, architectural distortion or suspicious calcificationsare identified. IMPRESSION: : No mammographic evidence of malignancy. BIRADS 1-Negative; N. 5 year breast cancer risk assessment 2.2 % Lifetime breast cancer risk assessment 7.4 % Breast cancer risk category Low (<15%) Elodia Villanueva DO IMG XR PROCEDURES Final Result * Hepatitis C Screening (08/10/2018) Hepatitis C Screening abstracted Historical Provider HEALTH MAINTENANCE Final Result from Last 3 Months or Most Recently Relevant to Health Maintenance Insurance MEDICARE MEDICAID - [place] Care Teams Elastic Attacher Zigzag Relationship Specialty Start Date End Date Laquita Goodwin MD [address] [place] [address] PCP - General Internal Medicine 03/21/17
--- OUTSIDE RECORDS SUMMARY | 2024-06-25 16:14 | XMS_ITS | Encounter Summary ---
Author Organization [facility] Address [address] [place] [address] Care Team Providers Care Insurance Consultant Name Role Phone Laquita Goodwin MD Primary Care Provider [phone] Reason for Visit * Reason Onset Date Comments Results 06/20/2024 Annual Lung Scre ening- LR0 Encounter Details Date Type Department Care Team ([facility] st Contact Info) Description 06/20/2024 Telephone Lung Screening Program - [address] [place] [address] Yohana Kessler MA Results (Annual Lung Screening- LR0) Social History Tobacco Use Types Packs/Day Years [...] on file documented as of this encounter Progress Notes * Yohana Kessler MA - 06/21/2024 9:40 AM EST This patient had their annual Low Dose CT scan on 06/15/24 with a Lung RADS Score of 0. We will be presenting this patient's case at our Multidisciplinary Thoracic Tumor Board Conference on 06/25/2024. The recommendation from this conference will be communicated to both you and the patient. Please let us know if you would be interested in attending this conference virtually. Screening patients are typically presented between 12-12:20pm. Please reach out to SHAISTA CooneyP Coordinator to request the Teams information. * EJ Duran - 06/20/2024 3:56 PM EST Reviewed the patient's LDCT dated 06/15/2024. The patient has a triangular nodular opacity in the lingula measuring 15 x 12 x 5 mm. When compared to her LDCT a year prior there does appear to be a smaller nodule in this area. Given my concern for possible growing nodularity in this area I will have this patient presented atour multidisciplinary thoracic tumor board conference for recommendation going forward. * Yohana Kessler MA - 06/20/2024 1:05 PM EST Alisia Mckeon Ninoska: had their LDCT Screening for Lung Cancer on Saturday, June 15, 2024 at [facility]. The radiologist interpreted this as a Lung RADS 0 and therefore requires additional review for recommendations for their next screening. Following this screening, I reached out to the patient to determine if they are experiencing any signs or symptoms that could be related to an infectious or inflammatory process. The patient denies having received treatment for a respiratory infection in the last 8 weeks. They state they have been e xperiencing some respiratory symptoms such as runny nose, congestion, muscle aches, cough, wheezingor increased shortness of breath. Patient tells me she uses a nebulizer for her COPD and states Ifeel like I'm fighting a cold . Patient has been taking her regular medications and an occasional ibuprofen. Please review this CT along with the clinical information. Let us know when we should schedule the patient's next Lung Cancer Screening and whether their incidental finding requires any additional communication or instructions. Thank you. documented in this encounter Plan of Treatment Not on file documented as of this encounter Visit Diagnoses Not on filedocumented in this encounter Care Teams Insurance Consultant Relationship Specialty Start Date End Date Laquita Goodwin MD [address] [place] [address] PCP - General Internal Medicine 03/21/17 documented as of this encounter
== END 2024-06-25 15:57 | disposition home or self-care (01) ==
PROVIDERS: PCP Nurse Practitioner Family; Visit Provider Nurse Practitioner Family
DX: J44.9 Chronic obstructive pulmonary disease, unspecified (principal); F17.210 Nicotine dependence, cigarettes, uncomplicated
CPT/HCPCS: 99214

== ENCOUNTER → 2024-06-25 14:05 | Outpatient (BNVA) | payer MEDICARE, SELFPAY | PROVIDERS: PCP Nurse Practitioner Family; Visit Provider Nurse Practitioner Family | DX: J44.9 Chronic obstructive pulmonary disease, unspecified (principal); F17.210 Nicotine dependence, cigarettes, uncomplicated ==

== ENCOUNTER 2024-06-25 14:42 | Emergency (ER) | payer MEDICARE, SELFPAY ==
--- NOTE | ~2024-06-25 | XR_ITS ---
EXAMINATION: XR CHEST CLINICAL INFORMATION: dyspnea COMPARISON: 09/13/2022. TECHNIQUE: 2 views of the chest were obtained. FINDINGS: The cardiac, hilar, and mediastinal contours are normal. The lungs are diffusely hyperaerated, with flattened hemidiaphragms. There are increased opacities in the right lower lobe. These are best appreciated on the lateral projection. There is no pneumothorax or pleural effusion. There is no focal osseous or soft tissue abnormality. XR/XR chest 2V IMPRESSION: 1. COPD. 2. Increased opacities right lower lobe suspicious for bronchopneumonia. Electronically signed by: Ulysses Sears MD 06/25/2024 04:43 PM [facility]
[2024-06-25 16:00] VITALS: BP 113/59; PULSE 91; RESP 20; TEMP 36.8; O2SAT 97; BMI 26.7
--- NOTE | 2024-06-25 16:10 | ECG_ITS ---
Test Reason : NAUSEA/VOMITING Blood Pressure : */* mmHG Vent. Rate : 89 BPM Atrial Rate : 89 BPM P-R Int : 152 ms QRS Dur : 64 ms QT Int : 344 ms P-R-T Axes : 81 68 78 degrees QTcB Int : 418 ms Normal sinus rhythm Normal ECG When compared with ECG of 02-Jun-2023 20:44, No significant change was found Referred By: Praveena Moreira Electronically Signed By: ISAURO MARSHALL
--- NOTE | 2024-06-25 16:10 | ED.GENADULT ---
HPI - General Adult General Chief complaint: Nausea/Vomiting/Diarrhea Stated complaint: diff breathing Time Seen by Provider: 06/25/24 20:06 Related Data Home Medications ?Medication ?Instructions ?Recorded ?Confirmed roflumilast 250 mcg tablet 250 mcg PO DAILY 06/02/23 05/08/24 ibuprofen 800 mg tablet 800 mg PO ONCE PRN 08/12/23 05/08/24 cholecalciferol (vitamin D3) 25 25 mcg PO DAILY 09/09/23 05/08/24 mcg (1,000 unit) capsule Previous Rx's ?Medication ?Instructions ?Recorded alendronate 70 mg tablet 70 mg PO NAYLOR@0600 #30 tabs 09/09/23 amlodipine 5 mg tablet 5 mg PO DAILY #90 tabs 10/31/23 atorvastatin 20 mg tablet 20 mg PO DAILY #90 tabs 10/31/23 fluoxetine 40 mg capsule 40 mg PO DAILY #90 caps 12/23/23 albuterol sulfate 90 mcg/actuation 2 puff inhalation Q6H PRN wheezing 05/07/24 aerosol inhaler (Ventolin HFA) #1 ea doxycycline hyclate 100 mg capsule 100 mg PO BID #14 caps 05/07/24 fluticasone fur. 200 mcg-umeclid 1 inh inhalation DAILY #60 ea 05/07/24 62.5 mcg-vilant 25 mcg inhalat.powder (Trelegy Ellipta) ipratropium 0.5 mg-albuterol 3 mg 3 ml inhalation Q6H PRN wheezing 05/07/24 (2.5 mg base)/3 mL nebulization #180 mL soln methylprednisolone 4 mg tablets in See Rx Instructions PO PER PKG DIR 05/07/24 a dose pack (Medrol (Joni)) #21 ea albuterol sulfate 90 mcg/actuation 2 puff inhalation Q4-6H PRN 06/25/24 aerosol inhaler shortness of breath or wheezing #8.5 grams amoxicillin 875 mg-potassium 1 tab PO BID #19 tabs 06/25/24 clavulanate 125 mg tablet azithromycin 250 mg tablet 250 mg PO DAILY 4 days #4 tabs 06/25/24 prednisone 20 mg tablet 40 mg (2 x 20 mg) PO DAILY #8 tabs 06/25/24 Allergies Allergy/AdvReac Type Severity Reaction Status Date / Time codeine [CODEINE] AdvReac Unknown NAUSEA & Verified 06/25/24 16:06 VOMITING Codeine Allergy Unknown nasuea Uncoded 06/25/24 14:12 [facility] Past Medical History Medical History (Updated 06/25/24 @ 21:07 by EJ Crain) DDD (degenerative disc disease), lumbar Post-menopause Chronic lumbar pain Cyst of left breast FH: cholecystectomy GERD (gastroesophageal reflux disease) Depression COPD (chronic obstructive pulmonary disease) Surgical History H/O inguinal hernia repair Family History Family History Mother Renal disease Mental health disorder Father Mental health disorder Social History Social History Household Members: Other Household Members Other:: 3 house mates Housing: House Do you presently have visiting nurse or other home services: Yes (foot care ICT SUPPORT ENGINEER) Unable to assess alcohol history related to: Unknown Alcohol intake: former Patient Tobacco Use Status: Current everyday Tobacco user Tobacco use type: Cigarette Cigarettes Per Day: 10 e-Cigarette/Vaping Use: Never Used Second Hand Smoke Exposure: Yes Substance Use Type: Marijuana Advance Directives: No Advance Directives Information Provided: No service: No Current occupational status: retired Cognitive needs: No Hearing needs: No Vision needs: No Physical Exam ED Vital Signs: Vital Signs - 24 hr 06/25/24 16:00 06/25/24 20:43 Temperature 98.3 F 97.7 F Pulse Rate 91 93 Respiratory Rate 20 20 Blood Pressure 113/59 L 122/74 Pulse Oximetry 97 91 L Oxygen Delivery Method Nasal Cannula Room Air BMI result Body Mass Index 26.7 Course Course Course Narrative: This is a Rapid Medical Examination (RME) performed by Laith Moreira PA-C in triage. Full HPI, ROS, assessment and treatment plan per primary provider in the Main ED. 74 yo female increasing dyspnea, congestion, nausea and vomiting. no known sick contacts. was seen by security shift supervisor yesterday and was reportedly told to come to the ED for further eval. Plan: labs, ekg, viral swabs, cxr Medical Decision Making Medical Decision Making MDM Narrative: Patient refusing treatment here, she is very eager for discharge, XR/XR chest 2V IMPRESSION: 1. COPD. 2. Increased opacities right lower lobe suspicious for bronchopneumonia. Electronically signed by: Ulysses Sears MD 06/25/2024 04:43 PM [facility] Lab Data 06/25/24 16:46 06/25/24 16:46 Labs: Lab Results 06/25/24 Range/Units 16:46 WBC 11.1 H (4.8-10.8) X10*3/uL RBC 4.82 (4.20-5.50) X10*6/uL Hgb 15.2 (12.0-16.0) g/dl Hct 46.7 (37.0-47.0) % MCV 96.9 (80.0-98.0) fL MCH 31.5 (27.0-33.0) pg MCHC 32.5 (31.0-35.0) g/dl RDW 13.5 (11.0-16.0) % Plt Count 258 (160-400) X10*3/uL MPV 10.5 (9.4-12.3) fL Immature Gran % (Auto) 0.6 H (0.0-0.4) % Neut % (Auto) 65.4 (45-73) % Lymph % (Auto) 21.8 (20-40) % [place] % (Auto) 10.2 (2-11) % Eos % (Auto) 1.3 (0-4) % Baso % (Auto) 0.7 (0-2) % Lymph # (Auto) 2.4 (1.2-4.9) X10*3/uL [place] # (Auto) 1.1 (0.1-1.2) X10*3/uL Eos # (Auto) 0.1 (0.0-0.4) X10*3/uL Baso # (Auto) 0.1 (0.0-0.2) X10*3/uL Abs Immat Gran (auto) 0.07 H (0.00-0.03) X10*3/uL Absolute Neuts (auto) 7.2 (2.0-8.3) x10*3/uL Absolute Nucleated RBC 0.000 (0.0-0.012) X10*3/uL Nucleated RBC % (auto) 0.0 (0.0-0.2) /100WBC PT 10.6 L (10.9-12.4) SEC INR 0.9 (0.9-1.1) Sodium 143 (135-145) mmol/L Potassium 3.9 (3.3-5.1) mmol/L Chloride 109 H (96-108) mmol/L Carbon Dioxide 27 (22-29) mmol/L Anion Gap 11 L (12-20) BUN 16 (9-16) mg/dL Creatinine 0.83 (0.5-1.4) mg/dL Estim Creat Clear Calc 56.0 Estimated GFR > 60 Random Glucose 108 (60-115) mg/dL Calcium 9.3 (8.4-10.2) mg/dL Magnesium 2.2 (1.6-2.6) mg/dL Total Bilirubin 0.3 (0.0-1.0) mg/dL AST 28 (5-31) U/L ALT 15 (0-31) U/L Alkaline Phosphatase 80 (39-117) U/L Troponin I High Sens < 2.7 (<3.5-17.0) ng/L Total Protein 7.4 (6.5-8.0) g/dL Albumin 4.2 (3.5-5.0) g/dL Influenza Type A (PCR) NEGATIVE (Negative) Influenza Type B (PCR) NEGATIVE (Negative) RSV RNA Qual (PCR) NEGATIVE (Negative) SARS-CoV-2 RNA (RT-PCR) NEGATIVE (Negative) Discharge Plan Discharge Clinical Impression: Pneumonia Patient Disposition: Home, Self-Care Instructions: Community Acquired Pneumonia (ED) Additional Instructions: You were found to have an early pneumonia on your chest x-ray. See home care instructions. Take the azithromycin as directed, take the Augmentin as directed, complete both of these prescriptions. Use the steroid as directed, you do not require anymore until tomorrow morning. Use your home inhalers as needed. You need to follow up with your primary care provider next week. Prescriptions: New prednisone 20 mg tablet 40 mg PO DAILY Qty: 8 0RF amoxicillin-pot clavulanate 875-125 mg tablet 1 tab PO BID Qty: 19 0RF azithromycin 250 mg tablet 250 mg PO DAILY 4 Days Qty: 4 0RF Rx Instructions: start on day 2 of therapy albuterol sulfate 90 mcg/actuation HFA aerosol inhaler 2 puff inhalation Q4-6H PRN (Reason: shortness of breath or wheezing) Qty: 8.5 0RF No Action fluoxetine 40 mg capsule 40 mg PO DAILY Qty: 90 1RF roflumilast 250 mcg tablet 250 mcg PO DAILY cholecalciferol (vitamin D3) 25 mcg (1,000 unit) capsule 25 mcg PO DAILY alendronate 70 mg tablet 70 mg PO NAYLOR@0600 Qty: 30 0RF ibuprofen 800 mg tablet 800 mg PO ONCE PRN atorvastatin 20 mg tablet 20 mg PO DAILY Qty: 90 1RF amlodipine 5 mg tablet 5 mg PO DAILY Qty: 90 1RF Trelegy Ellipta 200-62.5-25 mcg blister with device 1 inh inhalation DAILY Qty: 60 6RF methylprednisolone [Medrol (Joni)] 4 mg tablets,dose pack See Rx Instructions PO PER PKG DIR Qty: 21 0RF Rx Instructions: PO PER PKG DIR ipratropium-albuterol 0.5 mg-3 mg(2.5 mg base)/3 mL solution for nebulization 3 ml inhalation Q6H PRN (Reason: wheezing) Qty: 180 1RF doxycycline hyclate 100 mg capsule 100 mg PO BID Qty: 14 0RF albuterol sulfate [Ventolin HFA] 90 mcg/actuation HFA aerosol inhaler 2 puff inhalation Q6H PRN (Reason: wheezing) Qty: 1 6RF Print Language: Nigerien
[2024-06-25 16:51] LABS: MANUAL DIFF FLAG NO
[2024-06-25 16:58] LABS: INTERNATIONAL NORM RATIO 0.9 (0.9-1.1); Prothrombin Time 10.6 SEC (10.9-12.4)
[2024-06-25 17:13] LABS: Basophils Absolute Auto 0.1 X10*3/uL (0.0-0.2); Basophils Percent Auto 0.7 % (0-2); Eosinophils Absolute Auto 0.1 X10*3/uL (0.0-0.4); Eosinophils Percent Auto 1.3 % (0-4); Hematocrit 46.7 % (37.0-47.0); Hemoglobin 15.2 g/dl (12.0-16.0); Imm Gran Abs Auto 0.07 X10*3/uL (0.00-0.03); Imm Gran Pct Auto 0.6 % (0.0-0.4); Lymphocytes Absolute Auto 2.4 X10*3/uL (1.2-4.9); Lymphocytes Percent Auto 21.8 % (20-40); Mean Corpuscular HGB Conc 32.5 g/dl (31.0-35.0); Mean Corpuscular Hemoglobin 31.5 pg (27.0-33.0); Mean Corpuscular Volume 96.9 fL (80.0-98.0); Mean Platelet Volume 10.5 fL (9.4-12.3); Monocytes Absolute Auto 1.1 X10*3/uL (0.1-1.2); Monocytes Percent Auto 10.2 % (2-11); Neutrophils Absolute Auto 7.2 x10*3/uL (2.0-8.3); Neutrophils Percent Auto 65.4 % (45-73); Platelet Count 258 X10*3/uL (160-400); Red Blood Count 4.82 X10*6/uL (4.20-5.50); Red Cell Distribution Width 13.5 % (11.0-16.0); White Blood Count 11.1 X10*3/uL (4.8-10.8)
[2024-06-25 17:14] LABS: Alanine Aminotransferase 15 U/L (0-31); Albumin Level 4.2 g/dL (3.5-5.0); Anion Gap 11 (12-20); Aspartate Amino Transferase 28 U/L (5-31); Bilirubin Total 0.3 mg/dL (0.0-1.0); Blood Urea Nitrogen 16 mg/dL (9-16); Calcium 9.3 mg/dL (8.4-10.2); Carbon Dioxide 27 mmol/L (22-29); Chloride 109 mmol/L (96-108); Estimated Glomerular Filt Rate > 60; Glucose Random 108 mg/dL (60-115); Magnesium 2.2 mg/dL (1.6-2.6); Potassium 3.9 mmol/L (3.3-5.1); Sodium 143 mmol/L (135-145); Total Protein 7.4 g/dL (6.5-8.0)
[2024-06-25 17:24] LABS: Troponin-I High Sensitivity < 2.7 ng/L (<3.5-17.0)
[2024-06-25 17:32] LABS: Influenza A PCR NEGATIVE (Negative); Influenza B PCR NEGATIVE (Negative); Resp Syncy Virus RNA Qual PCR NEGATIVE (Negative); SARS COV2 PCR INHOUSE NEGATIVE (Negative)
[2024-06-25 18:59] LABS: Alkaline Phosphatase 80 U/L (39-117)
--- OUTSIDE RECORDS SUMMARY | 2024-06-25 20:07 | XMS_ITS | Encounter Summary ---
Author Organization [facility] Address [address] [place] [address] Care Team Providers Care Meat Puller Name Role Phone Laquita Goodwin MD Primary Care Provider [phone] Reason for Referral * Imaging (Routine) - Closed Specialty Diagnoses / Procedures Referred By Rabia palma Referred To Contact Radiology Diagnoses Encounter for screening for malignant neoplasm of respiratory organs Nicotine dependence, cigarettes, uncomplicated Procedures CT Lung Screening Zeus Wylie MD [address] [address] Phone: tel: fax: [address] [address] Phone: tel: Referral ID Status Reason Start Date Expiration Date Visits Re quested Visits Authorized [id number] Closed 05/04/2024 05/04/2025 1 1 Reason for Visit * Imaging (Routine) - Closed Specialty Diagnoses / Procedures Referred By Rabia palma Referred To Contact Radiology Diagnoses Encounter for screening for malignant neoplasm of respiratory organs Nicotine dependence, cigarettes, uncomplicated Procedures CT Lung Screening Zeus Wylie MD [address] [address] Phone: tel: fax: [address] [address] Phone: tel: Referral ID Status Reason Start Date Expiration Date Visits Re quested Visits Authorized [id number] Closed 05/04/2024 05/04/2025 1 1 Encounter Details Date Type Department Care Team (Latest Contact Info) Description 06/15/2024 1:56 PM EST - 06/15/2024 11:59 PM EST Hospital Encounter [facility] CT Scan [address] [place] [address] Encounter for screening for malignant [...] Signed Date: 06/19/2024 16:55 ET Workstation ID: [id number] Transcribed By: Self Edit Transcribed Date: 06/19/2024 16:10 ET Narrative 06/19/2024 4:55 PM EST INDICATION: Current smoker with 24 pack-year smoking history FINDINGS: Low-dose CT scan of the chest obtained as a lung cancer screening study. Scanner: [employer] 64 slice VCT Dose reduction technique: ASIR [...] uncomplicated documented in this encounter Care Teams Meat Puller Relationship Specialty Start Date End Date Laquita Goodwin MD [address] [place] [address] PCP - General Internal Medicine 03/21/17 documented as of this encounter
--- OUTSIDE RECORDS SUMMARY | 2024-06-25 20:07 | XMS_ITS | Clinical Summary ---
Author Organization [facility] 299 [facility] Address [address] [place] [address] Phone Care Team Providers Care Business Operations Manager Name Role Phone Laquita Goodwin MD Primary Care Provider [phone] Allergies Active Allergy Reactions Criticality Noted Date [...] Description 06/20/2024 Telephone Lung Screening Program - [place] [facility] [address] [place] [phone] Yohana Kessler MA Results (Annual Lung Screening- LR0) 06/15/2024 1:56 PM EST - 06/15/2024 11:59 PM EST Hospital Encounter [facility] CT Scan [address] [place] [phone] Encounter for screening for malignant neoplasm of respiratory organs; Nicotine dependence, cigarettes, uncomplicated Discharge Disposition: Home or Self Care 05/16/2024 Telephone Lung Screening Program - [place] [address] [facility] [address] [place] [phone] Carmen Albrecht MA Appointment (1st notification) from Last 3 Months Immunizations Name Administration Dates Next Due Influenza Quadrivalent, with preservative (Fluzone; Afluria) 6mo and older 03/18/2017 Influenza trivalent, 0.5mL ( Fluad) 65yo and older 02/11/2022,03/09/2021,02/22/2019 Influenza, Unspecified 03/02/2017 DiBcom SARS-CoV-2 COVID-19, mRNA, LNP-S, preservative free 08/14/2020,07/17/2020 [...] Comments COPD (chronic obstructive pu lmonary disease) ([facility]) DX:COPD (chronic obstructive pulmonary disease) ([facility]) Tobacco use DX:Tobacco use Chronic low back [...] Signed Date: 06/19/2024 16:55 ET Workstation ID: [id number] Transcribed By: Self Edit Transcribed Date: 06/19/2024 16:10 ET Narrative 06/19/2024 4:55 PM EST INDICATION: Current smoker with 24 pack-year smoking history FINDINGS: Low-dose CT scan of the chest obtained as a lung cancer screening study. Scanner: [employer] speed 64 slice VCT Dose reduction technique: [...] BMP Blood Test (08/21/2021) Pathologist [facility] Blood Test abstracted Robin Provider HEALTH MAINTENANCE Final Result * (ABNORMAL) Lipid panel (08/21/2021) Pathologist [facility] LDL/HDL Ratio 5(A) 0 - 4 Triglycerides [...] IMPRESSION: ?? Osteoporosis by WHO criteria. The [facility] Department of Internal Medicine recommends using National [...] alternative screening schedule based on naga Shaffer., [facility] May 20, 2011 for patients with osteopenia [...] IMPRESSION: IMPRESSION: Osteoporosis by WHO criteria. The [facility] Department of Internal Medicine recommendsusing National Osteoporosis [...] Insurance MEDICARE MEDICAID - [place] Care Teams Business Operations Manager Relationship Specialty Start Date End Date Laquita Goodwin MD [address] [place] [address] PCP - General Internal Medicine 03/21/17
--- OUTSIDE RECORDS SUMMARY | 2024-06-25 20:07 | XMS_ITS | Clinical Summary ---
Author Organization [facility] [employer] Address [address] [place] [address] Care Team Providers Care Distribution Driver Name Role Phone Unavailable Primary Care Provider [...] RSV <20 Months Aged Out No longer leanen gible based on patient's age to complete [...] also obtained. ??Protocol Comments: Standard Protocol (accession [id number]), Grayscale imaging of the breast. ??Protocol Comments: Standard Protocol (accession [id number]) PRIOR PROCEDURES: Excisional biopsy Left 05/02/2011 Benign [...] also obtained. Protocol Comments: Standard Protocol (accession [id number]), Grayscale imaging of the breast. Protocol Comments: Standard Protocol (accession [id number]) PRIOR PROCEDURES: Excisional biopsy Left 05/02/2011 Benign [...] BI-RADS: 3, Short interval follow-up Left us [facility] MD NUGENTG BI PROCEDURE S Final Result from Last 3 Months or Most Recently Relevant to Health Maintenance
--- OUTSIDE RECORDS SUMMARY | 2024-06-25 20:07 | XMS_ITS | Encounter Summary ---
Author Organization [employer] Address [address] [place] [address] Care Team Providers Care Body Designer Name Role Phone Unavailable Primary Care Provider Unavailabl e Encounter Details Date Type Department Care Team ([facility] st Contact Info) Description 12/25/2019 Scanned Document [facility] [address] [place] [id number] System, Provider Not In 08/10/2016 Pulmonary Function [...]
--- OUTSIDE RECORDS SUMMARY | 2024-06-25 20:07 | XMS_ITS | Encounter Summary ---
Author Organization [facility] Address [address] [place] [address] Care Team Providers Care Shoe Maker Name Role Phone Laquita Goodwin MD Primary Care Provider [phone] Reason for Visit * Reason Onset Date Comments Results 06/20/2024 Annual Lung Scre ening- LR0 Encounter Details Date Type Department Care Team ([facility] st Contact Info) Description 06/20/2024 Telephone Lung Screening Program - [address] [place] [address] Yohana Kessler MA Results (Annual Lung Screening- [...] Cancer on Saturday, June 15, 2024 at [facility]. The radiologist interpreted this as a [...] on filedocumented in this encounter Care Teams Shoe Maker Relationship Specialty Start Date End Date Laquita Goodwin MD [address] [place] [address] PCP - General Internal Medicine 03/21/17 documented as of this encounter
[2024-06-25 20:43] VITALS: BP 122/74; PULSE 93; RESP 20; TEMP 36.5; O2SAT 91
--- NOTE | 2024-06-25 21:03 | PC.NURSE ---
PA aware of O2. Hx copd
[2024-06-25] MEDS: Amoxicillin/Potassium Clav 875 MG TABLET PO (21:05)
[2024-06-25] MEDS: predniSONE 20 MG TABLET 40 MG PO (21:05)
[2024-06-25] MEDS: Azithromycin 500 MG TABLET PO (21:05)
[2024-06-25 21:17] VITALS: BP 122/74; PULSE 93; RESP 20; TEMP 36.5; O2SAT 91
== END 2024-06-25 21:18 | disposition home or self-care (01) ==
PROVIDERS: Physician Assistant Medical; Emergency Provider Internal Medicine; PCP Nurse Practitioner Family
DX: J18.9 Pneumonia, unspecified organism (principal); R05.9 Cough, unspecified; R11.2 Nausea with vomiting, unspecified; I10 Essential (primary) hypertension; J44.9 Chronic obstructive pulmonary disease, unspecified; F17.210 Nicotine dependence, cigarettes, uncomplicated; Z03.818 Encounter for observation for suspected exposure to other biological agents ruled out
CPT/HCPCS: 0241U; 36415; 71046; 80053; 83735; 84484; 85025; 85610; 93005; 94640; 99212; 99283; 99284

== ENCOUNTER → 2024-06-25 16:09 | Outpatient (BNV) | payer MEDICARE, SELFPAY | PROVIDERS: PCP Nurse Practitioner Family; Visit Provider Radiology Diagnostic Radiology | DX: R06.09 Other forms of dyspnea (principal); J44.9 Chronic obstructive pulmonary disease, unspecified | CPT/HCPCS: 71046 ==

== ENCOUNTER → 2024-06-25 16:10 | Outpatient (BNV) | payer MEDICARE, SELFPAY | PROVIDERS: Emergency Provider Internal Medicine; PCP Nurse Practitioner Family; Visit Provider Internal Medicine | DX: R06.09 Other forms of dyspnea (principal); R11.2 Nausea with vomiting, unspecified | CPT/HCPCS: 93010 ==

== ENCOUNTER 2024-06-29 18:35 | Inpatient (IN) | payer MEDICARE, SELFPAY ==
--- NOTE | ~2024-06-29 | CT_ITS ---
CLINICAL HISTORY: infection CT chest with contrast Comparison: None Findings: The heart size is normal. The visualized thyroid and mediastinum are unremarkable. There is diffuse pulmonary bullous disease with areas of scarring or subsegmental atelectasis. The visualized upper abdomen is unremarkable. The bones are intact. IMPRESSION: 1. Pulmonary bullous disease with scarring or subsegmental atelectasis. This document has been electronically signed by: Jeyson Jordan MD on 06/29/2024 21:41:19
[2024-06-29 18:39] VITALS: BP 133/98; PULSE 133; O2SAT 82
[2024-06-29 18:41] VITALS: BP 164/104; PULSE 119; RESP 24; TEMP 37; O2SAT 97; BMI 26.0
[2024-06-29 18:43] VITALS: PULSE 122; RESP 18; O2SAT 97
[2024-06-29 18:52] VITALS: PULSE 121; RESP 18; O2SAT 96
--- NOTE | 2024-06-29 19:36 | ED.GENADULT ---
HPI - General Adult General Chief complaint: Dyspnea Stated complaint: PNU, sob, HYPOXIC Time Seen by Provider: 06/29/24 19:35 History of Present Illness ED Provider: Yohana Guevara PA-C HPI narrative: 74-year-old female with a history of ongoing tobacco abuse, COPD, hypertension, with recent emergency department visit for bronchitis and COPD exacerbation, declining admission at that time, presents from home with hypoxia. When EMS arrived the patient was tripoding, she was 82% on room air. She received a DuoNeb and Solu-Medrol pre arrival they placed her on BiPAP. The patient denies fevers. Related Data Home Medications ?Medication ?Instructions ?Recorded ?Confirmed roflumilast 250 mcg tablet 250 mcg PO DAILY 06/02/23 05/08/24 ibuprofen 800 mg tablet 800 mg PO ONCE PRN 08/12/23 05/08/24 cholecalciferol (vitamin D3) 25 25 mcg PO DAILY 09/09/23 05/08/24 mcg (1,000 unit) capsule Previous Rx's ?Medication ?Instructions ?Recorded alendronate 70 mg tablet 70 mg PO NAYLOR@0600 #30 tabs 09/09/23 amlodipine 5 mg tablet 5 mg PO DAILY #90 tabs 10/31/23 atorvastatin 20 mg tablet 20 mg PO DAILY #90 tabs 10/31/23 albuterol sulfate 90 mcg/actuation 2 puff inhalation Q6H PRN wheezing 05/07/24 aerosol inhaler (Ventolin HFA) #1 ea doxycycline hyclate 100 mg capsule 100 mg PO BID #14 caps 05/07/24 fluticasone fur. 200 mcg-umeclid 1 inh inhalation DAILY #60 ea 05/07/24 62.5 mcg-vilant 25 mcg inhalat.powder (Trelegy Ellipta) ipratropium 0.5 mg-albuterol 3 mg 3 ml inhalation Q6H PRN wheezing 05/07/24 (2.5 mg base)/3 mL nebulization #180 mL soln methylprednisolone 4 mg tablets in See Rx Instructions PO PER PKG DIR 05/07/24 a dose pack (Medrol (Joni)) #21 ea albuterol sulfate 90 mcg/actuation 2 puff inhalation Q4-6H PRN 06/25/24 aerosol inhaler shortness of breath or wheezing #8.5 grams amoxicillin 875 mg-potassium 1 tab PO BID #19 tabs 06/25/24 clavulanate 125 mg tablet azithromycin 250 mg tablet 250 mg PO DAILY 4 days #4 tabs 06/25/24 prednisone 20 mg tablet 40 mg (2 x 20 mg) PO DAILY #8 tabs 06/25/24 fluoxetine 40 mg capsule 40 mg PO DAILY #90 caps 06/27/24 Allergies Allergy/AdvReac Type Severity Reaction Status Date / Time codeine [CODEINE] AdvReac Unknown NAUSEA & Verified 06/29/24 18:45 VOMITING Codeine Allergy Unknown nasuea Uncoded 06/29/24 18:45 Review of Systems Review of Systems: Yes all other systems are reviewed and are negative Constitutional: Constitutional: Denies fatigue and Denies fever(s) Cardiovascular: Cardiovascular: Denies chest pain and Reports dyspnea Respiratory: Respiratory: Reports chest congestion, Reports cough, Reports dyspnea and Reports wheezing Gastrointestinal: Gastrointestinal: Denies abdominal pain, Denies diarrhea, Denies nausea and Denies vomiting Endocrine: Endocrine: Denies fatigue Allergic/Immunologic: Allergic/Immunologic: Reports wheezing PMFSH Past Medical History Attestation statement: The following information was validated with the patient. 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) Unable to assess alcohol history related to: Unknown Alcohol intake: former Patient Tobacco Use Status: Current everyday Tobacco user Tobacco use type: Cigarette Cigarettes Per Day: 10 Smoked in Last 30 Days: Yes e-Cigarette/Vaping Use: Never Used Second Hand Smoke Exposure: Yes Use of substances other than those prescribed or required for medical reasons: No Substance Use Type: Marijuana Advance Directives: No Advance Directives Information Provided: No Do you have a plan to hurt others: No Plan service: No Current occupational status: retired Cognitive needs: No Hearing needs: No Vision needs: No Physical Exam ED Vital Signs: Vital Signs - 24 hr 06/29/24 18:41 06/29/24 18:43 06/29/24 18:52 Temperature 98.6 F Pulse Rate 119 H 121 H Respiratory Rate 24 H 18 18 Blood Pressure 164/104 H Pulse Oximetry 97 Oxygen Delivery Method Ambu-Bag Oxygen Flow Rate 06/29/24 20:46 Temperature 98.5 F Pulse Rate 119 H Respiratory Rate 15 Blood Pressure 142/73 H Pulse Oximetry 95 Oxygen Delivery Method Nasal Cannula Oxygen Flow Rate 3 BMI result Body Mass Index 26.0 Const Other: Alert, tachypneic Orientation/consciousness: patient oriented x3 Resp Other: Tachypneic, rhonchorous on exam Cardio Other: Normal peripheral perfusion Skin Other: Warm dry no rash Neuro General: patient oriented x3, no focal motor deficits and CN's II-XI intact bilaterally Psych Other: Cooperative Course Reevaluation(s) Reevaluation #1: Concerned for sepsis, the patient was hypoxic here with COPD exacerbation, concern for progression to pneumonia. We will be screening basic labs including blood cultures and a lactic acid, viral panel, she does not require weight based IV fluid therapy at this time as her pressures are stable, we will start empiric antibiotics. Time: 20:03 Medications Administered Discontinued Medications Generic Name Dose Route Start Last Admin Trade Name Freq PRN Reason Stop Dose Admin Albuterol Sulfate 5 mg/ 7.5 mg 06/29/24 20:21 06/29/24 20:31 Albuterol Sulfate 2.5 mg INHALE 06/29/24 20:22 7.5 mg ONCE ONE Administration Albuterol Sulfate 5 mg/ 7.5 mg 06/29/24 20:23 06/29/24 20:32 Albuterol Sulfate 2.5 mg INHALE 06/29/24 20:24 Not Given ONCE ONE Ceftriaxone Sodium 2 gm 06/29/24 20:03 06/29/24 20:28 Ceftriaxone Sodium 2 Gm Vial IVPUSH 06/29/24 20:04 2 gm ONCE ONE Administration Doxycycline Hyclate 100 mg/ 250 mls @ 166.67 mls/hr 06/29/24 20:03 06/29/24 20:26 Sodium Chloride IV 06/29/24 21:32 166.67 mls/hr ONCE ONE Administration Magnesium Sulfate 2 gm in 50 mls @ 25 mls/hr 06/29/24 20:05 06/29/24 20:28 Magnesium Sulfate/H2o IV 06/29/24 22:04 25 mls/hr ONCE ONE Administration Iohexol 100 ml 06/29/24 21:06 06/29/24 21:07 Iohexol 350 Mg/Ml 100 Ml Infus..Btl IV 06/29/24 21:07 65 ml ONCE ONE Administration Iohexol 65 ml 06/29/24 21:07 06/29/24 21:08 Iohexol 350 Mg/Ml 100 Ml Infus..Btl IV 06/29/24 21:08 65 ml ONCE ONE Administration Medical Decision Making Medical Decision Making MDM Narrative: 74-year-old female with a history of ongoing tobacco abuse, COPD, hypertension, with recent emergency department visit for bronchitis and COPD exacerbation, declining admission at that time, presents from home with hypoxia. When EMS arrived the patient was tripoding, she was 82% on room air. She received a DuoNeb and Solu-Medrol pre arrival they placed her on BiPAP. The patient denies fevers. Problem: Tobacco abuse, COPD History: Per patient I have considered the following differential diagnoses: Sepsis, COPD exacerbation, bronchitis, pneumonia, PE Plan: The patient was just seen days ago, it was advised at that time that she be admitted, she declined. Her symptoms clearly have progressed. Concerned for sepsis, the patient was hypoxic here with COPD exacerbation, concern for progression to pneumonia. We will be screening basic labs including blood cultures and a lactic acid, viral panel, she does not require weight based IV fluid therapy at this time as her pressures are stable, we will start empiric antibiotics. I have independently reviewed the following tests: Labs: Leukocytosis, not anemic, no electrolyte abnormality, lactic acid 0.8, viral panel positive for flu A she is alkalotic per her VBG, bicarb is 40 CT chest:Findings: The heart size is normal. The visualized thyroid and mediastinum are unremarkable. There is diffuse pulmonary bullous disease with areas of scarring or subsegmental atelectasis. The visualized upper abdomen is unremarkable. The bones are intact. IMPRESSION: 1. Pulmonary bullous disease with scarring or subsegmental atelectasis. This document has been electronically signed by: Jeyson Jordan MD on 06/29/2024 21:41:19 Lab Data 06/29/24 20:16 06/29/24 20:16 Labs: Lab Results 06/29/24 06/29/24 Range/Units 20:16 20:30 WBC 13.8 H (4.8-10.8) X10*3/uL RBC 4.77 (4.20-5.50) X10*6/uL Hgb 15.2 (12.0-16.0) g/dl Hct 46.6 (37.0-47.0) % MCV 97.7 (80.0-98.0) fL MCH 31.9 (27.0-33.0) pg MCHC 32.6 (31.0-35.0) g/dl RDW 13.7 (11.0-16.0) % Plt Count 226 (160-400) X10*3/uL MPV 10.5 (9.4-12.3) fL Immature Gran % (Auto) 0.5 H (0.0-0.4) % Neut % (Auto) 84.7 H (45-73) % Lymph % (Auto) 5.7 L (20-40) % Iroquois % (Auto) 8.0 (2-11) % Eos % (Auto) 0.7 (0-4) % Baso % (Auto) 0.4 (0-2) % Lymph # (Auto) 0.8 L (1.2-4.9) X10*3/uL Iroquois # (Auto) 1.1 (0.1-1.2) X10*3/uL Eos # (Auto) 0.1 (0.0-0.4) X10*3/uL Baso # (Auto) 0.1 (0.0-0.2) X10*3/uL Abs Immat Gran (auto) 0.07 H (0.00-0.03) X10*3/uL Absolute Neuts (auto) 11.7 H (2.0-8.3) x10*3/uL Absolute Nucleated RBC 0.000 (0.0-0.012) X10*3/uL Nucleated RBC % (auto) 0.0 (0.0-0.2) /100WBC VBG pH 7.52 H (7.32-7.43) VBG pCO2 49 mmHg VBG pO2 71 mmHg VBG HCO3 40 H (22-26) mmol/L VBG O2 Saturation 97.0 % VBG Base Excess 15.8 mmol/L Sodium 141 (135-145) mmol/L Potassium 3.5 (3.3-5.1) mmol/L Chloride 105 (96-108) mmol/L Carbon Dioxide 27 (22-29) mmol/L Anion Gap 13 (12-20) BUN 15 (9-16) mg/dL Creatinine 0.73 (0.5-1.4) mg/dL Estim Creat Clear Calc 62.8 Estimated GFR > 60 Random Glucose 132 H (60-115) mg/dL Lactic Acid 0.8 (0.5-2.0) mmol/L Calcium 9.0 (8.4-10.2) mg/dL Magnesium 2.0 (1.6-2.6) mg/dL Influenza Type A (PCR) POSITIVE A (Negative) Influenza Type B (PCR) NEGATIVE (Negative) RSV RNA Qual (PCR) NEGATIVE (Negative) SARS-CoV-2 RNA (RT-PCR) NEGATIVE (Negative) Discharge Plan Discharge Clinical Impression: Influenza A, Hypoxia, Bronchitis Patient Disposition: Admitted As Inpatient
--- NOTE | 2024-06-29 20:05 | ECG_ITS ---
Test Reason : SOB Blood Pressure : */* mmHG Vent. Rate : 113 BPM Atrial Rate : 113 BPM P-R Int : 132 ms QRS Dur : 68 ms QT Int : 312 ms P-R-T Axes : 80 62 75 degrees QTcB Int : 427 ms Sinus tachycardia Nonspecific ST abnormality Abnormal ECG When compared with ECG of 25-Jun-2024 16:38, No significant change was found Referred By: Yohana Guevara Electronically Signed By: Wilfredo Cuellar
--- OUTSIDE RECORDS SUMMARY | 2024-06-29 20:22 | XMS_ITS | Encounter Summary ---
Author Organization [facility] Address [id number] [place] [phone] Care Team Providers Care Barrel Endshake Adjuster Name Role Phone Laquita Goodwin MD Primary Care Provider [phone] Reason for Referral * Imaging (Routine) - Authorized Specialty Diagnoses / Procedures Referred By Rabia palma Referred To Contact Radiology Diagnoses Lung nodule Procedures CT Chest wo Contrast (Lung-RADS F/U) Brian Whitfield PA [address] [facility], [address] [place] [address] Phone: tel: fax: [facility] Referral ID Status Reason Start Date Expiration Date V isits Requested Visits Authorized [id number] Authorized 06/26/2024 06/26/2025 1 1 Reason for Visit * Reason Onset Date Comments Results 06/20/2024 Annual Lung Scre ening- LR0 Encounter Details Date Type Department Care Team ([facility] Contact Info) Description 06/20/2024 Telephone Lung Screening Program - [place] [address] [facility] [address] [place] [phone] Yohana Kessler MA Results (Annual Lung Screening- LR0) Social History Tobacco Use Types Packs/Day Years Used Date Smoking Tobacco: Every Day Cigarettes 1 55.2 Started: [birth year]02/1968 Smokeless Tobacco: Never Alcohol Use [...] as of this encounter Progress Notes * EJ Duran - 06/26/2024 10:00 AM ESTAddended by: BRIAN WHITFIELD on: 06/26/2024 10:00 AM Modules accepted: Orders * EJ Duran - 06/26/2024 9:57 AM EST Patient presented at Tumor Board conference on 06/25/24. Discussion had felt the finding in the SHAKA more likely represent atelectasis and/or inflammatory finding. Will check on these findings with a follow up LDCT in 3 months, August 2024. * Yohana Kessler MA - 06/21/2024 9:40 [...] presented between 12-12:20pm. Please reach out to Alejandra Sandoval, [facility] to request the Teams information. * [...] - 06/20/2024 1:05 PM EST Alisia Mckeon Normairvin: had their LDCT Screening for Lung Cancer on Saturday, June 15, 2024 at [facility]. The radiologist interpreted this as a [...] documented in this encounter Plan of Treatment Scheduled Orders Name Type Priority Associated Diagnoses Orde r Schedule CT Chest wo Contrast (Lung-RADS F/U) Imaging Routine Lung nodule Expected: 09/23/2024, Expires: 06/26/2025 documented as of this encounter Visit Diagnoses Diagnosis Lung nodule- Primary Other diseases of lung, not elsewhere classified documented in this encounter Care Teams Barrel Endshake Adjuster Relationship Specialty Start Date End Date Laquita Goodwin MD [address] [place] [address] PCP - General Internal Medicine 03/21/17 documented as of this encounter
--- OUTSIDE RECORDS SUMMARY | 2024-06-29 20:23 | XMS_ITS | Clinical Summary ---
Author Organization [facility] Address [address] [place] [address] Care Team Providers Care Morgue Attendant Name Role Phone Unavailable Primary Care Provider [...] also obtained. ??Protocol Comments: Standard Protocol (accession [id number]), Grayscale imaging of the breast. ??Protocol Comments: Standard Protocol (accession [id number]) PRIOR PROCEDURES: Excisional biopsy Left 05/02/2011 Benign [...] also obtained. Protocol Comments: Standard Protocol (accession [id number]), Grayscale imaging of the breast. Protocol Comments: Standard Protocol (accession [id number]) PRIOR PROCEDURES: Excisional biopsy Left 05/02/2011 Benign [...]
--- OUTSIDE RECORDS SUMMARY | 2024-06-29 20:23 | XMS_ITS | Clinical Summary ---
Author Organization [facility] [address] [facility] Address [address] [place] [address] Phone Care Team Providers Care Cupola Liner Name Role Phone Laqutia Goodwin MD Primary Care Provider [phone] Allergies Active Allergy Reactions Criticality Noted Date [...] Description 06/20/2024 Telephone Lung Screening Program - [place] [address] [facility] [address] [place] [phone] Yohana Kessler MA Results (Annual Lung Screening- LR0) 06/15/2024 1:56 PM EST - 06/15/2024 11:59 PM EST Hospital Encounter [facility] CT Scan [address] [place] [phone] Encounter for screening for malignant neoplasm of respiratory organs; Nicotine dependence, cigarettes, uncomplicated Discharge Disposition: Home or Self Care 05/16/2024 Telephone Lung Screening Program - [place] [address] [facility] [address] [place] [phone] Carmen Albrecht MA Appointment (1st notification) from Last 3 Months Immunizations Name Administration Dates Next Due Influenza Quadrivalent, with preservative (Fluzone; Afluria) 6mo and older 03/18/2017 Influenza trivalent, 0.5mL ( Fluad) 65yo and older 02/11/2022,03/09/2021,02/22/2019 Influenza, Unspecified 03/02/2017 Threadflip SARS-CoV-2 COVID-19, mRNA, LNP-S, preservative free 08/14/2020,07/17/2020 [...] Comments COPD (chronic obstructive pu lmonary disease) ([facility]) DX:COPD (chronic obstructive pulmonary disease) ([facility]) Tobacco use DX:Tobacco use Chronic low [...] Signed Date: 06/19/2024 16:55 ET Workstation ID: [id number] Transcribed By: Self Edit Transcribed Date: 06/19/2024 16:10 ET Narrative 06/19/2024 4:55 PM EST INDICATION: Current smoker with 24 pack-year smoking history FINDINGS: Low-dose CT scan of the chest obtained as a lung cancer screening study. Scanner: CareFlash speed 64 slice VCT Dose reduction technique: [...] * Annual BMP Blood Test (08/21/2021) Pathologist [facility] Annual [facility] Blood Test abstracted Robin Provider HEALTH MAINTENANCE Final Result * (ABNORMAL) Lipid panel (08/21/2021) Pathologist [facility] LDL/HDL Ratio 5(A) 0 - 4 Triglycerides [...] IMPRESSION: ?? Osteoporosis by WHO criteria. [facility] Department of Internal Medicine recommends using National [...] alternative screening schedule based on naga Shaffer., [facility] May 20, 2011 for patients [...] IMPRESSION: IMPRESSION: Osteoporosis by WHO criteria. [facility] Department of Internal Medicine recommendsusing National Osteoporosis [...] Insurance MEDICARE MEDICAID - [place] Care Teams Cupola Liner Relationship Specialty Start Date End Date Laquita Goodwin MD [address] [place] [address] PCP - General Internal Medicine 03/21/17
--- OUTSIDE RECORDS SUMMARY | 2024-06-29 20:23 | XMS_ITS | Encounter Summary ---
Author Organization [facility] Address [address] [place] [address] Care Team Providers Care Professor Of Spanish Name Role Phone Unavailable Primary Care Provider Unavailabl e Encounter Details Date Type Department Care Team ([facility] st Contact Info) Description 12/25/2019 Scanned Document [facility] [employer] [address] [place] [id number] System, Provider Not In 08/10/2016 Pulmonary Function [...]
[2024-06-29] MEDS: Doxycycline Hyclate 100 MG in 0.9 % Sodium Chloride 250 ML 166.67 MG IV (20:26)
[2024-06-29] MEDS: Magnesium Sulfate/H2O 2 GM/50 ML PIGGYBACK IV (20:28)
[2024-06-29] MEDS: cefTRIAXone sodium 2 GM VIAL IVPUSH (20:28)
[2024-06-29] MEDS: Albuterol Sulfate 5 MG, Albuterol Sulfate (0.083%) 2.5 MG 7.5 MG INHALE (20:31)
[2024-06-29 20:33] LABS: MANUAL DIFF FLAG NO
[2024-06-29 20:34] LABS: Basophils Absolute Auto 0.1 X10*3/uL (0.0-0.2); Basophils Percent Auto 0.4 % (0-2); Eosinophils Absolute Auto 0.1 X10*3/uL (0.0-0.4); Eosinophils Percent Auto 0.7 % (0-4); Hematocrit 46.6 % (37.0-47.0); Hemoglobin 15.2 g/dl (12.0-16.0); Imm Gran Abs Auto 0.07 X10*3/uL (0.00-0.03); Imm Gran Pct Auto 0.5 % (0.0-0.4); Lymphocytes Absolute Auto 0.8 X10*3/uL (1.2-4.9); Lymphocytes Percent Auto 5.7 % (20-40); Mean Corpuscular HGB Conc 32.6 g/dl (31.0-35.0); Mean Corpuscular Hemoglobin 31.9 pg (27.0-33.0); Mean Corpuscular Volume 97.7 fL (80.0-98.0); Mean Platelet Volume 10.5 fL (9.4-12.3); Monocytes Absolute Auto 1.1 X10*3/uL (0.1-1.2); Neutrophils Absolute Auto 11.7 x10*3/uL (2.0-8.3); Neutrophils Percent Auto 84.7 % (45-73); Platelet Count 226 X10*3/uL (160-400); Red Blood Count 4.77 X10*6/uL (4.20-5.50); Red Cell Distribution Width 13.7 % (11.0-16.0); White Blood Count 13.8 X10*3/uL (4.8-10.8)
[2024-06-29 20:36] LABS: VBG Base Excess 15.8 mmol/L; VBG HCO3 40 mmol/L (22-26); VBG pCO2 49 mmHg; VBG pH 7.52 (7.32-7.43); VBG pO2 71 mmHg
--- NOTE | 2024-06-29 20:44 | PC.NURSE ---
RT and MLP at bedside. Pt taken off of bipap and placed on 3L NC. Albuterol tx given. Pt reports feeling tired. Sinus tach on the monitor, hr 115's. Breaths are labored. RR 15 O2 sat 95%. Labs drawn and sent. Pt medicated as per JUN and tolerated well. Monitoring is ongoing.
[2024-06-29 20:45] LABS: Venous Blood Gas Refer to POC result
[2024-06-29 20:46] VITALS: BP 142/73; PULSE 119; RESP 15; TEMP 36.9; O2SAT 95
[2024-06-29 20:48] LABS: Anion Gap 13 (12-20); Blood Urea Nitrogen 15 mg/dL (9-16); Carbon Dioxide 27 mmol/L (22-29); Chloride 105 mmol/L (96-108); Creatinine Clr Calc Pharmacy 62.8; Estimated Glomerular Filt Rate > 60; Glucose Random 132 mg/dL (60-115); Potassium 3.5 mmol/L (3.3-5.1); Sodium 141 mmol/L (135-145)
[2024-06-29 20:49] LABS: Lactic Acid 0.8 mmol/L (0.5-2.0)
[2024-06-29] MEDS: iohexoL 350 MG/ML 100 ML INFUS..BTL IV (21:07)
[2024-06-29] MEDS: iohexoL 350 MG/ML 100 ML INFUS..BTL 65 ML IV (21:08)
[2024-06-29 21:19] LABS: Influenza A PCR POSITIVE (Negative); Influenza B PCR NEGATIVE (Negative); Resp Syncy Virus RNA Qual PCR NEGATIVE (Negative); SARS COV2 PCR INHOUSE NEGATIVE (Negative)
--- NOTE | 2024-06-29 22:43 | P.HPHOSP_ITS ---
History of Present Illness Date of Service: 06/29/24 Chief Complaint: Dyspnea This is a 74-year-old female with pertinent history of COPD not on home oxygen, mood disorder, gastroesophageal reflux disease, hypertension, mixed hyperlipidemia who presents to the emergency department for evaluation of dyspnea. Patient was seen in the ER on 06/25 for COPD exacerbation but refused admission at that time. Patient states her symptoms have continued and progressed over the last few days. She has been having cough with clear sputum production. Also has been having wheezing and dyspnea which is worse with ambulation. Unknown sick contacts. No fever, chills, chest pain, palpitations, abdominal pain, changes in urinary or bowel habits. As per EMS, patient was satting 82% on room air. In the emergency department, patient requiring supplemental oxygen and tested positive for influenza A. Patient wheezing despite multiple DuoNeb treatments. Review of Systems 2 Constitutional: Constitutional: Reports fatigue, Reports lethargy, Reports malaise, Reports poor appetite and Reports weakness Cardiovascular: Cardiovascular: Reports dyspnea on exertion Respiratory: Respiratory: Reports cough, Reports dyspnea on exertion and Reports wheezing Gastrointestinal: Gastrointestinal: Reports no additional gastrointestinal complaints Genitourinary: Genitourinary: Reports no additional female genitourinary complaints Neurologic: Reports weakness Endocrine: Endocrine: Reports fatigue Allergic/Immunologic: Allergic/Immunologic: Reports wheezing [facility] Medical History DDD (degenerative disc disease), lumbar Post-menopause Chronic lumbar pain Cyst of left breast FH: cholecystectomy GERD (gastroesophageal reflux disease) Depression COPD (chronic obstructive pulmonary disease) Family History Mother Renal disease Mental health disorder Father Mental health disorder Surgical History H/O inguinal hernia repair Social History Household Members: Other Household Members Other:: 3 house mates Housing: House Do you presently have visiting nurse or other home services: Yes (foot care [employer]) Unable to assess alcohol history related to: Unknown Alcohol intake: former Patient Tobacco Use Status: Current everyday Tobacco user Tobacco use type: Cigarette Cigarettes Per Day: 10 Smoked in Last 30 Days: Yes e-Cigarette/Vaping Use: Never Used Second Hand Smoke Exposure: Yes Use of substances other than those prescribed or required for medical reasons: No Substance Use Type: Marijuana Advance Directives: No Advance Directives Information Provided: No Do you have a plan to hurt others: No Plan service: No Current occupational status: retired Cognitive needs: No Hearing needs: No Vision needs: No Meds Allergies Allergy/AdvReac Type Severity Reaction Status Date / Time codeine [CODEINE] AdvReac Unknown NAUSEA & Verified 06/29/24 18:45 VOMITING Codeine Allergy Unknown nasuea Uncoded 06/29/24 18:45 Home Medications ?Medication ?Instructions ?Recorded ?Confirmed ?Last Taken ?Type roflumilast 250 mcg tablet 250 mcg PO DAILY 06/02/23 05/08/24 06/02/23 History ibuprofen 800 mg tablet 800 mg PO ONCE PRN 08/12/23 05/08/24 Unknown History cholecalciferol (vitamin D3) 25 25 mcg PO DAILY 09/09/23 05/08/24 Unknown History mcg (1,000 unit) capsule Physical Exam 2 Vital Signs and Narrative: Vital Signs: Last Vital Signs Temp 98.5 F 06/29/24 20:46 Pulse 119 H 06/29/24 20:46 Resp 15 06/29/24 20:46 BP 142/73 H 06/29/24 20:46 Pulse Ox 95 06/29/24 20:46 O2 Del Method Nasal Cannula 06/29/24 20:46 O2 Flow Rate 3 06/29/24 20:46 BMI result Body Mass Index 26.0 Middle-aged female lying in bed in distress on supplemental oxygen Neck supple, no JVD Regular rate and rhythm, S1-S2 heard Bilateral wheezing present Abdomen soft nontender, no guarding, no rigidity Patient is awake, alert and oriented to self, place, time and person ; no focal motor deficit Psych: Normal mood No pedal edema Results Labs 06/29/24 20:16 06/29/24 20:16 Labs: Laboratory Results - last 24 hr 06/29/24 06/29/24 20:16 20:30 MCV 97.7 MCH 31.9 MCHC 32.6 RDW 13.7 Plt Count 226 MPV 10.5 Immature Gran % (Auto) 0.5 H Neut % (Auto) 84.7 H Lymph % (Auto) 5.7 L Caldwell % (Auto) 8.0 Eos % (Auto) 0.7 Baso % (Auto) 0.4 Lymph # (Auto) 0.8 L Caldwell # (Auto) 1.1 Eos # (Auto) 0.1 Baso # (Auto) 0.1 Abs Immat Gran (auto) 0.07 H Absolute Neuts (auto) 11.7 H Absolute Nucleated RBC 0.000 Nucleated RBC % (auto) 0.0 VBG pH 7.52 H VBG pCO2 49 VBG pO2 71 VBG HCO3 40 H VBG O2 Saturation 97.0 VBG Base Excess 15.8 Anion Gap 13 Estim Creat Clear Calc 62.8 Estimated GFR > 60 Random Glucose 132 H Lactic Acid 0.8 Calcium 9.0 Magnesium 2.0 Influenza Type A (PCR) POSITIVE A Influenza Type B (PCR) NEGATIVE RSV RNA Qual (PCR) NEGATIVE SARS-CoV-2 RNA (RT-PCR) NEGATIVE Assessment and Plan (1) Hypoxia: Status: Acute (2) Influenza A: Status: Acute (3) COPD exacerbation: Status: Acute Plan This is a 74-year-old female with pertinent history of COPD not on home oxygen, mood disorder, gastroesophageal reflux disease, hypertension, mixed hyperlipidemia who presents to the emergency department for evaluation of dyspnea. #. Acute hypoxemic respiratory failure due to influenza A leading to COPD exacerbation: Will admit patient with supplemental oxygen. Initiating scheduled, p.r.n. DuoNebs and systemic steroids. Ordered Tamiflu. Initiating azithromycin for pleiotropic effect. Continue home inhalers #. Mood disorder: Continue fluoxetine #. Gastroesophageal reflux disease: On PPI #. Hypertension: Continue home antihypertensives #. Mixed hyperlipidemia: On statin Med rec pending DVT prophylaxis: Lovenox Full Code Admit as inpatient and will require two night minimum hospital stay for supplemental oxygen (as above), which is not possible in a lesser acute setting. Quality Stroke Does the patient have a stroke diagnosis?: No VTE Prior VTE?: No VTE Risk Level:: Medical - moderate - high VTE Device Contraindication: Treatment Not Indicated VTE Drug Contraindication: N/A - Med Ordered
--- NOTE | 2024-06-29 22:59 | PC.NURSE ---
assumed care of pt at 23:00. report received from Ghada ALMEIDA.
[2024-06-30] VITALS (10 sets, daily range): BP systolic 110–147; BP diastolic 63–84; PULSE 83–111; RESP 17–28; TEMP 36.2–36.7; O2SAT 91–97; BMI 26.0
[2024-06-30] MEDS: Enoxaparin Sodium 40 MG/0.4 ML SYRINGE SUBCUT ×2 (01:43→22:58)
[2024-06-30] MEDS: Oseltamivir Phosphate 75 MG CAPSULE PO ×3 (01:43→22:58)
[2024-06-30] MEDS: methylPREDNISolone Sod Succ 40 MG/ML VIAL IVPUSH (01:43)
[2024-06-30] MEDS: Azithromycin 500 MG in 0.9 % Sodium Chloride 250 ML 125 MG IV ×2 (01:43→22:59)
[2024-06-30] MEDS: 0.9 % Sodium Chloride Flush 3 ML SYRINGE IVFLUSH ×2 (01:44→16:10)
[2024-06-30] MEDS: Lactated Ringers 500 ML IV (01:49)
--- NOTE | 2024-06-30 01:56 | PC.NURSE ---
RT called for breathing tx as pt wheezing, RR 30. O2 91% on her 3L.
[2024-06-30 03:12] LABS: Appearance Urine Clear; Color Urine Yellow; Glucose Urine UA Negative (Negative); Leukocyte Esterase Urine Negative (Negative); Nitrite Urine Negative (Negative); PH 5.5 (5.0-9.0); Specific Gravity - Urine >= 1.030 (1.005-1.025); UMIC TRIGGER UACC YES; Urine Blood Trace (Negative); Urine Ketones Trace mg/dL (Negative); Urine Protein Trace mg/dL (Neg-Trace)
[2024-06-30 03:15] LABS: Bacteria Urine None Seen (None Seen); Hyaline Casts Urine 0-2 /LPF (0-2); Squamous Epithelial Cell Urine 0-2 /HPF (0-2); WBC Urine 0-5 /HPF (0-5)
[2024-06-30 05:03] LABS: Basophils Percent Auto 0.2 % (0-2); Hematocrit 44.3 % (37.0-47.0); Hemoglobin 14.6 g/dl (12.0-16.0); Imm Gran Abs Auto 0.03 X10*3/uL (0.00-0.03); Imm Gran Pct Auto 0.3 % (0.0-0.4); Lymphocytes Absolute Auto 0.3 X10*3/uL (1.2-4.9); Lymphocytes Percent Auto 2.6 % (20-40); MANUAL DIFF FLAG SCAN; Mean Corpuscular Hemoglobin 31.9 pg (27.0-33.0); Mean Corpuscular Volume 96.9 fL (80.0-98.0); Mean Platelet Volume 10.7 fL (9.4-12.3); Monocytes Absolute Auto 0.2 X10*3/uL (0.1-1.2); Monocytes Percent Auto 1.7 % (2-11); Neutrophils Absolute Auto 9.2 x10*3/uL (2.0-8.3); Neutrophils Percent Auto 95.2 % (45-73); Platelet Count 202 X10*3/uL (160-400); Red Blood Count 4.57 X10*6/uL (4.20-5.50); Red Cell Distribution Width 13.5 % (11.0-16.0); SCAN SMEAR FLAG 1; White Blood Count 9.6 X10*3/uL (4.8-10.8)
[2024-06-30 05:24] LABS: SLIDE REVIEW VERIFIED
[2024-06-30 05:29] LABS: Anion Gap 14 (12-20); Blood Urea Nitrogen 17 mg/dL (9-16); Calcium 8.8 mg/dL (8.4-10.2); Carbon Dioxide 25 mmol/L (22-29); Chloride 105 mmol/L (96-108); Creatinine Clr Calc Pharmacy 58.8; Estimated Glomerular Filt Rate > 60; Glucose Random 185 mg/dL (60-115); Potassium 3.9 mmol/L (3.3-5.1); Sodium 140 mmol/L (135-145)
[2024-06-30] MEDS: Acetaminophen 325 MG TABLET 650 MG PO (06:37)
[2024-06-30] MEDS: Benzonatate 100 MG CAPSULE PO (06:38)
--- NOTE | 2024-06-30 06:44 | PC.NURSE ---
pt given tylenol for headache and tessalon jany for cough.
[2024-06-30] MEDS: Albuterol/Iprat 2.5/0.5MG 3 ML AMPUL.NEB INHALE ×4 (07:55→18:53)
--- NOTE | 2024-06-30 10:11 | PC.NURSE ---
pt brought via stretcher from ED bed 4 to OF bed 4.
[2024-06-30] MEDS: predniSONE 20 MG TABLET 40 MG PO (10:16)
--- NOTE | 2024-06-30 10:21 | PC.NURSE ---
patient a&ox3, vss, pt on 3L NC- pt wears 3L NC PRN at home. pt has non productive cough, lungs in/ex wheezing with some increased work of breathing as patient is speaking in short sentences- this nurse will call RT for further assessment. Pt stating her body aches, tech is assisting patient in washing up. call moss within reach, plan of care ongoing
--- NOTE | 2024-06-30 10:40 | HO.PM.IMPN ---
Subjective Subjective Date of Service: 06/30/24 Interval History: sob Physical Exam Vital Signs: Vital Signs: Last Vital Signs Temp 97.1 F 06/30/24 10:39 Pulse 100 06/30/24 10:39 Resp 20 06/30/24 10:39 BP 122/63 06/30/24 10:39 Pulse Ox 93 06/30/24 10:39 O2 Del Method Nasal Cannula 06/30/24 10:39 O2 Flow Rate 3 06/30/24 10:39 BMI result Body Mass Index 26.0 General: AO X 3, no acute distress Resp: wheezing bilateral, no accessory muscles used CVS: S1,S2,RRR GI: soft, non tender, non distended Neuro: motor grossly intact, alert Psych: appropriate affect, appropriate insight Objective Data Active Medications Acetaminophen (Acetaminophen 325 Mg Tablet) 650 mg PO Q6H PRN PRN Reason: Pain, Mild 1-3,fever,headache Last Admin: 06/30/24 06:37 Dose: 650 mg Documented By: IRENE Albuterol/Ipratropium (Albuterol/Iprat 2.5/0.5mg 3 Ml Ampul.Neb) 3 ml INHALE Q4H PRN PRN Reason: Shortness of Breath/Wheezing Albuterol/Ipratropium (Albuterol/Iprat 2.5/0.5mg 3 Ml Ampul.Neb) 3 ml INHALE RQ4H WHILE AWAKE [facility] Last Admin: 06/30/24 07:55 Dose: 3 ml Documented By: BRESMARKUS Benzonatate (Benzonatate 100 Mg Capsule) 100 mg PO TID PRN PRN Reason: Cough Last Admin: 06/30/24 06:38 Dose: 100 mg Documented By: IRENE Calcium Carbonate (Calcium Carbonate 750 Mg Tab.Chew) 750 mg PO Q4H PRN PRN Reason: Heartburn Enoxaparin Sodium (Enoxaparin Sodium 40 Mg/0.4 Ml Syringe) 40 mg SUBCUT Q24H [facility] Last Admin: 06/30/24 01:43 Dose: 40 mg Documented By: IRENE Azithromycin 500 mg/ Sodium (Chloride) 250 mls @ 125 mls/hr IV Q24H [facility] Last Infusion: 06/30/24 03:43 Dose: Infused Documented By: IRENE Magnesium Hydroxide (Milk Of Magnesia 30 Ml Oral.Susp) 30 ml PO DAILY PRN PRN Reason: Constipation Melatonin (Melatonin 3 Mg Tablet) 6 mg PO BEDTIME PRN PRN Reason: Insomnia Ondansetron HCl (Ondansetron Hcl 4 Mg/2 Ml Vial) 4 mg IVPUSH Q8H PRN PRN Reason: Nausea and Vomiting Oseltamivir Phosphate (Oseltamivir Phosphate 75 Mg Capsule) 75 mg PO Q12H [facility] Stop: 07/04/24 12:01 Last Admin: 06/30/24 01:43 Dose: 75 mg Documented By: IRENE Prednisone (Prednisone 20 Mg Tablet) 40 mg PO DAILY [facility] Last Admin: 06/30/24 10:16 Dose: 40 mg Documented By: CIARRA Sodium Chloride (0.9 % Sodium Chloride Flush 3 Ml Syringe) 3 ml IVFLUSH QSHIFT [facility] Last Admin: 06/30/24 10:11 Dose: Not Given Documented By: CIARRA Non-Admin Reason: See Note Labs 06/30/24 04:23 06/30/24 04:23 Labs: Laboratory Results - last 24 hr 06/29/24 06/29/24 06/30/24 20:16 20:30 03:01 MCV 97.7 MCH 31.9 MCHC 32.6 RDW 13.7 Plt Count 226 MPV 10.5 Immature Gran % (Auto) 0.5 H Neut % (Auto) 84.7 H Lymph % (Auto) 5.7 L Lamb % (Auto) 8.0 Eos % (Auto) 0.7 Baso % (Auto) 0.4 Lymph # (Auto) 0.8 L Lamb # (Auto) 1.1 Eos # (Auto) 0.1 Baso # (Auto) 0.1 Abs Immat Gran (auto) 0.07 H Absolute Neuts (auto) 11.7 H Absolute Nucleated RBC 0.000 Nucleated RBC % (auto) 0.0 Smear Tech's Comments VBG pH 7.52 H VBG pCO2 49 VBG pO2 71 VBG HCO3 40 H VBG O2 Saturation 97.0 VBG Base Excess 15.8 Anion Gap 13 Estim Creat Clear Calc 62.8 Estimated GFR > 60 Random Glucose 132 H Lactic Acid 0.8 Calcium 9.0 Magnesium 2.0 Urine Color Yellow Urine Appearance Clear Urine pH 5.5 Ur Specific [place] >= 1.030 H Urine Protein Trace Urine Glucose (UA) Negative Urine Ketones Trace Urine Blood Trace H Urine Nitrite Negative Ur Leukocyte Esterase Negative Urine RBC 3-5 H Urine WBC 0-5 Ur Squamous Epith Cells 0-2 Urine Bacteria None Seen Hyaline Casts 0-2 Influenza Type A (PCR) POSITIVE A Influenza Type B (PCR) NEGATIVE RSV RNA Qual (PCR) NEGATIVE SARS-CoV-2 RNA (RT-PCR) NEGATIVE 06/30/24 04:23 MCV 96.9 MCH 31.9 MCHC 33.0 RDW 13.5 Plt Count 202 MPV 10.7 Immature Gran % (Auto) 0.3 Neut % (Auto) 95.2 H Lymph % (Auto) 2.6 L Lamb % (Auto) 1.7 L Eos % (Auto) 0.0 Baso % (Auto) 0.2 Lymph # (Auto) 0.3 L Lamb # (Auto) 0.2 Eos # (Auto) 0.0 Baso # (Auto) 0.0 Abs Immat Gran (auto) 0.03 Absolute Neuts (auto) 9.2 H Absolute Nucleated RBC 0.000 Nucleated RBC % (auto) 0.0 Smear Tech's Comments VERIFIED VBG pH VBG pCO2 VBG pO2 VBG HCO3 VBG O2 Saturation VBG Base Excess Anion Gap 14 Estim Creat Clear Calc 58.8 Estimated GFR > 60 Random Glucose 185 H Lactic Acid Calcium 8.8 Magnesium Urine Color Urine Appearance Urine pH Ur Specific [place] Urine Protein Urine Glucose (UA) Urine Ketones Urine Blood Urine Nitrite Ur Leukocyte Esterase Urine RBC Urine WBC Ur Squamous Epith Cells Urine Bacteria Hyaline Casts Influenza Type A (PCR) Influenza Type B (PCR) RSV RNA Qual (PCR) SARS-CoV-2 RNA (RT-PCR) Assessment and Plan (1) COPD (chronic obstructive pulmonary disease): Status: Acute Plan 74F PMH copd, mood disorder, gerd, htn, hld presented with sob Acute hypoxic respiratory failure secondary to flu complicated by COPD with acute decompensation IV steroids, Tamiflu, azithromycin, DuoNeb Mood disorder fluoextine dvt prophylaxis - lovenox full code reason for continued hospitalization:sob, hypoxia Quality Stroke Does the patient have a stroke diagnosis?: No VTE Prior VTE?: No VTE Risk Level:: Medical - moderate - high VTE Device Contraindication: Treatment Not Indicated VTE Drug Contraindication: N/A - Med Ordered
--- NOTE | 2024-06-30 11:25 | PHA.MEDREC ---
Addendum entered by Veronica Ribeiro amirah 06/30/24 12:18: reviewed by pharmacist Original Note: Pharmacy Consult ? Medication Reconciliation Pharmacy has completed the medication reconciliation. Spoke with patient to confirm. Patient says she takes amlodipine and atorvastatin daily (both LF Jan 2024 x90 DS). She has not been taking alendronate or vitamin D. She picked up azithro (4DS), prednisone (4DS), and augmentin (9DS) on 06/26 per Sánchez. Patient seemed confused on which ones she was finished with and if she took them yesterday. She thinks yesterday was her last day. Kept augmentin on med list since its a 9DS. She said she did not take her maintenance medications yesterday.
--- NOTE | 2024-06-30 11:57 | PC.NURSE ---
pt is yelling out, this nurse went to ask her why she was yelling, pt stated because I am sick, I dont feel well, just leave me the fuck alone this nurse explained to the patient that there are many other patients on the unit trying to sleep because they also arent feeling well. pt states I dont give a fuck about any of the other patients, get the fuck out of my room this nurse left patients room. Pt then rang call moss and began yelling before we could answer it pt yelling for an ice cream. Pt was given an ice cream and again asked to stop yelling for the sake of the other patients.
[2024-06-30] MEDS: FLUoxetine HCl 20 MG CAPSULE 40 MG PO (12:33)
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
[2024-06-30] MEDS: ondansetron HCL 4 MG/2 ML VIAL IVPUSH (16:10)
--- NOTE | 2024-06-30 17:06 | PC.NURSE ---
Pt making a lot of noise with her coughing. Pt next door complained about her noise. Asked if it was okay to close patients door and she said yes. Pt is AxO3, IND with ADLs and can use call moss when needed.
[2024-07-01] VITALS (8 sets, daily range): BP systolic 127–180; BP diastolic 67–81; PULSE 95–100; RESP 18–20; TEMP 37–37.2; O2SAT 84–99
[2024-07-01] MEDS: 0.9 % Sodium Chloride Flush 3 ML SYRINGE IVFLUSH ×4 (00:35→23:23)
[2024-07-01] MEDS: Albuterol/Iprat 2.5/0.5MG 3 ML AMPUL.NEB INHALE ×3 (01:27→11:18)
[2024-07-01] MEDS: Atorvastatin Calcium 20 MG TABLET PO (07:29)
[2024-07-01] MEDS: FLUoxetine HCl 20 MG CAPSULE 40 MG PO (07:29)
[2024-07-01] MEDS: predniSONE 20 MG TABLET 40 MG PO (07:29)
[2024-07-01] MEDS: Acetaminophen 325 MG TABLET 650 MG PO (07:30)
[2024-07-01] MEDS: amLODIPine Besylate 5 MG TABLET PO (07:30)
[2024-07-01 07:43] LABS: Hematocrit 43.5 % (37.0-47.0); Hemoglobin 13.8 g/dl (12.0-16.0); Mean Corpuscular HGB Conc 31.7 g/dl (31.0-35.0); Mean Corpuscular Hemoglobin 31.6 pg (27.0-33.0); Mean Corpuscular Volume 99.5 fL (80.0-98.0); Mean Platelet Volume 10.3 fL (9.4-12.3); Platelet Count 211 X10*3/uL (160-400); Red Blood Count 4.37 X10*6/uL (4.20-5.50); Red Cell Distribution Width 13.7 % (11.0-16.0); White Blood Count 11.1 X10*3/uL (4.8-10.8)
[2024-07-01] MEDS: Fluticasone/Umeclidinium/Vilanterol 200/62.5/25 BLST.W.DEV 1 PUFF INHALE (07:44)
[2024-07-01 09:18] LABS: Anion Gap 12 (12-20); Blood Urea Nitrogen 20 mg/dL (9-16); Calcium 9.1 mg/dL (8.4-10.2); Carbon Dioxide 30 mmol/L (22-29); Chloride 105 mmol/L (96-108); Estimated Glomerular Filt Rate > 60; Glucose Random 99 mg/dL (60-115); Potassium 4.1 mmol/L (3.3-5.1); Sodium 143 mmol/L (135-145)
--- NOTE | 2024-07-01 09:45 | P.PNIM_ITS ---
Subjective Subjective Date of Service: 07/01/24 Interval History: sob Physical Exam 2 Vital Signs: Vital Signs: Last Vital Signs Temp 98.7 F 07/01/24 07:54 Pulse 100 07/01/24 07:54 Resp 18 07/01/24 07:54 BP 180/79 H 07/01/24 07:54 Pulse Ox 98 07/01/24 07:54 O2 Del Method Nasal Cannula 07/01/24 07:54 O2 Flow Rate 3 07/01/24 07:54 BMI result Body Mass Index 26.0 General: AO X 3, no acute distress Resp: wheezing bilateral, no accessory muscles used CVS: S1,S2,RRR GI: soft, non tender, non distended Neuro: motor grossly intact, alert Psych: appropriate affect, appropriate insight Objective Data Active Medications Acetaminophen (Acetaminophen 325 Mg Tablet) 650 mg PO Q6H PRN PRN Reason: Pain, Mild 1-3,fever,headache Last Admin: 07/01/24 07:30 Dose: 650 mg Documented By: JERSEY Albuterol/Ipratropium (Albuterol/Iprat 2.5/0.5mg 3 Ml Ampul.Neb) 3 ml INHALE Q4H PRN PRN Reason: Shortness of Breath/Wheezing Last Admin: 07/01/24 01:27 Dose: 3 ml Documented By: SAHRA Albuterol/Ipratropium (Albuterol/Iprat 2.5/0.5mg 3 Ml Ampul.Neb) 3 ml INHALE RQ4H WHILE AWAKE [facility] Last Admin: 07/01/24 07:44 Dose: 3 ml Documented By: EMELI Amlodipine Besylate (Amlodipine Besylate 5 Mg Tablet) 5 mg PO DAILY [facility]; Protocol Last Admin: 07/01/24 07:30 Dose: 5 mg Documented By: JERSEY Atorvastatin Calcium (Atorvastatin Calcium 20 Mg Tablet) 20 mg PO DAILY [facility] Last Admin: 07/01/24 07:29 Dose: 20 mg Documented By: JERSEY Benzonatate (Benzonatate 100 Mg Capsule) 100 mg PO TID PRN PRN Reason: Cough Last Admin: 06/30/24 06:38 Dose: 100 mg Documented By: IRENE Calcium Carbonate (Calcium Carbonate 750 Mg Tab.Chew) 750 mg PO Q4H PRN PRN Reason: Heartburn Enoxaparin Sodium (Enoxaparin Sodium 40 Mg/0.4 Ml Syringe) 40 mg SUBCUT Q24H [facility] Last Admin: 06/30/24 22:58 Dose: 40 mg Documented By: SAHRA Fluoxetine HCl (Fluoxetine Hcl 20 Mg Capsule) 40 mg PO DAILY [facility] Last Admin: 07/01/24 07:29 Dose: 40 mg Documented By: JERSEY Fluticasone/Umeclidinium/Vilanterol (Fluticasone/Umeclidinium/Vilanterol 200/62.5/ Blst.W.Dev) 1 puff INHALE DAILY [facility] Last Admin: 07/01/24 07:44 Dose: 1 puff Documented By: EMELI Azithromycin 500 mg/ Sodium (Chloride) 250 mls @ 125 mls/hr IV Q24H [facility] Last Infusion: 07/01/24 01:00 Dose: Infused Documented By: SAHRA Magnesium Hydroxide (Milk Of Magnesia 30 Ml Oral.Susp) 30 ml PO DAILY PRN PRN Reason: Constipation Melatonin (Melatonin 3 Mg Tablet) 6 mg PO BEDTIME PRN PRN Reason: Insomnia Ondansetron HCl (Ondansetron Hcl 4 Mg/2 Ml Vial) 4 mg IVPUSH Q8H PRN PRN Reason: Nausea and Vomiting Last Admin: 06/30/24 16:10 Dose: 4 mg Documented By: JERSEY Oseltamivir Phosphate (Oseltamivir Phosphate 75 Mg Capsule) 75 mg PO Q12H [facility] Stop: 07/04/24 12:01 Last Admin: 06/30/24 22:58 Dose: 75 mg Documented By: SAHRA Prednisone (Prednisone 20 Mg Tablet) 40 mg PO DAILY [facility] Last Admin: 07/01/24 07:29 Dose: 40 mg Documented By: JERSEY Sodium Chloride (0.9 % Sodium Chloride Flush 3 Ml Syringe) 3 ml IVFLUSH QSHIFT [facility] Last Admin: 07/01/24 07:30 Dose: 3 ml Documented By: JERSEY Labs 07/01/24 07:23 07/01/24 07:23 Labs: Laboratory Results - last 24 hr 07/01/24 07:23 MCV 99.5 H MCH 31.6 MCHC 31.7 RDW 13.7 Plt Count 211 MPV 10.3 Absolute Nucleated RBC 0.000 Nucleated RBC % (auto) 0.0 Anion Gap 12 Estim Creat Clear Calc 62.0 Estimated GFR > 60 Random Glucose 99 Calcium 9.1 Microbiology Microbiology Results: Microbiology 06/29/24 20:16 Blood Culture - Preliminary Blood - Venous No growth after 24 hours. 06/29/24 20:16 Blood Culture - Preliminary Blood - Venous No growth after 24 hours. Assessment and Plan (1) COPD (chronic obstructive pulmonary disease): Status: Acute Plan 74F PMH copd, mood disorder, gerd, htn, hld presented with sob Acute hypoxic respiratory failure secondary to flu complicated by COPD with acute decompensation IV steroids, Tamiflu, azithromycin, DuoNeb Mood disorder fluoextine dvt prophylaxis - lovenox full code reason for continued hospitalization:sob, hypoxia Quality Stroke Does the patient have a stroke diagnosis?: No VTE Prior VTE?: No VTE Risk Level:: Medical - moderate - high VTE Device Contraindication: Treatment Not Indicated VTE Drug Contraindication: N/A - Med Ordered
[2024-07-01] MEDS: Oseltamivir Phosphate 75 MG CAPSULE PO ×2 (11:54→23:23)
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
[2024-07-01] MEDS: LORazepam 2 MG/ML VIAL 0.5 MG IVPUSH (16:11)
[2024-07-01] MEDS: Enoxaparin Sodium 40 MG/0.4 ML SYRINGE SUBCUT (23:24)
[2024-07-01] MEDS: Azithromycin 500 MG in 0.9 % Sodium Chloride 250 ML 125 MG IV (23:27)
[2024-07-02] VITALS (12 sets, daily range): BP systolic 124–164; BP diastolic 58–90; PULSE 83–117; RESP 16–21; TEMP 36.3–37.1; O2SAT 89–97
[2024-07-02] MEDS: LORazepam 1 MG TABLET PO (02:46)
[2024-07-02 06:21] LABS: Venous Blood Gas Refer to POC result
[2024-07-02 06:23] LABS: VBG HCO3 41 mmol/L (22-26); VBG pCO2 65 mmHg; VBG pH 7.41 (7.32-7.43); VBG pO2 64 mmHg
[2024-07-02 06:26] LABS: Hematocrit 43.3 % (37.0-47.0); Hemoglobin 13.6 g/dl (12.0-16.0); Mean Corpuscular HGB Conc 31.4 g/dl (31.0-35.0); Mean Corpuscular Hemoglobin 31.3 pg (27.0-33.0); Mean Corpuscular Volume 99.8 fL (80.0-98.0); Mean Platelet Volume 10.1 fL (9.4-12.3); Platelet Count 201 X10*3/uL (160-400); Red Blood Count 4.34 X10*6/uL (4.20-5.50); Red Cell Distribution Width 13.7 % (11.0-16.0); White Blood Count 7.5 X10*3/uL (4.8-10.8)
[2024-07-02 06:40] LABS: Anion Gap 9 (12-20); Blood Urea Nitrogen 17 mg/dL (9-16); Calcium 9.2 mg/dL (8.4-10.2); Carbon Dioxide 35 mmol/L (22-29); Chloride 103 mmol/L (96-108); Creatinine Clr Calc Pharmacy 66.5; Estimated Glomerular Filt Rate > 60; Glucose Random 94 mg/dL (60-115); Potassium 3.9 mmol/L (3.3-5.1); Sodium 143 mmol/L (135-145)
[2024-07-02] MEDS: Fluticasone/Umeclidinium/Vilanterol 200/62.5/25 BLST.W.DEV 1 PUFF INHALE (07:49)
[2024-07-02] MEDS: Albuterol/Iprat 2.5/0.5MG 3 ML AMPUL.NEB INHALE ×4 (07:52→20:30)
[2024-07-02] MEDS: Benzonatate 100 MG CAPSULE PO (08:56)
[2024-07-02] MEDS: Atorvastatin Calcium 20 MG TABLET PO (08:56)
[2024-07-02] MEDS: predniSONE 20 MG TABLET 40 MG PO (08:56)
[2024-07-02] MEDS: 0.9 % Sodium Chloride Flush 3 ML SYRINGE IVFLUSH ×3 (08:56→22:57)
[2024-07-02] MEDS: FLUoxetine HCl 20 MG CAPSULE 40 MG PO (08:56)
[2024-07-02] MEDS: amLODIPine Besylate 5 MG TABLET PO (08:57)
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
--- NOTE | 2024-07-02 12:05 | P.CDIM_ITS ---
PROVIDER RESPONSE TEXT: To clarify, the appropriate diagnosis supported by the clinical indicators: Other (explain): viral sepsis QUERY TEXT: PHYSICIAN'S DOCUMENTATION REQUEST Date of Query: 07/02/2024 11:49 AM EST Patient Name: Alisia Xiao Admit Date: 06/30/2024 Dear Dash Garza MD, A review of the medical record indicates additional documentation may be needed. Please review below and update the documentation accordingly. The purpose of this query is not to question medical judgment, but to ensure the accuracy of the cond itions reported for your patient. The diagnosis of Sepsis is documented in the record on 06/29/24 in the ER note. There is either a lack of clinical support for this condition in the current medical record, or there is a lack of recognized standard criteria to s upport the condition. Clinical Indicators: WBC 13.8 pulse 119 respiratory rate 24 LA .8 Concerned for sepsis IV Azithromycin Q24H The request is for one of the following: A) Additional documentation to support the condition. Indicate if this is in lieu of what may be cons idered standard criteria, and/or support why the standard criteria may not be present for this patient. Or B) A more appropriate diagnosis, reflecting the patient's condition. Please clarify the documentation of Sepsis: Sepsis remains a known or suspected condition for this patient and is further supported by Sepsis has been ruled out and a more appropriate diagnosis for this patient's condition is Other (explain) Clinically unable to determine (explain) Thank you, Kaelyn Graves RN Use of terms such as suspected, likely, concern for, or probable (associated with a specific diagnosi s that is being evaluated, monitored, or treated as if it exists) are acceptable and can be coded in the inpatient se tting, when documented at the time of discharge. Please use your independent medical judgment in providing your response. THIS QUERY IS PART OF THE PERMANENT MEDICAL RECORD
[2024-07-02] MEDS: LORazepam 0.5 MG TABLET PO (12:43)
[2024-07-02] MEDS: Oseltamivir Phosphate 75 MG CAPSULE PO ×2 (12:43→22:51)
[2024-07-02] MEDS: Enoxaparin Sodium 40 MG/0.4 ML SYRINGE SUBCUT (22:52)
[2024-07-02] MEDS: Azithromycin 500 MG in 0.9 % Sodium Chloride 250 ML 125 MG IV (22:56)
[2024-07-02] MEDS: Melatonin 3 MG TABLET 6 MG PO (23:08)
[2024-07-02] MEDS: Acetaminophen 325 MG TABLET 650 MG PO (23:08)
[2024-07-03] VITALS (10 sets, daily range): BP systolic 114–141; BP diastolic 69–86; PULSE 92–112; RESP 15–26; TEMP 36.3–36.8; O2SAT 90–96
--- NOTE | 2024-07-03 00:32 | PC.NURSE ---
pt refused to wear BIPAP at this time, NC placed on pt at 3L, pt resting comfortable at this time, respirations even and non-labored with no apparent distress, respiratory informed.
[2024-07-03] MEDS: Benzonatate 100 MG CAPSULE PO ×3 (04:15→23:14)
[2024-07-03 06:25] LABS: VBG Base Excess 27.9 mmol/L; VBG HCO3 53 mmol/L (22-26); VBG pCO2 59 mmHg; VBG pH 7.56 (7.32-7.43); VBG pO2 101 mmHg
[2024-07-03 06:31] LABS: Hematocrit 41.8 % (37.0-47.0); Hemoglobin 13.2 g/dl (12.0-16.0); Mean Corpuscular HGB Conc 31.6 g/dl (31.0-35.0); Mean Corpuscular Hemoglobin 31.5 pg (27.0-33.0); Mean Corpuscular Volume 99.8 fL (80.0-98.0); Mean Platelet Volume 10.3 fL (9.4-12.3); Platelet Count 210 X10*3/uL (160-400); Red Blood Count 4.19 X10*6/uL (4.20-5.50); Red Cell Distribution Width 13.6 % (11.0-16.0); White Blood Count 7.1 X10*3/uL (4.8-10.8)
[2024-07-03 06:35] LABS: Anion Gap 11 (12-20); Blood Urea Nitrogen 17 mg/dL (9-16); Carbon Dioxide 34 mmol/L (22-29); Chloride 104 mmol/L (96-108); Creatinine Clr Calc Pharmacy 72.8; Estimated Glomerular Filt Rate > 60; Glucose Random 93 mg/dL (60-115); Potassium 3.5 mmol/L (3.3-5.1); Sodium 145 mmol/L (135-145)
[2024-07-03] MEDS: Atorvastatin Calcium 20 MG TABLET PO (08:06)
[2024-07-03] MEDS: predniSONE 20 MG TABLET 40 MG PO (08:06)
[2024-07-03] MEDS: amLODIPine Besylate 5 MG TABLET PO (08:06)
[2024-07-03] MEDS: FLUoxetine HCl 20 MG CAPSULE 40 MG PO (08:06)
[2024-07-03] MEDS: acetaZOLAMIDE sodium 500 MG VIAL IVPUSH (08:07)
[2024-07-03] MEDS: 0.9 % Sodium Chloride Flush 3 ML SYRINGE IVFLUSH ×2 (08:07→15:16)
[2024-07-03] MEDS: Fluticasone/Umeclidinium/Vilanterol 200/62.5/25 BLST.W.DEV 1 PUFF INHALE (08:35)
[2024-07-03] MEDS: Albuterol/Iprat 2.5/0.5MG 3 ML AMPUL.NEB INHALE ×4 (08:35→20:08)
[2024-07-03] MEDS: Acetaminophen 325 MG TABLET 650 MG PO ×2 (08:50→23:06)
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
[2024-07-03 09:40] LABS: Venous Blood Gas Refer to POC result
[2024-07-03] MEDS: Oseltamivir Phosphate 75 MG CAPSULE PO ×2 (12:35→23:06)
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
--- NOTE | 2024-07-03 22:00 | PC.NURSE ---
pt wore Bipap for a little, while and then took it off stating she has had enough, pt refusing to wear BIPAP
[2024-07-03] MEDS: Enoxaparin Sodium 40 MG/0.4 ML SYRINGE SUBCUT (22:03)
[2024-07-03] MEDS: Melatonin 3 MG TABLET 6 MG PO (23:06)
[2024-07-03] MEDS: Azithromycin 500 MG in 0.9 % Sodium Chloride 250 ML 125 MG IV (23:08)
[2024-07-04] VITALS (10 sets, daily range): BP systolic 137–174; BP diastolic 67–99; PULSE 74–114; RESP 16–20; TEMP 36–36.9; O2SAT 93–98
[2024-07-04 07:12] LABS: Venous Blood Gas Refer to POC result
[2024-07-04 07:13] LABS: VBG Base Excess 3.4 mmol/L; VBG HCO3 30 mmol/L (22-26); VBG pCO2 57 mmHg; VBG pH 7.33 (7.32-7.43); VBG pO2 66 mmHg
[2024-07-04 07:13] LABS: Hematocrit 42.8 % (37.0-47.0); Hemoglobin 13.5 g/dl (12.0-16.0); Mean Corpuscular HGB Conc 31.5 g/dl (31.0-35.0); Mean Corpuscular Hemoglobin 31.8 pg (27.0-33.0); Mean Corpuscular Volume 100.7 fL (80.0-98.0); Mean Platelet Volume 9.8 fL (9.4-12.3); Platelet Count 228 X10*3/uL (160-400); Red Blood Count 4.25 X10*6/uL (4.20-5.50); Red Cell Distribution Width 13.7 % (11.0-16.0)
[2024-07-04 07:30] LABS: Anion Gap 8 (12-20); Blood Urea Nitrogen 16 mg/dL (9-16); Calcium 8.9 mg/dL (8.4-10.2); Carbon Dioxide 29 mmol/L (22-29); Chloride 111 mmol/L (96-108); Creatinine Clr Calc Pharmacy 62.8; Estimated Glomerular Filt Rate > 60; Glucose Random 93 mg/dL (60-115); Magnesium 2.2 mg/dL (1.6-2.6); Potassium 3.7 mmol/L (3.3-5.1); Sodium 144 mmol/L (135-145)
[2024-07-04] MEDS: Fluticasone/Umeclidinium/Vilanterol 200/62.5/25 BLST.W.DEV 1 PUFF INHALE (08:23)
[2024-07-04] MEDS: Albuterol/Iprat 2.5/0.5MG 3 ML AMPUL.NEB INHALE ×4 (08:23→19:06)
[2024-07-04] MEDS: 0.9 % Sodium Chloride Flush 3 ML SYRINGE IVFLUSH ×2 (08:36→16:14)
[2024-07-04] MEDS: amLODIPine Besylate 5 MG TABLET PO (08:37)
[2024-07-04] MEDS: FLUoxetine HCl 20 MG CAPSULE 40 MG PO (08:37)
[2024-07-04] MEDS: predniSONE 20 MG TABLET 40 MG PO (08:37)
[2024-07-04] MEDS: Atorvastatin Calcium 20 MG TABLET PO (08:37)
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
[2024-07-04] MEDS: Oseltamivir Phosphate 75 MG CAPSULE PO (11:45)
--- NOTE | 2024-07-04 13:49 | MHC.CM.PN ---
EMR REVIEWED AND PER MD ROUNDS. PT WILL HAVE A P.T. EVAL TO SEE WHAT DC NEEDS WILL BE. P.T. REC STR. REFERRALS PLACED AND [facility] IS OFFERING A BED WHEN MEDICALLY CLEARED. MD UPDATED. CM WILL CONTINUE TO FOLLOW.
[2024-07-04] MEDS: Acetaminophen 325 MG TABLET 650 MG PO ×2 (16:15→22:15)
[2024-07-04] MEDS: LORazepam 1 MG TABLET PO (21:07)
[2024-07-04] MEDS: Melatonin 3 MG TABLET 6 MG PO (22:12)
[2024-07-04] MEDS: Enoxaparin Sodium 40 MG/0.4 ML SYRINGE SUBCUT (22:12)
[2024-07-04] MEDS: Benzonatate 100 MG CAPSULE PO (22:12)
[2024-07-04] MEDS: Calcium Carbonate 750 MG TAB.CHEW PO (22:12)
[2024-07-04] MEDS: Azithromycin 500 MG in 0.9 % Sodium Chloride 250 ML 125 MG IV (23:13)
[2024-07-05] MEDS: 0.9 % Sodium Chloride Flush 3 ML SYRINGE IVFLUSH ×2 (00:06→08:33)
[2024-07-05 03:27] VITALS: BP 145/70; PULSE 81; RESP 16; TEMP 36; O2SAT 97
[2024-07-05 06:40] LABS: Basophils Percent Auto 0.4 % (0-2); Eosinophils Percent Auto 0.2 % (0-4); Hematocrit 43.9 % (37.0-47.0); Hemoglobin 13.9 g/dl (12.0-16.0); Imm Gran Abs Auto 0.07 X10*3/uL (0.00-0.03); Imm Gran Pct Auto 0.8 % (0.0-0.4); Lymphocytes Absolute Auto 3.2 X10*3/uL (1.2-4.9); Lymphocytes Percent Auto 35.5 % (20-40); MANUAL DIFF FLAG SCAN; Mean Corpuscular HGB Conc 31.7 g/dl (31.0-35.0); Mean Corpuscular Hemoglobin 31.2 pg (27.0-33.0); Mean Corpuscular Volume 98.4 fL (80.0-98.0); Mean Platelet Volume 10.1 fL (9.4-12.3); Monocytes Absolute Auto 0.9 X10*3/uL (0.1-1.2); Monocytes Percent Auto 10.5 % (2-11); Neutrophils Absolute Auto 4.7 x10*3/uL (2.0-8.3); Neutrophils Percent Auto 52.6 % (45-73); Platelet Count 236 X10*3/uL (160-400); Red Blood Count 4.46 X10*6/uL (4.20-5.50); Red Cell Distribution Width 13.4 % (11.0-16.0); SCAN SMEAR FLAG 1; White Blood Count 8.9 X10*3/uL (4.8-10.8)
[2024-07-05 06:56] LABS: Anion Gap 10 (12-20); Blood Urea Nitrogen 18 mg/dL (9-16); Calcium 9.4 mg/dL (8.4-10.2); Carbon Dioxide 28 mmol/L (22-29); Chloride 107 mmol/L (96-108); Creatinine Clr Calc Pharmacy 62.8; Estimated Glomerular Filt Rate > 60; Glucose Random 85 mg/dL (60-115); Potassium 3.8 mmol/L (3.3-5.1); Sodium 141 mmol/L (135-145)
[2024-07-05 07:18] VITALS: BP 151/73; PULSE 74; RESP 16; TEMP 36.5; O2SAT 98
[2024-07-05 07:27] LABS: SLIDE REVIEW VERIFIED
[2024-07-05] MEDS: Fluticasone/Umeclidinium/Vilanterol 200/62.5/25 BLST.W.DEV 1 PUFF INHALE (07:50)
[2024-07-05] MEDS: Albuterol/Iprat 2.5/0.5MG 3 ML AMPUL.NEB INHALE ×2 (07:50→12:18)
[2024-07-05 07:52] VITALS: PULSE 78; RESP 20; O2SAT 98
[2024-07-05] MEDS: amLODIPine Besylate 5 MG TABLET PO (08:26)
[2024-07-05] MEDS: predniSONE 20 MG TABLET 40 MG PO (08:26)
[2024-07-05] MEDS: FLUoxetine HCl 20 MG CAPSULE 40 MG PO (08:26)
[2024-07-05] MEDS: Atorvastatin Calcium 20 MG TABLET PO (08:26)
[2024-07-05 09:37] VITALS: PULSE 78
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
--- NOTE | 2024-07-05 11:17 | MHC.CM.PN ---
DP: PT HAS BEEN MEDICALLY CLEARED FOR DC TO [facility] AT [facility] [place]. PT IS AGREEABLE TO THIS PLAN. RN/MD UPDATED. BLS TRANSPORT BOOKED FOR 1 PM VIA [facility]. FINAL IMM GIVEN.
[2024-07-05 12:20] VITALS: PULSE 92; RESP 22; O2SAT 94
--- NOTE | 2024-07-05 12:40 | PC.NURSE ---
Report called to [facility] and [facility] at 1230.
[2024-07-05 13:20] VITALS: BP 139/74; PULSE 108; RESP 18; TEMP 36.4; O2SAT 90
== END 2024-07-05 13:29 | disposition skilled nursing facility (03) | DRG 871 ==
LOC: HO.ED 20:21 → HO.EDOVER 22:46 → HO.S3 06-30 10:44
PROVIDERS: Internal Medicine; Physician Assistant Medical; Admitting Provider Student in an Organized Health Care Education/Training Program; Emergency Provider Emergency Medicine; PCP Nurse Practitioner Family; Visit Provider Student in an Organized Health Care Education/Training Program
DX: A41.89 Other specified sepsis (principal); J96.01 Acute respiratory failure with hypoxia; J96.02 Acute respiratory failure with hypercapnia; J44.1 Chronic obstructive pulmonary disease with (acute) exacerbation; E87.3 Alkalosis; E78.2 Mixed hyperlipidemia; I10 Essential (primary) hypertension; F39 Unspecified mood [affective] disorder; J10.1 Influenza due to other identified influenza virus with other respiratory manifestations; F17.210 Nicotine dependence, cigarettes, uncomplicated; Z20.822 Contact with and (suspected) exposure to COVID-19; Z71.6 Tobacco abuse counseling; Z79.51 Long term (current) use of inhaled steroids; Z79.899 Other long term (current) drug therapy
CPT/HCPCS: 0241U; 36415; 71260; 80048; 81001; 82803; 83605; 83735; 85025; 85027; 87040; 93005; 94640; 94660; 97116; 97162; 99285; J0456; J0696; J1120; J1650; J2060; J2405; J2919; J3475; J7120; Q9967

== ENCOUNTER → 2024-06-29 20:03 | Outpatient (BNV) | payer MEDICARE, SELFPAY | PROVIDERS: Emergency Provider Emergency Medicine; Visit Provider Specialist | DX: J43.9 Emphysema, unspecified (principal); F17.210 Nicotine dependence, cigarettes, uncomplicated | CPT/HCPCS: 71260 ==

== ENCOUNTER → 2024-06-29 20:05 | Outpatient (BNV) | payer MEDICARE, SELFPAY | PROVIDERS: Admitting Provider Student in an Organized Health Care Education/Training Program; Emergency Provider Emergency Medicine; Visit Provider Internal Medicine Cardiovascular Disease | DX: R06.02 Shortness of breath (principal); R00.0 Tachycardia, unspecified; R94.31 Abnormal electrocardiogram [ECG] [EKG] | CPT/HCPCS: 93010 ==

== ENCOUNTER → 2024-06-29 22:41 | Outpatient (BNV) | payer MEDICARE, SELFPAY | PROVIDERS: Admitting Provider Student in an Organized Health Care Education/Training Program; Emergency Provider Emergency Medicine; Visit Provider Student in an Organized Health Care Education/Training Program | DX: J44.1 Chronic obstructive pulmonary disease with (acute) exacerbation (principal); J96.01 Acute respiratory failure with hypoxia; J96.02 Acute respiratory failure with hypercapnia | CPT/HCPCS: 99222; 99232; 99239 ==